=== PATIENT | female | born 1940 | race Caucasian/White ===

== ENCOUNTER 2016-09-18 08:30 | Inpatient (IN) | payer MEDICARE ==
[2016-09-18 08:30] LABS: Glucose,Whole Blood 80 mg/dL (75-99)
[~2016-09-18 08:30] MED LIST: CLINDAMYCIN 600 MG in SODIUM CHLORIDE 0.9% IRRIGATIO 250 ML IRRIGATION ONE; CLINDAMYCIN 900 MG in DEXTROSE 5% IN WATER 50 ML IVPB ONE; SODIUM CHLORIDE 0.9% 500 ML IV ONE
[2016-09-18 08:45] VITALS: BMI 29.0
[2016-09-18] MEDS ORDERED: IODIXANOL 320 MG/ML 100 ML IV ONE (09:08)
[2016-09-18] MEDS: MIDAZOLAM 2 MG/2 ML VIAL IVP ONE ×3 (09:29→09:45)
[2016-09-18] MEDS: fentaNYL (PF) 50 MCG/ML 2 ML AMP IV ONE ×3 (09:42→09:55)
[2016-09-18] MEDS ORDERED: LIDOCAINE 1% INJ 10MG/ML (20 ML MDV) SQ ONE ×3 (09:43→10:25)
--- NOTE | 2016-09-18 10:57 | P.PCN ---
Date of Procedure: 09/18/16 Preoperative Diagnosis: Symptoms of syncope and high degree AV block Postoperative Diagnosis: The same Procedure(s) Performed: Axillary venography, dual chamber permanent pacemaker implantation Description of Procedure: HISTORY: This is a 76-year-old female who was admitted to [facility] and was noted to have recurrent episodes of syncope and high degree AV block with pauses up to 6 seconds. Patient has underlying left bundle. Patient was recommended to have permanent pacemaker by Dr. Cui. Patient is transferred to this institution for pacemaker insertion. Her baseline creatinine is 1.37, potassium today. 5.6. Repeat test are pending . CONSENT:I have discussed the risks, benefits and alternative therapies for the above-mentioned procedure and for both sedation/analgesia as well as necessary blood product administration, if indicated, as they pertain to this patient. The patient has indicated understanding and acceptance of the risks and procedures discussed. PROCEDURE: Patient was brought to the lab in a fasting state. Patient was prepped and draped in the usual fashion. Patient was given IV sedation with fentanyl and Versed. The skin below the left clavicle was infiltrated with lidocaine. An incision was made parallel to deltopectoral groove was deepened until the pectoral fascia was exposed. A pocket was created by blunt dissection and cautery. Axillary venography was performed to delineate the course of the axillary vein. 2 sticks were performed into extrathoracic portion of the axillary vein and 2 sheaths were advanced over the guidewires and left in subclavian vein. LEADS: ATRIAL: This is manufactured by [employer]. Model number is [id number]. Serial number is [id number]. VENTRICULAR: This is manufactured by [employer]. Model number is [id number] and the serial number is [id number] THE DEVICE: His is manufactured by [employer]. Model number is [id number]. Serial number is [id number]. The device and the leads are MRI capable. The ventricular lead is maneuvered l with help of a straight and curved stylets into the left ventricle apical region. Satisfactory position was obtained and threshold measurements were made. The atrial lead was then maneuvered into the right atrial appendage. And thresholds were obtained. THRESHOLDS: ATRIUM: The minimal threshold is 0.7 V at the also width of 0.5 ms. The impedance is 6 and 60 ohms. The P-wave is 3.9 mV VENTRICLE : The minimal patient threshold was 0.6 V at pulse width of 0.5 ms. The impedance is 1209. And the R waves are 18 mV. The leads and pulse generator remained in the pocket after it was washed with antibiotics. Pocket was closed in the usual fashion. The fascia was closed with 2-0 Prolene ,the subcutaneous tissue was closed with 3-0 Prolene and the skin was closed with 4-0 Prolene. PROGRAMMING: MODE: DDD RATE: 60-120 OUTPUT: Atrium 3.5 at 0.5 ms ventricle : 3.5 at 0.5 ms FINAL IMPRESSION: #1. Axillary venography #2. Successful dual-chamber pacemaker insertion COMPLICATIONS: None PLAN: Patient will be monitored on the telemetry unit. Prophylactic antibiotics and be continued. Chest x-ray in the morning. Further recommendations depend upon clinical course
[2016-09-18 11:36] LABS: Glucose,Whole Blood 75 mg/dL (75-99)
[2016-09-18] MEDS ORDERED: DICLOFENAC SODIUM GEL 100 GM TUBE TOPICAL PRN (12:42)
[2016-09-18] MEDS ORDERED: IBUPROFEN 400 MG TAB PO SCH (12:42)
[2016-09-18] MEDS ORDERED: [UNRECOGNIZED DRUG - OTHER] NASAL PRN (12:42)
[2016-09-18] MEDS ORDERED: ALBUTEROL NEBULIZED 2.5 MG/3 ML INHALATION PRN (12:42)
[2016-09-18] MEDS: ACETAMINOPHEN TAB 325 MG TAB PO PRN ×3 (12:44→22:38)
[2016-09-18] MEDS: SODIUM CHLORIDE 0.9% 1,000 ML IV SCH (14:39)
[2016-09-18 16:27] LABS: Glucose,Whole Blood 82 mg/dL (75-99)
--- NOTE | 2016-09-18 16:49 | P.HPIM ---
History of Present Illness H&P Date: 09/18/16 Chief Complaint: Syncope, pneumonia Patient is a 76-year-old female, patient of Dr. Mortensen in the outpatient setting, with a medical history significant for GERD, bronchitis, asthma, diabetes mellitus type 2, osteoporosis, hypertension, hypothyroidism, lupus, arthritis, chronic back pain with history of spinal fractures, and large hiatal hernia. Patient presenting to [facility] this morning as a transfer from [facility] with evidence of complete AV block , symptomatic. Patient was originally admitted to [facility] 2 days ago with progressive dyspnea and fatigue having failed outpatient treatment with Zithromax for pneumonia. During patient's hospital stay, she had 2 episodes of syncope with documented 6 second pauses with total AV block on telemetry. This morning, patient was taken to the cardiac catheterization lab where she underwent insertion of dual-chamber permanent pacemaker. Patient tolerated procedure well. Upon examination, patient is lying in bed with family at bedside. Patient reports feeling fatigued. Patient complains of back pain. Patient reports numbness to her bilateral ring and little fingers, which has been ongoing for a while. Patient reports chronic swelling to her bilateral feet but states they' re a lot better than what they normally are. Denies chills, fevers, nausea, vomiting, increased shortness of breath, chest pain, palpitations, abdominal pain, or leg pain. Patient is urinating without difficulty. Denies dysuria, hematuria, or urgency. Patient reports good appetite. Patient remains afebrile. Hemodynamically stable. Past Medical History Past Medical History: Hypertension, Thyroid Disorder Additional Past Medical History / Comment(s): lupus History of Any Multi-Drug Resistant Organisms: None Reported Past Surgical History: Appendectomy, Cholecystectomy Additional Past Surgical History / Comment(s): nasal surgery Past Anesthesia/Blood Transfusion Reactions: No Reported Reaction Past Psychological History: No Psychological Hx Reported Smoking Status: Former smoker Past Alcohol Use History: None Reported Past Drug Use History: None Reported Medications and Allergies Home Medications Medication Instructions Recorded Confirmed Type Albuterol Nebulized [Ventolin 2.5 mg INHALATION RT-Q6H PRN 01/15/16 09/18/16 History Nebulized] Hydroxychloroquine Sulfate 400 mg PO BID 01/15/16 09/18/16 History [Plaquenil] Levothyroxine Sodium [Synthroid] 125 mcg PO DAILY 01/15/16 09/18/16 History Losartan [Cozaar] 100 mg PO DAILY 01/15/16 09/18/16 History Omeprazole [PriLOSEC] 40 mg PO QAM 01/15/16 09/18/16 History amLODIPine [Norvasc] 10 mg PO DAILY 01/15/16 09/18/16 History predniSONE 5 mg PO BID 01/15/16 09/18/16 History Calcium Carbonate [Calcium] 1,200 mg PO DAILY 01/16/16 09/18/16 History Cholecalciferol [Vitamin D3] 1,000 unit PO DAILY 01/16/16 09/18/16 History Cyanocobalamin (Vitamin B-12) 2,000 mcg PO DAILY 01/16/16 09/18/16 History [Vitamin B-12] Montelukast [Singulair] 10 mg PO HS 01/16/16 09/18/16 History Vitafusion 1 caplet PO DAILY 01/16/16 09/18/16 History Azelastine HCl [Astepro] 2 spray EA NOSTRIL BID 09/18/16 09/18/16 History Furosemide [Furosemide] 20 mg PO BID 09/18/16 09/18/16 History Lidocaine [Lidocaine] 2 patch TOPICAL DAILY 09/18/16 09/18/16 History Allergies Allergy/AdvReac Type Severity Reaction Status Date / Time aspirin Allergy Unknown Verified 09/18/16 13:46 codeine Allergy Rash/Hives Verified 09/18/16 13:46 indomethacin [From Indocin] Allergy Unknown Verified 09/18/16 13:46 levofloxacin [From Levaquin] Allergy Unknown Verified 09/18/16 13:46 methylprednisolone Allergy Unknown Verified 09/18/16 13:46 [From Medrol] Penicillins Allergy Unknown Verified 09/18/16 13:46 Sulfa (Sulfonamide Allergy Rash/Hives Verified 01/17/16 09:50 Antibiotics) meloxicam [From Mobic] AdvReac stomache Verified 01/17/16 09:50 pain NSAIDS (Non-Steroidal AdvReac Abdominal Verified 09/18/16 13:46 Anti-Inflamma Pain oxaprozin [From Daypro] AdvReac Abdominal Verified 09/18/16 13:46 Pain prochlorperazine AdvReac Nausea & Verified 01/17/16 09:50 [From Compazine] Vomiting prochlorperazine edisylate AdvReac Nausea & Verified 01/17/16 09:50 [From Compazine] Vomiting and headache prochlorperazine maleate AdvReac Nausea & Verified 09/18/16 13:46 [From Compazine] Vomiting salsalate [From Disalcid] AdvReac Abdominal Verified 01/17/16 09:50 Pain vortioxetine hydrobromide AdvReac Abdominal Verified 01/17/16 09:50 [From Trintellix] Pain Physical Exam Vitals: Vital Signs Temp Pulse Pulse Resp BP Pulse Ox 09/18/16 14:32 82 96/58 93 L 09/18/16 13:32 87 16 97/55 95 09/18/16 12:32 94 16 103/53 95 09/18/16 12:02 89 16 93/66 96 09/18/16 11:32 98.1 F 98 16 111/65 95 09/18/16 11:17 87 16 108/62 95 09/18/16 11:06 93 16 111/63 95 09/18/16 08:31 98.5 F 86 16 125/67 94 L 09/18/16 07:51 98.5 F 86 16 125/67 16 L Intake and Output 09/18/16 09/18/16 09/18/16 06:59 14:59 22:59 Intake Total 346 Balance 346 Intake: IV 256 Sodium Chloride 0.9% 1, 0 000 ml @ 20 mls/hr IV . Q24H [facility] Rx#:[id number] Oral 90 Other: Voiding Method Indwelling Catheter Weight 67.3 kg Patient Weight 09/19/16 06:59 Weight 67.3 kg GENERAL: Pt awake and alert, well-appearing, well-nourished, and in no acute distress. HEAD: Atraumatic, normocephalic. EYES: Pupils equal, round, and reactive to light, extraocular movements intact, sclera anicteric, conjunctiva are normal. ENT: Oropharynx clear without exudates. Moist mucous membranes. Tongue smooth, pink, no lesions, protrudes in midline. NECK:Normal range of motion, supple without lymphadenopathy or JVD. LUNGS: Breath sounds diminished to auscultation bilaterally. No wheezes, rales , or rhonchi. HEART: Heart S1, S2, no S3 or S4. Regular rate and rhythm. Systolic murmur. ABDOMEN: Soft, nontender, nondistended, normoactive bowel sounds. No guarding, no rebound. No masses or organomegaly appreciated. EXTREMITIES: Palpable peripheral pulses. 1+ edema to bilateral lower extremities. No calf tenderness. Left upper extremity in sling. NEUROLOGICAL: Pt oriented x 3. No focal deficits noted. Strength and sensation grossly intact. PSYCH: Normal mood, normal affect. SKIN: Warm, dry. No rashes or lesions. Dressing to incision to left chest dry and intact. Thrombosis Risk Factor Assmnt - DVT/VTE Prophylaxis DVT/VTE Prophylaxis: Pharmacologic Prophylaxis ordered - Choose All That Apply Any of the Below Risk Factors Present?: No Other Risk Factors: Yes Each Risk Factor Represents 3 Points: Age 75 years or older Thrombosis Risk Factor Assessment Total Risk Factor Score: 3 Thrombosis Risk Factor Assessment Level: Moderate Risk Assessment and Plan Plan: Impression and plan: 1. Syncope suspect secondary to complete AV block status post permanent dual- chamber pacemaker insertion. Cardiology has seen and evaluated patient, recommendations reviewed. 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 Pacemaker to be interrogated in a.m. 2. History of pneumonia, failed outpatient treatment. Continue nebulized updraft treatments. Reconsult pulmonary service, conditions pending. 3. Hypertension. Continue hydrochlorothiazide. 4. Chronic renal failure, stage III. 5. GERD. Continue Protonix. 6. History of bronchitis. 7. Asthma. Continue Singulair. 8. Osteoporosis. Maintain fall precautions. Continue calcium and vitamin D. 9. Hypothyroidism. Continue Synthroid. 10. Lupus. Continue prednisone. Continue Plaquenil. 11. Chronic back pain with history of spinal fractures. Continue Tylenol for pain. Consult PT/OT to help with discharge planning. 12. Peripheral neuropathy. 13. Large hiatal hernia. 14. Diabetes mellitus type 2, controlled. Last hemoglobin A1c 6.6. Accu- Cheks before meals at bedtime with Humalog sliding scale. Consistent carbohydrate diet. Continue to monitor patient. Continue current medications. Continue to follow with pulmonary and cardiology. Continue GI and DVT prophylaxis. Repeat CBC and BMP in a.m. Repeat chest x-ray in a.m. The above impression and plan have been discussed and directed by Dr. Mortensen. Zack ARMAS acting as scribe for Dr. Mortensen.
[2016-09-18] MEDS: CLINDAMYCIN 900 MG in DEXTROSE 5% IN WATER 50 ML IVPB SCH ×4 (17:30→20:44)
[2016-09-18] MEDS: INSULIN LISPRO (humaLOG) 300 UNIT/3 ML VIAL SQ SCH ×2 (17:30→22:34)
[2016-09-18] MEDS ORDERED: predniSONE 5 MG TAB PO SCH (17:30)
[2016-09-18] MEDS: BUDESONIDE 0.5 MG/2 ML NEBU INHALATION SCH (18:05)
[2016-09-18] MEDS: HYDROXYCHLOROQUINE SULFATE 200 MG TAB PO SCH (20:44)
[2016-09-18] MEDS: MONTELUKAST 10 MG TAB PO SCH (20:44)
[2016-09-18] MEDS: predniSONE 5 MG TAB PO SCH (20:44)
[2016-09-18] MEDS: AZITHROMYCIN 500 MG in SODIUM CHLORIDE 0.9% 250 ML IVPB SCH (20:44)
[2016-09-18] MEDS ORDERED: OFLOXACIN 0.3% OPHTH DROPS 5 ML BOTTLE BOTH EARS SCH (21:00)
[2016-09-18 22:03] LABS: Glucose,Whole Blood 108 mg/dL (75-99)
[2016-09-18] MEDS: ALPRAZolam 0.25 MG TAB PO PRN (22:37)
[2016-09-19] MEDS: CLINDAMYCIN 900 MG in DEXTROSE 5% IN WATER 50 ML IVPB SCH ×4 (03:56→09:17)
[2016-09-19 06:15] LABS: Basophils % (A) 0 %; CH 32.3; CHCM 33.1; Eosinophils # (A) 0.1 k/uL (0-0.7); Eosinophils % (A) 1 %; HCT 32.6 % (34.0-46.0); HDW 2.59; HGB 10.7 gm/dL (11.4-16.0); Luc # (Auto) 0.13; Luc % (Auto) 1; Lymphocytes # (A) 0.9 k/uL (1.0-4.8); Lymphocytes % (A) 8 %; MCH 32.3 pg (25.0-35.0); MCHC 32.8 g/dL (31.0-37.0); MCV 98.4 fL (80.0-100.0); Mean Platelet Volume 6.6; Monocytes # (A) 0.6 k/uL (0-1.0); Monocytes % (A) 6 %; Neutrophils % (A) 84 %; RBC 3.31 m/uL (3.80-5.40); RDW 13.1 % (11.5-15.5); WBC 10.7 k/uL (3.8-10.6); WBC (Perox) 10.88
[2016-09-19] MEDS: INSULIN LISPRO (humaLOG) 300 UNIT/3 ML VIAL SQ SCH ×4 (06:32→21:04)
[2016-09-19] MEDS: LEVOTHYROXINE 125 MCG TAB PO SCH (06:32)
[2016-09-19] MEDS: PANTOPRAZOLE 40 MG TABLET PO SCH (06:32)
[2016-09-19 06:35] LABS: Glucose,Whole Blood 83 mg/dL (75-99)
[2016-09-19] MEDS: ACETAMINOPHEN TAB 325 MG TAB PO PRN ×3 (06:35→20:57)
[2016-09-19 06:37] LABS: Calcium 8.9 mg/dL (8.4-10.2); Magnesium 1.8 mg/dL (1.6-2.3); Phosphorous 4.1 mg/dL (2.5-4.5); Potassium 4.9 mmol/L (3.5-5.1); Total Bilirubin 0.6 mg/dL (0.2-1.3); Total Protein 4.9 g/dL (6.3-8.2)
--- NOTE | 2016-09-19 07:23 | XR ---
EXAMINATION TYPE: XR chest 2V DATE OF EXAM: 09/19/2016 7:15 AM COMPARISON: CT chest April 04, 2016. HISTORY: Pacemaker insertion. TECHNIQUE: Frontal and lateral views of the chest are obtained. FINDINGS: There is no focal air space opacity or pneumothorax seen. Tiny bilateral pleural effusion s with blunting of bilateral posterior and lateral costophrenic angles. The cardiac silhouette size r emains enlarged. There is new dual lead pacemaker with leads in right atrium and right ventricle. T he osseous structures are demineralized. There is exaggerated thoracic kyphosis with compression type fractures redemonstrated near the thoracolumbar junction. Prominent bridging osteophytes are redemon strated. IMPRESSION: New dual lead pacemaker with leads in right atrium and right ventricle. No evidence of c omplication related to pacemaker placement. Cardiomegaly with new small bilateral pleural effusions n oted.
[2016-09-19] MEDS: BUDESONIDE 0.5 MG/2 ML NEBU INHALATION SCH ×2 (08:56→20:27)
[2016-09-19] MEDS: SODIUM CHLORIDE 0.9% 1,000 ML IV SCH (09:14)
[2016-09-19] MEDS: HYDROCHLOROTHIAZIDE 25 MG TAB PO SCH (09:16)
[2016-09-19] MEDS: HYDROXYCHLOROQUINE SULFATE 200 MG TAB PO SCH ×2 (09:16→20:56)
[2016-09-19] MEDS: AZITHROMYCIN 500 MG in SODIUM CHLORIDE 0.9% 250 ML IVPB SCH (09:16)
[2016-09-19] MEDS: predniSONE 5 MG TAB PO SCH ×2 (09:17→20:57)
[2016-09-19] MEDS: ALBUTEROL NEBULIZED 2.5 MG/3 ML INHALATION SCH ×4 (10:43→20:27)
--- NOTE | 2016-09-19 11:35 | PN ---
DATE OF SERVICE: 09/18/2016 This note was actually for seeing her on the 27th report [id number] last p.m. same p.m. ( ) post placement the patient is being seen post placement of a pacemaker. She is doing well. No cough. No shortness of breath at this time. It is to be noted that a CT scan of the lung was completed just before she was transferred here for the pacemaker. It did show bilateral atelectasis with some streaking which might be a resemblance of still some mild underlying pneumonia. At this time her chest is essentially clear to auscultation. HEART: Sinus rhythm. No murmur. ABDOMEN: Soft, nontender, with no organomegaly. Capture is right around 70 beats per minute. Negative extremities. Her vital signs at this point tonight 109/68 blood pressure, heart rate is somewhere between 70 and 90, temperature is 97.2 and respiratory rate is 16 with a 95 O2 sat. ASSESSMENT: 1. Syncope, post complete heart block with pauses up to 6 seconds. 2. Resolving pneumonia. 3. History of chronic obstructive pulmonary disease. 4. Systemic lupus erythematosus. 5. Osteoporosis. 6. Gastroesophageal reflux disease on Protonix. 7. Hypertension, which has been stable. 8. Chronic back pain with a history of some compression fractures. 9. Large hiatal hernia. 10. Type 2 diabetes, which has been well controlled. Hemoglobin A1c of 6.2. PLAN: I added erythromycin to her, we will get a chest x-ray in the morning. Comfort care today, which includes continue with same medications. If patient continues to do well, she can be discharged in the morning after evaluation of the chest x-ray.
[2016-09-19 11:49] LABS: Hemoglobin A1C 6.3 % (4.2-6.1)
[2016-09-19 12:11] LABS: Glucose,Whole Blood 66 mg/dL (75-99)
[2016-09-19 12:40] LABS: Glucose,Whole Blood 97 mg/dL (75-99)
--- NOTE | 2016-09-19 13:58 | P.PN ---
Subjective Principal diagnosis: Syncope, pneumonia Patient is a 76-year-old female, patient of Dr. Mortensen in the outpatient setting, with a medical history significant for GERD, bronchitis, asthma, diabetes mellitus type 2, osteoporosis, hypertension, hypothyroidism, lupus, arthritis, chronic back pain with history of spinal fractures, and large hiatal hernia. Patient presenting to [facility] this morning as a transfer from [facility] with evidence of complete AV block , symptomatic. Patient was originally admitted to [facility] 2 days ago with progressive dyspnea and fatigue having failed outpatient treatment with Zithromax for pneumonia. Computed tomography scan of the lungs completed at [facility] with evidence of bilateral atelectasis with some streaking suggesting assemblance of some mild underlying pneumonia. During patient's hospital stay, she had 2 episodes of syncope with documented 6 second pauses with total AV block on telemetry. Patient was transferred to [facility] cardiac catheterization lab where she underwent insertion of dual-chamber permanent pacemaker. Patient tolerated procedure well. Chest x-ray post procedure with no evidence of complication related to pacemaker placement. Upon exam, patient is feeling better. Patient reports improvement in back pain but still reports generalized weakness. Denies chills, fevers, nausea, vomiting , palpitations, chest pain, or abdominal pain. Patient is urinating without difficulty. Patient is tolerating a diet. Patient has been evaluated by physical therapy who is currently recommending subacute rehab for patient upon discharge. Pulmonary service consult in place for persistent pneumonia, recommendations pending. Patient continues on Zithromax. No evidence of fevers. Oxygen saturation 94% on room air. Objective - Vital Signs Vital signs: Vital Signs Temp 97.0 F L 09/19/16 08:00 Pulse 92 09/19/16 11:42 Resp 17 09/19/16 04:00 BP 97/55 09/19/16 08:00 Pulse Ox 94 L 09/19/16 08:00 Intake & Output 09/18/16 09/19/16 09/19/16 18:59 06:59 18:59 Intake Total 346 670 280 Output Total 550 500 Balance -204 670 -220 Weight 67.3 kg 67.1 kg Intake: IV 256 320 Sodium Chloride 0.9% 1, 0 320 000 ml @ 20 mls/hr IV . Q24H [facility] Rx#:[id number] Intake, IV Titration 350 Amount Azithromycin 500 mg In 250 Sodium Chloride 0.9% 250 ml @ 125 mls/hr IVPB DAILY [facility] Rx#:[id number] Clindamycin 900 mg In 100 Dextrose 5% in Water 50 ml @ 100 mls/hr IVPB Q6H [facility] Rx#:[id number] Oral 90 280 Output: Urine 550 500 Other: Voiding Method Indwelling Catheter Indwelling Catheter Indwelling Catheter # Bowel Movements 0 - Exam GENERAL: Pt awake and alert, well-appearing, well-nourished, and in no acute distress. HEAD: Atraumatic, normocephalic. EYES: Pupils equal, round, and reactive to light, extraocular movements intact, sclera anicteric, conjunctiva are normal. ENT: Oropharynx clear without exudates. Moist mucous membranes. Tongue smooth, pink, no lesions, protrudes in midline. NECK:Normal range of motion, supple without lymphadenopathy or JVD. LUNGS: Breath sounds diminished to auscultation bilaterally. No wheezes, rales , or rhonchi. HEART: Heart S1, S2, no S3 or S4. Regular rate and rhythm. Systolic murmur. ABDOMEN: Soft, nontender, nondistended, normoactive bowel sounds. No guarding, no rebound. No masses or organomegaly appreciated. EXTREMITIES: Palpable peripheral pulses. 1+ edema to bilateral lower extremities. No calf tenderness. Left upper extremity in sling. NEUROLOGICAL: Pt oriented x 3. No focal deficits noted. Strength and sensation grossly intact. PSYCH: Normal mood, normal affect. SKIN: Warm, dry. No rashes or lesions. Dressing to incision to left chest dry and intact. - Labs CBC & Chem 7: 09/19/16 05:43 09/19/16 05:43 Labs: Abnormal Lab Results - Last 24 Hours (Table) 09/18/16 09/19/16 09/19/16 Range/Units 21:35 05:43 05:43 WBC 10.7 H (3.8-10.6) k/uL RBC 3.31 L (3.80-5.40) m/uL Hgb 10.7 L (11.4-16.0) gm/dL Hct 32.6 L (34.0-46.0) % Neutrophils # 9.0 H (1.3-7.7) k/uL Lymphocytes # 0.9 L (1.0-4.8) k/uL Sodium 136 L (137-145) mmol/L Chloride 108 H (98-107) mmol/L BUN 39 H (7-17) mg/dL Creatinine 1.30 H (0.52-1.04) mg/dL POC Glucose (mg/dL) 108 H (75-99) mg/dL Hemoglobin A1c (4.2-6.1) % ALT 62 H (9-52) U/L Total Protein 4.9 L (6.3-8.2) g/dL Albumin 2.7 L (3.5-5.0) g/dL 09/19/16 09/19/16 Range/Units 05:43 12:05 WBC (3.8-10.6) k/uL RBC (3.80-5.40) m/uL Hgb (11.4-16.0) gm/dL Hct (34.0-46.0) % Neutrophils # (1.3-7.7) k/uL Lymphocytes # (1.0-4.8) k/uL Sodium (137-145) mmol/L Chloride (98-107) mmol/L BUN (7-17) mg/dL Creatinine (0.52-1.04) mg/dL POC Glucose (mg/dL) 66 L (75-99) mg/dL Hemoglobin A1c 6.3 H (4.2-6.1) % ALT (9-52) U/L Total Protein (6.3-8.2) g/dL Albumin (3.5-5.0) g/dL Assessment and Plan Plan: Impression and plan: 1. Syncope secondary to complete AV block status post permanent dual-chamber pacemaker insertion. Cardiology has seen and evaluated patient, recommendations reviewed. 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 2. Resolving pneumonia, failed outpatient treatment. Continue nebulized updraft treatments. Pulmonary consult in place, recommendations pending. 3. Hypertension. Continue hydrochlorothiazide. 4. Chronic renal failure, stage III. 5. GERD. Continue Protonix. 6. History of bronchitis. 7. Asthma. Continue Singulair. 8. Osteoporosis. Maintain fall precautions. Continue calcium and vitamin D. 9. Hypothyroidism. Continue Synthroid. 10. Lupus. Continue prednisone. Continue Plaquenil. 11. Chronic back pain with history of spinal fractures. Continue Tylenol for pain. Consult PT/OT to help with discharge planning. At this time they're recommending subacute rehab. 12. Peripheral neuropathy. 13. Large hiatal hernia. 14. Diabetes mellitus type 2, controlled. Hemoglobin A1c 6.. Accu-Cheks before meals at bedtime with Humalog sliding scale. Consistent carbohydrate diet. Continue to monitor patient. Continue current medications. Continue to follow with pulmonary and cardiology. Continue GI and DVT prophylaxis. Repeat CBC and BMP in a.m. The above impression and plan have been discussed and directed by Dr. Mortensen. Zack ARMAS acting as scribe for Dr. Mortensen.
--- NOTE | 2016-09-19 14:56 | P.PN ---
Subjective Principal diagnosis: S/P post pacemaker implantation This is a 76-year-old female who was admitted to [facility] and was noted to have recurrent episodes of syncope and high degree AV block with pauses up to 6 seconds. Patient has underlying left bundle. Patient was recommended to have permanent pacemaker by Dr. Cui.'s was performed yesterday by Dr. Bowden. The device was interrogated this morning and is functioning appropriately. Chest x-ray was reviewed does not reveal any evidence of a pneumothorax. Pressure 98/60 with a heart rate in the 90s. Objective - Vital Signs Vital signs: Vital Signs Temp 97.0 F L 09/19/16 08:00 Pulse 92 09/19/16 11:42 Resp 17 09/19/16 04:00 BP 97/55 09/19/16 08:00 Pulse Ox 94 L 09/19/16 08:00 Intake & Output 09/18/16 09/19/16 09/19/16 18:59 06:59 18:59 Intake Total 346 670 280 Output Total 550 500 Balance -204 670 -220 Weight 67.3 kg 67.1 kg Intake: IV 256 320 Sodium Chloride 0.9% 1, 0 320 000 ml @ 20 mls/hr IV . Q24H [facility] Rx#:[id number] Intake, IV Titration 350 Amount Azithromycin 500 mg In 250 Sodium Chloride 0.9% 250 ml @ 125 mls/hr IVPB DAILY [facility] Rx#:[id number] Clindamycin 900 mg In 100 Dextrose 5% in Water 50 ml @ 100 mls/hr IVPB Q6H [facility] Rx#:[id number] Oral 90 280 Output: Urine 550 500 Other: Voiding Method Indwelling Catheter Indwelling Catheter Indwelling Catheter # Bowel Movements 0 - Exam PHYSICAL EXAMINATION: HEENT: Head is atraumatic, normocephalic. Pupils equal, round. Neck is supple. There is no elevated jugular venous pressure. HEART EXAMINATION: [Heart S1, S2 systolic murmur heard CHEST EXAMINATION: Lungs are clear to auscultation and precussion. No chest wall tenderness is noted on palpation or with deep breathing. Pacemaker implantation clean and dry. ABDOMEN: Soft, nontender. Bowel sounds are heard. No organomegaly noted. EXTREMITIES: 2+ peripheral pulses with evidence of peripheral edema and no calf tenderness noted. NEUROLOGIC patient is awake, alert and oriented -3. . - Labs CBC & Chem 7: 09/19/16 05:43 09/19/16 05:43 Labs: Abnormal Lab Results - Last 24 Hours (Table) 09/18/16 09/19/16 09/19/16 Range/Units 21:35 05:43 05:43 WBC 10.7 H (3.8-10.6) k/uL RBC 3.31 L (3.80-5.40) m/uL Hgb 10.7 L (11.4-16.0) gm/dL Hct 32.6 L (34.0-46.0) % Neutrophils # 9.0 H (1.3-7.7) k/uL Lymphocytes # 0.9 L (1.0-4.8) k/uL Sodium 136 L (137-145) mmol/L Chloride 108 H (98-107) mmol/L BUN 39 H (7-17) mg/dL Creatinine 1.30 H (0.52-1.04) mg/dL POC Glucose (mg/dL) 108 H (75-99) mg/dL Hemoglobin A1c (4.2-6.1) % ALT 62 H (9-52) U/L Total Protein 4.9 L (6.3-8.2) g/dL Albumin 2.7 L (3.5-5.0) g/dL 09/19/16 09/19/16 Range/Units 05:43 12:05 WBC (3.8-10.6) k/uL RBC (3.80-5.40) m/uL Hgb (11.4-16.0) gm/dL Hct (34.0-46.0) % Neutrophils # (1.3-7.7) k/uL Lymphocytes # (1.0-4.8) k/uL Sodium (137-145) mmol/L Chloride (98-107) mmol/L BUN (7-17) mg/dL Creatinine (0.52-1.04) mg/dL POC Glucose (mg/dL) 66 L (75-99) mg/dL Hemoglobin A1c 6.3 H (4.2-6.1) % ALT (9-52) U/L Total Protein (6.3-8.2) g/dL Albumin (3.5-5.0) g/dL Assessment and Plan (1) Syncope Status: Acute (2) S/P cardiac pacemaker procedure Status: Acute (3) HTN (hypertension) Status: Acute (4) GERD (gastroesophageal reflux disease) Status: Acute (5) Asthma Status: Acute Plan: From cardiology's perspective, patient may be able to be discharged once cleared by the primary. We'll make her a follow-up appointment in the office in one week post discharge. She will continue on antibiotics for 3 days. DNP note has been reviewed, I agree with a documented findings and plan of care. Patient was seen and examined.
--- NOTE | 2016-09-19 16:23 | P.CNPUL ---
History of Present Illness Consult date: 09/19/16 Reason for consult: asthma Chief complaint: Syncope with complete heart block History of present illness: This is a 76-year-old female who presented to [facility] for pacemaker placement. The patient was initially seen at [facility] and had a syncopal episode. She was found to have complete heart block and was transferred to [facility] for pacemaker placement. The patient has been on azithromycin for several weeks. She denies any shortness of breath or cough. She denies fevers and chills. She states she just "doesn't feel well." The patient does have a history of asthma. The computed tomography scan of the chest that was done at [facility] is reviewed. There is no evidence of pneumonia. There is cardiomegaly, mild central vascular congestion, large hiatal hernia with linear atelectasis. There is no evidence of infiltrate or consolidation consistent with pneumonia. The patient also had a chest x-ray this morning which is reviewed. It shows very small bilateral pleural effusions, cardiomegaly, new pacemaker. Review of Systems All systems: negative Past Medical History Past Medical History: Hypertension, Thyroid Disorder Additional Past Medical History / Comment(s): lupus History of Any Multi-Drug Resistant Organisms: None Reported Past Surgical History: Appendectomy, Cholecystectomy Additional Past Surgical History / Comment(s): nasal surgery Past Anesthesia/Blood Transfusion Reactions: No Reported Reaction Past Psychological History: No Psychological Hx Reported Smoking Status: Former smoker Past Alcohol Use History: None Reported Past Drug Use History: None Reported Medications and Allergies Home Medications Medication Instructions Recorded Confirmed Type Albuterol Nebulized [Ventolin 2.5 mg INHALATION RT-Q6H PRN 01/15/16 09/18/16 History Nebulized] Hydroxychloroquine Sulfate 400 mg PO BID 01/15/16 09/18/16 History [Plaquenil] Levothyroxine Sodium [Synthroid] 125 mcg PO DAILY 01/15/16 09/18/16 History Losartan [Cozaar] 100 mg PO DAILY 01/15/16 09/18/16 History Omeprazole [PriLOSEC] 40 mg PO QAM 01/15/16 09/18/16 History amLODIPine [Norvasc] 10 mg PO DAILY 01/15/16 09/18/16 History predniSONE 5 mg PO BID 01/15/16 09/18/16 History Calcium Carbonate [Calcium] 1,200 mg PO DAILY 01/16/16 09/18/16 History Cholecalciferol [Vitamin D3] 1,000 unit PO DAILY 01/16/16 09/18/16 History Cyanocobalamin (Vitamin B-12) 2,000 mcg PO DAILY 01/16/16 09/18/16 History [Vitamin B-12] Montelukast [Singulair] 10 mg PO HS 01/16/16 09/18/16 History Vitafusion 1 caplet PO DAILY 01/16/16 09/18/16 History Azelastine HCl [Astepro] 2 spray EA NOSTRIL BID 09/18/16 09/18/16 History Furosemide [Furosemide] 20 mg PO BID 09/18/16 09/18/16 History Lidocaine [Lidocaine] 2 patch TOPICAL DAILY 09/18/16 09/18/16 History Allergies Allergy/AdvReac Type Severity Reaction Status Date / Time aspirin Allergy Unknown Verified 09/18/16 13:46 codeine Allergy Rash/Hives Verified 09/18/16 13:46 indomethacin [From Indocin] Allergy Unknown Verified 09/18/16 13:46 levofloxacin [From Levaquin] Allergy Unknown Verified 09/18/16 13:46 methylprednisolone Allergy Unknown Verified 09/18/16 13:46 [From Medrol] Penicillins Allergy Unknown Verified 09/18/16 13:46 Sulfa (Sulfonamide Allergy Rash/Hives Verified 01/17/16 09:50 Antibiotics) meloxicam [From Mobic] AdvReac stomache Verified 01/17/16 09:50 pain NSAIDS (Non-Steroidal AdvReac Abdominal Verified 09/18/16 13:46 Anti-Inflamma Pain oxaprozin [From Daypro] AdvReac Abdominal Verified 09/18/16 13:46 Pain prochlorperazine AdvReac Nausea & Verified 01/17/16 09:50 [From Compazine] Vomiting prochlorperazine edisylate AdvReac Nausea & Verified 01/17/16 09:50 [From Compazine] Vomiting and headache prochlorperazine maleate AdvReac Nausea & Verified 09/18/16 13:46 [From Compazine] Vomiting salsalate [From Disalcid] AdvReac Abdominal Verified 01/17/16 09:50 Pain vortioxetine hydrobromide AdvReac Abdominal Verified 01/17/16 09:50 [From Trintellix] Pain Physical Exam Osteopathic Statement: *. No significant issues noted on an osteopathic structural exam other than those noted in the History and Physical/Consult. Vitals: Vital Signs Temp Pulse Pulse Resp BP Pulse Ox 09/19/16 12:00 95 89/57 96 09/19/16 11:42 92 09/19/16 11:23 98 09/19/16 08:00 97.0 F L 93 97/55 94 L 09/19/16 04:00 97.1 F L 89 17 114/71 96 09/19/16 00:00 97.2 F L 96 17 109/68 95 09/18/16 20:00 97.6 F 94 17 100/55 93 L 09/18/16 18:17 88 09/18/16 18:05 90 Intake and Output 09/19/16 09/19/16 09/19/16 06:59 14:59 22:59 Intake Total 210 280 Output Total 500 Balance 210 -220 Intake: IV 160 Sodium Chloride 0.9% 1, 160 000 ml @ 20 mls/hr IV . Q24H RENAN Rx#:[id number] Intake, IV Titration 50 Amount Clindamycin 900 mg In 50 Dextrose 5% in Water 50 ml @ 100 mls/hr IVPB Q6H RENAN Rx#:[id number] Oral 280 Output: Urine 500 Other: Voiding Method Indwelling Catheter Indwelling Catheter Weight 67.1 kg Gen.: Patient is alert and oriented 3, no acute distress Cardiovascular: Regular rate and rhythm, S1/S2 Lungs: Clear to auscultation bilaterally no wheezes rales or rhonchi Abdomen: Soft nontender nondistended positive bowel sounds Extremities: Trace edema Results - Laboratory Findings CBC and BMP: 09/19/16 05:43 09/19/16 05:43 Abnormal lab findings: Abnormal Labs 09/18/16 09/19/16 09/19/16 21:35 05:43 05:43 WBC 10.7 H RBC 3.31 L Hgb 10.7 L Hct 32.6 L Neutrophils # 9.0 H Lymphocytes # 0.9 L Sodium 136 L Chloride 108 H BUN 39 H Creatinine 1.30 H POC Glucose (mg/dL) 108 H Hemoglobin A1c ALT 62 H Total Protein 4.9 L Albumin 2.7 L 09/19/16 09/19/16 05:43 12:05 WBC RBC Hgb Hct Neutrophils # Lymphocytes # Sodium Chloride BUN Creatinine POC Glucose (mg/dL) 66 L Hemoglobin A1c 6.3 H ALT Total Protein Albumin - Diagnostic Findings Chest x-ray: report reviewed, image reviewed Assessment and Plan Plan: Asthma, unknown type, not acutely exacerbated No pneumonia seen on computed tomography scan from [facility] or on most recent chest x-ray Mild cardiomegaly and central pulmonary vascular congestion Small bilateral pleural effusions Complete heart block, status post pacemaker Small hiatal hernia Atelectasis Recent tracheobronchitis Diabetes mellitus type 2 History of lupus Chronic immunosuppression Chronic back pain Renal insufficiency Mild anemia O2 to maintain saturation greater than or equal to 88% Bronchodilators Pulmicort No need for antibiotics from pulmonary standpoint as there is no evidence of pneumonia, would consider discontinuing Azithromycin given patient's known underlying cardiac arrythmia. Will leave to the discretion of the primary team. GI and DVT prophylaxis Incentive spirometry and pulmonary hygiene Would consider diuresis to treat effusions and vascular congestion on CXR Pleural effusions are too small for thoracentesis Continue home medications Physical therapy, encourage ambulation Thank you for this consultation we'll continue to follow along
[2016-09-19 16:59] LABS: Glucose,Whole Blood 139 mg/dL (75-99)
[2016-09-19] MEDS: CALCIUM CARBONATE 500 MG CHEWABLE PO SCH (17:11)
[2016-09-19] MEDS: CHOLECALCIFEROL 1,000 UNIT TAB PO SCH (17:12)
[2016-09-19] MEDS: CYANOCOBALAMIN 500 MCG TAB PO SCH (17:12)
[2016-09-19] MEDS: MONTELUKAST 10 MG TAB PO SCH (20:57)
[2016-09-19 21:09] LABS: Glucose,Whole Blood 141 mg/dL (75-99)
[2016-09-19] MEDS: ALPRAZolam 0.25 MG TAB PO PRN (23:06)
[2016-09-20] MEDS: ACETAMINOPHEN TAB 325 MG TAB PO PRN ×3 (04:51→17:50)
[2016-09-20 06:13] LABS: Glucose,Whole Blood 89 mg/dL (75-99)
[2016-09-20] MEDS: LEVOTHYROXINE 125 MCG TAB PO SCH (06:53)
[2016-09-20] MEDS: PANTOPRAZOLE 40 MG TABLET PO SCH (06:53)
[2016-09-20] MEDS: INSULIN LISPRO (humaLOG) 300 UNIT/3 ML VIAL SQ SCH ×4 (06:53→20:05)
[2016-09-20 07:01] LABS: Basophils % (A) 0 %; CH 32.3; CHCM 33.8; Eosinophils # (A) 0.1 k/uL (0-0.7); Eosinophils % (A) 1 %; HCT 30.7 % (34.0-46.0); HDW 2.59; HGB 10.2 gm/dL (11.4-16.0); Luc # (Auto) 0.13; Luc % (Auto) 1; Lymphocytes # (A) 0.9 k/uL (1.0-4.8); Lymphocytes % (A) 10 %; MCH 31.9 pg (25.0-35.0); MCHC 33.2 g/dL (31.0-37.0); MCV 96.1 fL (80.0-100.0); Mean Platelet Volume 6.4; Monocytes # (A) 0.4 k/uL (0-1.0); Monocytes % (A) 4 %; Neutrophils # (A) 7.9 k/uL (1.3-7.7); Neutrophils % (A) 84 %; RBC 3.19 m/uL (3.80-5.40); RDW 13.3 % (11.5-15.5); WBC 9.4 k/uL (3.8-10.6); WBC (Perox) 9.72
[2016-09-20 07:12] LABS: Calcium 8.7 mg/dL (8.4-10.2); Potassium 4.5 mmol/L (3.5-5.1)
[2016-09-20] MEDS: ALBUTEROL NEBULIZED 2.5 MG/3 ML INHALATION SCH ×4 (08:31→20:51)
[2016-09-20] MEDS: BUDESONIDE 0.5 MG/2 ML NEBU INHALATION SCH ×2 (08:32→20:50)
[2016-09-20] MEDS ORDERED: ONDANSETRON 4 MG/2 ML VIAL IVP PRN (09:16)
[2016-09-20] MEDS: AZITHROMYCIN 500 MG TAB PO SCH (09:24)
[2016-09-20] MEDS: HYDROXYCHLOROQUINE SULFATE 200 MG TAB PO SCH ×2 (09:24→20:01)
[2016-09-20] MEDS: predniSONE 5 MG TAB PO SCH ×2 (09:25→20:02)
--- NOTE | 2016-09-20 09:43 | PN ---
A 76-year-old white female who was transferred from [facility] with complete heart block and presented with pneumonia. At this period of time she continues to be somewhat minimally short of breath, still coughing, but minimal amount of phlegm. CAT scan did show bilateral atelectasis with some streaking and she went through 3 weeks or 4 weeks of underlying pneumonia. She has had a pacemaker and she is doing quite well. REVIEW OF SYSTEMS: CARDIOPULMONARY: No chest pain. No shortness of breath. No orthopnea. She is coughing with minimal amount of production of phlegm. GI: No hematemesis, melena, hematochezia. : Negative. FAMILY HISTORY: Son with carcinoma of the esophagus. She has a long-standing history herself of systemic lupus erythematosus, again, recurrent pneumonia with immune deficiencies. She also has a lupus long-standing, hypertension, which has been long-standing, euthyroid, gastroesophageal reflux and recently a complete heart block with pacemaker. VITAL SIGNS: Blood pressure is 106/60, heart rate is in the 80s, respiratory rate is 17, temperature 97.1. ENT is within normal limits. Neck is supple with midline trachea. CHEST: Essentially clear to auscultation. HEART: Sinus rhythm. ABDOMEN: Soft, nontender, with no organomegaly. Lower extremities with minimal amount of swelling. Still has some pain in the back, but it is well controlled with her present medications of Tylenol. Her medications including updrafts 4 times a day, Xanax 0.25 q.8 hours p.r.n., Zithromax 500 daily, Pulmicort updrafts b.i.d., vitamin D, vitamin B12, hydrochlorothiazide 25 mg a day, Plaquenil 400 b.i.d., insulin to scale, Levothroid 0.125 daily, Singulair 10 mg a day, Protonix 40 mg a.c. meals, prednisone 5 b.i.d. New labs showed a hemoglobin of 10.2. Her creatinine is 1.2 with 36 BUN and she has a 10 chloride. ASSESSMENT: 1. Complete heart block with pacemaker placement. 2. Systemic lupus erythematosus. 3. History of euthyroid. 4. Long-standing asthma. 5. Atelectasis of the lower lung on CAT scan. 6. Euthyroid. Levothroid 0.125 daily, Singulair 10, Protonix 40, Pulmicort 0.5 daily. PLAN: At this point, we will continue the antibiotics. She is going to be here over the weekend. I will discontinue Zithromax tomorrow, if the patient's coughing nonproductive phlegm. One of the problems is that this has been going persistently for 3 or 4 weeks and the left lower lung infiltrate has been seen, which was never seen previous to that time with an x-ray that was taken after a pneumonia she had in May and June. Post pneumonia that had completely resolved. The concern over the atelectasis is the source of infection. We are using the updrafts trying to prevent the atelectasis from being a source of infection for her still has to be completely addressed. Please refer to my orders. Awaiting for ECF placement for physical therapy.
[2016-09-20] MEDS ORDERED: BISACODYL 5 MG TABLET.DR PO PRN (10:24)
[2016-09-20] MEDS: SODIUM CHLORIDE 0.9% 1,000 ML IV SCH (10:27)
[2016-09-20] MEDS: HYDROCHLOROTHIAZIDE 25 MG TAB PO SCH ×2 (10:32→10:33)
--- NOTE | 2016-09-20 11:00 | P.PN ---
Subjective Principal diagnosis: S/P post pacemaker implantation This is a 76-year-old female who was admitted to [facility] and was noted to have recurrent episodes of syncope and high degree AV block with pauses up to 6 seconds. Patient has underlying left bundle. Patient was recommended to have permanent pacemaker by Dr. Cui.'s was performed by Dr. Bowden. The device was interrogated and is functioning appropriately. Blood pressure this morning 118/60 with a heart rate in the 90s. Overall patient is doing well, from cardiology's standpoint she is cleared for discharge. We will make her a follow-up appointment to see Dr. Santoyo in the office post discharge. She will also have an appointment at the device clinic at that time. Objective - Vital Signs Vital signs: Vital Signs Temp 96.9 F L 09/20/16 09:26 Pulse 95 09/20/16 09:26 Resp 16 09/20/16 09:26 BP 117/57 09/20/16 09:26 Pulse Ox 98 09/20/16 09:26 Intake & Output 09/19/16 09/20/16 09/20/16 18:59 06:59 18:59 Intake Total 398 640 Output Total 500 450 Balance -102 190 Weight 69.8 kg Intake: IV 160 Sodium Chloride 0.9% 1, 160 000 ml @ 20 mls/hr IV . Q24H RENAN Rx#:[id number] Oral 398 480 Output: Urine 500 450 Other: Voiding Method Indwelling Catheter Bedside Commode Toilet # Voids 2 1 # Bowel Movements 1 - Exam PHYSICAL EXAMINATION: HEENT: Head is atraumatic, normocephalic. Pupils equal, round. Neck is supple. There is no elevated jugular venous pressure. HEART EXAMINATION: [Heart S1, S2 systolic murmur heard CHEST EXAMINATION: Lungs are clear to auscultation and precussion. No chest wall tenderness is noted on palpation or with deep breathing. Pacemaker implantation clean and dry. ABDOMEN: Soft, nontender. Bowel sounds are heard. No organomegaly noted. EXTREMITIES: 2+ peripheral pulses with evidence of peripheral edema and no calf tenderness noted. NEUROLOGIC patient is awake, alert and oriented -3. . - Labs CBC & Chem 7: 09/20/16 06:41 09/20/16 06:41 Labs: Abnormal Lab Results - Last 24 Hours (Table) 09/19/16 09/19/16 09/19/16 Range/Units 05:43 12:05 16:52 RBC (3.80-5.40) m/uL Hgb (11.4-16.0) gm/dL Hct (34.0-46.0) % Neutrophils # (1.3-7.7) k/uL Lymphocytes # (1.0-4.8) k/uL Chloride (98-107) mmol/L BUN (7-17) mg/dL Creatinine (0.52-1.04) mg/dL POC Glucose (mg/dL) 66 L 139 H (75-99) mg/dL Hemoglobin A1c 6.3 H (4.2-6.1) % 09/19/16 09/20/16 09/20/16 Range/Units 20:49 06:41 06:41 RBC 3.19 L (3.80-5.40) m/uL Hgb 10.2 L (11.4-16.0) gm/dL Hct 30.7 L (34.0-46.0) % Neutrophils # 7.9 H (1.3-7.7) k/uL Lymphocytes # 0.9 L (1.0-4.8) k/uL Chloride 110 H (98-107) mmol/L BUN 36 H (7-17) mg/dL Creatinine 1.21 H (0.52-1.04) mg/dL POC Glucose (mg/dL) 141 H (75-99) mg/dL Hemoglobin A1c (4.2-6.1) % Assessment and Plan (1) Syncope Status: Acute (2) S/P cardiac pacemaker procedure Status: Acute (3) HTN (hypertension) Status: Acute (4) GERD (gastroesophageal reflux disease) Status: Acute (5) Asthma Status: Acute Plan: From cardiology's perspective, patient may be able to be discharged once cleared by the primary. We'll make her a follow-up appointment in the office in one week post discharge. She will continue on antibiotics for 3 days. DNP note has been reviewed, I agree with a documented findings and plan of care. Patient was seen and examined.
[2016-09-20 11:18] LABS: Glucose,Whole Blood 93 mg/dL (75-99)
[2016-09-20] MEDS: CYANOCOBALAMIN 500 MCG TAB PO SCH (11:30)
[2016-09-20] MEDS: CALCIUM CARBONATE 500 MG CHEWABLE PO SCH (11:30)
[2016-09-20] MEDS: CHOLECALCIFEROL 1,000 UNIT TAB PO SCH (11:30)
[2016-09-20 16:22] LABS: Glucose,Whole Blood 110 mg/dL (75-99)
[2016-09-20] MEDS: DOCUSATE 100 MG CAP PO SCH (16:43)
[2016-09-20 20:02] LABS: Glucose,Whole Blood 140 mg/dL (75-99)
[2016-09-20] MEDS: MONTELUKAST 10 MG TAB PO SCH (20:02)
[2016-09-21] MEDS: ACETAMINOPHEN TAB 325 MG TAB PO PRN ×5 (00:14→23:55)
[2016-09-21] MEDS: LEVOTHYROXINE 125 MCG TAB PO SCH (06:08)
[2016-09-21 06:58] LABS: Glucose,Whole Blood 69 mg/dL (75-99)
[2016-09-21 07:12] LABS: Glucose,Whole Blood 88 mg/dL (75-99)
[2016-09-21] MEDS: BUDESONIDE 0.5 MG/2 ML NEBU INHALATION SCH ×2 (07:20→19:10)
[2016-09-21] MEDS: ALBUTEROL NEBULIZED 2.5 MG/3 ML INHALATION SCH ×4 (07:20→19:10)
[2016-09-21] MEDS: DOCUSATE 100 MG CAP PO SCH (07:51)
[2016-09-21] MEDS: AZITHROMYCIN 500 MG TAB PO SCH (07:51)
[2016-09-21] MEDS: HYDROXYCHLOROQUINE SULFATE 200 MG TAB PO SCH ×2 (07:51→20:37)
[2016-09-21] MEDS: HYDROCHLOROTHIAZIDE 25 MG TAB PO SCH (07:51)
[2016-09-21] MEDS: PANTOPRAZOLE 40 MG TABLET PO SCH (07:51)
[2016-09-21] MEDS: INSULIN LISPRO (humaLOG) 300 UNIT/3 ML VIAL SQ SCH ×4 (07:52→20:43)
[2016-09-21] MEDS: predniSONE 5 MG TAB PO SCH ×2 (07:52→17:42)
--- NOTE | 2016-09-21 10:50 | PN ---
76-year-old white female transferred from [facility], complete heart block and presented with pneumonia. At that period of time she continued to be somewhat short of breath, still coughing with minimal amount of phlegm. At that time she was brought to [facility]. Pacemaker was placed. Good capture occurred right away and the patient felt very well. At this point: REVIEW OF SYSTEMS: CARDIOPULMONARY: No shortness of breath or chest pain, no orthopnea paroxysmal dyspnea. GI: No hematemesis, no hematochezia. : Negative. NEUROMUSCULAR: She is just weak in her legs and she has very, very weak gait, very difficult to even ambulate up to the bathroom. Skin/INTEGUMENTARY: Was negative. FAMILY HISTORY: Son had carcinoma of the esophagus, and insulin-dependent diabetes mellitus. She has had a long-standing history of systemic lupus erythematosus and she has been steroid dependent, currently pneumonia immune deficiency, hypertension, euthyroid. Gastroesophageal reflux and a recent complete heart block with pacemaker. Again she was admitted to the hospital with pneumonia. Vital signs at this time show blood pressure 118/69, her heart rates in the 60s, respiratory rate is 80 and temperature is 97.8. EYES: Pupils are equal, round, react to light and accommodation. ENT: Showed tympanic membranes and pharynx to be negative. Neck is supple with midline trachea. CHEST: Essentially clear to auscultation. HEART: Sinus rhythm with no murmur. ABDOMEN: Soft, nontender, with no organomegaly. LOWER EXTREMITIES: Still weak but she is able to ambulate for a short distance and her back pain has decreased considerably. ASSESSMENT: 1. Acute pneumonia. 2. Complete heart block, will follow with a pacemaker. 3. Long-standing systemic erythematosus lupus systemic lupus erythematosus. 4. Long-standing asthma. 5. Euthyroid. 6. Atelectasis of the lower right and left lung on CAT scan. 7. Euthyroid. PLAN: At this time, we will continue the erythromycin for 2 more days as felt necessary and also following recommendations, status post pacemaker. We will continue with the Pulmicort updrafts twice a day. She can take TUMS p.r.n. She is on vitamin D 1000 units daily. Cyanocobalamin 2000 daily. Colace 100 daily. Hydrochlorothiazide 25 daily. Plaquenil 400 b.i.d. insulin to scale. Euthyroid 0.125 daily. Singulair 10 daily. Zofran p.r.n. nausea, Protonix 40 mg daily, prednisone 5 b.i.d. She is stable with discharged to [facility] in the morning. Prognosis is good.
[2016-09-21] MEDS: CYANOCOBALAMIN 500 MCG TAB PO SCH (11:24)
[2016-09-21] MEDS: CALCIUM CARBONATE 500 MG CHEWABLE PO SCH (11:24)
[2016-09-21] MEDS: CHOLECALCIFEROL 1,000 UNIT TAB PO SCH (11:24)
[2016-09-21 12:14] LABS: Glucose,Whole Blood 95 mg/dL (75-99)
[2016-09-21 16:55] LABS: Glucose,Whole Blood 104 mg/dL (75-99)
[2016-09-21] MEDS ORDERED: predniSONE 5 MG TAB PO SCH (18:00)
[2016-09-21] MEDS: MONTELUKAST 10 MG TAB PO SCH (20:37)
[2016-09-21 20:41] LABS: Glucose,Whole Blood 158 mg/dL (75-99)
[2016-09-21] MEDS: ALPRAZolam 0.25 MG TAB PO PRN (23:56)
[2016-09-22] MEDS: LEVOTHYROXINE 125 MCG TAB PO SCH (05:46)
[2016-09-22] MEDS: BUDESONIDE 0.5 MG/2 ML NEBU INHALATION SCH ×2 (07:58→21:55)
[2016-09-22] MEDS: ALBUTEROL NEBULIZED 2.5 MG/3 ML INHALATION SCH ×4 (07:59→21:55)
[2016-09-22] MEDS: INSULIN LISPRO (humaLOG) 300 UNIT/3 ML VIAL SQ SCH ×4 (08:12→22:56)
[2016-09-22] MEDS: ACETAMINOPHEN TAB 325 MG TAB PO PRN ×3 (08:12→22:55)
[2016-09-22 08:13] LABS: Glucose,Whole Blood 94 mg/dL (75-99)
[2016-09-22] MEDS: HYDROXYCHLOROQUINE SULFATE 200 MG TAB PO SCH ×2 (08:13→22:54)
[2016-09-22] MEDS: AZITHROMYCIN 500 MG TAB PO SCH (08:13)
[2016-09-22] MEDS: predniSONE 5 MG TAB PO SCH ×2 (08:13→17:43)
[2016-09-22] MEDS: DOCUSATE 100 MG CAP PO SCH (08:13)
[2016-09-22] MEDS: PANTOPRAZOLE 40 MG TABLET PO SCH (08:13)
--- NOTE | 2016-09-22 09:31 | P.DS ---
Providers Date of admission: 09/18/16 08:39 Expected date of discharge: 09/22/16 Attending physician: Lorenzo Mortensen Consults: 09/18/16 10:49 Consult Physician Urgent Consulting Provider: [facility] Consult Reason/Comments: syncope Do you want consulting provider notified?: Already Contacted 09/18/16 16:44 Consult Physician Urgent Consulting Provider: Nilam Santamaria Consult Reason/Comments: pneumonia Do you want consulting provider notified?: Yes Primary care physician: Lorenzo Mortensen [place] Hospital Course: Patient is a 76-year-old female, patient of Dr. Mortensen in the outpatient setting, with a medical history significant for GERD, bronchitis, asthma, diabetes mellitus type 2, osteoporosis, hypertension, hypothyroidism, lupus, arthritis, chronic back pain with history of spinal fractures, and large hiatal hernia. Patient presenting to [facility] as a transfer from [facility] with evidence of complete AV block, symptomatic. Patient was originally admitted to [facility] 2 days prior with progressive dyspnea and fatigue having failed outpatient treatment with Zithromax for pneumonia. During patient's hospital stay, she had 2 episodes of syncope with documented 6 second pauses with total AV block on telemetry. Patient underwent pacemaker placement with good capture and patient felt better. Patient improved during her hospital stay and was felt stable for transfer to subacute rehab at [facility]. Patient will follow-up Dr. Mortensen, and cardiology in the outpatient setting. Discharge diagnoses: 1. Syncope secondary to complete AV block status post permanent dual-chamber pacemaker insertion. 2. Resolving pneumonia, failed outpatient treatment, suspect gram-negative. 3. Hypertension. 4. Chronic renal failure, stage III. 5. GERD. 6. History of bronchitis. 7. Asthma, mild. 8. Osteoporosis. 9. Euthyroid. 10. Long-standing systemic lupus erythematosus. 11. Chronic back pain with history of spinal fractures. 12. Peripheral neuropathy. 13. Large hiatal hernia. 14. Diabetes mellitus type 2, controlled. 15. Atelectasis of the lower right and left lung on computed tomography scan. The above impression and plan have been discussed and directed by Dr. Mortensen. Zack ARMAS acting as scribe for Dr. Mortensen. Pertinent Studies: Chest x-ray Procedures: Insertion of dual-chamber permanent pacemaker Patient Condition at Discharge: Good Plan - Discharge Summary New Discharge Prescriptions: ALPRAZolam [Xanax] 0.25 mg PO Q8HR PRN #21 tab PRN Reason: Anxiety Discharge Medication List Albuterol Nebulized [Ventolin Nebulized] 2.5 mg INHALATION RT-Q6H PRN 01/15/16 [ History] Hydroxychloroquine Sulfate [Plaquenil] 400 mg PO BID 01/15/16 [History] Levothyroxine Sodium [Synthroid] 125 mcg PO DAILY 01/15/16 [History] Omeprazole [PriLOSEC] 40 mg PO QAM 01/15/16 [History] predniSONE 5 mg PO BID 01/15/16 [History] Calcium Carbonate [Calcium] 1,200 mg PO DAILY 01/16/16 [History] Cholecalciferol [Vitamin D3] 1,000 unit PO DAILY 01/16/16 [History] Cyanocobalamin (Vitamin B-12) [Vitamin B-12] 2,000 mcg PO DAILY 01/16/16 [ History] Montelukast [Singulair] 10 mg PO HS 01/16/16 [History] Vitafusion 1 caplet PO DAILY 01/16/16 [History] ALPRAZolam [Xanax] 0.25 mg PO Q8HR PRN #21 tab 09/22/16 [Rx] Acetaminophen Tab [Tylenol] 650 mg PO Q6HR PRN #0 tab 09/22/16 [Rx] Bisacodyl [Dulcolax] 10 mg PO DAILY PRN #0 tablet. 09/22/16 [Rx] Budesonide [Pulmicort] 0.5 mg INHALATION RT-BID nebu 09/22/16 [Rx] Docusate [Colace] 100 mg PO DAILY cap 09/22/16 [Rx] Hydrochlorothiazide [Hydrodiuril] 25 mg PO DAILY tab 09/22/16 [Rx] INSULIN LISPRO (humaLOG) [humaLOG (formulary)] 0 unit SQ ACHS vial 09/22/16 [Rx ] Follow up Appointment(s)/Referral(s): Marquise Odom MD [STAFF PHYSICIAN] - 3 Weeks [facility] [place], [NON-STAFF] - Jayce Bowden MD [STAFF PHYSICIAN] - 1 Week [facility], [NON-STAFF] - Discharge Disposition: TRANSFER TO SNF/ECF
[2016-09-22 11:43] LABS: Glucose,Whole Blood 76 mg/dL (75-99)
[2016-09-22] MEDS: CHOLECALCIFEROL 1,000 UNIT TAB PO SCH (12:12)
[2016-09-22] MEDS: CYANOCOBALAMIN 500 MCG TAB PO SCH (12:12)
[2016-09-22] MEDS: CALCIUM CARBONATE 500 MG CHEWABLE PO SCH (12:12)
[2016-09-22] MEDS: HYDROCHLOROTHIAZIDE 25 MG TAB PO SCH (16:16)
[2016-09-22 16:31] LABS: Glucose,Whole Blood 114 mg/dL (75-99)
[2016-09-22 22:54] VITALS: RESP 16
[2016-09-22] MEDS: MONTELUKAST 10 MG TAB PO SCH (22:54)
[2016-09-22 22:55] LABS: Glucose,Whole Blood 117 mg/dL (75-99)
[2016-09-22] MEDS: ALPRAZolam 0.25 MG TAB PO PRN (23:51)
[2016-09-23] MEDS: LEVOTHYROXINE 125 MCG TAB PO SCH (05:40)
[2016-09-23 06:58] LABS: Glucose,Whole Blood 75 mg/dL (75-99)
[2016-09-23 07:18] VITALS: BP 133/76; TEMP 98.9
[2016-09-23] MEDS: ALBUTEROL NEBULIZED 2.5 MG/3 ML INHALATION SCH (08:36)
[2016-09-23] MEDS: BUDESONIDE 0.5 MG/2 ML NEBU INHALATION SCH (08:36)
[2016-09-23 08:39] VITALS: PULSE 80
[2016-09-23] MEDS: INSULIN LISPRO (humaLOG) 300 UNIT/3 ML VIAL SQ SCH (09:11)
[2016-09-23] MEDS: HYDROCHLOROTHIAZIDE 25 MG TAB PO SCH (10:33)
[2016-09-23] MEDS: PANTOPRAZOLE 40 MG TABLET PO SCH (10:33)
[2016-09-23] MEDS: AZITHROMYCIN 500 MG TAB PO SCH (10:33)
[2016-09-23] MEDS: DOCUSATE 100 MG CAP PO SCH (10:34)
[2016-09-23] MEDS: HYDROXYCHLOROQUINE SULFATE 200 MG TAB PO SCH (10:34)
[2016-09-23] MEDS: predniSONE 5 MG TAB PO SCH (10:34)
[2016-09-23] MEDS: ACETAMINOPHEN TAB 325 MG TAB PO PRN (10:52)
== END 2016-09-23 11:22 | DRG 242 ==
LOC: 6SEL 08:39 → 3SUR 09-20 10:46
PROVIDERS: ADMIT Family Medicine; ATTEND Family Medicine
PROC: 02H63JZ Insertion of Pacemaker Lead into Right Atrium, Percutaneous Approach (ICD-10-PCS; 2016-09-18)
PROC: 02HK3JZ Insertion of Pacemaker Lead into Right Ventricle, Percutaneous Approach (ICD-10-PCS; 2016-09-18)
PROC: 0JH606Z Insertion of Pacemaker, Dual Chamber into Chest Subcutaneous Tissue and Fascia, Open Approach (ICD-10-PCS; principal; 2016-09-18 08:30)
DX: I44.2 Atrioventricular block, complete (principal); J15.6 Pneumonia due to other Gram-negative bacteria; E11.22 Type 2 diabetes mellitus with diabetic chronic kidney disease; E11.42 Type 2 diabetes mellitus with diabetic polyneuropathy; M32.9 Systemic lupus erythematosus, unspecified; J44.0 Chronic obstructive pulmonary disease with (acute) lower respiratory infection; N18.3 Chronic kidney disease, stage 3 (moderate); J98.11 Atelectasis; J45.909 Unspecified asthma, uncomplicated; K21.9 Gastro-esophageal reflux disease without esophagitis; E03.9 Hypothyroidism, unspecified; M81.0 Age-related osteoporosis without current pathological fracture; I10 Essential (primary) hypertension; G89.29 Other chronic pain; M19.91 Primary osteoarthritis, unspecified site; K44.9 Diaphragmatic hernia without obstruction or gangrene; Z87.81 Personal history of (healed) traumatic fracture; Z87.891 Personal history of nicotine dependence; Z90.49 Acquired absence of other specified parts of digestive tract; Z88.5 Allergy status to narcotic agent; Z88.0 Allergy status to penicillin; Z88.2 Allergy status to sulfonamides; Z88.8 Allergy status to other drugs, medicaments and biological substances; Z79.52 Long term (current) use of systemic steroids; Z87.01 Personal history of pneumonia (recurrent); Z82.49 Family history of ischemic heart disease and other diseases of the circulatory system; Z79.899 Other long term (current) drug therapy
CPT/HCPCS: 33208; 71020; 80048; 80053; 83036; 83735; 84100; 85025; 94640

== ENCOUNTER 2016-10-10 23:14 | Inpatient (IN) | payer MEDICARE ==
[2016-10-10 23:52] LABS: Glucose,Whole Blood 118 mg/dL (75-99)
--- NOTE | 2016-10-10 23:52 | ED ---
Arrhythmia/Palpitations HPI - General Chief Complaint: Arrhythmia/Palpitations Stated Complaint: Syncope Time Seen by Provider: 10/10/16 23:32 Source: patient Mode of arrival: ambulatory - History of Present Illness Initial Comments: This patient is a 76-year-old woman who presents to be evaluated for "racing heart." She states that the symptoms came on tonight, while she was at rest. She feels some discomfort on the left side of her chest as well. The symptoms led her to phone the visiting nurse and she was advised to be seen in the emergency department. MD Complaint: "heart racing" -: hour(s) Context: occurred during rest Arrhythmia History: pacemaker - Related Data Home Medications Medication Instructions Recorded Confirmed Albuterol Nebulized [Ventolin 2.5 mg INHALATION RT-Q6H PRN 01/15/16 10/11/16 Nebulized] Hydroxychloroquine Sulfate 400 mg PO BID 01/15/16 10/11/16 [Plaquenil] Levothyroxine Sodium [Synthroid] 125 mcg PO DAILY 01/15/16 10/11/16 Omeprazole [PriLOSEC] 40 mg PO QAM 01/15/16 10/11/16 predniSONE 5 mg PO DAILY 01/15/16 10/11/16 Calcium Carbonate [Calcium] 1,200 mg PO DAILY 01/16/16 10/11/16 Cholecalciferol [Vitamin D3] 1,000 unit PO DAILY 01/16/16 10/11/16 Cyanocobalamin (Vitamin B-12) 2,000 mcg PO DAILY 01/16/16 10/11/16 [Vitamin B-12] Montelukast [Singulair] 10 mg PO HS 01/16/16 10/11/16 Vitafusion 1 caplet PO DAILY 01/16/16 09/18/16 Lidocaine 5% Patch [Lidoderm] 1 patch TOPICAL DAILY 10/11/16 10/11/16 Multivitamin [Men's Multi-Vitamin] 1 each PO 10/11/16 Previous Rx's Medication Instructions Recorded ALPRAZolam [Xanax] 0.25 mg PO Q8HR PRN #21 tab 09/22/16 Acetaminophen Tab [Tylenol] 650 mg PO Q6HR PRN #0 tab 09/22/16 Bisacodyl [Dulcolax] 10 mg PO DAILY PRN #0 tablet. 09/22/16 Budesonide [Pulmicort] 0.5 mg INHALATION RT-BID nebu 09/22/16 Docusate [Colace] 100 mg PO DAILY cap 09/22/16 Hydrochlorothiazide [Hydrodiuril] 25 mg PO DAILY tab 09/22/16 INSULIN LISPRO (humaLOG) [humaLOG 0 unit SQ ACHS vial 09/22/16 (formulary)] Allergies Allergy/AdvReac Type Severity Reaction Status Date / Time aspirin Allergy Unknown Verified 10/11/16 00:03 codeine Allergy Rash/Hives Verified 10/11/16 00:03 indomethacin [From Indocin] Allergy Unknown Verified 10/11/16 00:03 levofloxacin [From Levaquin] Allergy Unknown Verified 10/11/16 00:03 methylprednisolone Allergy Unknown Verified 10/11/16 00:03 [From Medrol] Penicillins Allergy Unknown Verified 10/11/16 00:03 Sulfa (Sulfonamide Allergy Rash/Hives Verified 10/11/16 00:03 Antibiotics) meloxicam [From Mobic] AdvReac stomache Verified 10/11/16 00:03 pain NSAIDS (Non-Steroidal AdvReac Abdominal Verified 10/11/16 00:03 Anti-Inflamma Pain oxaprozin [From Daypro] AdvReac Abdominal Verified 10/11/16 00:03 Pain prochlorperazine AdvReac Nausea & Verified 10/11/16 00:03 [From Compazine] Vomiting prochlorperazine edisylate AdvReac Nausea & Verified 10/11/16 00:03 [From Compazine] Vomiting and headache prochlorperazine maleate AdvReac Nausea & Verified 10/11/16 00:03 [From Compazine] Vomiting salsalate [From Disalcid] AdvReac Abdominal Verified 10/11/16 00:03 Pain vortioxetine hydrobromide AdvReac Abdominal Verified 10/11/16 00:03 [From Trintellix] Pain Review of Systems ROS Statement: Those systems with pertinent positive or pertinent negative responses have been documented in the HPI. ROS Other: All systems not noted in ROS Statement are negative. Constitutional: Reports: weakness. Denies: fever, chills Respiratory: Reports: dyspnea. Denies: cough, wheezes, hemoptysis Cardiovascular: Reports: chest pain, palpitations, orthopnea. Denies: edema, syncope Gastrointestinal: Denies: abdominal pain, nausea, vomiting Genitourinary: Denies: dysuria, hematuria Musculoskeletal: Denies: back pain Skin: Denies: rash Neurological: Denies: headache, weakness, numbness Past Medical History Past Medical History: Hypertension, Thyroid Disorder Additional Past Medical History / Comment(s): lupus History of Any Multi-Drug Resistant Organisms: None Reported Past Surgical History: Appendectomy, Cholecystectomy, Pacemaker Additional Past Surgical History / Comment(s): nasal surgery, cataract surgery Past Anesthesia/Blood Transfusion Reactions: No Reported Reaction Past Psychological History: No Psychological Hx Reported Smoking Status: Former smoker Past Alcohol Use History: None Reported Past Drug Use History: None Reported General Exam General appearance: alert, in no apparent distress Head exam: Present: atraumatic, normocephalic Eye exam: Present: normal appearance. Absent: scleral icterus, conjunctival injection ENT exam: Present: normal oropharynx Respiratory exam: Present: rales (Bases). Absent: respiratory distress, wheezes , rhonchi, stridor Cardiovascular Exam: Present: normal rhythm, tachycardia (Rate is approximately 104 bpm), normal heart sounds. Absent: systolic murmur, diastolic murmur, rubs , gallop GI/Abdominal exam: Present: soft. Absent: distended, tenderness, guarding, rebound, mass Extremities exam: Present: normal inspection, normal capillary refill. Absent: pedal edema, calf tenderness Back exam: Present: normal inspection. Absent: CVA tenderness (R), CVA tenderness (L) Neurological exam: Present: alert Skin exam: Present: warm, dry, intact, normal color. Absent: rash, cyanosis, diaphoretic, erythema, petechiae, pallor, mottled Course Vital Signs 10/10/16 10/11/16 10/11/16 23:16 00:43 01:35 Temperature 99.2 F 97.9 F Pulse Rate 115 H 101 H 104 H Respiratory 18 20 18 Rate Blood Pressure 148/83 147/84 157/89 O2 Sat by Pulse 99 99 Oximetry 10/11/16 02:12 Temperature 98.7 F Pulse Rate 112 H Respiratory 18 Rate Blood Pressure 170/87 O2 Sat by Pulse 98 Oximetry EKG Findings - EKG Results: EKG: interpreted by ERMD, sinus rhythm, normal axis, no acute changes - Blocks, [place], Hypertrophy, ST Abn: AV and intraventricular conduction: left bundle branch block (fixed/intermittent , complete/incomplete) Repolarization changes or abnormalities: nonspecific abnormality, ST segment, and/or T wave Medical Decision Making - Lab Data Result diagrams: 10/10/16 22:31 10/10/16 22:31 Lab Results 10/10/16 10/10/16 10/10/16 Range/Units 22:31 22:31 22:31 WBC 9.9 (3.8-10.6) k/uL RBC 3.37 L (3.80-5.40) m/uL Hgb 11.2 L (11.4-16.0) gm/dL Hct 32.3 L (34.0-46.0) % MCV 95.8 (80.0-100.0) fL MCH 33.2 (25.0-35.0) pg MCHC 34.7 (31.0-37.0) g/dL RDW 14.3 (11.5-15.5) % Plt Count 305 (150-450) k/uL Neutrophils % 83 % Lymphocytes % 8 % Monocytes % 7 % Eosinophils % 0 % Basophils % 0 % Neutrophils # 8.2 H (1.3-7.7) k/uL Lymphocytes # 0.8 L (1.0-4.8) k/uL Monocytes # 0.7 (0-1.0) k/uL Eosinophils # 0.0 (0-0.7) k/uL Basophils # 0.0 (0-0.2) k/uL PT (9.0-12.0) sec INR (<1.1) APTT (22.0-30.0) sec D-Dimer (<0.60) mg/L FEU Sodium 137 (137-145) mmol/L Potassium 4.9 (3.5-5.1) mmol/L Chloride 104 (98-107) mmol/L Carbon Dioxide 25 (22-30) mmol/L Anion Gap 8 mmol/L BUN 33 H (7-17) mg/dL Creatinine 1.20 H (0.52-1.04) mg/dL Est GFR (MDRD) Af Amer 53 (>60 ml/min/1.73 sqM) Est GFR (MDRD) Non-Af 44 (>60 ml/min/1.73 sqM) Glucose 117 H (74-99) mg/dL POC Glucose (mg/dL) (75-99) mg/dL POC Glu Beam Doffer ID Calcium 9.4 (8.4-10.2) mg/dL Magnesium 1.9 (1.6-2.3) mg/dL Total Bilirubin 0.6 (0.2-1.3) mg/dL AST 43 H (14-36) U/L ALT 55 H (9-52) U/L Alkaline Phosphatase 90 (38-126) U/L Total Creatine Kinase 176 H (30-135) U/L CK-MB (CK-2) 3.8 H* (0.0-2.4) ng/mL CK-MB (CK-2) Rel Index 2.2 Troponin I 0.066 H* (0.000-0.034) ng/mL Total Protein 6.1 L (6.3-8.2) g/dL Albumin 3.8 (3.5-5.0) g/dL TSH 0.969 (0.465-4.680) mIU/L Urine Color Urine Appearance (Clear) Urine pH (5.0-8.0) Ur Specific [place] (1.001-1.035) Urine Protein (Negative) Urine Glucose (UA) (Negative) Urine Ketones (Negative) Urine Blood (Negative) Urine Nitrite (Negative) Urine Bilirubin (Negative) Urine Urobilinogen (<2.0) mg/dL Ur Leukocyte Esterase (Negative) 10/10/16 10/10/16 10/10/16 Range/Units 22:31 22:31 23:40 WBC (3.8-10.6) k/uL RBC (3.80-5.40) m/uL Hgb (11.4-16.0) gm/dL Hct (34.0-46.0) % MCV (80.0-100.0) fL MCH (25.0-35.0) pg MCHC (31.0-37.0) g/dL RDW (11.5-15.5) % Plt Count (150-450) k/uL Neutrophils % % Lymphocytes % % Monocytes % % Eosinophils % % Basophils % % Neutrophils # (1.3-7.7) k/uL Lymphocytes # (1.0-4.8) k/uL Monocytes # (0-1.0) k/uL Eosinophils # (0-0.7) k/uL Basophils # (0-0.2) k/uL PT 10.0 (9.0-12.0) sec INR 1.0 (<1.1) APTT 19.9 L (22.0-30.0) sec D-Dimer 1.59 H (<0.60) mg/L FEU Sodium (137-145) mmol/L Potassium (3.5-5.1) mmol/L Chloride (98-107) mmol/L Carbon Dioxide (22-30) mmol/L Anion Gap mmol/L BUN (7-17) mg/dL Creatinine (0.52-1.04) mg/dL Est GFR (MDRD) Af Amer (>60 ml/min/1.73 sqM) Est GFR (MDRD) Non-Af (>60 ml/min/1.73 sqM) Glucose (74-99) mg/dL POC Glucose (mg/dL) 118 H (75-99) mg/dL POC Glu Beam Doffer ID Brittany Fabian Calcium (8.4-10.2) mg/dL Magnesium (1.6-2.3) mg/dL Total Bilirubin (0.2-1.3) mg/dL AST (14-36) U/L ALT (9-52) U/L Alkaline Phosphatase (38-126) U/L Total Creatine Kinase (30-135) U/L CK-MB (CK-2) (0.0-2.4) ng/mL CK-MB (CK-2) Rel Index Troponin I (0.000-0.034) ng/mL Total Protein (6.3-8.2) g/dL Albumin (3.5-5.0) g/dL TSH (0.465-4.680) mIU/L Urine Color Light Yellow Urine Appearance Clear (Clear) Urine pH 7.0 (5.0-8.0) Ur Specific [place] 1.007 (1.001-1.035) Urine Protein Negative (Negative) Urine Glucose (UA) Negative (Negative) Urine Ketones Negative (Negative) Urine Blood Negative (Negative) Urine Nitrite Negative (Negative) Urine Bilirubin Negative (Negative) Urine Urobilinogen <2.0 (<2.0) mg/dL Ur Leukocyte Esterase Negative (Negative) Disposition Clinical Impression: HTN (hypertension), CHF exacerbation, Elevated d-dimer Disposition: ADMITTED IP TO THIS HOSP Condition: Fair
[2016-10-11 00:23] LABS: Basophils % (A) 0 %; CH 33.1; CHCM 34.8; Eosinophils % (A) 0 %; HCT 32.3 % (34.0-46.0); HGB 11.2 gm/dL (11.4-16.0); Luc # (Auto) 0.16; Luc % (Auto) 2; Lymphocytes # (A) 0.8 k/uL (1.0-4.8); Lymphocytes % (A) 8 %; MCH 33.2 pg (25.0-35.0); MCHC 34.7 g/dL (31.0-37.0); MCV 95.8 fL (80.0-100.0); Mean Platelet Volume 6.4; Monocytes # (A) 0.7 k/uL (0-1.0); Monocytes % (A) 7 %; Neutrophils # (A) 8.2 k/uL (1.3-7.7); Neutrophils % (A) 83 %; RBC 3.37 m/uL (3.80-5.40); RDW 14.3 % (11.5-15.5); WBC 9.9 k/uL (3.8-10.6); WBC (Perox) 9.64
[2016-10-11 00:24] LABS: Appearance,Urine Clear (Clear); Bilirubin,Urine Negative (Negative); Glucose,Urine (UA) Negative (Negative); Ketones,Urine Negative (Negative); Leukocyte Esterase,Urine Negative (Negative); Nitrite,Urine Negative (Negative); Protein,Urine Negative (Negative); Specific Gravity,Urine 1.007 (1.001-1.035); UA Billing (MACRO vs. MICRO) CHEM; Urobilinogen,Urine <2.0 mg/dL (<2.0)
[2016-10-11 00:50] LABS: Partial Thromboplastin Time 19.9 sec (22.0-30.0)
--- NOTE | 2016-10-11 00:50 | XR ---
EXAM: XR Chest, 2 Views CLINICAL HISTORY: Reason: dysrhythmia TECHNIQUE: Frontal and lateral views of the chest. COMPARISON: 09/19/16 FINDINGS: Lungs: Pulmonary vascular markings remain prominent suggesting the presence of mild pulmonary vascular congestion. No superimposed infiltrate. Pleural space: No definite pleural effusion. No pneumothorax. Heart: Stable enlargement of the cardiopericardial silhouette Mediastinum: Stable including aortic ectasia Bones/joints: Bones stable including mild dextroscoliosis, osteopenia, multilevel spondylosis and severe lower thoracic or upper lumbar compression deformity. Tubes, lines and devices: 2-lead left-sided pacemaker is unchanged. IMPRESSION: Mild pulmonary vascular congestion.
[2016-10-11 00:52] LABS: Calcium 9.4 mg/dL (8.4-10.2); Magnesium 1.9 mg/dL (1.6-2.3); Potassium 4.9 mmol/L (3.5-5.1); Total Bilirubin 0.6 mg/dL (0.2-1.3); Total Protein 6.1 g/dL (6.3-8.2)
[2016-10-11 01:08] LABS: Creatine Kinase MB 3.8 ng/mL (0.0-2.4); Troponin I 0.066 ng/mL (0.000-0.034)
[2016-10-11] MEDS ORDERED: ALPRAZolam 0.5 MG TAB PO STA (01:33)
[2016-10-11] MEDS ORDERED: ENOXAPARIN 80 MG/0.8 ML SYRINGE SQ STA (01:37)
[2016-10-11] MEDS ORDERED: FUROSEMIDE 10 MG/ML 4 ML VIAL IV STA (01:42)
[2016-10-11] MEDS ORDERED: BISACODYL 5 MG TABLET.DR PO PRN (01:43)
[2016-10-11] MEDS ORDERED: ONDANSETRON 4 MG/2 ML VIAL IVP PRN (02:30)
[2016-10-11] MEDS: INSULIN LISPRO (humaLOG) 300 UNIT/3 ML VIAL SQ SCH ×4 (06:49→21:13)
[2016-10-11] MEDS: LEVOTHYROXINE 125 MCG TAB PO SCH (06:50)
[2016-10-11] MEDS: PANTOPRAZOLE 40 MG TABLET PO SCH (06:50)
[2016-10-11 06:55] LABS: Glucose,Whole Blood 72 mg/dL (75-99)
[2016-10-11] MEDS: CALCIUM CARBONATE 500 MG CHEWABLE PO SCH (08:36)
[2016-10-11] MEDS: FUROSEMIDE 10 MG/ML 4 ML VIAL IV SCH ×2 (08:37→21:12)
[2016-10-11] MEDS: CHOLECALCIFEROL 1,000 UNIT TAB PO SCH (08:37)
[2016-10-11] MEDS: LIDOCAINE 5% PATCH TOPICAL SCH (08:37)
[2016-10-11] MEDS ORDERED: NITROGLYCERIN OINT 1 INCH/GM PACKET TOPICAL SCH (09:00)
[2016-10-11] MEDS ORDERED: HYDROXYCHLOROQUINE SULFATE 200 MG TAB PO SCH ×3 (09:00→12:00)
[2016-10-11] MEDS ORDERED: predniSONE 5 MG TAB PO SCH (09:00)
[2016-10-11] MEDS: BUDESONIDE 0.5 MG/2 ML NEBU INHALATION SCH ×2 (09:22→20:34)
[2016-10-11] MEDS ORDERED: predniSONE 5 MG TAB PO ONE (09:30)
[2016-10-11] MEDS ORDERED: RX INFO: IV CONTRAST WAS GIVEN 1 EACH MISC MISCELLANE PRN (09:38)
[2016-10-11 10:14] LABS: Hemoglobin A1C 5.8 % (4.2-6.1)
--- NOTE | 2016-10-11 10:44 | CT ---
EXAMINATION TYPE: CT angio chest DATE OF EXAM: 10/11/2016 10:24 AM COMPARISON: 04/04/2016 HISTORY: 76-year-old female SOB, pain, post pacemaker TECHNIQUE: Contiguous axial scanning of the chest performed with IV Contrast, patient injected with 8 0 mL of Visipaque 320. Coronal/sagittal MIP reconstructions performed. CT DLP: 413.4 mGycm Automated exposure control for dose reduction was used. FINDINGS: Left anterior chest wall pacemaker generator with right atrial and right ventricular leads. The heart is mildly enlarged with small posterior pericardial effusion measuring 6 mm thick. Coronary vessel calcifications are present in remarkable for coronary artery disease. Aorta is normal caliber with conventional arch vessel branching anatomy. Borderline to mildly enlarged caliber to the main right and left pulmonary arteries at 2.5 and 2.7 cm , respectively, suggesting underlying pulmonary arterial hypertension. Respiratory motion at the basilar lower lobes limiting assessment of the segmental and subsegmental b ranches here. No evidence for pulmonary embolism elsewhere within the lungs. No thoracic lymphadenopathy. Evaluation of the lungs show some strandy atelectasis at the left base and inferior lingula. Minimal emphysematous change, for example, left upper lobe inferiorly. No consolidation or pleural effusion. Large hiatal hernia. Visualized upper abdomen shows no gross abnormality otherwise. Bones: Bridging anterior endplate spondylosis throughout the thoracic spine suggestive of DISH. Degen erative joint space narrowing at the right hip. Old healed right-sided rib fracture deformity. Chroni c L2 vertebral compression collapse. A mildly offset sternomanubrial fracture shows some mild periost eal callus but incomplete healing, sagittal image 77 and axial image 53. This is new from 04/04/2016. Severe asymmetric degenerative change at the left sternoclavicular joint. IMPRESSION: 1. PULMONARY ARTERIAL HYPERTENSION. THERE IS RESPIRATORY MOTION LIMITING ASSESSMENT FOR SEGMENTAL AND SUBSEGMENTAL PULMONARY EMBOLI IN THE BASILAR LOWER LOBES. NO EVIDENCE FOR PULMONARY EMBOLISM ELSEWHE RE IN THE LUNGS. 2. STRANDY ATELECTASIS AT THE LEFT BASE. NO ACUTE PULMONARY PROCESS. 3. SUBACUTE, MILDLY DEPRESSED STERNAL MANUBRIAL FRACTURE. THIS IS NEW FROM 04/04/2016. CLINICAL CORRE LATION IS RECOMMENDED. 4. LARGE HIATAL HERNIA.
--- NOTE | 2016-10-11 11:24 | HP ---
DATE OF ADMISSION: CHIEF COMPLAINT: Palpitation. HISTORY OF PRESENT ILLNESS: This 76-year-old female, who was discharged from the longterm on Thursday, went home for 2 days. On Thursday she had palpitation. Patient said that the symptoms were very concerning and presented to Emergency. Patient said that she had some chest discomfort. Denied shortness breath. Not sure if she was having any dizziness or lightheadedness. She felt that the symptoms were significant enough to cause her to come to the emergency department. In the ER patient's blood work indicated normal findings. Her EKG monitoring was within acceptable range. Cardiology consult was obtained and the patient was placed on selective care for further evaluation. REVIEW OF SYSTEMS: All 14 systems were reviewed and were negative except as above. HOME MEDICATIONS: 1. Albuterol inhaler. 2. Hydroxychloroquine twice daily. 3. Levothyroxine daily. 4. Omeprazole daily. 5. Prednisone daily. 6. Calcium daily. 7. B12 daily. 8. Singulair daily. 9. Vitafusion daily. 10. Lidocaine 5% patch daily. 11. Multivitamin daily. 12. Xanax as needed. 13. Bowel regimen. ALLERGIES: 1. ASPIRIN. 2. CODEINE. 3. INDOMETHACIN. 4. LEVAQUIN. 5. METHYLPREDNISOLONE. 6. PENICILLIN. 7. SULFA. 8. MELOXICAM. 9. NSAIDS. 10. OXAPROZIN. 11. COMPAZINE. 12. SALICYLATES. 13. TRINTELLIX. PAST MEDICAL HISTORY: 1. Hypertension. 2. Hypothyroidism. 3. Lupus. 4. GERD. 5. Recent bradycardia, status post pacemaker placement. 6. Asthma. 7. Anxiety. PAST SURGICAL HISTORY: 1. Appendectomy. 2. Cholecystectomy. 3. Recent pacemaker placement. 4. Nasal surgery. 5. Cataract surgery. SOCIAL HISTORY: Patient is a former smoker. No alcohol or drug abuse. Used to live independently. FAMILY HISTORY: Reviewed and negative. PHYSICAL EXAMINATION: VITAL SIGNS ON ARRIVAL IN EMERGENCY: Temperature 97.9, heart rate 101, respiratory rate 20, blood pressure 147/84 and saturation 99% on room air. GENERAL: Appears her stated age, in no acute distress. HEENT: Atraumatic, normocephalic. PERRLA. NECK: Supple. No masses. No thyromegaly. LUNGS: Clear to auscultation bilaterally. HEART: Normal S1, S2. ABDOMEN: Soft. No tenderness. Positive bowel sounds in all 4 quadrants. LOWER EXTREMITIES: No edema. PSYCH: Alert and oriented x3. Relaxed mood and affect. Normal remote and recent memory. IMAGING AND LABS: Chem-7 showed slight elevation in creatinine at 1.2; normal otherwise. CBC showed hemoglobin at 11.2; normal otherwise. Liver function tests within normal limits. PT, PTT, INR within normal limits. UA was negative. Troponin was 0.066. Repeated one this morning showed 0.109. Chest x-ray showed mild congestion. CT scan of the chest showed negative for PE and large hiatal hernia. ASSESSMENT AND PLAN: 1. Elevated troponin with heart palpitation. Etiology could be related to ischemia. I discussed the case with Dr. Araiza, who would like to monitor the patient over the next 24 hours, repeat 2-D echo and perform a stress test on Thursday for further evaluation. We would like her to continue cardioprotective medication and follow up with cardiology recommendations. 2. Status post pacemaker placement for symptomatic bradycardia. Will interrogate the pacemaker and follow up with Cardiology, as mentioned above. 3. Mild congestion on chest x-ray. Will consider diuretics per cardiology recommendation. 4. Anemia, chronic and stable. Will continue monitoring. 5. Lupus. Will continue with the prednisone, hydroxychloroquine and pain management. 6. Slight elevation of her enzymes; could be related to medication. Will continue monitoring. 7. Hypertension, under fair control. 8. Debility. Will have PT, OT evaluate the patient prior to discharge.
[2016-10-11 11:51] LABS: Glucose,Whole Blood 141 mg/dL (75-99)
[2016-10-11] MEDS: ATORVASTATIN 20 MG TAB PO SCH (13:08)
--- NOTE | 2016-10-11 13:28 | CONS ---
DATE OF CONSULTATION: Ms. Stover is a 76-year-old female, a patient of Dr. Bowden/Dr. Amilcar Odom and Dr. Bui. She came in complaining of palpitations. She also had some vague discomfort in the chest, but she denied any shortness of breath. Her cardiac enzymes are borderline. Her D-dimer is also elevated. I spoke to Dr. Murray, who will be proceeding with a CT of the chest with contrast to rule out pulmonary embolism. REVIEW OF SYSTEMS: No fever, chills, rigors. No cough or expectoration. No nausea, vomiting or diarrhea. No hematuria or dysuria. No strokes or seizures. No skin lesions or musculoskeletal complaints. Home medications are reviewed and are documented in the chart, including albuterol, hydroxychloroquine, levothyroxine, omeprazole, prednisone, calcium, B12, Xanax. ALLERGIES: There is a long list of allergies, but she is INTOLERANT OF ATENOLOL and DOES NOT WANT ANY BETA BLOCKERS. Past history includes a history of hypertension. At that time she was treated with amlodipine and losartan. I am not sure why she was so intolerant of atenolol. She also has hypothyroidism, lupus, GERD, recent syncope and bradycardia, status post permanent pacemaker implantation. History of asthma. PAST SURGICAL HISTORY: 1. Appendectomy. 2. Cholecystectomy. 3. Recent pacemaker implantation. 4. Cataract surgery. SOCIAL HISTORY: Former smoker. No alcohol use. On examination, her blood pressure is 126/61, 127/64, 170/87 and 153/90 mmHg. Pulse rate is 100 to 110 beats per minute. Afebrile. Respirations are normal IMPRESSION AND PLAN: 1. Patient was admitted with palpitations. Her [employer] pacemaker will be interrogated. We will see what kind of rhythm she has. Currently she has no arrhythmias. 2. Two-D echo and Doppler study. 3. Status post pacemaker implantation for symptomatic bradycardia. 4. Consider oral diuretics. CT scan was limited because of motion artifact, but there are no obvious pulmonary emboli. 5. Her troponins were 0.066 and 0.1. I will watch her trend and make appropriate recommendations. In the interim, continue IV Lasix, and statins should be considered as well as baby aspirin.
[2016-10-11] MEDS: predniSONE 5 MG TAB PO SCH (15:11)
[2016-10-11] MEDS: HYDROXYCHLOROQUINE SULFATE 200 MG TAB PO SCH (15:11)
[2016-10-11] MEDS: ASPIRIN 81 MG CHEW PO SCH ×2 (15:11→17:46)
[2016-10-11 16:35] LABS: Glucose,Whole Blood 120 mg/dL (75-99)
--- NOTE | 2016-10-11 18:31 | ECHOF ---
Referral Reason:sob abnormal cardiac enzymes, abnormal d-dimer MEASUREMENTS -------- HEIGHT: 132.1 cm WEIGHT: 67.6 kg BP: 153/90 RVIDd: 3.2 cm (< 3.3) IVSd: 1.2 cm (0.6 - 1.1) LVIDd: 4.1 cm (3.9 - 5.3) LVPWd: 1.3 cm (0.6 - 1.1) IVSs: 1.3 cm LVIDs: 2.2 cm LVPWs: 1.8 cm Ao Diam: 3.0 cm (2.0 - 3.7) AV Cusp: 1.1 cm (1.5 - 2.6) LA Diam: 3.5 cm (2.7 - 3.8) MV EXCURSION: 13.883 mm (> 18.000) MV EF SLOPE: 75 mm/s (70 - 150) MV E Ollie: 0.64 m/s MV DecT: 143 ms MV A Ollie: 0.87 m/s MV E/A Ratio: 0.73 AV maxP.57 mmHg AV meanP.13 mmHg AR PHT: 794 ms RAP: 5.00 mmHg RVSP: 29.01 mmHg FINDINGS -------- Pacemaker This was a technically difficult study with suboptimal views. There is mild concentric left ventricular hypertrophy. Overall left ventricular systolic function is mildly impaired with, an EF between 45 - 50 %. The right ventricle is normal in size and function. The left atrium is normal in size. The right atrium is normal in size. 1.5mg of Definity was utilized for enhancement of images Aortic valve is trileaflet and is moderately thickened. There is mild aortic regurgitation. There is mild aortic stenosis present. Peak/mean gradient across the Aortic Valve is 18.57mmHg / 11.13mmHg. The mitral valve leaflets are mildly thickened. Mild mitral annular calcification present. Mild mitral regurgitation is present. Mild tricuspid regurgitation present. The right ventricular systolic pressure, as measured by Doppler, is 29.01mmHg. Pulmonic valve appears structurally normal. The aortic root, ascending aorta and aortic arch are normal. There is a trivial pericardial effusion present. CONCLUSIONS -------- 1. Pacemaker 2. There is mild aortic regurgitation. 3. There is mild aortic stenosis present. 4. Peak/mean gradient across the Aortic Valve is 18.57mmHg / 11.13mmHg. 5. The mitral valve leaflets are mildly thickened. 6. Mild mitral annular calcification present. 7. Mild mitral regurgitation is present. 8. Mild tricuspid regurgitation present. 9. The right ventricular systolic pressure, as measured by Doppler, is 29.01mmHg. 10. Pulmonic valve appears structurally normal. 11. The aortic root, ascending aorta and aortic arch are normal. 12. This was a technically difficult study with suboptimal views. 13. There is a trivial pericardial effusion present. 14. There is mild concentric left ventricular hypertrophy. 15. Overall left ventricular systolic function is mildly impaired with, an EF between 45 - 50 %. 16. The right ventricle is normal in size and function. 17. The left atrium is normal in size. 18. The right atrium is normal in size. 19. 1.5mg of Definity was utilized for enhancement of images 20. Aortic valve is trileaflet and is moderately thickened. PATIENT SAFETY TECH: Amparo Torres RDCS
[2016-10-11] MEDS: MONTELUKAST 10 MG TAB PO SCH (20:19)
[2016-10-11] MEDS: ACETAMINOPHEN TAB 325 MG TAB PO PRN (20:20)
[2016-10-11 20:54] LABS: Glucose,Whole Blood 168 mg/dL (75-99)
[2016-10-11] MEDS: ALPRAZolam 0.25 MG TAB PO PRN (22:57)
[2016-10-12 05:45] LABS: Glucose,Whole Blood 88 mg/dL (75-99)
[2016-10-12] MEDS: INSULIN LISPRO (humaLOG) 300 UNIT/3 ML VIAL SQ SCH ×4 (06:04→21:26)
[2016-10-12] MEDS: FUROSEMIDE 10 MG/ML 4 ML VIAL IV SCH ×2 (06:10→18:08)
[2016-10-12] MEDS: PANTOPRAZOLE 40 MG TABLET PO SCH (06:10)
[2016-10-12] MEDS: LEVOTHYROXINE 125 MCG TAB PO SCH (06:10)
[2016-10-12] MEDS: ACETAMINOPHEN TAB 325 MG TAB PO PRN ×2 (06:15→17:59)
[2016-10-12] MEDS: CALCIUM CARBONATE 500 MG CHEWABLE PO SCH (09:11)
[2016-10-12] MEDS: predniSONE 10 MG TAB PO SCH (09:11)
[2016-10-12] MEDS: ASPIRIN 81 MG CHEW PO SCH (09:11)
[2016-10-12] MEDS: ATORVASTATIN 20 MG TAB PO SCH (09:12)
[2016-10-12] MEDS: CHOLECALCIFEROL 1,000 UNIT TAB PO SCH (09:12)
[2016-10-12] MEDS: LIDOCAINE 5% PATCH TOPICAL SCH (09:13)
[2016-10-12] MEDS: HYDROXYCHLOROQUINE SULFATE 200 MG TAB PO SCH ×2 (09:13→16:00)
--- NOTE | 2016-10-12 10:49 | PN ---
INTERVAL HISTORY: Patient continued to be hemodynamically stable. No major events reported by nursing staff. Patient feels much better after giving the Lasix yesterday and thinks that she lost at least 5 pounds since yesterday. The patient sitting up in chair. Denying chest pain, shortness breath, nausea, vomiting, abdominal pain, dizziness, lightheadedness, or blurry vision. PHYSICAL EXAMINATION: VITAL SIGNS: Reviewed and stable. LUNGS: Clear to auscultation bilaterally. HEART: Normal S1, S2. ABDOMEN: Soft, no tenderness, positive bowel sounds in all 4 quadrants. EXTREMITIES: Lower extremity no pitting edema. PSYCH: Alert and oriented x3, relaxed mood and affect. NEURO: No focal deficit. IMAGING AND LABS: Glucose fluctuating between 88 and 141. Her second troponin came up to 0.093 from 0.066. ASSESSMENT AND PLAN: 1. Palpitation with recent history of pacemaker placement. Patient is still awaiting on pacemaker interrogation, which will happen today. I discussed the case with Dr. Araiza who is agreeable to keep patient on telemonitor and consider a stress testing in the morning given the elevation in the troponin. 2. Slight elevation in troponin management as above. 3. Congestive heart failure with fluid overload status. Patient responded well to Lasix. Will continue monitoring and consider discharging patient on as needed Lasix and I explained to the patient that she needs to weigh herself 2 times a week and consider Lasix if she gains more than 2 pounds and start taking Lasix and see her caul fat puller as soon as she experiences worsening in her swelling in lower extremities or shortness of breath. 4. Lupus. Patient will be maintained on prednisone and hydroxychloroquine. Patient is tolerating well. 5. Hypertension, under fair control. 6. Debility. Will consider discharging patient per PT recommendation.
[2016-10-12] MEDS: BUDESONIDE 0.5 MG/2 ML NEBU INHALATION SCH ×2 (11:25→20:10)
[2016-10-12 11:52] LABS: Glucose,Whole Blood 88 mg/dL (75-99)
[2016-10-12] MEDS: predniSONE 5 MG TAB PO SCH (16:01)
[2016-10-12 16:57] LABS: Glucose,Whole Blood 111 mg/dL (75-99)
[2016-10-12] MEDS: MONTELUKAST 10 MG TAB PO SCH (20:04)
[2016-10-12 21:27] LABS: Glucose,Whole Blood 148 mg/dL (75-99)
[2016-10-12] MEDS: ALPRAZolam 0.25 MG TAB PO PRN (23:22)
[2016-10-13] MEDS: LEVOTHYROXINE 125 MCG TAB PO SCH (06:44)
[2016-10-13] MEDS: PANTOPRAZOLE 40 MG TABLET PO SCH (06:44)
[2016-10-13] MEDS: FUROSEMIDE 10 MG/ML 4 ML VIAL IV SCH (06:44)
[2016-10-13] MEDS: INSULIN LISPRO (humaLOG) 300 UNIT/3 ML VIAL SQ SCH ×4 (07:05→21:25)
[2016-10-13 07:07] LABS: Glucose,Whole Blood 78 mg/dL (75-99)
[2016-10-13 07:37] LABS: Calcium 8.6 mg/dL (8.4-10.2); Potassium 3.8 mmol/L (3.5-5.1)
[2016-10-13] MEDS: BUDESONIDE 0.5 MG/2 ML NEBU INHALATION SCH ×2 (08:49→19:54)
[2016-10-13] MEDS: ACETAMINOPHEN TAB 325 MG TAB PO PRN ×3 (09:39→23:44)
[2016-10-13] MEDS: HYDROXYCHLOROQUINE SULFATE 200 MG TAB PO SCH ×2 (09:40→16:59)
[2016-10-13] MEDS: ATORVASTATIN 20 MG TAB PO SCH ×2 (09:40→14:17)
[2016-10-13] MEDS: CALCIUM CARBONATE 500 MG CHEWABLE PO SCH (09:40)
[2016-10-13] MEDS: CHOLECALCIFEROL 1,000 UNIT TAB PO SCH (09:40)
[2016-10-13] MEDS: ASPIRIN 81 MG CHEW PO SCH (09:40)
[2016-10-13] MEDS: predniSONE 10 MG TAB PO SCH (09:41)
[2016-10-13 12:07] LABS: Glucose,Whole Blood 109 mg/dL (75-99)
--- NOTE | 2016-10-13 13:14 | CDI ---
In responding to this query, please exercise your independent professional judgment. The [facility] Coding Staff and Clinical Documentation Specialists appreciate your assistance in clarifying documentation, maintaining compliance with coding guidelines, accurately documenting patients condition and capturing severity of illness. The fact that a question is asked does not imply that any particular answer is desired or expected. Communication forms are a method of clarifying documentation and are not made part of the Legal Health Record. Thank you in advance for your clarification. Last Revision, July 2016 Josesito Solis [address] [place] [address] Documentation Clarification Form Date: 10/13/2016 1:02:00 PM From: Irma Trent CCS, CCDS Admit Date: 10/11/2016 1:38:00 AM Patient Name: Julianna Stover Visit Number: [id number] Discharge Date: Dr. Rey Murray: CHF is documented in the 10/12 attending progress notes as congestive heart failure with fluid overload status. Patient responded to Lasix. Consider discharging on Lasix. (CHF is not documented by the chief vendor quality.) History/Risk Factors: Recent pacemaker implantation for symptomatic bradycardia. Clinical Indicators: 76 yo female, presented with palpitations at rest. VS: P 115 - 101 - 104 - 112 Echocardiogram Results: EF 45-50%, left ventricular systolic function mildly impaired, mild concentric left ventricular hypertrophy, mild aortic stenosis & regurgitation. Mild mitral/tricuspid regurgitation. Chest X Ray: Mild pulmonary vascular congestion. CT Chest: Pulmonary arterial hypertension, atelectasis left base. Treatment: Heart Failure protocol, Cardiology consult. IV Lasix, Albuterol neb INH, IV Zofran, Insulin sc, Aspirin. In your professional opinion, can you please clarify the acuity and type of CHF if known? Systolic Heart Failure: Acute Chronic Acute on Chronic Diastolic Heart Failure: Acute Chronic Acute on Chronic Systolic & Diastolic Heart Failure: Acute Chronic Acute on Chronic Unable to determine Other, please specify Please document in your progress notes and discharge summary in order to capture severity of illness and risk of mortality. Include clinical findings that support your diagnosis. FYI: Press F11 to launch patient chart. Place X here if this finding has no clinical significance, is not applicable or if you are not able to provide any additional documentation. MTDD
[2016-10-13] MEDS: LIDOCAINE 5% PATCH TOPICAL SCH (14:17)
[2016-10-13] MEDS ORDERED: BISACODYL 10 MG SUPP RECTAL STA (15:03)
--- NOTE | 2016-10-13 15:15 | P.PN ---
Subjective Principal diagnosis: Congestive heart failure This is a 76-year-old female who follows with Dr. Santoyo in the office she presented to the hospital with symptoms of palpitations. She also states that she's been putting on a fluid in her extremities and abdomen. Denies having any chest discomfort. Her troponins were borderline. AST and ALT mildly elevated suggestive of congestion. Device was interrogated, did not reveal any tachyarrhythmias. Patient was diuresed on IV Lasix, she was also noted to have an abnormal d-dimer and CTA of the chest is performed which revealed respiratory motion limiting assessment for segmental and subsegmental pulmonary embolism in the lower lobes. No evidence for PE anywhere else in the lungs. Creat today 1.5, potassium 3.8. Patient's main complaint today is that of being constipated. Discontinue the IV Lasix today. Check lytes BUN and creatinine in the morning. Objective - Vital Signs Vital signs: Vital Signs Temp 97.4 F L 10/13/16 09:25 Pulse 88 10/13/16 13:20 Resp 16 10/13/16 13:20 BP 125/76 10/13/16 13:20 Pulse Ox 99 10/13/16 13:20 Intake & Output 10/12/16 10/13/16 10/13/16 18:59 06:59 18:59 Intake Total 1320 10 500 Output Total 400 400 Balance 920 -390 500 Weight 67.9 kg Intake: IV 10 0.9 10 Oral 1320 500 Output: Urine 400 400 Other: # Voids 2 0 3 # Bowel Movements 0 - Exam PHYSICAL EXAMINATION: HEENT: Head is atraumatic, normocephalic. Pupils equal, round. Neck is supple. There is no elevated jugular venous pressure. HEART EXAMINATION: S1 and S2 systolic murmur is heard. CHEST EXAMINATION: Lungs are clear to auscultation and precussion. No chest wall tenderness is noted on palpation or with deep breathing. ABDOMEN: Soft, nontender. Bowel sounds are heard. No organomegaly noted. EXTREMITIES: 2+ peripheral pulses with no evidence of peripheral edema and no calf tenderness noted. NEUROLOGIC patient is awake, alert and oriented -3. . - Labs CBC & Chem 7: 10/10/16 22:31 10/13/16 05:48 Labs: Abnormal Lab Results - Last 24 Hours (Table) 0510/12/16 10/13/16 Range/Units 16:56 21:06 05:48 Sodium 136 L (137-145) mmol/L BUN 40 H (7-17) mg/dL Creatinine 1.59 H (0.52-1.04) mg/dL Glucose 68 L (74-99) mg/dL POC Glucose (mg/dL) 111 H 148 H (75-99) mg/dL 10/13/16 Range/Units 12:00 Sodium (137-145) mmol/L BUN (7-17) mg/dL Creatinine (0.52-1.04) mg/dL Glucose (74-99) mg/dL POC Glucose (mg/dL) 109 H (75-99) mg/dL Assessment and Plan (1) Palpitation Status: Acute (2) Elevated troponin Status: Acute (3) Diastolic CHF, acute on chronic Status: Acute (4) CHF exacerbation Status: Acute (5) HTN (hypertension) Status: Acute (6) GERD (gastroesophageal reflux disease) Status: Acute Plan: Because of the abnormal troponins, patient will be scheduled to undergo stress test tomorrow. Further recommendations will be based on those findings and patient's clinical course. DNP note has been reviewed, I agree with a documented findings and plan of care. Patient was seen and examined.
--- NOTE | 2016-10-13 15:51 | P.PN ---
Subjective Patient is a 76-year-old female, patient of Dr. Mortensen in the outpatient setting, with medical history significant for hypertension, hypothyroidism, lupus, GERD, recent bradycardia status post pacemaker placement , asthma, and anxiety. Patient presented to the hospital with complaints of palpitations and increased fluid to her extremities and abdomen. Patient was admitted to the selective care unit consult to cardiology. Patient's pacemaker has been interrogated with no evidence of tachyarrhythmias. Patient was started on IV Lasix. Patient did have a CTA of the chest for an abnormal d- dimer with no evidence of a pulmonary embolism, segmental and subsegmental pulmonary embolism and lower lobes unable to assess secondary to respiratory motion. Upon examination, patient is complaining of feeling constipated. Denies chills, fevers, nausea, vomiting, shortness of breath, chest pain, or abdominal pain. Creatinine increased to 1.59 from 1.2 since yesterday. Lasix has been discontinued. Patient is currently scheduled for a nuclear medicine stress Lexiscan test tomorrow. Objective - Vital Signs Vital signs: Vital Signs Temp 97.4 F L 10/13/16 09:25 Pulse 88 10/13/16 13:20 Resp 16 10/13/16 13:20 BP 125/76 10/13/16 13:20 Pulse Ox 99 10/13/16 13:20 Intake & Output 10/12/16 10/13/16 10/13/16 18:59 06:59 18:59 Intake Total 1320 10 500 Output Total 400 400 Balance 920 -390 500 Weight 67.9 kg Intake: IV 10 0.9 10 Oral 1320 500 Output: Urine 400 400 Other: # Voids 2 0 3 # Bowel Movements 0 - Exam GENERAL: Pt awake and alert, well-appearing, well-nourished, and in no acute distress. HEAD: Atraumatic, normocephalic. EYES: Pupils equal, round, sclera anicteric, conjunctiva are normal. ENT: Moist mucous membranes. NECK:Supple without lymphadenopathy or JVD. LUNGS: Breath sounds diminished to auscultation bilaterally. No wheezes, rales , or rhonchi. HEART: Heart S1, S2, no S3 or S4. Regular rate and rhythm. Systolic murmur. ABDOMEN: Soft, nontender, nondistended, normoactive bowel sounds. No guarding, no rebound. No masses or organomegaly appreciated. EXTREMITIES: Palpable peripheral pulses. No edema or calf tenderness. NEUROLOGICAL: Pt oriented x 3. No focal deficits noted. Strength and sensation grossly intact. PSYCH: Normal mood, normal affect. SKIN: Warm, dry. No rashes or lesions. - Labs CBC & Chem 7: 10/10/16 22:31 10/13/16 05:48 Labs: Abnormal Lab Results - Last 24 Hours (Table) 10/12/16 10/12/16 10/13/16 Range/Units 16:56 21:06 05:48 Sodium 136 L (137-145) mmol/L BUN 40 H (7-17) mg/dL Creatinine 1.59 H (0.52-1.04) mg/dL Glucose 68 L (74-99) mg/dL POC Glucose (mg/dL) 111 H 148 H (75-99) mg/dL 10/13/16 Range/Units 12:00 Sodium (137-145) mmol/L BUN (7-17) mg/dL Creatinine (0.52-1.04) mg/dL Glucose (74-99) mg/dL POC Glucose (mg/dL) 109 H (75-99) mg/dL Assessment and Plan Plan: Impression and plan: 1. Palpitations, present on admission. Pacemaker interrogated without evidence of tachyarrhythmias. 2. Elevated troponins, present on admission. Patient will undergo Lexiscan stress test tomorrow per cardiology recommendations. 3. Acute on chronic diastolic congestive heart failure, improved. 4. Acute renal failure, suspect secondary to diuretics. Lasix currently discontinued. 3. History of hypertension. 4. Chronic renal failure, stage III. 5. GERD. Continue Protonix. 6. History of bronchitis. 7. Asthma, mild. Continue Singulair. 8. Osteoporosis. Maintain fall precautions. Continue vitamin D. 9. Hypothyroidism. Continue Synthroid. 10. Lupus. Continue prednisone. Continue Plaquenil. 11. Chronic back pain with history of spinal fractures. Continue Tylenol for pain. 12. Peripheral neuropathy. 13. Large hiatal hernia. 14. Diabetes mellitus type 2, controlled. Accu-Cheks before meals at bedtime with Humalog sliding scale. Consistent carbohydrate diet. 14. Constipation. Continue Colace and Dulcolax. Continue to monitor patient. Continue current medications. Continue to follow with cardiology. Continue GI and DVT prophylaxis. Repeat CBC and BMP in a.m. The above impression and plan have been discussed and directed by Dr. Mortensen. Zack ARMAS acting as scribe for Dr. Mortensen.
[2016-10-13] MEDS ORDERED: FUROSEMIDE 20 MG TAB PO SCH (16:00)
[2016-10-13 16:34] LABS: Glucose,Whole Blood 140 mg/dL (75-99)
[2016-10-13] MEDS: DOCUSATE 100 MG CAP PO SCH (16:58)
[2016-10-13] MEDS: predniSONE 5 MG TAB PO SCH (16:59)
[2016-10-13] MEDS: ALBUTEROL NEBULIZED 2.5 MG/3 ML INHALATION PRN (19:54)
[2016-10-13] MEDS: MONTELUKAST 10 MG TAB PO SCH (20:26)
[2016-10-13 20:59] LABS: Glucose,Whole Blood 151 mg/dL (75-99)
[2016-10-13] MEDS: ALPRAZolam 0.25 MG TAB PO PRN (23:44)
[2016-10-14 06:05] LABS: Glucose,Whole Blood 77 mg/dL (75-99)
[2016-10-14] MEDS: INSULIN LISPRO (humaLOG) 300 UNIT/3 ML VIAL SQ SCH ×4 (06:28→23:05)
[2016-10-14] MEDS: LEVOTHYROXINE 125 MCG TAB PO SCH (06:28)
[2016-10-14] MEDS: PANTOPRAZOLE 40 MG TABLET PO SCH (06:28)
[2016-10-14] MEDS: BUDESONIDE 0.5 MG/2 ML NEBU INHALATION SCH ×2 (08:27→19:28)
[2016-10-14] MEDS: ALPRAZolam 0.25 MG TAB PO PRN ×2 (08:47→22:30)
[2016-10-14] MEDS ORDERED: AMINOPHYLLINE 500 MG/20 ML VIAL IV PRN (09:00)
[2016-10-14] MEDS ORDERED: REGADENOSON 0.4 MG/5 ML SYRINGE IV ONE (09:00)
[2016-10-14 09:22] LABS: Basophils % (A) 1 %; CH 32.6; CHCM 33.9; Eosinophils % (A) 1 %; HCT 33.1 % (34.0-46.0); HDW 2.87; Luc # (Auto) 0.26; Luc % (Auto) 4; Lymphocytes # (A) 2.3 k/uL (1.0-4.8); Lymphocytes % (A) 32 %; MCH 32.3 pg (25.0-35.0); MCHC 33.3 g/dL (31.0-37.0); MCV 96.9 fL (80.0-100.0); Mean Platelet Volume 6.4; Monocytes # (A) 0.5 k/uL (0-1.0); Monocytes % (A) 7 %; Neutrophils % (A) 56 %; RBC 3.41 m/uL (3.80-5.40); RDW 14.4 % (11.5-15.5); WBC 7.1 k/uL (3.8-10.6); WBC (Perox) 7.56
[2016-10-14 09:43] LABS: Potassium 4.2 mmol/L (3.5-5.1)
[2016-10-14 11:30] LABS: Glucose,Whole Blood 93 mg/dL (75-99)
[2016-10-14] MEDS: ATORVASTATIN 20 MG TAB PO SCH ×2 (12:07→12:11)
[2016-10-14] MEDS: ASPIRIN 81 MG CHEW PO SCH (12:07)
[2016-10-14] MEDS: CALCIUM CARBONATE 500 MG CHEWABLE PO SCH (12:07)
[2016-10-14] MEDS: ACETAMINOPHEN TAB 325 MG TAB PO PRN ×2 (12:07→18:34)
[2016-10-14] MEDS: CHOLECALCIFEROL 1,000 UNIT TAB PO SCH (12:08)
[2016-10-14] MEDS: DOCUSATE 100 MG CAP PO SCH (12:08)
[2016-10-14] MEDS: LIDOCAINE 5% PATCH TOPICAL SCH (12:08)
[2016-10-14] MEDS: HYDROXYCHLOROQUINE SULFATE 200 MG TAB PO SCH ×2 (12:08→17:18)
[2016-10-14] MEDS: predniSONE 10 MG TAB PO SCH (12:08)
[2016-10-14] MEDS ORDERED: LEVOTHYROXINE 125 MCG TAB PO STA (12:12)
--- NOTE | 2016-10-14 12:21 | EST ---
DATE OF SERVICE: 10/14/2016 AGE: 76Y SEX: F HT: 4'11" WT: 149 lbs. Protocol Lio: Other: Lexiscan Cardiolite Stage: Dur. of Exercise: *Heart Rate Blood Pressure *Rest: 76 Rest: 137/68 * *Max. Achieved: 95 Maximum BP: 142/75 85% PMHR: 122 100% PMHR: 144 *METS: INDICATIONS: Abnormal troponins. MEDICATIONS: The patient was given Lexiscan injection over a period of 15 seconds. Peak heart rate of 95 was achieved. Maximum blood pressure of 142/75 mmHg was noted. Resting EKG shows normal sinus rhythm with normal IA interval and QRS duration and normal ST-T waves. No ST segment depression suggestive of ischemia is noted. The results of the nuclear study will follow.
--- NOTE | 2016-10-14 12:22 | NM ---
EXAMINATION TYPE: NM stress lexiscan cardiolite DATE OF EXAM: 10/14/2016 11:27 AM COMPARISON: NONE HISTORY: Abnormal troponin, laboratory test TECHNIQUE: After the intravenous administration of 10.41 mCi Tc 99m Sestamibi - Cardiolite resting S PECT images acquired 45 minutes post injection. The patient received 0.4mg Lexiscan, 26.7 mCi Tc 99m Sestamibi - Stress images obtained [address] injection FINDINGS: Review of stress and rest SPECT images demonstrates decreased radiopharmaceutical uptake along the in ferolateral left ventricle towards the apex. Decreased radiopharmaceutical uptake is present in the i nferolateral left ventricle greater on stress images than on rest images than are noted and short axi s and horizontal long axis, not apparent on vertical long axis. Gated analysis shows normal wall mot ion with an estimated left ventricular ejection fraction of 52 %. IMPRESSION: Findings could be technical. Findings suggest pharmacologically induced left ventricular myocardial ischemia
[2016-10-14] MEDS ORDERED: NITROGLYCERIN SL TABS 0.4 MG TAB SUBLINGUAL PRN (14:50)
[2016-10-14] MEDS ORDERED: SODIUM CHLORIDE 0.9% 1,000 ML in EMPTY BAG 1 BAG IV ONE (14:50)
[2016-10-14] MEDS ORDERED: ASPIRIN 325 MG TAB PO STA (14:50)
[2016-10-14] MEDS ORDERED: ALPRAZolam 0.5 MG TAB PO PRN (14:50)
[2016-10-14] MEDS ORDERED: ATORVASTATIN 80 MG TAB PO STA (14:54)
--- NOTE | 2016-10-14 15:18 | P.PN ---
Subjective Principal diagnosis: Congestive heart failure This is a 76-year-old female who follows with Dr. Santoyo in the office she presented to the hospital with symptoms of palpitations. She also states that she's been putting on a fluid in her extremities and abdomen. Denies having any chest discomfort. Her troponins were borderline. AST and ALT mildly elevated suggestive of congestion. Device was interrogated, did not reveal any tachyarrhythmias. Patient was diuresed on IV Lasix, she was also noted to have an abnormal d-dimer and CTA of the chest is performed which revealed respiratory motion limiting assessment for segmental and subsegmental pulmonary embolism in the lower lobes. No evidence for PE anywhere else in the lungs. Because of the abnormal troponins patient was advised to undergo a stress test which was performed today. Findings suggested pharmacologically induced left ventricular myocardial ischemia. For this reason patient was advised to undergo cardiac catheterization tomorrow. The risks and the benefits were explained to the patient in detail. Creatinine today 1.5. Objective - Vital Signs Vital signs: Vital Signs Temp 96.5 F L 10/14/16 07:45 Pulse 84 10/14/16 12:00 Resp 12 10/14/16 12:00 BP 105/70 10/14/16 12:00 Pulse Ox 98 10/14/16 12:00 Intake & Output 10/13/16 10/14/16 10/14/16 18:59 06:59 18:59 Intake Total 500 10 680 Balance 500 10 680 Weight 67.5 kg Intake: IV 10 0.9 10 Oral 500 680 Other: Voiding Method Toilet Toilet # Voids 3 2 3 - Exam PHYSICAL EXAMINATION: HEENT: Head is atraumatic, normocephalic. Pupils equal, round. Neck is supple. There is no elevated jugular venous pressure. HEART EXAMINATION: S1 and S2 systolic murmur is heard. CHEST EXAMINATION: Lungs are clear to auscultation and precussion. No chest wall tenderness is noted on palpation or with deep breathing. ABDOMEN: Soft, nontender. Bowel sounds are heard. No organomegaly noted. EXTREMITIES: 2+ peripheral pulses with no evidence of peripheral edema and no calf tenderness noted. NEUROLOGIC patient is awake, alert and oriented -3. . - Labs CBC & Chem 7: 10/14/16 08:31 10/14/16 08:31 Labs: Abnormal Lab Results - Last 24 Hours (Table) 10/13/16 10/13/16 10/14/16 Range/Units 16:32 20:56 08:31 RBC 3.41 L (3.80-5.40) m/uL Hgb 11.0 L (11.4-16.0) gm/dL Hct 33.1 L (34.0-46.0) % Sodium (137-145) mmol/L Chloride (98-107) mmol/L BUN (7-17) mg/dL Creatinine (0.52-1.04) mg/dL POC Glucose (mg/dL) 140 H 151 H (75-99) mg/dL 10/14/16 Range/Units 08:31 RBC (3.80-5.40) m/uL Hgb (11.4-16.0) gm/dL Hct (34.0-46.0) % Sodium 136 L (137-145) mmol/L Chloride 97 L (98-107) mmol/L BUN 37 H (7-17) mg/dL Creatinine 1.59 H (0.52-1.04) mg/dL POC Glucose (mg/dL) (75-99) mg/dL Assessment and Plan (1) Palpitation Status: Acute (2) Elevated troponin Status: Acute (3) Diastolic CHF, acute on chronic Status: Acute (4) CHF exacerbation Status: Acute (5) HTN (hypertension) Status: Acute (6) GERD (gastroesophageal reflux disease) Status: Acute Plan: C scan stress test positive for reversible ischemia. Patient has been advised to undergo cardiac catheterization tomorrow. The risks and the benefits were explained to the patient in detail and she is willing to proceed. Creatinine today is 1.5, we will administer IV fluids at 75 mL per hour. DNP note has been reviewed, I agree with a documented findings and plan of care. Patient was seen and examined.
--- NOTE | 2016-10-14 16:16 | P.PN ---
Subjective Patient is a 76-year-old female, patient of Dr. Mortensen in the outpatient setting, with medical history significant for hypertension, hypothyroidism, lupus, GERD, recent bradycardia status post pacemaker placement , asthma, and anxiety. Patient presented to the hospital with complaints of palpitations and increased fluid to her extremities and abdomen. Patient was found to have elevated troponins at 0.066 and 0.093. Patient was admitted to the selective care unit with consult to cardiology. Patient's pacemaker has been interrogated with no evidence of tachyarrhythmias. Patient was started on IV Lasix. Patient did have a CTA of the chest for an abnormal d-dimer with no evidence of a pulmonary embolism, segmental and subsegmental pulmonary embolism and lower lobes unable to assess secondary to respiratory motion. On 10/14/2016 , patient underwent Cardiolite stress test for with evidence of induced left ventricular myocardial ischemia. Patient is currently scheduled for a cardiac stress test tomorrow. Upon examination, patient has no specific complaints. Denies chills, fevers, nausea, vomiting, shortness of breath, chest pain, or abdominal pain. Patient had a bowel movement. Creatinine unchanged at 1.59. Objective - Vital Signs Vital signs: Vital Signs Temp 96.5 F L 10/14/16 07:45 Pulse 84 10/14/16 12:00 Resp 12 10/14/16 12:00 BP 105/70 10/14/16 12:00 Pulse Ox 98 10/14/16 12:00 Intake & Output 10/13/16 10/14/16 10/14/16 18:59 06:59 18:59 Intake Total 500 10 680 Balance 500 10 680 Weight 67.5 kg Intake: IV 10 0.9 10 Oral 500 680 Other: Voiding Method Toilet Toilet # Voids 3 2 1 - Exam GENERAL: Pt awake and alert, well-appearing, well-nourished, and in no acute distress. HEAD: Atraumatic, normocephalic. EYES: Pupils equal, round, sclera anicteric, conjunctiva are normal. ENT: Moist mucous membranes. NECK:Supple without lymphadenopathy or JVD. LUNGS: Breath sounds diminished to auscultation bilaterally. No wheezes, rales , or rhonchi. HEART: Heart S1, S2, no S3 or S4. Regular rate and rhythm. Systolic murmur. ABDOMEN: Soft, nontender, nondistended, normoactive bowel sounds. No guarding, no rebound. No masses or organomegaly appreciated. EXTREMITIES: Palpable peripheral pulses. No edema or calf tenderness. NEUROLOGICAL: Pt oriented x 3. No focal deficits noted. Strength and sensation grossly intact. PSYCH: Normal mood, normal affect. SKIN: Warm, dry. No rashes or lesions. - Labs CBC & Chem 7: 10/14/16 08:31 10/14/16 08:31 Labs: Abnormal Lab Results - Last 24 Hours (Table) 10/13/16 10/13/16 10/14/16 Range/Units 16:32 20:56 08:31 RBC 3.41 L (3.80-5.40) m/uL Hgb 11.0 L (11.4-16.0) gm/dL Hct 33.1 L (34.0-46.0) % Sodium (137-145) mmol/L Chloride (98-107) mmol/L BUN (7-17) mg/dL Creatinine (0.52-1.04) mg/dL POC Glucose (mg/dL) 140 H 151 H (75-99) mg/dL 10/14/16 Range/Units 08:31 RBC (3.80-5.40) m/uL Hgb (11.4-16.0) gm/dL Hct (34.0-46.0) % Sodium 136 L (137-145) mmol/L Chloride 97 L (98-107) mmol/L BUN 37 H (7-17) mg/dL Creatinine 1.59 H (0.52-1.04) mg/dL POC Glucose (mg/dL) (75-99) mg/dL Assessment and Plan Plan: Impression and plan: 1. Palpitations, present on admission. Pacemaker interrogated without evidence of tachyarrhythmias. 2. Elevated troponins, present on admission. Patient is status post Lexiscan stress test with evidence of pharmacologically induced left ventricular myocardial ischemia. Patient is currently scheduled for a cardiac cath tomorrow. 3. Acute on chronic diastolic congestive heart failure, improved. 4. Acute renal failure, suspect secondary to diuretics. Lasix currently discontinued. 3. History of hypertension. 4. Chronic renal failure, stage III. 5. GERD. Continue Protonix. 6. History of bronchitis. 7. Asthma, mild. Continue Singulair. 8. Osteoporosis. Maintain fall precautions. Continue vitamin D. 9. Hypothyroidism. Continue Synthroid. 10. Lupus. Continue prednisone. Continue Plaquenil. 11. Chronic back pain with history of spinal fractures. Continue Tylenol for pain. 12. Peripheral neuropathy. 13. Large hiatal hernia. 14. Diabetes mellitus type 2, controlled. Accu-Cheks before meals at bedtime with Humalog sliding scale. Consistent carbohydrate diet. 14. Constipation, resolved. Continue to monitor patient. Continue current medications. Continue to follow with cardiology. Continue GI and DVT prophylaxis. Repeat CBC and BMP in a.m. The above impression and plan have been discussed and directed by Dr. Mortensen. Zack ARAMS acting as scribe for Dr. Mortensen.
[2016-10-14 16:29] LABS: Glucose,Whole Blood 186 mg/dL (75-99)
[2016-10-14] MEDS: predniSONE 5 MG TAB PO SCH (17:19)
[2016-10-14] MEDS: MONTELUKAST 10 MG TAB PO SCH (20:28)
[2016-10-14 21:02] LABS: Glucose,Whole Blood 129 mg/dL (75-99)
[2016-10-14] MEDS: SODIUM CHLORIDE 0.9% 1,000 ML IV SCH (23:04)
[2016-10-15 05:48] LABS: Glucose,Whole Blood 74 mg/dL (75-99)
[2016-10-15] MEDS: SODIUM CHLORIDE 0.9% 1,000 ML IV SCH ×2 (06:29→12:30)
[2016-10-15] MEDS: INSULIN LISPRO (humaLOG) 300 UNIT/3 ML VIAL SQ SCH ×4 (06:29→21:26)
[2016-10-15] MEDS: ASPIRIN 81 MG CHEW PO SCH (06:30)
[2016-10-15] MEDS: LEVOTHYROXINE 125 MCG TAB PO SCH (06:30)
[2016-10-15] MEDS: ATORVASTATIN 20 MG TAB PO SCH (06:30)
[2016-10-15] MEDS: predniSONE 10 MG TAB PO SCH (06:31)
[2016-10-15] MEDS: HYDROXYCHLOROQUINE SULFATE 200 MG TAB PO SCH ×2 (06:34→16:38)
[2016-10-15] MEDS: ALBUTEROL NEBULIZED 2.5 MG/3 ML INHALATION PRN (08:26)
[2016-10-15] MEDS: BUDESONIDE 0.5 MG/2 ML NEBU INHALATION SCH ×2 (08:26→19:58)
[2016-10-15 10:10] LABS: Calcium 9.1 mg/dL (8.4-10.2); Potassium 3.6 mmol/L (3.5-5.1)
[2016-10-15 11:30] LABS: Glucose,Whole Blood 103 mg/dL (75-99)
[2016-10-15] MEDS ORDERED: MIDAZOLAM 2 MG/2 ML VIAL ONE (12:21)
[2016-10-15] MEDS ORDERED: fentaNYL (PF) 50 MCG/ML 2 ML AMP ONE (12:21)
[2016-10-15] MEDS ORDERED: fentaNYL (PF) 50 MCG/ML 2 ML AMP IV ONE (12:27)
[2016-10-15] MEDS ORDERED: MIDAZOLAM 2 MG/2 ML VIAL IV ONE (12:29)
[2016-10-15] MEDS ORDERED: LIDOCAINE 2% INJ 20 MG/ML SQ ONE (12:29)
--- NOTE | 2016-10-15 12:40 | P.PN ---
Subjective Patient is a 76-year-old female, patient of Dr. Mortensen in the outpatient setting, with medical history significant for hypertension, hypothyroidism, lupus, GERD, recent bradycardia status post pacemaker placement , asthma, and anxiety. Patient presented to the hospital with complaints of palpitations and increased fluid to her extremities and abdomen. Patient was found to have elevated troponins at 0.066 and 0.093. Patient was admitted to the selective care unit with consult to cardiology. Patient's pacemaker has been interrogated with no evidence of tachyarrhythmias. Patient was started on IV Lasix. Patient did have a CTA of the chest for an abnormal d-dimer with no evidence of a pulmonary embolism, segmental and subsegmental pulmonary embolism and lower lobes unable to assess secondary to respiratory motion. On 10/14/2016 , patient underwent Cardiolite stress test for with evidence of induced left ventricular myocardial ischemia. Patient is currently scheduled for a cardiac stress test today. Upon examination, patient has no specific complaints. Denies chills, fevers, nausea, vomiting, shortness of breath, heart palpitations , chest pain, or abdominal pain. Creatinine decreased to 1.42. Objective - Vital Signs Vital signs: Vital Signs Temp 98.2 F 10/15/16 04:00 Pulse 90 10/15/16 08:41 Resp 16 10/15/16 08:00 BP 132/95 10/15/16 08:00 Pulse Ox 100 10/15/16 08:00 Intake & Output 10/14/16 10/15/16 10/15/16 18:59 06:59 18:59 Intake Total 920 675 Balance 920 675 Weight 67.5 kg Intake: IV 675 Sodium Chloride 0.9% 1, 675 000 ml @ 75 mls/hr IV . [id number] [facility] Rx#:[id number] Oral 920 Other: Voiding Method Toilet Toilet Toilet # Voids 1 1 - Exam GENERAL: Pt awake and alert, well-appearing, well-nourished, and in no acute distress. HEAD: Atraumatic, normocephalic. EYES: Pupils equal, round, sclera anicteric, conjunctiva are normal. ENT: Moist mucous membranes. NECK:Supple without lymphadenopathy or JVD. LUNGS: Breath sounds diminished to auscultation bilaterally. No wheezes, rales , or rhonchi. HEART: Heart S1, S2, no S3 or S4. Regular rate and rhythm. Systolic murmur. ABDOMEN: Soft, nontender, nondistended, normoactive bowel sounds. No guarding, no rebound. No masses or organomegaly appreciated. EXTREMITIES: Palpable peripheral pulses. No edema or calf tenderness. NEUROLOGICAL: Pt oriented x 3. No focal deficits noted. Strength and sensation grossly intact. PSYCH: Normal mood, normal affect. SKIN: Warm, dry. Scaly erythematous rash noted to lateral aspect of right foot. - Labs CBC & Chem 7: 10/14/16 08:31 10/15/16 09:04 Labs: Abnormal Lab Results - Last 24 Hours (Table) 10/14/16 10/14/16 10/15/16 Range/Units 16:26 21:01 05:47 BUN (7-17) mg/dL Creatinine (0.52-1.04) mg/dL POC Glucose (mg/dL) 186 H 129 H 74 L (75-99) mg/dL 10/15/16 10/15/16 Range/Units 09:04 11:25 BUN 34 H (7-17) mg/dL Creatinine 1.42 H (0.52-1.04) mg/dL POC Glucose (mg/dL) 103 H (75-99) mg/dL Assessment and Plan Plan: Impression and plan: 1. Palpitations, present on admission. Pacemaker interrogated without evidence of tachyarrhythmias. 2. Elevated troponins, present on admission. Patient is status post Lexiscan stress test with evidence of pharmacologically induced left ventricular myocardial ischemia. Patient is currently scheduled for a cardiac cath today. 3. Acute on chronic diastolic congestive heart failure, improved. 4. Acute renal failure, suspect secondary to diuretics. Lasix currently discontinued. 3. History of hypertension. 4. Chronic renal failure, stage III. 5. GERD. Continue Protonix. 6. History of bronchitis. 7. Asthma, mild. Continue Singulair. 8. Osteoporosis. Maintain fall precautions. Continue vitamin D. 9. Hypothyroidism. Continue Synthroid. 10. Lupus. Continue prednisone. Continue Plaquenil. 11. Chronic back pain with history of spinal fractures. Continue Tylenol for pain. 12. Peripheral neuropathy. 13. Large hiatal hernia. 14. Diabetes mellitus type 2, controlled. Accu-Cheks before meals at bedtime with Humalog sliding scale. Consistent carbohydrate diet. 15. History of constipation. 16. Scaly rash noted to right foot suspect fungal. Continue to monitor patient. Continue current medications. Will add Lamisil 2 rash for suspected fungal infection. Continue to follow with cardiology. Continue GI and DVT prophylaxis. Repeat CBC and BMP in a.m. The above impression and plan have been discussed and directed by Dr. Mortensen. Zack ARMAS acting as scribe for Dr. Mortensen.
[2016-10-15] MEDS ORDERED: NITROGLYCERIN SL TABS 0.4 MG TAB SUBLINGUAL ONE ×2 (12:44→12:45)
[2016-10-15] MEDS ORDERED: IODIXANOL 320 MG/ML 100 ML INTRAARTER ONE (12:47)
[2016-10-15] MEDS ORDERED: RX INFO: IV CONTRAST WAS GIVEN 1 EACH MISC MISCELLANE PRN (12:53)
--- NOTE | 2016-10-15 13:05 | CC ---
DATE OF SERVICE: Mrs. Stover is a 76-year-old female who was admitted with symptoms of chest pain. Patient had a mildly abnormal troponin level. She underwent a stress test. Stress test shows evidence of anterior wall ischemia. In view of that, the patient was recommended to have a cardiac catheterization for definitive diagnosis. PROCEDURE: Right groin was prepped and draped in the usual manner and the skin was infiltrated with 2% Xylocaine. The right femoral artery was entered using Seldinger technique. A #6 Urdu sheath was placed in. Selective coronary angiography was then performed in multiple projections and left ventricular pressures were obtained. Patient tolerated the procedure well. HEMODYNAMICS: Left ventricular end-diastolic pressure is 12 to 16 mmHg prior to angiography. No gradient was noted across the aortic valve. SELECTIVE CORONARY ANGIOGRAPHY: Right coronary artery is a good caliber blood vessel and gives rise to the posterior descending artery and PLV branch. Right coronary artery and its branches are normal. LAD is a good caliber blood vessel and gives rise to good-sized diagonal branch. LAD and its branches are normal. There is a mild irregularity noted in the plaque noted in the proximal LAD. Circumflex coronary artery gives rise to good-sized obtuse marginal branch and there is some mild diffuse disease noted. FINAL IMPRESSION: This study reveals mild disease in the LAD and circumflex. There is no hemodynamically significant stenosis. Left ventricular end-diastolic pressure is 12 to 16 mmHg. RECOMMENDATIONS: Continue medical treatment.
[2016-10-15] MEDS: DOCUSATE 100 MG CAP PO SCH (14:03)
[2016-10-15] MEDS: PANTOPRAZOLE 40 MG TABLET PO SCH (14:03)
[2016-10-15] MEDS: CALCIUM CARBONATE 500 MG CHEWABLE PO SCH (14:03)
[2016-10-15] MEDS: CHOLECALCIFEROL 1,000 UNIT TAB PO SCH (14:03)
[2016-10-15] MEDS: TERBINAFINE 1% CREAM 15 GM TUBE TOPICAL SCH ×2 (14:04→21:32)
[2016-10-15] MEDS: LIDOCAINE 5% PATCH TOPICAL SCH (14:24)
[2016-10-15 16:35] LABS: Glucose,Whole Blood 170 mg/dL (75-99)
[2016-10-15] MEDS: predniSONE 5 MG TAB PO SCH (16:38)
[2016-10-15 16:48] VITALS: RESP 16
[2016-10-15 20:26] LABS: Glucose,Whole Blood 186 mg/dL (75-99)
[2016-10-15] MEDS: MONTELUKAST 10 MG TAB PO SCH (21:25)
[2016-10-15] MEDS: ALPRAZolam 0.25 MG TAB PO PRN (22:09)
[2016-10-16] MEDS: ACETAMINOPHEN TAB 325 MG TAB PO PRN ×2 (04:24→12:23)
[2016-10-16 05:23] VITALS: TEMP 97.5
[2016-10-16] MEDS: SODIUM CHLORIDE 0.9% 1,000 ML IV SCH ×2 (05:46→09:03)
[2016-10-16 05:56] LABS: Glucose,Whole Blood 71 mg/dL (75-99)
[2016-10-16 06:13] LABS: Basophils % (A) 0 %; CH 32.3; CHCM 32.8; Eosinophils % (A) 0 %; HCT 29.6 % (34.0-46.0); HDW 2.83; HGB 9.9 gm/dL (11.4-16.0); Luc # (Auto) 0.18; Luc % (Auto) 3; Lymphocytes # (A) 1.5 k/uL (1.0-4.8); Lymphocytes % (A) 21 %; MCHC 33.3 g/dL (31.0-37.0); Macrocytosis Slight; Mean Platelet Volume 6.7; Monocytes # (A) 0.6 k/uL (0-1.0); Monocytes % (A) 8 %; Neutrophils # (A) 4.9 k/uL (1.3-7.7); Neutrophils % (A) 68 %; RBC 2.99 m/uL (3.80-5.40); RDW 14.4 % (11.5-15.5); WBC 7.2 k/uL (3.8-10.6)
[2016-10-16 06:21] LABS: Calcium 8.5 mg/dL (8.4-10.2); Potassium 4.4 mmol/L (3.5-5.1)
[2016-10-16] MEDS: INSULIN LISPRO (humaLOG) 300 UNIT/3 ML VIAL SQ SCH ×2 (06:34→12:16)
[2016-10-16] MEDS: PANTOPRAZOLE 40 MG TABLET PO SCH (06:35)
[2016-10-16] MEDS: LEVOTHYROXINE 125 MCG TAB PO SCH (06:35)
[2016-10-16] MEDS: BUDESONIDE 0.5 MG/2 ML NEBU INHALATION SCH (08:32)
[2016-10-16] MEDS: ATORVASTATIN 20 MG TAB PO SCH (09:16)
[2016-10-16] MEDS: DOCUSATE 100 MG CAP PO SCH (09:16)
[2016-10-16] MEDS: ASPIRIN 81 MG CHEW PO SCH (09:16)
[2016-10-16] MEDS: predniSONE 10 MG TAB PO SCH (09:16)
[2016-10-16] MEDS: LIDOCAINE 5% PATCH TOPICAL SCH ×2 (09:17→09:19)
[2016-10-16] MEDS: CHOLECALCIFEROL 1,000 UNIT TAB PO SCH (09:17)
[2016-10-16] MEDS: TERBINAFINE 1% CREAM 15 GM TUBE TOPICAL SCH (09:17)
[2016-10-16] MEDS: CALCIUM CARBONATE 500 MG CHEWABLE PO SCH (09:17)
[2016-10-16] MEDS: HYDROXYCHLOROQUINE SULFATE 200 MG TAB PO SCH (09:17)
[2016-10-16 10:27] VITALS: BMI 30.3
[2016-10-16] MEDS ORDERED: FUROSEMIDE 20 MG TAB PO PRN (11:54)
--- NOTE | 2016-10-16 12:02 | P.PN ---
Subjective Principal diagnosis: Congestive heart failure This is a 76-year-old female who follows with Dr. Santoyo in the office she presented to the hospital with symptoms of palpitations. She also states that she's been putting on a fluid in her extremities and abdomen. Denies having any chest discomfort. Her troponins were borderline. AST and ALT mildly elevated suggestive of congestion. Device was interrogated, did not reveal any tachyarrhythmias. Patient was diuresed on IV Lasix, she was also noted to have an abnormal d-dimer and CTA of the chest is performed which revealed respiratory motion limiting assessment for segmental and subsegmental pulmonary embolism in the lower lobes. No evidence for PE anywhere else in the lungs. Because of the abnormal troponins patient was advised to undergo a stress test which was performed and findings suggested pharmacologically induced left ventricular myocardial ischemia. For this reason patient was advised to undergo cardiac catheterization was performed yesterday. Cardiac cath revealed mild disease in the LAD and circumflex with no hemodynamically significant stenosis. Patient was seen and examined this morning, denied any chest pain or difficulty in breathing. Quite eager to be discharged home today. Patient is refusing to take Lipitor he states that she will discuss this further with Dr. Santoyo in the office on discharge. We will discontinue her height her hydrodiuril and start the patient on Lasix 20 mg when necessary daily for leg swelling. Objective - Vital Signs Vital signs: Vital Signs Temp 97.5 F L 10/16/16 04:00 Pulse 88 10/16/16 08:41 Resp 16 10/16/16 04:00 BP 124/59 10/16/16 04:00 Pulse Ox 99 10/16/16 08:33 Intake & Output 10/15/16 10/16/16 10/16/16 18:59 06:59 18:59 Intake Total 1395 675 337 Output Total 200 250 Balance 1195 675 87 Weight 68.1 kg 68.1 kg Intake: IV 550 675 0.9@75mls/hr 675 Sodium Chloride 0.9% 1, 450 000 ml @ 150 mls/hr IV . Q6H40M [facility] Rx#:[id number] Oral 845 337 Output: Urine 200 250 Other: Voiding Method Toilet Toilet # Voids 1 1 - Exam PHYSICAL EXAMINATION: HEENT: Head is atraumatic, normocephalic. Pupils equal, round. Neck is supple. There is no elevated jugular venous pressure. HEART EXAMINATION: S1 and S2 systolic murmur is heard. CHEST EXAMINATION: Lungs are clear to auscultation and precussion. No chest wall tenderness is noted on palpation or with deep breathing. ABDOMEN: Soft, nontender. Bowel sounds are heard. No organomegaly noted. EXTREMITIES: 2+ peripheral pulses with no evidence of peripheral edema and no calf tenderness noted. NEUROLOGIC patient is awake, alert and oriented -3. . - Labs CBC & Chem 7: 10/16/16 05:47 10/16/16 05:47 Labs: Abnormal Lab Results - Last 24 Hours (Table) 10/15/16 10/15/16 10/16/16 Range/Units 16:32 20:25 05:47 RBC 2.99 L (3.80-5.40) m/uL Hgb 9.9 L (11.4-16.0) gm/dL Hct 29.6 L (34.0-46.0) % Chloride (98-107) mmol/L BUN (7-17) mg/dL Creatinine (0.52-1.04) mg/dL Glucose (74-99) mg/dL POC Glucose (mg/dL) 170 H 186 H (75-99) mg/dL 10/16/16 10/16/16 Range/Units 05:47 05:55 RBC (3.80-5.40) m/uL Hgb (11.4-16.0) gm/dL Hct (34.0-46.0) % Chloride 111 H (98-107) mmol/L BUN 25 H (7-17) mg/dL Creatinine 1.20 H (0.52-1.04) mg/dL Glucose 62 L (74-99) mg/dL POC Glucose (mg/dL) 71 L (75-99) mg/dL Assessment and Plan (1) Palpitation Status: Acute (2) Elevated troponin Status: Acute (3) Diastolic CHF, acute on chronic Status: Acute (4) CHF exacerbation Status: Acute (5) HTN (hypertension) Status: Acute (6) GERD (gastroesophageal reflux disease) Status: Acute (7) S/P cardiac catheterization Status: Acute Plan: Cardiology's perspective, patient may be able to be discharged home today. We' ll make her a follow-up appointment to see Dr. Santoyo in the office post discharge. We will discontinue the Lipitor as patient is refusing to take it, she states that she will discuss this further with Dr. Santoyo in the office. We will also discontinue the Hydrodiuril and put the patient on a when necessary dose of Lasix as needed for leg swelling. DNP note has been reviewed, I agree with a documented findings and plan of care. Patient was seen and examined.
[2016-10-16 12:05] LABS: Glucose,Whole Blood 86 mg/dL (75-99)
[2016-10-16 12:16] VITALS: BP 133/63; PULSE 74
--- NOTE | 2016-10-16 15:13 | P.DS ---
Providers Date of admission: 10/11/16 01:38 Expected date of discharge: 10/16/16 Attending physician: Lorenzo Mortensen Consults: 10/11/16 02:30 Consult Physician Routine Consulting Provider: Ford Pickett Consult Reason/Comments: CHF exacerbation Do you want consulting provider notified?: Yes Primary care physician: Lorenzo Mortensen Hospital Course: Patient is a 76-year-old female, patient of Dr. Mortensen in the outpatient setting, with medical history significant for hypertension, hypothyroidism, lupus, GERD, recent bradycardia status post pacemaker placement , asthma, and anxiety. Patient presented to the hospital with complaints of palpitations and increased fluid to her extremities and abdomen. Patient was found to have elevated troponins at 0.066 and 0.093. Patient was admitted to the selective care unit with consult to cardiology. Patient's pacemaker has been interrogated with no evidence of tachyarrhythmias. Patient was started on IV Lasix. Patient did have a CTA of the chest for an abnormal d-dimer with no evidence of a pulmonary embolism, segmental and subsegmental pulmonary embolism and lower lobes unable to assess secondary to respiratory motion. On 10/14/2016 , patient underwent Cardiolite stress test with evidence of induced left ventricular myocardial ischemia. Patient underwent a cardiac stress test on which revealed mild disease in the LAD and circumflex with no hemodynamically significant stenosis. Patient was recommended to continue medical treatment by cardiology service. Patient did refuse just take Lipitor prior to discharge and apparently will discuss this further with Dr. Aguila Odom in the office after discharge. Patient's HydroDIURIL was discontinued and patient was started on Lasix 20 mg as necessary for leg swelling. Patient was felt stable for discharge to home with home care and follow-up with cardiology and Dr. Mortensen in the outpatient setting. Discharge diagnoses: 1. Palpitations, present on admission. Pacemaker interrogated without evidence of tachyarrhythmias. 2. Elevated troponins, present on admission. Lexiscan stress test with evidence of pharmacologically induced left ventricular myocardial ischemia. Cardiac catheterization with no evidence of significant stenosis. 3. Acute on chronic diastolic congestive heart failure, improved. 4. Acute renal failure, suspect secondary to diuretics, improved. 3. History of hypertension. 4. Chronic renal failure, stage III. 5. GERD. 6. History of bronchitis. 7. Asthma, mild. 8. Osteoporosis. 9. Hypothyroidism. 10. Lupus. 11. Chronic back pain with history of spinal fractures. 12. Peripheral neuropathy. 13. Large hiatal hernia. 14. Diabetes mellitus type 2, controlled. 15. History of constipation. 16. Scaly rash noted to right foot suspect fungal. The above impression and plan have been discussed and directed by Dr. Mortensen. Zack ARMAS acting as scribe for Dr. Mortensen. Pertinent Studies: Chest x-ray; EKG; echocardiogram with Doppler; chest CTA; stress test; Lexiscan stress test Procedures: Cardiac catheterization Patient Condition at Discharge: Good Plan - Discharge Summary New Discharge Prescriptions: Aspirin 81 mg PO DAILY #30 Budesonide [Pulmicort] 0.5 mg INHALATION RT-BID #60 nebu Furosemide [Lasix] 20 mg PO DAILY PRN #30 tab PRN Reason: Edema Terbinafine 1% Cream [LamISIL] 1 applic TOPICAL BID #1 tube Discharge Medication List Albuterol Nebulized [Ventolin Nebulized] 2.5 mg INHALATION RT-Q6H PRN 01/15/16 [ History] Hydroxychloroquine Sulfate [Plaquenil] 200 mg PO BID 01/15/16 [History] Levothyroxine Sodium [Synthroid] 125 mcg PO DAILY 01/15/16 [History] Omeprazole [PriLOSEC] 40 mg PO QAM 01/15/16 [History] predniSONE 10 mg PO QAM 01/15/16 [History] Calcium Carbonate [Calcium] 1,200 mg PO DAILY 01/16/16 [History] Cholecalciferol [Vitamin D3] 1,000 unit PO DAILY 01/16/16 [History] Cyanocobalamin (Vitamin B-12) [Vitamin B-12] 2,000 mcg PO DAILY 01/16/16 [ History] Montelukast [Singulair] 10 mg PO HS 01/16/16 [History] Vitafusion 1 caplet PO DAILY 01/16/16 [History] ALPRAZolam [Xanax] 0.25 mg PO Q8HR PRN #21 tab 09/22/16 [Rx] Acetaminophen Tab [Tylenol] 650 mg PO Q6HR PRN #0 tab 09/22/16 [Rx] Bisacodyl [Dulcolax] 10 mg PO DAILY PRN #0 tablet.dr 09/22/16 [Rx] Docusate [Colace] 100 mg PO DAILY cap 09/22/16 [Rx] INSULIN LISPRO (humaLOG) [humaLOG (formulary)] 0 unit SQ ACHS vial 09/22/16 [Rx ] Lidocaine 5% Patch [Lidoderm 5% Patch] 1 patch TOPICAL DAILY 10/11/16 [History] Multivitamin [Men's Multi-Vitamin] 1 tab PO DAILY 10/11/16 [History] predniSONE 5 mg PO PC-SUPPER 10/11/16 [History] Aspirin 81 mg PO DAILY #30 10/16/16 [Rx] Budesonide [Pulmicort] 0.5 mg INHALATION RT-BID #60 nebu 10/16/16 [Rx] Furosemide [Lasix] 20 mg PO DAILY PRN #30 tab 10/16/16 [Rx] Terbinafine 1% Cream [LamISIL] 1 applic TOPICAL BID #1 tube 10/16/16 [Rx] Follow up Appointment(s)/Referral(s): Marquise Odom MD [STAFF PHYSICIAN] - 10/24/16 9:30 am Lorenzo Mortensen MD [Primary Care Provider] - 10/21/16 2:00 pm Patient Instructions/Handouts: *Surgery [facility] - After Heart Catheterization - [employer] Instructions, Heart Failure (DC) Activity/Diet/Wound Care/Special Instructions: [facility] home care: #[phone] Discharge Disposition: HOME WITH HOME HEALTH SERVICES
== END 2016-10-16 15:07 | disposition home health service (06) | DRG 286 ==
LOC: EC 23:14 → 6SEL 10-11 01:38
PROVIDERS: ADMIT Family Medicine; ATTEND Family Medicine
PROC: 4B02XSZ Measurement of Cardiac Pacemaker, External Approach (ICD-10-PCS; 2016-10-12)
PROC: B211YZZ Fluoroscopy of Multiple Coronary Arteries using Other Contrast (ICD-10-PCS; 2016-10-15)
PROC: 4A023N7 Measurement of Cardiac Sampling and Pressure, Left Heart, Percutaneous Approach (ICD-10-PCS; principal; 2016-10-15 11:30)
DX: I13.0 Hypertensive heart and chronic kidney disease with heart failure and stage 1 through stage 4 chronic kidney disease, or unspecified chronic kidney disease (principal); I50.33 Acute on chronic diastolic (congestive) heart failure; N17.9 Acute kidney failure, unspecified; E11.22 Type 2 diabetes mellitus with diabetic chronic kidney disease; E11.42 Type 2 diabetes mellitus with diabetic polyneuropathy; N18.3 Chronic kidney disease, stage 3 (moderate); D64.9 Anemia, unspecified; B35.3 Tinea pedis; E03.9 Hypothyroidism, unspecified; F41.9 Anxiety disorder, unspecified; I25.10 Atherosclerotic heart disease of native coronary artery without angina pectoris; J45.909 Unspecified asthma, uncomplicated; K21.9 Gastro-esophageal reflux disease without esophagitis; M81.0 Age-related osteoporosis without current pathological fracture; M54.9 Dorsalgia, unspecified; G89.29 Other chronic pain; K44.9 Diaphragmatic hernia without obstruction or gangrene; K59.00 Constipation, unspecified; Z95.0 Presence of cardiac pacemaker; Z90.49 Acquired absence of other specified parts of digestive tract; Z98.49 Cataract extraction status, unspecified eye; Z87.891 Personal history of nicotine dependence; Z79.4 Long term (current) use of insulin; Z79.52 Long term (current) use of systemic steroids; Z79.899 Other long term (current) drug therapy
CPT/HCPCS: 36415; 71020; 71275; 78452; 80048; 80053; 81003; 82550; 82553; 83036; 83735; 84443; 84484; 85025; 85379; 85610; 85730; 93005; 93017; 93306; 93458; 94640; 94760

== ENCOUNTER 2016-11-27 16:23 | Inpatient (IN) | payer MEDICARE ==
[2016-11-27] MEDS ORDERED: IOHEXOL 350 MG/ML 25 ML BOTTLE (ORAL USE) PO PRN (16:48)
[2016-11-27] MEDS ORDERED: ONDANSETRON 4 MG/2 ML VIAL IVP STA (16:48)
[2016-11-27] MEDS ORDERED: SODIUM CHLORIDE 0.9% 500 ML IV ONE (16:48)
--- NOTE | 2016-11-27 16:55 | ED ---
General Adult HPI - General Chief complaint: Recheck/Abnormal Lab/Rx Stated complaint: Clinical labs Source: patient, EMS Mode of arrival: EMS - History of Present Illness Initial comments: Patient is a 76-year-old female who presents for evaluation for left lower quadrant abdominal pain, constipation 10 days, pain and burning with urination with decreased urination. Past medical history as below. Patient comes from her nursing facility after she had basic blood work performed. She had leukocytosis at 18.8, acute kidney injury above her baseline with BUN 54 and a creatinine of 3.43. She is not passing gas anymore. She is having urinary symptoms. She states that she feels warm. No fevers. She states that she has a very dry mouth. She is nauseous. Dry heaves. No actual emesis though. The pain is described as a pressure. She states that she feels bloated. Nothing makes the pain better or worse. She denies URI symptoms, shortness of breath, cough, chest pain. - Related Data Home Medications Medication Instructions Recorded Confirmed Hydroxychloroquine Sulfate 200 mg PO DAILY 01/15/16 11/27/16 [Plaquenil] Omeprazole [PriLOSEC] 40 mg PO DAILY 01/15/16 11/27/16 predniSONE 10 mg PO QAM 01/15/16 11/27/16 Calcium Carbonate [Calcium] 1,200 mg PO DAILY 01/16/16 11/27/16 Cholecalciferol [Vitamin D3] 1,000 unit PO DAILY 01/16/16 11/27/16 Montelukast [Singulair] 10 mg PO DAILY 01/16/16 11/27/16 Lidocaine 5% Patch [Lidoderm 5% 1 patch TOPICAL DAILY 10/11/16 11/27/16 Patch] predniSONE 5 mg PO PC-SUPPER 10/11/16 11/27/16 Cyanocobalamin (Vitamin B-12) 5,000 mcg PO DAILY 11/27/16 11/27/16 [Vitamin B12] Furosemide [Lasix] 20 mg PO TUTHSA PRN 11/27/16 11/27/16 Ibuprofen [Motrin] 600 mg PO Q8HR PRN 11/27/16 11/27/16 Lactulose 20 gm PO Q8H PRN 11/27/16 11/27/16 Levothyroxine Sodium [Synthroid] 112 mcg PO DAILY 11/27/16 11/27/16 Miconazole Nitrate [Miconazole 1 applic TOPICAL BID 11/27/16 11/27/16 Nitrate 2%] Morphine Sulfate Ir 7.5mg 1 tab PO Q6H PRN 11/27/16 11/27/16 Naloxegol Oxalate [Movantik] 25 mg PO DAILY 11/27/16 11/27/16 Ondansetron HCl [Zofran] 4 mg PO DAILY PRN 11/27/16 11/27/16 Previous Rx's Medication Instructions Recorded Bisacodyl [Dulcolax] 10 mg PO DAILY PRN #0 tablet. 09/22/16 Docusate [Colace] 100 mg PO DAILY cap 09/22/16 Allergies Allergy/AdvReac Type Severity Reaction Status Date / Time codeine Allergy Rash/Hives Verified 11/27/16 17:40 indomethacin [From Indocin] Allergy Unknown Verified 11/27/16 17:40 levofloxacin [From Levaquin] Allergy Unknown Verified 11/27/16 17:40 methylprednisolone Allergy Unknown Verified 11/27/16 17:40 [From Medrol] Penicillins Allergy Unknown Verified 11/27/16 17:40 Sulfa (Sulfonamide Allergy Rash/Hives Verified 11/27/16 17:40 Antibiotics) meloxicam [From Mobic] AdvReac stomache Verified 11/27/16 17:40 pain NSAIDS (Non-Steroidal AdvReac Abdominal Verified 11/27/16 17:40 Anti-Inflamma Pain oxaprozin [From Daypro] AdvReac Abdominal Verified 11/27/16 17:40 Pain prochlorperazine AdvReac Nausea & Verified 11/27/16 17:40 [From Compazine] Vomiting prochlorperazine edisylate AdvReac Nausea & Verified 11/27/16 17:40 [From Compazine] Vomiting and headache prochlorperazine maleate AdvReac Nausea & Verified 11/27/16 17:40 [From Compazine] Vomiting salsalate [From Disalcid] AdvReac Abdominal Verified 11/27/16 17:40 Pain vortioxetine hydrobromide AdvReac Abdominal Verified 11/27/16 17:40 [From Trintellix] Pain Review of Systems ROS Statement: Those systems with pertinent positive or pertinent negative responses have been documented in the HPI. ROS Other: All systems not noted in ROS Statement are negative. Past Medical History Past Medical History: Hypertension, Thyroid Disorder Additional Past Medical History / Comment(s): lupus History of Any Multi-Drug Resistant Organisms: None Reported Past Surgical History: Appendectomy, Cholecystectomy, Pacemaker Additional Past Surgical History / Comment(s): nasal surgery, cataract surgery Past Anesthesia/Blood Transfusion Reactions: No Reported Reaction Type of Cardiac Device: Permanent Pacemaker Device Placement Date:: 09/15/2016 Past Psychological History: No Psychological Hx Reported Smoking Status: Former smoker Past Alcohol Use History: None Reported Past Drug Use History: None Reported - Past Family History Son(s) Family Medical History: Cancer Additional Family Medical History / Comment(s): esophageal ca, at 25 y/o. General Exam General appearance: alert, in no apparent distress Head exam: Present: atraumatic, normocephalic, normal inspection Eye exam: Present: normal appearance, PERRL, EOMI. Absent: scleral icterus, conjunctival injection, periorbital swelling ENT exam: Present: normal exam, mucous membranes dry Neck exam: Present: normal inspection. Absent: tenderness, meningismus, lymphadenopathy Respiratory exam: Present: normal lung sounds bilaterally. Absent: respiratory distress, wheezes, rales, rhonchi, stridor Cardiovascular Exam: Present: regular rate, normal rhythm, normal heart sounds, systolic murmur, other (Soft 2/6 systolic murmur. Normal S1 and S2. Regular rhythm. Distal pulses intact. Cap refill less than 3 seconds.). Absent: diastolic murmur, rubs, gallop, clicks GI/Abdominal exam: Present: soft, distended, tenderness, guarding, hypoactive bowel sounds, other (Hypoactive bowel sounds with questionable high-pitched bowel sounds in the left upper quadrant. Distended abdomen. Tender in the left lower quadrant and around the area umbilical area. No peritoneal signs per se. Soft. Negative McBurney sign. Negative Jim sign.). Absent: rebound, rigid Extremities exam: Present: normal inspection, full ROM, normal capillary refill. Absent: tenderness, pedal edema, joint swelling, calf tenderness Back exam: Present: normal inspection Neurological exam: Present: alert, oriented X3, CN II-XII intact Psychiatric exam: Present: normal affect, normal mood Skin exam: Present: warm, dry, intact, normal color. Absent: rash Course Vital Signs 11/27/16 11/27/16 11/27/16 16:25 18:37 21:07 Temperature 98.6 F 97.7 F Pulse Rate 94 86 86 Respiratory 18 18 18 Rate Blood Pressure 113/66 128/64 121/62 O2 Sat by Pulse 94 L 95 95 Oximetry Medical Decision Making - Medical Decision Making 1645: Patient is a 76 year old female with cardiac and kidney history coming in with constipation 10 days with urinary symptoms. She is nauseous. Pain with palpation of the left lower quadrant and periumbilical area. Noted to have leukocytosis and acute kidney injury on arrival. We'll repeat laboratory studies. Lactic acid and troponin. She technically has 2 out of 4 surge criteria currently. Because of which, we'll order blood and urine cultures. Urinalysis. CT abdomen and pelvis with by mouth contrast. Small 500 mL bolus. Zofran. 174: Reviewed EKG. Normal sinus rhythm. Left bundle branch block. Rate of 88. MA 176. QRS 162. QTc 517. Similar to appearance to EKG on 10/11/2016. No active chest pain. No sgarbossa criteria. Hold any further QTc prolonging agents. 1800: Reviewed laboratory studies. Leukocytosis at 22,000. Acute kidney injury. Hyponatremia. Elevated troponin at 0.070. No active chest pain. UA negative. Suspect intra-abdominal source for possible infection. ASA ordered. Will order vancomycin, flagyl, and cefepime for broad abx coverage. Awaiting CT. 1999: Reevaluated the patient. Her pain and nausea and vomiting or well- controlled at this time. She cannot tolerate drinking the second PO contrast. Okay for CT from my perspective. Updated the family at bedside. 2044: Reviewed CT imaging. Constipation. No real signs of obstruction. New compression fracture of L5. Worsening compression fracture of T12. Apparently this is known to the patient and family. I believe there are some areas of possible bowel wall thickening. We'll continue IV antibiotics. Pain is well- controlled at this time. Remain nothing by mouth. IV fluids. Page 2 admitting physician. I spoke with Dr. Power stated that it goes to a different physician. -Spoke with admitting physician. Agrees with admission. Continue IV antibiotics. Requesting consult to infectious disease (Jhony) and surgery ( [place]). No further orders. - Lab Data Result diagrams: 11/27/16 16:30 11/27/16 16:30 Lab Results 11/27/16 11/27/16 11/27/16 Range/Units 16:30 16:30 16:30 WBC 22.4 H (3.8-10.6) k/uL RBC 4.17 (3.80-5.40) m/uL Hgb 13.2 (11.4-16.0) gm/dL Hct 38.4 (34.0-46.0) % MCV 92.2 (80.0-100.0) fL MCH 31.6 (25.0-35.0) pg MCHC 34.3 (31.0-37.0) g/dL RDW 13.0 (11.5-15.5) % Plt Count 388 (150-450) k/uL Neutrophils % 93 % Lymphocytes % 3 % Monocytes % 3 % Eosinophils % 0 % Basophils % 0 % Neutrophils # 20.8 H (1.3-7.7) k/uL Lymphocytes # 0.6 L (1.0-4.8) k/uL Monocytes # 0.7 (0-1.0) k/uL Eosinophils # 0.1 (0-0.7) k/uL Basophils # 0.1 (0-0.2) k/uL Sodium 129 L (137-145) mmol/L Potassium 4.6 (3.5-5.1) mmol/L Chloride 91 L (98-107) mmol/L Carbon Dioxide 24 (22-30) mmol/L Anion Gap 14 mmol/L BUN 56 H (7-17) mg/dL Creatinine 3.40 H (0.52-1.04) mg/dL Est GFR (MDRD) Af Amer 16 (>60 ml/min/1.73 sqM) Est GFR (MDRD) Non-Af 13 (>60 ml/min/1.73 sqM) Glucose 138 H (74-99) mg/dL Plasma Lactic Acid Abdi (0.7-2.0) mmol/L Calcium 9.6 (8.4-10.2) mg/dL Total Bilirubin 0.8 (0.2-1.3) mg/dL AST 35 (14-36) U/L ALT 39 (9-52) U/L Alkaline Phosphatase 125 (38-126) U/L Troponin I 0.070 H* (0.000-0.034) ng/mL Total Protein 6.5 (6.3-8.2) g/dL Albumin 3.8 (3.5-5.0) g/dL Urine Color Urine Appearance (Clear) Urine pH (5.0-8.0) Ur Specific [place] (1.001-1.035) Urine Protein (Negative) Urine Glucose (UA) (Negative) Urine Ketones (Negative) Urine Blood (Negative) Urine Nitrite (Negative) Urine Bilirubin (Negative) Urine Urobilinogen (<2.0) mg/dL Ur Leukocyte Esterase (Negative) Urine WBC (0-5) /hpf Ur Squamous Epith Cells (0-4) /hpf Urine Bacteria (None) /hpf 11/27/16 11/27/16 Range/Units 16:59 17:30 WBC (3.8-10.6) k/uL RBC (3.80-5.40) m/uL Hgb (11.4-16.0) gm/dL Hct (34.0-46.0) % MCV (80.0-100.0) fL MCH (25.0-35.0) pg MCHC (31.0-37.0) g/dL RDW (11.5-15.5) % Plt Count (150-450) k/uL Neutrophils % % Lymphocytes % % Monocytes % % Eosinophils % % Basophils % % Neutrophils # (1.3-7.7) k/uL Lymphocytes # (1.0-4.8) k/uL Monocytes # (0-1.0) k/uL Eosinophils # (0-0.7) k/uL Basophils # (0-0.2) k/uL Sodium (137-145) mmol/L Potassium (3.5-5.1) mmol/L Chloride (98-107) mmol/L Carbon Dioxide (22-30) mmol/L Anion Gap mmol/L BUN (7-17) mg/dL Creatinine (0.52-1.04) mg/dL Est GFR (MDRD) Af Amer (>60 ml/min/1.73 sqM) Est GFR (MDRD) Non-Af (>60 ml/min/1.73 sqM) Glucose (74-99) mg/dL Plasma Lactic Acid Abdi 1.3 (0.7-2.0) mmol/L Calcium (8.4-10.2) mg/dL Total Bilirubin (0.2-1.3) mg/dL AST (14-36) U/L ALT (9-52) U/L Alkaline Phosphatase (38-126) U/L Troponin I (0.000-0.034) ng/mL Total Protein (6.3-8.2) g/dL Albumin (3.5-5.0) g/dL Urine Color Yellow Urine Appearance Clear (Clear) Urine pH 5.5 (5.0-8.0) Ur Specific [place] 1.009 (1.001-1.035) Urine Protein 1+ H (Negative) Urine Glucose (UA) Negative (Negative) Urine Ketones Negative (Negative) Urine Blood Negative (Negative) Urine Nitrite Negative (Negative) Urine Bilirubin Negative (Negative) Urine Urobilinogen <2.0 (<2.0) mg/dL Ur Leukocyte Esterase Negative (Negative) Urine WBC 1 (0-5) /hpf Ur Squamous Epith Cells <1 (0-4) /hpf Urine Bacteria Rare H (None) /hpf Disposition Clinical Impression: Abdominal pain, Sepsis, Hyponatremia, LUI (acute kidney injury), Constipation, Vertebral compression fracture Disposition: ADMITTED IP TO THIS [facility] Condition: Undetermined Decision to Admit Reason: Admit from EC
[2016-11-27 17:03] LABS: Basophils # (A) 0.1 k/uL (0-0.2); Basophils % (A) 0 %; CH 32.2; CHCM 35.1; Eosinophils # (A) 0.1 k/uL (0-0.7); Eosinophils % (A) 0 %; HCT 38.4 % (34.0-46.0); HGB 13.2 gm/dL (11.4-16.0); Luc # (Auto) 0.12; Luc % (Auto) 1; Lymphocytes # (A) 0.6 k/uL (1.0-4.8); Lymphocytes % (A) 3 %; MCH 31.6 pg (25.0-35.0); MCHC 34.3 g/dL (31.0-37.0); MCV 92.2 fL (80.0-100.0); Mean Platelet Volume 6.8; Monocytes # (A) 0.7 k/uL (0-1.0); Monocytes % (A) 3 %; Neutrophils # (A) 20.8 k/uL (1.3-7.7); Neutrophils % (A) 93 %; RBC 4.17 m/uL (3.80-5.40); WBC 22.4 k/uL (3.8-10.6); WBC (Perox) 21.53
[2016-11-27 17:14] LABS: Calcium 9.6 mg/dL (8.4-10.2); Potassium 4.6 mmol/L (3.5-5.1); Total Bilirubin 0.8 mg/dL (0.2-1.3); Total Protein 6.5 g/dL (6.3-8.2)
[2016-11-27 17:49] LABS: Appearance,Urine Clear (Clear); Bacteria,Urine Rare /hpf; Bilirubin,Urine Negative (Negative); Glucose,Urine (UA) Negative (Negative); Ketones,Urine Negative (Negative); Leukocyte Esterase,Urine Negative (Negative); Nitrite,Urine Negative (Negative); PH, Urine 5.5 (5.0-8.0); Particle Count 3021; Protein,Urine 1+ (Negative); Specific Gravity,Urine 1.009 (1.001-1.035); Squamous Epithelial Cell,Urine <1 /hpf (0-4); UA Billing (MACRO vs. MICRO) MICRO; Urobilinogen,Urine <2.0 mg/dL (<2.0); WBC,Urine 1 /hpf (0-5)
[2016-11-27] MEDS ORDERED: ASPIRIN 81 MG CHEW PO STA (17:52)
[2016-11-27] MEDS ORDERED: metroNIDAZOLE-NS PMX 500 MG in SALINE 1 100ML.BAG IVPB STA (18:18)
--- NOTE | 2016-11-27 20:35 | CT ---
EXAMINATION TYPE: CT abdomen pelvis wo con DATE OF EXAM: 11/27/2016 COMPARISON: 10/04/2014 HISTORY: ABDOMINAL PAIN. CT DLP: 798.6 mGycm Automated exposure control for dose reduction was used. TECHNIQUE: Helical acquisition of images was performed from the lung bases through the pelvis. FINDINGS: There is patchy atelectasis at the lung bases. Heart is enlarged. There is a large hiatal hernia. Kathleen er shows no focal defect. There are clips from cholecystectomy. Spleen and pancreas appear normal. Bi le ducts are not dilated. There is no adrenal mass. Kidneys show no hydronephrosis. Ureters are not dilated. There is no retrop eritoneal adenopathy. There is retained fecal material in the colon. Bladder distends smoothly. There is no evidence of a pelvic mass. There is no ascites. There is osteopenia with compression deformity of L5 L-1 T12 vertebra. There are some colonic diverticula. There is no evidence of diverticulitis. IMPRESSION: CONSTIPATION. LUMBAR COMPRESSION FRACTURES. THERE IS NEW MILD FRACTURE OF L5. THERE IS PROGRESSION OF T12 FRACTURE COMPARED TO OLD EXAM. THERE IS SPINAL STENOSIS AT L4-5. NO SIGN OF ACUTE ABDOMEN AND PE LVIS. LARGE HIATAL HERNIA. THERE IS NEW PATCHY ATELECTASIS AT THE LUNG BASES COMPARED TO OLD EXAM.
[2016-11-27] MEDS ORDERED: NALOXONE 0.4 MG/ML 1 ML VIAL IV PRN (21:04)
[2016-11-27] MEDS: CEFEPIME 2 GM in SODIUM CHLORIDE 0.9% 50 ML IVPB SCH (23:19)
[2016-11-28] MEDS ORDERED: ONDANSETRON 4 MG TAB PO PRN (01:19)
[2016-11-28] MEDS ORDERED: LACTULOSE 20 GM/30 ML CUP PO PRN (01:19)
[2016-11-28] MEDS ORDERED: BISACODYL 5 MG TABLET.DR PO PRN (01:19)
[2016-11-28] MEDS ORDERED: SODIUM CHLORIDE 0.9% 1,000 ML IV SCH (01:30)
[2016-11-28] MEDS: MORPHINE SULFATE IR 15 MG TABLET PO PRN ×4 (03:03→20:30)
[2016-11-28] MEDS: metroNIDAZOLE-NS PMX 500 MG in SALINE 1 100ML.BAG IVPB SCH ×2 (08:54→18:23)
[2016-11-28] MEDS: CALCIUM CARBONATE 500 MG CHEWABLE PO SCH (08:55)
[2016-11-28] MEDS: HYDROXYCHLOROQUINE SULFATE 200 MG TAB PO SCH (08:55)
[2016-11-28] MEDS: LEVOTHYROXINE 112 MCG TAB PO SCH (08:55)
[2016-11-28] MEDS: CHOLECALCIFEROL 1,000 UNIT TAB PO SCH (08:55)
[2016-11-28] MEDS: predniSONE 5 MG TAB PO SCH ×2 (08:56→18:26)
[2016-11-28] MEDS: CYANOCOBALAMIN 500 MCG TAB PO SCH (08:57)
[2016-11-28] MEDS: LIDOCAINE 5% PATCH TOPICAL SCH (08:58)
[2016-11-28] MEDS: PANTOPRAZOLE 40 MG TABLET PO SCH (08:59)
[2016-11-28] MEDS: MONTELUKAST 10 MG TAB PO SCH (08:59)
[2016-11-28] MEDS ORDERED: DOCUSATE 100 MG CAP PO SCH (09:00)
[2016-11-28] MEDS: MICONAZOLE NITRATE 2% CREAM 14 GM TUBE TOPICAL SCH (09:19)
[2016-11-28] MEDS: CEFEPIME 2 GM in SODIUM CHLORIDE 0.9% 50 ML IVPB SCH (09:34)
[2016-11-28 12:12] LABS: Basophils # (A) 0.1 k/uL (0-0.2); Basophils % (A) 0 %; CH 31.3; CHCM 33.6; Eosinophils # (A) 0.4 k/uL (0-0.7); Eosinophils % (A) 2 %; HCT 34.5 % (34.0-46.0); HDW 2.94; Luc # (Auto) 0.22; Luc % (Auto) 1; Lymphocytes # (A) 1.3 k/uL (1.0-4.8); Lymphocytes % (A) 7 %; MCH 32.5 pg (25.0-35.0); MCHC 34.8 g/dL (31.0-37.0); MCV 93.4 fL (80.0-100.0); Mean Platelet Volume 7.7; Monocytes # (A) 0.7 k/uL (0-1.0); Monocytes % (A) 4 %; Neutrophils # (A) 16.5 k/uL (1.3-7.7); Neutrophils % (A) 86 %; RBC 3.69 m/uL (3.80-5.40); WBC 19.2 k/uL (3.8-10.6); WBC (Perox) 19.64
[2016-11-28 12:18] LABS: Glucose,Whole Blood 82 mg/dL (75-99)
[2016-11-28 12:19] LABS: Calcium 8.8 mg/dL (8.4-10.2); Magnesium 3.3 mg/dL (1.6-2.3); Phosphorous 5.1 mg/dL (2.5-4.5); Total Bilirubin 0.8 mg/dL (0.2-1.3); Total Protein 5.5 g/dL (6.3-8.2)
[2016-11-28 13:06] LABS: Appearance,Urine Cloudy (Clear); Bilirubin,Urine Negative (Negative); Glucose,Urine (UA) Negative (Negative); Ketones,Urine Trace (Negative); Leukocyte Esterase,Urine Moderate (Negative); Mucus,Urine Rare /hpf; Nitrite,Urine Negative (Negative); PH, Urine 5.5 (5.0-8.0); Particle Count 2821; Protein,Urine 1+ (Negative); RBC,Urine 2 /hpf (0-5); Specific Gravity,Urine 1.013 (1.001-1.035); Squamous Epithelial Cell,Urine 1 /hpf (0-4); UA Billing (MACRO vs. MICRO) MICRO; Urobilinogen,Urine <2.0 mg/dL (<2.0); WBC,Urine 22 /hpf (0-5)
--- NOTE | 2016-11-28 14:04 | P.CNOR ---
History of Present Illness - [facility] Consult date: 11/28/16 Requesting physician: Aster Hunt Consult reason: fracture (T12 and L5), back pain History of present illness: Patient is a very pleasant 76-year-old female who is seen and examined at bedside after we were consulted for further evaluation treatment of multiple compression fracture deformities. States she was previoisly seen by her primary care provider Dr. Anup Power and was diagnosed with an acute compression fracture. She was fitted with a Spinomed TLSO brace. She was at [facility] and was discharged to [facility] for rehabilitation. She states she was supposed to follow up with us in outpatient setting but that appointment had not been set. She states they're waiting till after her discharge from rehabilitation. While at rehab she's had significant increased abdominal pain and constipation. She has not had a bowel movement in approximately 2 weeks. Her abdomen has significant pain and is distended. She is currently waiting for further evaluation by Dr. Marina. She states she continues to have significant back pain around the thoracolumbar junction. She denies any recent falls, accidents, or injuries. Upon presentation to [facility], a CT of the abdomen and pelvis was taken and showed evidence of worsening T12 compression fracture deformity, acute L5 compression fracture deformity, and constipation. She denies any lower extremity radiculopathy or weakness bilaterally. She is able to independently move the bilateral lower extremities throughout range of motion without significant difficulty. At the bedside today she is unwilling to move or be turned to her side for examination of her spine. She does not allow me to palpate her abdomen as well. She states her pain is better controlled while lying flat and still in bed. Her back pain is exacerbated with any movements of the spine. She is seen and examined with her family present. She is also waiting for further evaluation by Dr. Booker as he was consulted for further evaluation of sepsis as well as Dr. Simons for acute kidney injury. She is also being treated for sore at the coccyx as well. Past Medical History Past Medical History: Hypertension, Thyroid Disorder Additional Past Medical History / Comment(s): lupus History of Any Multi-Drug Resistant Organisms: None Reported Past Surgical History: Appendectomy, Cholecystectomy, Pacemaker Additional Past Surgical History / Comment(s): nasal surgery, cataract surgery Past Anesthesia/Blood Transfusion Reactions: No Reported Reaction Type of Cardiac Device: Permanent Pacemaker Device Placement Date:: 09/15/2016 Past Psychological History: No Psychological Hx Reported Smoking Status: Former smoker Past Alcohol Use History: None Reported Past Drug Use History: None Reported - Past Family History Son(s) Family Medical History: Cancer Additional Family Medical History / Comment(s): esophageal ca, at 25 y/o. Medications and Allergies Home Medications Medication Instructions Recorded Confirmed Type Hydroxychloroquine Sulfate 200 mg PO DAILY 01/15/16 11/27/16 History [Plaquenil] Omeprazole [PriLOSEC] 40 mg PO DAILY 01/15/16 11/27/16 History predniSONE 10 mg PO QAM 01/15/16 11/27/16 History Calcium Carbonate [Calcium] 1,200 mg PO DAILY 01/16/16 11/27/16 History Cholecalciferol [Vitamin D3] 1,000 unit PO DAILY 01/16/16 11/27/16 History Montelukast [Singulair] 10 mg PO DAILY 01/16/16 11/27/16 History Lidocaine 5% Patch [Lidoderm 5% 1 patch TOPICAL DAILY 10/11/16 11/27/16 History Patch] predniSONE 5 mg PO PC-SUPPER 10/11/16 11/27/16 History Cyanocobalamin (Vitamin B-12) 5,000 mcg PO DAILY 11/27/16 11/27/16 History [Vitamin B12] Furosemide [Lasix] 20 mg PO TUTHSA PRN 11/27/16 11/27/16 History Ibuprofen [Motrin] 600 mg PO Q8HR PRN 11/27/16 11/27/16 History Lactulose 20 gm PO Q8H PRN 11/27/16 11/27/16 History Levothyroxine Sodium [Synthroid] 112 mcg PO DAILY 11/27/16 11/27/16 History Miconazole Nitrate [Miconazole 1 applic TOPICAL BID 11/27/16 11/27/16 History Nitrate 2%] Morphine Sulfate Ir 7.5mg 1 tab PO Q6H PRN 11/27/16 11/27/16 History Naloxegol Oxalate [Movantik] 25 mg PO DAILY 11/27/16 11/27/16 History Ondansetron HCl [Zofran] 4 mg PO DAILY PRN 11/27/16 11/27/16 History Allergies Allergy/AdvReac Type Severity Reaction Status Date / Time codeine Allergy Rash/Hives Verified 11/27/16 17:40 indomethacin [From Indocin] Allergy Unknown Verified 11/27/16 17:40 levofloxacin [From Levaquin] Allergy Unknown Verified 11/27/16 17:40 methylprednisolone Allergy Unknown Verified 11/27/16 17:40 [From Medrol] Penicillins Allergy Unknown Verified 11/27/16 17:40 Sulfa (Sulfonamide Allergy Rash/Hives Verified 11/27/16 17:40 Antibiotics) meloxicam [From Mobic] AdvReac stomache Verified 11/27/16 17:40 pain NSAIDS (Non-Steroidal AdvReac Abdominal Verified 11/27/16 17:40 Anti-Inflamma Pain oxaprozin [From Daypro] AdvReac Abdominal Verified 11/27/16 17:40 Pain prochlorperazine AdvReac Nausea & Verified 11/27/16 17:40 [From Compazine] Vomiting prochlorperazine edisylate AdvReac Nausea & Verified 11/27/16 17:40 [From Compazine] Vomiting and headache prochlorperazine maleate AdvReac Nausea & Verified 11/27/16 17:40 [From Compazine] Vomiting salsalate [From Disalcid] AdvReac Abdominal Verified 11/27/16 17:40 Pain vortioxetine hydrobromide AdvReac Abdominal Verified 11/27/16 17:40 [From Trintellix] Pain Physical Examination Physical exam: Patient is awake, alert, and oriented 3 Vital signs stable Good chest excursion with deep inspiration and expiration Abdomen significantly distended; Patient unwilling to allow me to palpate the abdomen Examination of thoracolumbar spine is not performed because the patient was not willing to move or be moved into appropriate position for physical examination Dorsiflexion, plantarflexion, and extensor hallucis longus positive sustained bilaterally Lower extremity strength 5/5 bilaterally Patellar reflex 2+ bilaterally No lower extremity hyperreflexia bilaterally Straight leg test negative bilateral lower extremities Negative Lasegue's test bilaterally No signs or symptoms of DVT; no calf pain No pain with internal and external rotation of the hips bilaterally Neurovascularly intact Results Pertienent studies: CT abdomen and pelvis: Constipation; degenerative scoliosis; T12 compression fracture deformity with some progression as compared to previous studies; T5 acute superior endplate compression fracture deformity with some central depression; L1 chronic wedging compression fracture deformity with approximately 70% height loss; L3-4 severe degenerative disc disease asymmetric to the right; L2 and L4 chronic compression fracture deformities with approximately 10% height loss - Labs Labs: Abnormal Lab Results - Last 24 Hours (Table) 11/27/16 11/27/16 11/27/16 Range/Units 16:30 16:30 16:30 WBC 22.4 H (3.8-10.6) k/uL RBC (3.80-5.40) m/uL Neutrophils # 20.8 H (1.3-7.7) k/uL Lymphocytes # 0.6 L (1.0-4.8) k/uL Sodium 129 L (137-145) mmol/L Chloride 91 L (98-107) mmol/L BUN 56 H (7-17) mg/dL Creatinine 3.40 H (0.52-1.04) mg/dL Glucose 138 H (74-99) mg/dL Phosphorus (2.5-4.5) mg/dL Magnesium (1.6-2.3) mg/dL Troponin I 0.070 H* (0.000-0.034) ng/mL Total Protein (6.3-8.2) g/dL Albumin (3.5-5.0) g/dL Urine Appearance (Clear) Urine Protein (Negative) Urine Ketones (Negative) Ur Leukocyte Esterase (Negative) Urine WBC (0-5) /hpf Urine Bacteria (None) /hpf Hyaline Casts (0-2) /lpf Urine Mucus (None) /hpf 11/27/16 11/28/16 11/28/16 Range/Units 17:30 12:01 12:01 WBC 19.2 H (3.8-10.6) k/uL RBC 3.69 L (3.80-5.40) m/uL Neutrophils # 16.5 H (1.3-7.7) k/uL Lymphocytes # (1.0-4.8) k/uL Sodium 133 L (137-145) mmol/L Chloride 96 L (98-107) mmol/L BUN 53 H (7-17) mg/dL Creatinine 3.17 H (0.52-1.04) mg/dL Glucose (74-99) mg/dL Phosphorus 5.1 H (2.5-4.5) mg/dL Magnesium 3.3 H (1.6-2.3) mg/dL Troponin I (0.000-0.034) ng/mL Total Protein 5.5 L (6.3-8.2) g/dL Albumin 3.1 L (3.5-5.0) g/dL Urine Appearance (Clear) Urine Protein 1+ H (Negative) Urine Ketones (Negative) Ur Leukocyte Esterase (Negative) Urine WBC (0-5) /hpf Urine Bacteria Rare H (None) /hpf Hyaline Casts (0-2) /lpf Urine Mucus (None) /hpf 11/28/16 Range/Units 12:13 WBC (3.8-10.6) k/uL RBC (3.80-5.40) m/uL Neutrophils # (1.3-7.7) k/uL Lymphocytes # (1.0-4.8) k/uL Sodium (137-145) mmol/L Chloride (98-107) mmol/L BUN (7-17) mg/dL Creatinine (0.52-1.04) mg/dL Glucose (74-99) mg/dL Phosphorus (2.5-4.5) mg/dL Magnesium (1.6-2.3) mg/dL Troponin I (0.000-0.034) ng/mL Total Protein (6.3-8.2) g/dL Albumin (3.5-5.0) g/dL Urine Appearance Cloudy H (Clear) Urine Protein 1+ H (Negative) Urine Ketones Trace H (Negative) Ur Leukocyte Esterase Moderate H (Negative) Urine WBC 22 H (0-5) /hpf Urine Bacteria (None) /hpf Hyaline Casts 14 H (0-2) /lpf Urine Mucus Rare H (None) /hpf Microbiology - Last 24 Hours (Table) 11/27/16 17:30 Urine Culture - Preliminary Urine,Catheterized H & H 11/27/16 11/28/16 Range/Units 16:30 12:01 Hgb 13.2 12.0 (11.4-16.0) gm/dL Hct 38.4 34.5 (34.0-46.0) % Result Diagrams: 11/28/16 12:01 11/28/16 12:01 Assessment and Plan (1) Non-traumatic compression fracture of T12 thoracic vertebra Status: Acute (2) Closed L5 vertebral fracture Status: Acute (3) Thoracolumbar back pain Status: Acute (4) Lumbar degenerative disc disease Status: Acute (5) Degenerative scoliosis Status: Acute (6) Constipation Status: Acute (7) LUI (acute kidney injury) Status: Acute (8) Abdominal pain Status: Acute (9) Sepsis Status: Acute Plan: Assessment: Multiple non-traumatic compression fracture deformities most likely osteoporotic in nature Thoracolumbar pain Worsening T12 compression fracture deformity Acute L5 superior endplate compression fracture deformity History of chronic compression fracture deformities at L1, L2, L4 L3-4 severe degenerative disc disease Constipation Sepsis of unknown etiology Acute kidney injury Coccyx wound Plan: 1. After further examination of the patient, discussion with the patient, and reviewing of imaging, we'll currently plan to continue with conservative treatment in regards to the patient's worsening T12 compression fracture deformity and acute L5 superior endplate compression fracture deformity. Previously she was fitted with a Spinomed TLSO brace which is appropriate. We discussed she should continue to wear this brace while sitting upright at greater than 45, while ambulating, doing activities, and while working with physical therapy. She does not wear this brace while lying in bed or bathing. Given her significant abdominal distention and pain, she will not currently be able to tolerate wearing the brace. We discussed she could refrain from wearing this brace until she has relief of her constipation, abdominal pain, and distention. We're not currently planning for acute surgical intervention in regards to her thoracolumbar spine. She is currently being seen and examined for other multiple comorbidities. At this time, she'll be cleared for discharge from an orthopedic spine standpoint once cleared by all other medical providers. Following discharge, patient may follow-up with Arben Gomez PA-C or Dr. Attila Herrera at [facility] in approximately 2-3 weeks for further evaluation. She should avoid excessive bending, twisting, lifting; no lifting greater than 10 pounds. 2. She will continue to be followed by Dr. Anup Power in medicine 3. Patient currently waiting for further evaluation by Dr. Booker, Dr. Marina, and Dr. Simons 4. Patient has been discussed with Dr. Attila Herrera and he agrees with this plan Time with Patient: Greater than 30
[2016-11-28] MEDS: ONDANSETRON 4 MG TAB PO PRN ×2 (15:12→20:14)
--- NOTE | 2016-11-28 16:08 | P.GSCN ---
History of Present Illness Consult date: 11/28/16 Reason for Consult: Abdominal pain/constipation History of present illness: We were asked to see this patient in consultation for abdominal pain, bloating, and constipation. The patient has a diagnosis of about 2-3 weeks ago of a back fracture. He has been receiving heavy narcotic use and has been relatively inactive since that time. The patient has had poor bowel movements over the last 2 weeks. She has not passed flatus she believes in 3-4 days. She is having some nausea and dry heaves. Her abdominal pain has been increasing although stable since yesterday. She came to the hospital from the retirement with those complaints. She was found have an elevated white blood cell count of 22. Today is down to 19. She is afebrile without tachycardia. CAT scan showed impressive constipation. It is not dictated as such but there are inflammatory changes seen in addition to diverticulosis in the proximal sigmoid colon. Beyond that there is a somewhat gentle narrowing and this may represent a source of obstruction. No enemas have been utilized thus far. The patient is unable to localize where in the abdomen the pain is most severe. Review of Systems The patient denies any acute changes in vision or hearing, no dysphagia or odynophagia, no chest pain or shortness of breath, no dysuria or hematuria, no headache, no runny nose, no rectal bleeding or melena, no unexplained weight loss Past Medical History Past Medical History: Hypertension, Thyroid Disorder Additional Past Medical History / Comment(s): lupus History of Any Multi-Drug Resistant Organisms: None Reported Past Surgical History: Appendectomy, Cholecystectomy, Pacemaker Additional Past Surgical History / Comment(s): nasal surgery, cataract surgery Past Anesthesia/Blood Transfusion Reactions: No Reported Reaction Type of Cardiac Device: Permanent Pacemaker Device Placement Date:: 09/15/2016 Past Psychological History: No Psychological Hx Reported Smoking Status: Former smoker Past Alcohol Use History: None Reported Past Drug Use History: None Reported - Past Family History Son(s) Family Medical History: Cancer Additional Family Medical History / Comment(s): esophageal ca, at 25 y/o. Medications and Allergies Home Medications Medication Instructions Recorded Confirmed Type Hydroxychloroquine Sulfate 200 mg PO DAILY 01/15/16 11/27/16 History [Plaquenil] Omeprazole [PriLOSEC] 40 mg PO DAILY 01/15/16 11/27/16 History predniSONE 10 mg PO QAM 01/15/16 11/27/16 History Calcium Carbonate [Calcium] 1,200 mg PO DAILY 01/16/16 11/27/16 History Cholecalciferol [Vitamin D3] 1,000 unit PO DAILY 01/16/16 11/27/16 History Montelukast [Singulair] 10 mg PO DAILY 01/16/16 11/27/16 History Lidocaine 5% Patch [Lidoderm 5% 1 patch TOPICAL DAILY 10/11/16 11/27/16 History Patch] predniSONE 5 mg PO PC-SUPPER 10/11/16 11/27/16 History Cyanocobalamin (Vitamin B-12) 5,000 mcg PO DAILY 11/27/16 11/27/16 History [Vitamin B12] Furosemide [Lasix] 20 mg PO TUTHSA PRN 11/27/16 11/27/16 History Ibuprofen [Motrin] 600 mg PO Q8HR PRN 11/27/16 11/27/16 History Lactulose 20 gm PO Q8H PRN 11/27/16 11/27/16 History Levothyroxine Sodium [Synthroid] 112 mcg PO DAILY 11/27/16 11/27/16 History Miconazole Nitrate [Miconazole 1 applic TOPICAL BID 11/27/16 11/27/16 History Nitrate 2%] Morphine Sulfate Ir 7.5mg 1 tab PO Q6H PRN 11/27/16 11/27/16 History Naloxegol Oxalate [Movantik] 25 mg PO DAILY 11/27/16 11/27/16 History Ondansetron HCl [Zofran] 4 mg PO DAILY PRN 11/27/16 11/27/16 History Allergies Allergy/AdvReac Type Severity Reaction Status Date / Time codeine Allergy Rash/Hives Verified 11/27/16 17:40 indomethacin [From Indocin] Allergy Unknown Verified 11/27/16 17:40 levofloxacin [From Levaquin] Allergy Unknown Verified 11/27/16 17:40 methylprednisolone Allergy Unknown Verified 11/27/16 17:40 [From Medrol] Penicillins Allergy Unknown Verified 11/27/16 17:40 Sulfa (Sulfonamide Allergy Rash/Hives Verified 11/27/16 17:40 Antibiotics) meloxicam [From Mobic] AdvReac stomache Verified 11/27/16 17:40 pain NSAIDS (Non-Steroidal AdvReac Abdominal Verified 11/27/16 17:40 Anti-Inflamma Pain oxaprozin [From Daypro] AdvReac Abdominal Verified 11/27/16 17:40 Pain prochlorperazine AdvReac Nausea & Verified 11/27/16 17:40 [From Compazine] Vomiting prochlorperazine edisylate AdvReac Nausea & Verified 11/27/16 17:40 [From Compazine] Vomiting and headache prochlorperazine maleate AdvReac Nausea & Verified 11/27/16 17:40 [From Compazine] Vomiting salsalate [From Disalcid] AdvReac Abdominal Verified 11/27/16 17:40 Pain vortioxetine hydrobromide AdvReac Abdominal Verified 11/27/16 17:40 [From Trintellix] Pain Surgical - Exam Vital Signs Temp Pulse Resp BP Pulse Ox 98.6 F 94 18 113/66 94 L 11/27/16 16:25 11/27/16 16:25 11/27/16 16:25 11/27/16 16:25 11/27/16 16:25 Physical exam: General: Well-developed, well-nourished HEENT: Normocephalic, sclerae nonicteric Abdomen: Distended, mild diffuse tenderness, no rebound or guarding Extremities: No edema Neuro: Alert and oriented Results - Labs 11/28/16 12:01 11/28/16 12:01 Abnormal Lab Results - Last 24 Hours (Table) 11/27/16 11/27/16 11/27/16 Range/Units 16:30 16:30 16:30 WBC 22.4 H (3.8-10.6) k/uL RBC (3.80-5.40) m/uL Neutrophils # 20.8 H (1.3-7.7) k/uL Lymphocytes # 0.6 L (1.0-4.8) k/uL Sodium 129 L (137-145) mmol/L Chloride 91 L (98-107) mmol/L BUN 56 H (7-17) mg/dL Creatinine 3.40 H (0.52-1.04) mg/dL Glucose 138 H (74-99) mg/dL Phosphorus (2.5-4.5) mg/dL Magnesium (1.6-2.3) mg/dL Troponin I 0.070 H* (0.000-0.034) ng/mL Total Protein (6.3-8.2) g/dL Albumin (3.5-5.0) g/dL Urine Appearance (Clear) Urine Protein (Negative) Urine Ketones (Negative) Ur Leukocyte Esterase (Negative) Urine WBC (0-5) /hpf Urine Bacteria (None) /hpf Hyaline Casts (0-2) /lpf Urine Mucus (None) /hpf 11/27/16 11/28/16 11/28/16 Range/Units 17:30 12:01 12:01 WBC 19.2 H (3.8-10.6) k/uL RBC 3.69 L (3.80-5.40) m/uL Neutrophils # 16.5 H (1.3-7.7) k/uL Lymphocytes # (1.0-4.8) k/uL Sodium 133 L (137-145) mmol/L Chloride 96 L (98-107) mmol/L BUN 53 H (7-17) mg/dL Creatinine 3.17 H (0.52-1.04) mg/dL Glucose (74-99) mg/dL Phosphorus 5.1 H (2.5-4.5) mg/dL Magnesium 3.3 H (1.6-2.3) mg/dL Troponin I (0.000-0.034) ng/mL Total Protein 5.5 L (6.3-8.2) g/dL Albumin 3.1 L (3.5-5.0) g/dL Urine Appearance (Clear) Urine Protein 1+ H (Negative) Urine Ketones (Negative) Ur Leukocyte Esterase (Negative) Urine WBC (0-5) /hpf Urine Bacteria Rare H (None) /hpf Hyaline Casts (0-2) /lpf Urine Mucus (None) /hpf 11/28/16 Range/Units 12:13 WBC (3.8-10.6) k/uL RBC (3.80-5.40) m/uL Neutrophils # (1.3-7.7) k/uL Lymphocytes # (1.0-4.8) k/uL Sodium (137-145) mmol/L Chloride (98-107) mmol/L BUN (7-17) mg/dL Creatinine (0.52-1.04) mg/dL Glucose (74-99) mg/dL Phosphorus (2.5-4.5) mg/dL Magnesium (1.6-2.3) mg/dL Troponin I (0.000-0.034) ng/mL Total Protein (6.3-8.2) g/dL Albumin (3.5-5.0) g/dL Urine Appearance Cloudy H (Clear) Urine Protein 1+ H (Negative) Urine Ketones Trace H (Negative) Ur Leukocyte Esterase Moderate H (Negative) Urine WBC 22 H (0-5) /hpf Urine Bacteria (None) /hpf Hyaline Casts 14 H (0-2) /lpf Urine Mucus Rare H (None) /hpf Microbiology - Last 24 Hours (Table) 11/27/16 17:30 Urine Culture - Preliminary Urine,Catheterized Diabetes panel 11/27/16 11/28/16 Range/Units 16:30 12:01 Sodium 129 L 133 L (137-145) mmol/L Potassium 4.6 4.0 (3.5-5.1) mmol/L Chloride 91 L 96 L (98-107) mmol/L Carbon Dioxide 24 27 (22-30) mmol/L BUN 56 H 53 H (7-17) mg/dL Creatinine 3.40 H 3.17 H (0.52-1.04) mg/dL Glucose 138 H 78 (74-99) mg/dL Calcium 9.6 8.8 (8.4-10.2) mg/dL AST 35 28 (14-36) U/L ALT 39 33 (9-52) U/L Alkaline Phosphatase 125 107 (38-126) U/L Total Protein 6.5 5.5 L (6.3-8.2) g/dL Albumin 3.8 3.1 L (3.5-5.0) g/dL Calcium panel 11/27/16 11/28/16 Range/Units 16:30 12:01 Calcium 9.6 8.8 (8.4-10.2) mg/dL Phosphorus 5.1 H (2.5-4.5) mg/dL Albumin 3.8 3.1 L (3.5-5.0) g/dL Pituitary panel 11/27/16 11/28/16 Range/Units 16:30 12:01 Sodium 129 L 133 L (137-145) mmol/L Potassium 4.6 4.0 (3.5-5.1) mmol/L Chloride 91 L 96 L (98-107) mmol/L Carbon Dioxide 24 27 (22-30) mmol/L BUN 56 H 53 H (7-17) mg/dL Creatinine 3.40 H 3.17 H (0.52-1.04) mg/dL Glucose 138 H 78 (74-99) mg/dL Calcium 9.6 8.8 (8.4-10.2) mg/dL Adrenal panel 11/27/16 11/28/16 Range/Units 16:30 12:01 Sodium 129 L 133 L (137-145) mmol/L Potassium 4.6 4.0 (3.5-5.1) mmol/L Chloride 91 L 96 L (98-107) mmol/L Carbon Dioxide 24 27 (22-30) mmol/L BUN 56 H 53 H (7-17) mg/dL Creatinine 3.40 H 3.17 H (0.52-1.04) mg/dL Glucose 138 H 78 (74-99) mg/dL Calcium 9.6 8.8 (8.4-10.2) mg/dL Total Bilirubin 0.8 0.8 (0.2-1.3) mg/dL AST 35 28 (14-36) U/L ALT 39 33 (9-52) U/L Alkaline Phosphatase 125 107 (38-126) U/L Total Protein 6.5 5.5 L (6.3-8.2) g/dL Albumin 3.8 3.1 L (3.5-5.0) g/dL Assessment and Plan (1) Abdominal pain Narrative/Plan: The CAT scan findings and the clinical scenario were discussed in detail with the patient her son and her daughter and her [id number]. The patient's primary issue at this point is whether or not there is a component of obstruction present. Despite the CAT scan report there are inflammatory changes and I agree with the use of IV antibiotics for possible diverticulitis. The inflammatory changes may be on the basis of the constipation itself however. The options of Gastrografin enema, soapsuds enema, or surgical exploration were discussed in detail. The advantages and disadvantages of all 3 options were reviewed. The patient and her family are not interested in surgical intervention at this time. The use of enema does carry with it increased risk of possible perforation if in particular diverticulitis is contributing to her problem. At this point we decided to give a trial of soapsuds enema this evening. We'll keep essentially nothing by mouth at this point. We'll continue IV antibiotic therapy. If no improvement by tomorrow we will reassess but will likely encourage the option of surgical exploration with planned colonic resection and ostomy at that point. All questions were answered. Status: Acute
--- NOTE | 2016-11-28 16:22 | US ---
EXAMINATION TYPE: US kidneys/renal and bladder DATE OF EXAM: 11/28/2016 COMPARISON: CT 11/27/2016 CLINICAL HISTORY: 76-year-old female LUI. Technique: Multiple sonographic images of the kidneys and bladder were obtained. FINDINGS: SPECIAL INVESTIGATOR NOTES: Exam limited due to patient unable to turn or hold breath. Right Kidney: 8.3 x 3.7 x 3.6 cm Left Kidney: 9.0 x 4.3 x 3.3 cm No hydronephrosis on either side. Bladder not evaluated as it is decompressed by Gallardo catheter. IMPRESSION: No hydronephrosis.
[2016-11-28] MEDS: DEXTROSE 5%-0.9% NACL 1,000 ML IV SCH ×2 (18:26→18:28)
[2016-11-28] MEDS: HEPARIN SODIUM,PORCINE 5,000 UNIT/ML 1 ML VIAL SQ SCH (18:27)
[2016-11-29] MEDS: MICONAZOLE NITRATE 2% CREAM 14 GM TUBE TOPICAL SCH ×3 (01:19→20:57)
[2016-11-29] MEDS: metroNIDAZOLE-NS PMX 500 MG in SALINE 1 100ML.BAG IVPB SCH ×4 (01:23→20:55)
[2016-11-29] MEDS: HEPARIN SODIUM,PORCINE 5,000 UNIT/ML 1 ML VIAL SQ SCH ×3 (01:24→16:01)
[2016-11-29] MEDS: DEXTROSE 5%-0.9% NACL 1,000 ML IV SCH ×3 (01:25→16:06)
[2016-11-29] MEDS: MORPHINE SULFATE IR 15 MG TABLET PO PRN ×4 (03:22→22:32)
[2016-11-29] MEDS ORDERED: BISACODYL 10 MG SUPP RECTAL STA ×2 (07:26→18:57)
[2016-11-29] MEDS: ONDANSETRON 4 MG TAB PO PRN ×3 (08:10→17:38)
[2016-11-29] MEDS: LIDOCAINE 5% PATCH TOPICAL SCH (08:11)
[2016-11-29] MEDS: CEFEPIME 1 GM in SODIUM CHLORIDE 0.9% 50 ML IVPB SCH (08:30)
[2016-11-29] MEDS: PANTOPRAZOLE 40 MG TABLET PO SCH (09:12)
[2016-11-29] MEDS: CYANOCOBALAMIN 500 MCG TAB PO SCH (09:12)
[2016-11-29] MEDS: HYDROXYCHLOROQUINE SULFATE 200 MG TAB PO SCH (09:12)
[2016-11-29] MEDS: CHOLECALCIFEROL 1,000 UNIT TAB PO SCH (09:12)
[2016-11-29] MEDS: LEVOTHYROXINE 112 MCG TAB PO SCH (09:13)
[2016-11-29] MEDS: MONTELUKAST 10 MG TAB PO SCH (09:13)
[2016-11-29] MEDS: predniSONE 5 MG TAB PO SCH ×2 (09:13→16:01)
[2016-11-29] MEDS: CALCIUM CARBONATE 500 MG CHEWABLE PO SCH (09:18)
--- NOTE | 2016-11-29 09:25 | P.NPCON ---
History of Present Illness - Reason for Consult acute renal failure - Chief Complaint Acute kidney injury and chronic kidney disease - History of Present Illness This is a 76-year-old female seen in consultation because of acute kidney injury and chronic kidney disease. She was recently hospitalized at [facility] with back pain supposedly and was discharged to [facility] for rehab. She has been constipated for the last about 13 days. She has nausea vomiting and decreased intake. Also some frequency of urination. She was admitted for further workup off the abdominal discomfort and constipation. Workup has shown diverticulitis based on a computed tomography scan, additionally worsening of fracture of her vertebrae. She has L5 and T12 compression fracture. An ultrasound shows 8.3 and 9 cm right and left kidney. Patient has history of lupus for several years and has been steroids and chloroquine for the same. No past knowledge of any kidney disease. No kidney biopsy. Not seen any skin lap bonder. She follows up with her primary physician. No history of hematuria kidney stones. No history of rash. No chest pain cough shortness of breath and sweating dizziness. Patient is awake and alert. But profoundly weak. She continues to have abdominal discomfort and back pain. Past history significant for hypertension lupus pacemaker appendectomy cholecystectomy. Past Medical History Past Medical History: Hypertension, Thyroid Disorder Additional Past Medical History / Comment(s): lupus History of Any Multi-Drug Resistant Organisms: None Reported Past Surgical History: Appendectomy, Cholecystectomy, Pacemaker Additional Past Surgical History / Comment(s): nasal surgery, cataract surgery Past Anesthesia/Blood Transfusion Reactions: No Reported Reaction Type of Cardiac Device: Permanent Pacemaker Device Placement Date:: 09/15/2016 Past Psychological History: No Psychological Hx Reported Smoking Status: Former smoker Past Alcohol Use History: None Reported Past Drug Use History: None Reported - Past Family History Son(s) Family Medical History: Cancer Additional Family Medical History / Comment(s): esophageal ca, at 25 y/o. Medications and Allergies Home Medications Medication Instructions Recorded Confirmed Type Hydroxychloroquine Sulfate 200 mg PO DAILY 01/15/16 11/27/16 History [Plaquenil] Omeprazole [PriLOSEC] 40 mg PO DAILY 01/15/16 11/27/16 History predniSONE 10 mg PO QAM 01/15/16 11/27/16 History Calcium Carbonate [Calcium] 1,200 mg PO DAILY 01/16/16 11/27/16 History Cholecalciferol [Vitamin D3] 1,000 unit PO DAILY 01/16/16 11/27/16 History Montelukast [Singulair] 10 mg PO DAILY 01/16/16 11/27/16 History Lidocaine 5% Patch [Lidoderm 5% 1 patch TOPICAL DAILY 10/11/16 11/27/16 History Patch] predniSONE 5 mg PO PC-SUPPER 10/11/16 11/27/16 History Cyanocobalamin (Vitamin B-12) 5,000 mcg PO DAILY 11/27/16 11/27/16 History [Vitamin B12] Furosemide [Lasix] 20 mg PO TUTHSA PRN 11/27/16 11/27/16 History Ibuprofen [Motrin] 600 mg PO Q8HR PRN 11/27/16 11/27/16 History Lactulose 20 gm PO Q8H PRN 11/27/16 11/27/16 History Levothyroxine Sodium [Synthroid] 112 mcg PO DAILY 11/27/16 11/27/16 History Miconazole Nitrate [Miconazole 1 applic TOPICAL BID 11/27/16 11/27/16 History Nitrate 2%] Morphine Sulfate Ir 7.5mg 1 tab PO Q6H PRN 11/27/16 11/27/16 History Naloxegol Oxalate [Movantik] 25 mg PO DAILY 11/27/16 11/27/16 History Ondansetron HCl [Zofran] 4 mg PO DAILY PRN 11/27/16 11/27/16 History Allergies Allergy/AdvReac Type Severity Reaction Status Date / Time codeine Allergy Rash/Hives Verified 11/27/16 17:40 indomethacin [From Indocin] Allergy Unknown Verified 11/27/16 17:40 levofloxacin [From Levaquin] Allergy Unknown Verified 11/27/16 17:40 methylprednisolone Allergy Unknown Verified 11/27/16 17:40 [From Medrol] Penicillins Allergy Unknown Verified 11/27/16 17:40 Sulfa (Sulfonamide Allergy Rash/Hives Verified 11/27/16 17:40 Antibiotics) meloxicam [From Mobic] AdvReac stomache Verified 11/27/16 17:40 pain NSAIDS (Non-Steroidal AdvReac Abdominal Verified 11/27/16 17:40 Anti-Inflamma Pain oxaprozin [From Daypro] AdvReac Abdominal Verified 11/27/16 17:40 Pain prochlorperazine AdvReac Nausea & Verified 11/27/16 17:40 [From Compazine] Vomiting prochlorperazine edisylate AdvReac Nausea & Verified 11/27/16 17:40 [From Compazine] Vomiting and headache prochlorperazine maleate AdvReac Nausea & Verified 11/27/16 17:40 [From Compazine] Vomiting salsalate [From Disalcid] AdvReac Abdominal Verified 11/27/16 17:40 Pain vortioxetine hydrobromide AdvReac Abdominal Verified 11/27/16 17:40 [From Trintellix] Pain Physical Exam Vitals: Vital Signs Temp Pulse Resp BP Pulse Ox 11/29/16 04:00 98.3 F 86 16 123/69 95 11/29/16 00:00 98.1 F 84 17 100/62 94 L 11/28/16 20:00 98.8 F 89 18 111/60 93 L 11/28/16 16:00 98 F 82 16 130/71 95 11/28/16 12:00 97.3 F L 84 16 118/57 94 L Intake and Output 11/28/16 11/29/16 11/29/16 22:59 06:59 14:59 Output Total 875 Balance -875 Output: Urine 875 Other: Voiding Method Indwelling Catheter Indwelling Catheter # Voids 1 # Bowel Movements 1 Weight 71 kg On examination she is awake alert oriented. Seems to be comfortable. HEENT exam no JVP neck is supple no facial asymmetry no lymphadenopathy in the neck or axilla No carotid bruit. Oral cavity dry mucosa. Lungs are clear to auscultation and percussion with poor air entry and poor inspiratory effort. No dullness percussion. A chest x-ray was not available. Heart sounds are unremarkable for any murmur rub gallop Abdomen is distended protuberant and mildly tender or all quadrants. Bowel sounds are diminished. No masses are felt. Extremity exam was no edema Neurologically awake alert oriented 3 no asterixis. No focal motor deficit but generalized weakness Results Impression. 1. Acute kidney injury secondary to volume depletion, prerenal from diverticulitis. Creatinine peaked at 3.4 and is down to 3.17 with hydration. 2. Chronic kidney disease, stage III, GFR or is 44 mL per minute, etiology is nephrosclerosis Baseline creatinine 1.2 at its best on 10/16/2016. No significant proteinuria therefore unlikely to be lupus there is some pyuria though and cultures are negative. We will watch for acute interstitial nephritis. Ultrasound shows 8.3 and 9 January kidneys 3. Mild degree of hyponatremia from acute kidney injury sodium improved from 129-133. 4. Hyperphosphatemia from acute kidney injury. 5. Pyuria. 6. History of systemic lupus on prednisone and hydroxychloroquine. No clear- cut evidence of lupus nephritis at this time. 7. Diverticulitis. 8. Severe constipation for 13 days. 9. 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 Other causes needs to be considered. 10. Large hiatal hernia Recommendation. 1. Maintain IV fluids, normal saline at 75 mL an hour. Change it to plain normal saline. 2. Monitor renal function electrolytes calcium phosphorus 3. Strict intake and output. 4. Will redo urinalysis in a deer to and reassess the pyuria. 5. Expect the sodium to improve with IV fluids - Lab Results Most recent lab results Calcium 8.8 mg/dL (8.4-10.2) 11/28/16 12:01 Phosphorus 5.1 mg/dL (2.5-4.5) H 11/28/16 12:01 Magnesium 3.3 mg/dL (1.6-2.3) H 11/28/16 12:01 11/28/16 12:01 11/28/16 12:01
[2016-11-29 10:19] LABS: Basophils # (A) 0.1 k/uL (0-0.2); Basophils % (A) 0 %; CH 31.5; CHCM 33.4; Eosinophils # (A) 0.2 k/uL (0-0.7); Eosinophils % (A) 2 %; HCT 30.9 % (34.0-46.0); HDW 2.99; HGB 10.2 gm/dL (11.4-16.0); Luc # (Auto) 0.15; Luc % (Auto) 1; Lymphocytes # (A) 0.8 k/uL (1.0-4.8); Lymphocytes % (A) 6 %; MCH 31.3 pg (25.0-35.0); MCHC 33.1 g/dL (31.0-37.0); MCV 94.6 fL (80.0-100.0); Mean Platelet Volume 7.6; Monocytes # (A) 0.5 k/uL (0-1.0); Monocytes % (A) 4 %; Neutrophils # (A) 12.5 k/uL (1.3-7.7); Neutrophils % (A) 88 %; RBC 3.27 m/uL (3.80-5.40); WBC 14.2 k/uL (3.8-10.6); WBC (Perox) 14.21
[2016-11-29 10:37] LABS: Calcium 8.1 mg/dL (8.4-10.2); Potassium 3.6 mmol/L (3.5-5.1); Total Bilirubin 0.5 mg/dL (0.2-1.3); Total Protein 4.7 g/dL (6.3-8.2)
--- NOTE | 2016-11-29 11:15 | P.PN ---
Subjective Principal diagnosis: Abdominal pain/constipation Patient evaluated this morning with her family present at the bedside. She says her pain is improved. She only had a small amount of liquid stool last night but did pass some flatus as well. Her white blood cell count today is improved at 14. Hemodynamically remains stable without tachycardia or fevers. The CAT scan findings were shown to the patient's son on the monitor. Objective - Vital Signs Vital signs: Vital Signs Temp 98.1 F 11/29/16 09:21 Pulse 89 11/29/16 09:21 Resp 16 11/29/16 09:21 BP 164/71 11/29/16 09:21 Pulse Ox 94 L 11/29/16 09:21 Intake & Output 11/28/16 11/29/16 11/29/16 18:59 06:59 18:59 Output Total 1500 875 Balance -1500 -875 Weight 67.5 kg 71 kg Output: Urine 1500 875 Straight 700 Other: Voiding Method Indwelling Catheter Indwelling Catheter # Voids 1 # Bowel Movements 0 1 - Exam Abdomen: Soft, distended, mild diffuse tenderness much improved from yesterday evening's examination - Labs CBC & Chem 7: 11/29/16 10:06 11/29/16 10:06 Labs: Abnormal Lab Results - Last 24 Hours (Table) 11/28/16 11/28/16 11/28/16 Range/Units 12:01 12:01 12:13 WBC 19.2 H (3.8-10.6) k/uL RBC 3.69 L (3.80-5.40) m/uL Hgb (11.4-16.0) gm/dL Hct (34.0-46.0) % Neutrophils # 16.5 H (1.3-7.7) k/uL Lymphocytes # (1.0-4.8) k/uL Sodium 133 L (137-145) mmol/L Chloride 96 L (98-107) mmol/L BUN 53 H (7-17) mg/dL Creatinine 3.17 H (0.52-1.04) mg/dL Glucose (74-99) mg/dL Calcium (8.4-10.2) mg/dL Phosphorus 5.1 H (2.5-4.5) mg/dL Magnesium 3.3 H (1.6-2.3) mg/dL Total Protein 5.5 L (6.3-8.2) g/dL Albumin 3.1 L (3.5-5.0) g/dL Urine Appearance Cloudy H (Clear) Urine Protein 1+ H (Negative) Urine Ketones Trace H (Negative) Ur Leukocyte Esterase Moderate H (Negative) Urine WBC 22 H (0-5) /hpf Hyaline Casts 14 H (0-2) /lpf Urine Mucus Rare H (None) /hpf 11/29/16 11/29/16 Range/Units 10:06 10:06 WBC 14.2 H (3.8-10.6) k/uL RBC 3.27 L (3.80-5.40) m/uL Hgb 10.2 L (11.4-16.0) gm/dL Hct 30.9 L (34.0-46.0) % Neutrophils # 12.5 H (1.3-7.7) k/uL Lymphocytes # 0.8 L (1.0-4.8) k/uL Sodium 136 L (137-145) mmol/L Chloride (98-107) mmol/L BUN 41 H (7-17) mg/dL Creatinine 1.80 H (0.52-1.04) mg/dL Glucose 112 H (74-99) mg/dL Calcium 8.1 L (8.4-10.2) mg/dL Phosphorus (2.5-4.5) mg/dL Magnesium (1.6-2.3) mg/dL Total Protein 4.7 L (6.3-8.2) g/dL Albumin 2.4 L (3.5-5.0) g/dL Urine Appearance (Clear) Urine Protein (Negative) Urine Ketones (Negative) Ur Leukocyte Esterase (Negative) Urine WBC (0-5) /hpf Hyaline Casts (0-2) /lpf Urine Mucus (None) /hpf Microbiology - Last 24 Hours (Table) 11/27/16 17:30 Urine Culture - Final Urine,Catheterized 11/27/16 19:05 Blood Culture - Preliminary Blood No Growth after 24 hours Assessment and Plan (1) Abdominal pain Narrative/Plan: Clinical scenario once again discussed in detail. Options of operative versus nonoperative management reviewed. Given the improvement in the patient's exam and symptoms we will continue with gentle enema administration and continued antibiotics. We'll reevaluate once again tomorrow. Status: Acute
--- NOTE | 2016-11-29 16:02 | HP ---
Dr. Jeffry Odom covering for Dr. Lorenzo Mortensen DATE OF SERVICE: 11/28/2016 HISTORY OF PRESENT ILLNESS: The patient is a 76-year-old female who was undergoing rehab at [facility]. The patient states to me that for the last 2 days she was not able to urinate. She has been anorexic for approximately 2 weeks and appears that is around the time that she went to rehab. Patient has been experiencing nausea and vomiting for the last 2 days as well. Yesterday, labs were drawn at the [facility], which did show that patient had an elevated white blood cell count . The patient has been constipated. Believes the last time that she actually had a decent bowel movement was 10 days ago. The patient has been experiencing some chills. The [id number] tells me that the patient has lost approximately 10 pounds over this periods of time that she has been in rehab. Subsequently, the patient was brought to the emergency room for further and was admitted. PAST MEDICAL HISTORY: Positive for hypertension, thyroid disorder, lupus, prediabetes, arthritis, asthma, and compression fractures in her back. Also, according to a CAT scan in September, patient has pulmonary hypertension. PAST SURGICAL HISTORY: Positive for appendectomy, cholecystectomy, pacemaker placement, cataract surgery and nasal surgery, angioplasty and a tonsillectomy. Allergies are numerous, although the daughter did tell me that several of the medications just caused severe effects, not necessarily allergic reactions and they include CODEINE, INDOCIN, LEVAQUIN, MEDROL, PENICILLINS, SULFA, MOBIC, NSAIDS, DAYPRO, COMPAZINE, DISALCID and TRINTELLIX. Medications patient was on at the rehab center include: 1. Dulcolax. 2. Miconazole nitrate 2% one application topically b.i.d. 3. Morphine sulfate 7.5 mg 1 tablet p.o. q.6 hours p.r.n. 4. Lactulose 20 grams p.o. q.8 hours p.r.n. 5. Motrin 600 mg p.o. q.8 hours p.r.n. 6. Zofran 4 mg p.o. daily p.r.n. 7. Calcium 1200 mg p.o. daily . 8 .Dulcolax 10 mg p.o. daily p.r.n. 9. Prilosec 40 mg p.o. daily. 10. Synthroid 112 mcg p.o. daily. 11. Prednisone 5 mg p.o. daily except before supper and 10 mg p.o. daily in the morning before breakfast. 12. Plaquenil 200 mg p.o. daily. 13. Movantik 25 mg p.o. daily. 14. Singulair 10 mg p.o. daily. 15. Lidoderm patch 5% topically to her back daily. 16. Lasix 20 mg p.o. Thursday, and Thursday p.r.n. 17. Colace 100 mg p.o. daily . 18. Vitamin B12, 5000 mcg daily. 19. Vitamin D3, 1000 units daily. SOCIAL HISTORY: The patient quit smoking over 40 years ago. Denies alcohol. Denies any illicit drug use. FAMILY HISTORY: Noncontributory. REVIEW OF SYSTEMS: GENERAL: Positive for intermittent chills and a 10-pound weight loss. HEENT: Positive for dizziness and light-headedness. Patient denies a headache. Patient does admit to acute visual changes. Denies difficulty hearing, does have hearing aids. Denies any nose bleeds. Denies sore throat. Does complain of a dry mouth. Denies any difficulty swallowing. Respiratory is negative for shortness of breath or cough. CARDIOVASCULAR: Negative for any chest pain or palpitation. GI: Positive for abdominal pain, nausea, vomiting, constipation. No diarrhea. : Negative for any dysuria or hematuria, however, the patient is oliguric. Has not urinated for 2 days . ENDOCRINE: Positive for prediabetes and hypothyroid disease. MUSCULOSKELETAL: Positive for stress fractures to patient's back with a new one noted on the current CT and spinal stenosis. NEUROLOGIC: Negative for any seizures. PSYCHIATRIC: Negative for anxiety or depression. ON PHYSICAL EXAM: General is a 76-year-old female who is seen lying in bed, appears stated age, is agitated due to not knowing what is going on at this point. [id number] is at the bedside. PATIENT'S VITAL SIGNS: Temp is 97.3, heart rate is 84, respiratory rate is 16 , blood pressure is 118/57, O2 sats 94% on room air. HEENT: Head is normocephalic, atraumatic. Pupils equal, round, react to light. Ears and nose, no discharges noted. Mouth, very dry mucous membranes. Unable to visualize back of patient's throat. Neck is supple. Trachea is midline.No lymphadenopathy. HEART: S1 and S2 are heard, not tachycardia. LUNGS: Decreased at the bases. No clear rales or wheezes. Abdomen is very tender, distended, more so on the right than the left. Bowel sounds are positive. Patient complains of pain with very minimal palpations. Extremities with no edema. NEUROLOGIC: Patient is awake, alert. LABS: White count is 19.2, hemoglobin is 12.0, hematocrit is 34.5 with 288, 000 platelets. Sodium is 133, potassium is 4.0, chloride is 96, CO2 is 27. Anion gap is 10. BUN is 53. Creatinine is 3.17. Glucose is 82. Calcium is 8.8. Phosphorus 5.1. Magnesium is 3.3. Total bilirubin 0.8. AST is 28, ALT is 33, alk phos is 107. Total protein is 5.5. Albumin is 3.1. Urinalysis with trace ketones, moderate leukocyte esterase, 22 white blood cells. IMAGING: CT of the abdomen and pelvis shows constipation, lumbar compression fractures. There is new mild fracture of L5. There is progression of T12 fracture compared to old exam. There is spinal stenosis at L4-5. No sign of acute abdomen and pelvis, large hiatal hernia. There is new patchy atelectasis at the lung bases compared to old exam. EKG shows normal sinus rhythm with left bundle branch block . IMPRESSION: 1. Abdominal pain. 2. Acute kidney injury. 3. Anorexia. 4. Dehydration. 5. Constipation. 6. Leukocytosis. 7. Urinary tract infection. 8. Nausea and vomiting. 9. Compression fractures. 10. Spinal stenosis. 11. Pulmonary hypertension. 12. Hyponatremia. PLAN: The patient will be given IV fluids, D5 0.9 at 200 mL an hour. Will be maintained n.p.o. except ice chips until seen by Surgery. Will continue current IV antibiotics and consult has been place for Infectious Disease. Will consult Orthopedics for patient's compression fractures. Stat labs were drawn this a.m. and have been reviewed. Will also order an ultrasound of the kidneys, bladder and ureter. Do a culture and sensitivity on the urinalysis. Gallardo catheter has been placed. Patient will be on Protonix for GI prophylaxis and we will add heparin for DVT prophylaxis. Consult has been placed for Nephrology. Will repeat labs in the a.m. Will follow patient closely making further changes as needed. MTDD
[2016-11-29] MEDS: SODIUM CHLORIDE 0.9% 1,000 ML IV SCH ×2 (16:10→22:39)
[2016-11-30] MEDS: HEPARIN SODIUM,PORCINE 5,000 UNIT/ML 1 ML VIAL SQ SCH ×4 (02:07→22:58)
[2016-11-30] MEDS: ONDANSETRON 4 MG TAB PO PRN ×4 (03:26→18:44)
[2016-11-30] MEDS: CEFEPIME 1 GM in SODIUM CHLORIDE 0.9% 50 ML IVPB SCH (08:10)
--- NOTE | 2016-11-30 09:00 | P.PN ---
Subjective This is a 76-year-old female seen in consultation because of acute kidney injury and chronic kidney disease. She has been diagnosed with lupus in the past but unaware of any kidney disease. She came in because of abdominal pain and severe constipation. Workup has shown diverticulitis as well as a L5 and T12 compression fracture. Ultrasound showed 8.3 and 9 cm right and left kidney. Her creatinine has improved with hydration. Morning she feels like eating she had a bowel movement after 13 days. Abdominal distention has improved but not back to normal. She has a Gallardo catheter. Urine output has been 23 75 mL Objective - Vital Signs Vital signs: Vital Signs Temp 98.1 F 11/30/16 04:00 Pulse 86 11/30/16 04:00 Resp 17 11/30/16 04:00 BP 141/88 11/30/16 04:00 Pulse Ox 94 L 11/30/16 04:00 Intake & Output 11/29/16 11/30/16 11/30/16 18:59 06:59 18:59 Intake Total 150 500 Output Total 1300 800 Balance -1150 -300 Weight 70.4 kg Intake: Intake, IV Titration 150 400 Amount Cefepime 2 gm In Sodium 50 Chloride 0.9% 50 ml @ 100 mls/hr IVPB BID RENAN Rx#: [id number] Sodium Chloride 0.9% 1, 300 000 ml @ 75 mls/hr IV . [id number] RENAN Rx#:[id number] metroNIDAZOLE-NS PMX 500 100 100 mg In Saline 1 100ml.bag @ 100 mls/hr IVPB TID RENAN Rx#:[id number] Oral 100 Output: Urine 1300 800 Other: Voiding Method Indwelling Catheter Indwelling Catheter On examination she is awake alert oriented. HEENT exam no JVP neck is supple no facial asymmetry Lungs are significant for bilateral fine crackles good air entry no dullness to percussion. Heart sounds are unremarkable for any murmur rub gallop Abdomen soft nontender slightly protuberant and distended Extremity exam showed minimal to trace edema Neurologically awake alert oriented no asterixis and no focal motor deficit - Labs CBC & Chem 7: 11/29/16 10:06 11/29/16 10:06 Labs: Abnormal Lab Results - Last 24 Hours (Table) 11/29/16 11/29/16 Range/Units 10:06 10:06 WBC 14.2 H (3.8-10.6) k/uL RBC 3.27 L (3.80-5.40) m/uL Hgb 10.2 L (11.4-16.0) gm/dL Hct 30.9 L (34.0-46.0) % Neutrophils # 12.5 H (1.3-7.7) k/uL Lymphocytes # 0.8 L (1.0-4.8) k/uL Sodium 136 L (137-145) mmol/L BUN 41 H (7-17) mg/dL Creatinine 1.80 H (0.52-1.04) mg/dL Glucose 112 H (74-99) mg/dL Calcium 8.1 L (8.4-10.2) mg/dL Total Protein 4.7 L (6.3-8.2) g/dL Albumin 2.4 L (3.5-5.0) g/dL Microbiology - Last 24 Hours (Table) 11/27/16 19:05 Blood Culture - Preliminary Blood No Growth after 48 hours Assessment and Plan Plan: Impression. 1. Acute kidney injury secondary to volume depletion, prerenal from diverticulitis. Creatinine peaked at 3.4 and is down to 3.17 with hydration yesterday and further down to 1.8 this morning. 2. Chronic kidney disease, stage III, GFR or is 44 mL per minute, etiology is nephrosclerosis Baseline creatinine 1.2 at its best on 10/16/2016. No significant proteinuria therefore unlikely to be lupus there is some pyuria though and cultures are negative. We will watch for acute interstitial nephritis. Ultrasound shows 8. and 31 January kidneys 3. Mild degree of hyponatremia from acute kidney injury sodium improved from 129-133. And further improved to 136 this morning 4. Hyperphosphatemia from acute kidney injury. 5. Pyuria. Urine cultures negative 6. History of systemic lupus on prednisone and hydroxychloroquine. No clear- cut evidence of lupus nephritis at this time. 7. Diverticulitis. On IV antibiotics 8. Severe constipation for 13 days. Improved his bowel movement 9. 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 Other causes needs to be considered. 10. Large hiatal hernia Recommendation. 1. Obtain chest x-ray because of bilateral Crepitations. 2. For now Maintain IV fluids, normal saline at 75 mL an hour. 2. Monitor renal function electrolytes calcium phosphorus 3. Strict intake and output. 4. DC Gallardo catheter but maintain strict I's and O's
[2016-11-30] MEDS: metroNIDAZOLE-NS PMX 500 MG in SALINE 1 100ML.BAG IVPB SCH ×3 (09:31→22:58)
[2016-11-30] MEDS: LIDOCAINE 5% PATCH TOPICAL SCH (09:33)
[2016-11-30] MEDS: LEVOTHYROXINE 112 MCG TAB PO SCH (09:44)
[2016-11-30] MEDS: predniSONE 5 MG TAB PO SCH ×2 (09:44→18:44)
[2016-11-30] MEDS: MONTELUKAST 10 MG TAB PO SCH (09:44)
[2016-11-30] MEDS: PANTOPRAZOLE 40 MG TABLET PO SCH (09:44)
[2016-11-30] MEDS: HYDROXYCHLOROQUINE SULFATE 200 MG TAB PO SCH (09:44)
[2016-11-30] MEDS: CALCIUM CARBONATE 500 MG CHEWABLE PO SCH (09:45)
[2016-11-30] MEDS: CYANOCOBALAMIN 500 MCG TAB PO SCH (09:45)
[2016-11-30] MEDS: MICONAZOLE NITRATE 2% CREAM 14 GM TUBE TOPICAL SCH (09:45)
[2016-11-30] MEDS: CHOLECALCIFEROL 1,000 UNIT TAB PO SCH (09:45)
--- NOTE | 2016-11-30 10:52 | P.PN ---
Subjective Principal diagnosis: Abdominal pain/constipation Patient doing much better today. She finally had a large bowel movement last night. She states that the first part of that bowel movement was quite hard and somewhat uncomfortable the past and apparently required some assistance from the nursing staff. Following that the patient had improvement in her bloating. She feels like she is having an appetite now. No nausea. Pain is much improved. She is afebrile. Objective - Vital Signs Vital signs: Vital Signs Temp 99 F 11/30/16 08:00 Pulse 84 11/30/16 08:00 Resp 18 11/30/16 08:00 BP 129/81 11/30/16 08:00 Pulse Ox 95 11/30/16 08:00 Intake & Output 11/29/16 11/30/16 11/30/16 18:59 06:59 18:59 Intake Total 150 500 Output Total 1300 800 Balance -1150 -300 Weight 70.4 kg Intake: Intake, IV Titration 150 400 Amount Cefepime 2 gm In Sodium 50 Chloride 0.9% 50 ml @ 100 mls/hr IVPB BID RENAN Rx#: [id number] Sodium Chloride 0.9% 1, 300 000 ml @ 75 mls/hr IV . [id number] RENAN Rx#:[id number] metroNIDAZOLE-NS PMX 500 100 100 mg In Saline 1 100ml.bag @ 100 mls/hr IVPB TID RENAN Rx#:[id number] Oral 100 Output: Urine 1300 800 Other: Voiding Method Indwelling Catheter Indwelling Catheter Indwelling Catheter - Exam Abdomen: Soft, minimal distention, mild diffuse tenderness - Labs CBC & Chem 7: 11/29/16 10:06 11/29/16 10:06 Labs: Microbiology - Last 24 Hours (Table) 11/27/16 19:05 Blood Culture - Preliminary Blood No Growth after 48 hours Assessment and Plan (1) Abdominal pain Narrative/Plan: Resume cathartics in the form of milk of magnesia twice daily. Begin a clear liquid diet. Continue to encourage increased activity levels. Status: Acute
[2016-11-30] MEDS: MAGNESIUM HYDROXIDE 2,400 MG/10 ML CUP PO SCH ×2 (11:59→23:09)
[2016-11-30] MEDS: MORPHINE SULFATE IR 15 MG TABLET PO PRN (13:17)
--- NOTE | 2016-11-30 15:24 | XR ---
EXAMINATION TYPE: XR chest 2V DATE OF EXAM: 11/30/2016 COMPARISON: 10/11/2016 HISTORY: CHF TECHNIQUE: Frontal and lateral views of the chest are obtained. FINDINGS: Heart is enlarged. There is pulmonary edema. There are chest leads. There is left axillary pacemaker with the lead tips in the right ventricle. IMPRESSION: Congestive heart failure with pulmonary edema that is worse than last exam. Bilateral pl eural effusions.
[2016-11-30] MEDS: SODIUM CHLORIDE 0.9% 1,000 ML IV SCH (16:46)
[2016-11-30] MEDS: cefTRIAXone 2,000 MG in SODIUM CHLORIDE 0.9% 100 ML IVPB SCH (17:44)
[2016-12-01] MEDS ORDERED: MORPHINE SULFATE IR 15 MG TABLET ONE (00:10)
[2016-12-01 07:02] LABS: Basophils % (A) 0 %; CH 31.4; CHCM 33.1; Eosinophils # (A) 0.1 k/uL (0-0.7); Eosinophils % (A) 1 %; HCT 31.6 % (34.0-46.0); HDW 3.06; HGB 10.5 gm/dL (11.4-16.0); Luc % (Auto) 2; Lymphocytes # (A) 1.4 k/uL (1.0-4.8); Lymphocytes % (A) 16 %; MCH 31.6 pg (25.0-35.0); MCHC 33.1 g/dL (31.0-37.0); MCV 95.4 fL (80.0-100.0); Mean Platelet Volume 7.1; Monocytes # (A) 0.5 k/uL (0-1.0); Monocytes % (A) 6 %; Neutrophils # (A) 6.8 k/uL (1.3-7.7); Neutrophils % (A) 75 %; RBC 3.31 m/uL (3.80-5.40); RDW 12.9 % (11.5-15.5); WBC (Perox) 9.62
[2016-12-01] MEDS: MICONAZOLE NITRATE 2% CREAM 14 GM TUBE TOPICAL SCH ×3 (07:04→22:19)
[2016-12-01] MEDS: SODIUM CHLORIDE 0.9% 1,000 ML IV SCH ×2 (07:05→12:55)
[2016-12-01 07:25] LABS: Calcium 8.7 mg/dL (8.4-10.2); Potassium 3.5 mmol/L (3.5-5.1)
--- NOTE | 2016-12-01 08:00 | PN ---
DATE OF SERVICE: 11/29/2016 She is sleepy, but easily arousable. She has less pain in her abdomen. She has been having some gas as well. On physical examination, her blood pressure is 164/71, respiratory rate 16, pulse rate 89, temperature 98.1, O2 sat on room air is 94% HEENT reveals pupils are equal. Chest is clear. Cardiovascular system reveals an S1, S2, no S3, no S4. No murmurs. Abdomen is soft. There is no tenderness. Bowel sounds are heard. There is trace pedal edema. Labs reveal a white count of 14.2, hemoglobin of 10.2. BUN of 41, creatinine of 1.8. Albumin of 2.4. IMPRESSION AT THIS TIME: 1. Acute abdominal pain, possibly secondary to an acute abdomen secondary to diverticulitis versus early perforation. 2. Acute renal failure in part due to acute tubular necrosis. 3. Protein calorie malnutrition with an albumin of 2.4 and decreased oral intake for the last 1 to 2 weeks. At this point of time, we appreciate surgical input. If the patient had not improved, she would have needed an exploratory laparotomy. Right now she seems like she is holding her own. Would continue antibiotics on her in the form of cefepime and Flagyl. Continue to have Surgery follow this patient closely with us. Appreciate nephrology input. Continue to aggressively hydrate her in the hope of avoiding permanent kidney damage. Depending on how she does, we shall make further changes to her care. DEBBIE
[2016-12-01] MEDS ORDERED: HYDROmorphone 2 MG/ML 1 ML SYRINGE IVP PRN (08:43)
[2016-12-01] MEDS: CYANOCOBALAMIN 500 MCG TAB PO SCH (09:12)
[2016-12-01] MEDS: LEVOTHYROXINE 112 MCG TAB PO SCH (09:13)
[2016-12-01] MEDS: predniSONE 5 MG TAB PO SCH ×2 (09:13→17:43)
[2016-12-01] MEDS: HYDROXYCHLOROQUINE SULFATE 200 MG TAB PO SCH (09:13)
[2016-12-01] MEDS: CHOLECALCIFEROL 1,000 UNIT TAB PO SCH (09:13)
[2016-12-01] MEDS: PANTOPRAZOLE 40 MG TABLET PO SCH (09:13)
[2016-12-01] MEDS: ACETAMINOPHEN TAB 500 MG TAB PO PRN ×3 (09:14→18:35)
[2016-12-01] MEDS: FUROSEMIDE 20 MG TAB PO SCH (09:14)
[2016-12-01] MEDS: POTASSIUM CHLORIDE ER 20 MEQ TAB.ER PO SCH (09:14)
[2016-12-01] MEDS: CALCIUM CARBONATE 500 MG CHEWABLE PO SCH (09:14)
[2016-12-01] MEDS: cefTRIAXone 2,000 MG in SODIUM CHLORIDE 0.9% 100 ML IVPB SCH (09:25)
[2016-12-01] MEDS: HEPARIN SODIUM,PORCINE 5,000 UNIT/ML 1 ML VIAL SQ SCH ×2 (09:25→15:26)
[2016-12-01] MEDS: MAGNESIUM HYDROXIDE 2,400 MG/10 ML CUP PO SCH ×2 (09:30→22:19)
[2016-12-01] MEDS: LIDOCAINE 5% PATCH TOPICAL SCH (09:59)
[2016-12-01] MEDS: metroNIDAZOLE-NS PMX 500 MG in SALINE 1 100ML.BAG IVPB SCH ×2 (12:41→22:21)
[2016-12-01] MEDS: LACTULOSE 20 GM/30 ML CUP PO SCH ×2 (12:42→22:19)
[2016-12-01] MEDS: NON-FORMULARY DRUG (Naloxegol Oxalate [Movantik] 25 MG) PO SCH ×2 (14:15→14:16)
[2016-12-01] MEDS: MONTELUKAST 10 MG TAB PO SCH ×2 (14:15→17:42)
[2016-12-01] MEDS ORDERED: BISACODYL 10 MG SUPP RECTAL PRN (15:54)
--- NOTE | 2016-12-01 17:52 | P.PN ---
Subjective Principal diagnosis: Abdominal pain/constipation Patient has had flatus since yesterday but no additional bowel movement. She is tolerating her clear liquids in small volumes. Abdominal pain still much improved from what it was 2-3 days ago. Abdominal bloating she states is still improved as well. Activity level has not increased much. Objective - Vital Signs Vital signs: Vital Signs Temp 98.5 F 12/01/16 15:00 Pulse 85 12/01/16 15:00 Resp 18 12/01/16 15:00 BP 169/81 12/01/16 15:00 Pulse Ox 96 12/01/16 15:00 Intake & Output 11/30/16 12/01/16 12/01/16 18:59 06:59 18:59 Intake Total 240 165 Output Total 1200 600 Balance -960 -600 165 Weight 69.5 kg Intake: Oral 240 165 Output: Urine 1200 600 Other: Voiding Method Indwelling Catheter Bedside Commode Bedside Commode # Voids 1 - Exam Abdomen: Soft, mild distention, positive tympany, minimal lower abdominal tenderness - Labs CBC & Chem 7: 12/01/16 06:22 12/01/16 06:19 Labs: Abnormal Lab Results - Last 24 Hours (Table) 12/01/16 12/01/16 Range/Units 06:19 06:22 RBC 3.31 L (3.80-5.40) m/uL Hgb 10.5 L (11.4-16.0) gm/dL Hct 31.6 L (34.0-46.0) % Chloride 108 H (98-107) mmol/L Carbon Dioxide 21 L (22-30) mmol/L BUN 23 H (7-17) mg/dL Creatinine 1.19 H (0.52-1.04) mg/dL Glucose 67 L (74-99) mg/dL Microbiology - Last 24 Hours (Table) 11/27/16 19:05 Blood Culture - Preliminary Blood No Growth after 72 hours Assessment and Plan (1) Abdominal pain Narrative/Plan: Continue stool softeners/cathartics, and Dulcolax suppositories. Reevaluate for possible additional enemas tomorrow. Status: Acute
--- NOTE | 2016-12-01 18:37 | PN ---
DATE OF SERVICE: 11/30/2016 This patient has remained hemodynamically stable. She is more awake, alert. She has almost no abdominal pain. Her blood pressure is 129/81, respiratory rate of 18, pulse rate of 84, temperature 99 degrees Fahrenheit. Oxygen saturation on room air is 95%. HEENT is unremarkable. Chest reveals decreased breath sounds in the bases. Cardiovascular system reveals S1, S2. Abdomen is soft. Bowel sounds are heard. She did have a large bowel movement yesterday. There is trace edema. IMPRESSION AT THIS TIME: 1. Diverticulitis. 2. Abdominal pain with possible bowel obstruction. 3. Acute renal failure, in part due to prerenal azotemia. 4. Protein-calorie malnutrition. Continue to hydrate her. Recheck labs tomorrow. Increase her activity level. Appreciate surgery and nephrology input and intervention. DEBBIE
--- NOTE | 2016-12-01 18:50 | PN ---
This is a 76 year old white female that was admitted to the hospital on 11/27/16 with a history of severe obstipation, and constipation with no bowel movements in over a week. On evaluation during that period of time, it was established that the patient had some nausea and some vomiting for a couple of days, some severe mid back pain, which she has been experiencing with her previous compression fracture. She has also been on Morphine 3 times a day. She was put on Movantik 25 mg without any success. At that period of time, a CAT scan was done and provided which showed mostly constipation, but some suspicion of some bowel narrowing, proximal sigmoid-distal descending colon. Evaluation by Dr. Marina . At that period of time due to her elevated white count, she was put on also antibiotics and prune juice along with Milk of Magnesia b.i.d. and she has responded quite nicely to the constipation. She still has some nonspecific back pain. She will not wear her back brace for her fracture because she says it causes more pain. The patient also came in with acute tubular necrosis, felt to be probably secondary to dehydration re-evaluation by nephrology at that time and now she has a creatinine that was 3.17, now to 1.19 and continuing to improve. Chest x-ray was completed unfortunately and showed evidence of some pulmonary edema and also some mild CHF at which time on this day the patient was started on some Lasix along with some K Dur for potassium that was down to 3.5. Today, the patient is very confused, on answering questions she said that has been a problem since being on the Morphine, but the Morphine is the only thing that has helped her with her pain. Her blood pressure today is 134/72, heart rate is in the 80s, respiratory rate is 18. EYES: Pupils are equal, round, reactive to light and accommodation. ENT: Showed tympanic membranes and pharynx to be negative. Neck: Supple with a midline trachea. Chest: Is actually clear to auscultation. Heart: Sinus rhythm The patient does have a previous pacemaker for a bradycardia. Abdomen: Soft, nontender, with no organomegaly. No swelling in her legs. On microbiology, her urine cultures came back negative and blood cultures to date are negative. Medications will be continued with some Movantik 25 mg a day, they do not have it here in the hospital so it has not been used. She is on Subtriaxone 2 grams q 24 hours. Seh is on Calcium Carbonate. She is on ( ) 500, Lasix 20 daily, Heparin subcutaneous, Plaquenil 200 daily, Levothroid 0.125, Lidocaine patches, Milk of Magnesia b.i.d., Flagyl 500. Miconazole cream. Monistat. Morphine has been discontinued and she has been put on Dilaudid. Protonix 40 and potassium 20. Prednisone 5, ( ) PM, ASSESSMENT: 1. Acute constipation with questionable diverticulitis. 2. Compression fracture T12, old with an L5 compression fracture deformity. 3. History of systemic lupus erythematous. 4. Acute tubular necrosis, resolving. 5. History of sick sinus syndrome with pacemaker placement. 6. Previous angioplasty. 7. Long standing hypertension. 8 Euthyroid. 9. 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 10. Acute CHF, questionable from volume overload from resolving dehydration, acute tubular necrosis. PLAN: Start on Lasix 20 daily, K Dur 3.5, potassium daily 20. Will await orthopedic recommendation. Will follow Dr. Marina's lead on constipation. Changed over to Dilaudid from Morphine, please refer to my orders. PROGNOSIS: Guarded. MTDD
[2016-12-01] MEDS: ONDANSETRON 4 MG TAB PO PRN (19:25)
[2016-12-02] MEDS: ACETAMINOPHEN TAB 500 MG TAB PO PRN ×5 (00:06→21:25)
[2016-12-02] MEDS: HEPARIN SODIUM,PORCINE 5,000 UNIT/ML 1 ML VIAL SQ SCH ×4 (00:08→23:52)
[2016-12-02] MEDS: SODIUM CHLORIDE 0.9% 1,000 ML IV SCH ×2 (05:15→17:26)
[2016-12-02] MEDS: metroNIDAZOLE-NS PMX 500 MG in SALINE 1 100ML.BAG IVPB SCH ×3 (06:09→21:26)
[2016-12-02 08:19] LABS: Basophils % (A) 0 %; CH 30.9; CHCM 33.5; Eosinophils # (A) 0.2 k/uL (0-0.7); Eosinophils % (A) 2 %; HCT 29.1 % (34.0-46.0); HDW 3.16; HGB 9.8 gm/dL (11.4-16.0); Luc # (Auto) 0.23; Luc % (Auto) 3; Lymphocytes # (A) 1.7 k/uL (1.0-4.8); Lymphocytes % (A) 23 %; MCH 31.3 pg (25.0-35.0); MCHC 33.7 g/dL (31.0-37.0); MCV 92.8 fL (80.0-100.0); Monocytes # (A) 0.6 k/uL (0-1.0); Monocytes % (A) 8 %; Neutrophils # (A) 4.6 k/uL (1.3-7.7); Neutrophils % (A) 63 %; RBC 3.14 m/uL (3.80-5.40); RDW 12.9 % (11.5-15.5); WBC 7.3 k/uL (3.8-10.6); WBC (Perox) 7.64
[2016-12-02] MEDS: LIDOCAINE 5% PATCH TOPICAL SCH (08:21)
[2016-12-02] MEDS: LACTULOSE 20 GM/30 ML CUP PO SCH ×3 (08:28→20:14)
[2016-12-02] MEDS: MAGNESIUM HYDROXIDE 2,400 MG/10 ML CUP PO SCH ×2 (08:28→20:18)
[2016-12-02] MEDS: CALCIUM CARBONATE 500 MG CHEWABLE PO SCH (08:28)
[2016-12-02] MEDS: POTASSIUM CHLORIDE ER 20 MEQ TAB.ER PO SCH ×2 (08:29→09:03)
[2016-12-02] MEDS: predniSONE 5 MG TAB PO SCH ×2 (08:29→17:19)
[2016-12-02] MEDS: CHOLECALCIFEROL 1,000 UNIT TAB PO SCH (08:29)
[2016-12-02] MEDS: FUROSEMIDE 20 MG TAB PO SCH (08:29)
[2016-12-02] MEDS: HYDROXYCHLOROQUINE SULFATE 200 MG TAB PO SCH (08:29)
[2016-12-02] MEDS: PANTOPRAZOLE 40 MG TABLET PO SCH (08:29)
[2016-12-02] MEDS: LEVOTHYROXINE 112 MCG TAB PO SCH (08:29)
[2016-12-02] MEDS: CYANOCOBALAMIN 500 MCG TAB PO SCH (08:38)
[2016-12-02] MEDS: cefTRIAXone 2,000 MG in SODIUM CHLORIDE 0.9% 100 ML IVPB SCH (08:46)
[2016-12-02 08:49] LABS: Calcium 8.3 mg/dL (8.4-10.2); Potassium 3.2 mmol/L (3.5-5.1); Total Bilirubin 0.5 mg/dL (0.2-1.3); Total Protein 4.8 g/dL (6.3-8.2)
[2016-12-02] MEDS: MICONAZOLE NITRATE 2% CREAM 14 GM TUBE TOPICAL SCH ×2 (09:46→20:19)
[2016-12-02] MEDS: ONDANSETRON 4 MG TAB PO PRN ×2 (09:50→20:06)
[2016-12-02] MEDS: POTASSIUM CHLORIDE ORAL LIQUID 40 MEQ/30 ML CUP PO SCH (12:44)
--- NOTE | 2016-12-02 15:14 | PN ---
The patient is doing better today under better pain control. I reviewed chest x- ray. It showed some mild pulmonary edema previously. We started her on Lasix yesterday. At this time her vital signs are stable. Blood pressure of 143/79, heart rate is 75, temperature is 97.6, O2 is 96 on room air. EYES: Pupils are equal, round and reactive to light and accommodation. ENT: Showed tympanic membranes and pharynx to be negative. NECK: Supple, midline trachea. CHEST: Clear to auscultation. HEART: Sinus rhythm. No murmur. ABDOMEN: Soft, nontender with no organomegaly. Awaiting new labs. ASSESSMENT: 1. Acute constipation with questionable diverticulitis. 2. Compression fracture old at T12. 3. L5 compression fracture deformity, might be new. 4. Systemic lupus erythematosus. 5. Acute tubular necrosis, resolved. 6. Mild hypokalemia. 7. Sick sinus syndrome with pacemaker placement. 8. Previous angioplasty. 9. Longstanding hypertension. 10. Euthyroid. 11. Generalized osteoarthritis. 12. Questionable early congestive heart failure. PLAN: Keep her on Lasix, keep her on K-Dur today. Await recommendations. She seems to be doing well on Dilaudid. We will attempt the use of Duragesic patch and see how she can respond and control pain. Will get her up with some ambulation. Please refer to my orders. MTDD
--- NOTE | 2016-12-02 15:56 | CDI ---
In responding to this query, please exercise your independent professional judgment. The [facility] Coding Staff and Clinical Documentation Specialists appreciate your assistance in clarifying documentation, maintaining compliance with coding guidelines, accurately documenting patients condition and capturing severity of illness. The fact that a question is asked does not imply that any particular answer is desired or expected. Communication forms are a method of clarifying documentation and are not made part of the Legal Health Record. Thank you in advance for your clarification. Last Revision, July 2016 Josesito Solis [address] [facility] [place] [address] Documentation Clarification Form Date: 12/02/2016 3:42:00 PM From: Jose Miguel Morales, RN, BSN, CDI, CCDS Admit Date: 11/27/2016 9:04:00 PM Patient Name: Julianna Stover Visit Number: [id number] Dr. Lorenzo Mortensen: "Acute CHF, questioning volume overload from resolving dehydration" is documented in the progress note dated 12/01. History/Risk Factors: 76 yo female with a history of HTN, CKD III and PPM presents with c/o abdominal pain, nausea, vomiting, decreased appetite, weight loss of 10 lbs and constipation for 10+ days. She is being treated for constipation, ATN secondary to volume depletion. She is s/p 1U fluid bolus, IVF running at 50-75cc/hr. Clinical Indicators: VS/Pulse OX: 128/70, 84-92, 17-19, 98.3-99.0, 92-94% on RA Echocardiogram Results: not done Chest X Ray (from 11/30): CHF w/pulmonary edema that is worse than last exam, b/ l pleural effusions Treatment: Lasix 20mg mg PO QD, Consults: nephrology In your professional opinion, can you please clarify the acuity and type of CHF if known? Systolic Heart Failure: Acute Chronic Acute on Chronic Diastolic Heart Failure: Acute Chronic Acute on Chronic Systolic & Diastolic Heart Failure: Acute Chronic Acute on Chronic Unable to determine Other, please specify Please document in your progress notes and discharge summary in order to capture severity of illness and risk of mortality. Include clinical findings that support your diagnosis. FYI: Press F11 to launch patient chart. Place X here if this finding has no clinical significance, is not applicable or if you are not able to provide any additional documentation. MTDD
--- NOTE | 2016-12-02 16:12 | CDI ---
In responding to this query, please exercise your independent professional judgment. The [facility] Coding Staff and Clinical Documentation Specialists appreciate your assistance in clarifying documentation, maintaining compliance with coding guidelines, accurately documenting patients condition and capturing severity of illness. The fact that a question is asked does not imply that any particular answer is desired or expected. Communication forms are a method of clarifying documentation and are not made part of the Legal Health Record. Thank you in advance for your clarification. Last Revision, March 2015 Josesito Solis [address] [facility] [place] [address] Documentation Clarification Form Date: 12/02/2016 3:59:00 PM From: Jose Miguel Morales, RN, BSN, CDS, CCDI Admit Date: 11/27/2016 9:04:00 PM Patient Name: Julianna Stover Visit Number: [id number] Dr. Lorenzo Mortensen: The following has been documented in the nursing progress notes on 11/28/16: "stage II pressure injury to coccyx". History/Risk Factors: 76 yo female with a history systemic lupus on Prednisone/ Hydroxhloroquine with L5 and T12 compression fractions. Presents on Morphine. Clinical Indicators: Per initial ortho consult, "the pt is unwilling to move or be turned to her side for exam of her spine, she states her pain is better controlled while lying flat and still in bed, she is also being treated for sore at the coccyx as well. Treatment: Hydrocolloid Exuderm Dressing, PT/OT Definition of Present on Admission (POA): A diagnosis present at the time the order for admission to inpatient status was written. For each diagnosis, documentation must be clear to determine if the condition was present at the time of the patients inpatient admission or developed during the hospital stay. Please clarify in progress notes and discharge summary as to whether the stage II pressure ulcer to the coccyx was: -POA -NOT POA -Clinically Unable to determine if the condition was present at the time of the order for inpatient admission Please continue to document in your progress notes and discharge summary in order to capture severity of illness and risk of mortality. Include clinical findings that support your diagnosis. FYI: Press F11 to launch patient chart. DEBBIE
[2016-12-02] MEDS: MONTELUKAST 10 MG TAB PO SCH (17:19)
--- NOTE | 2016-12-02 19:08 | P.PN ---
Subjective Principal diagnosis: Abdominal pain/constipation Patient doing much better at this time. She is having some loose stools. She believes although is unsure if she had any solid stools with the diarrhea today. She did refuse some of her cathartics because of that. She is requesting more to eat. Denies any significant abdominal pain. Objective - Vital Signs Vital signs: Vital Signs Temp 98.4 F 12/02/16 15:00 Pulse 78 12/02/16 15:00 Resp 16 12/02/16 15:00 BP 159/74 12/02/16 15:00 Pulse Ox 93 L 12/02/16 15:00 Intake & Output 12/02/16 12/02/16 12/03/16 06:59 18:59 06:59 Intake Total 460 1280 Output Total 200 Balance 460 1080 Intake: Intake, IV Titration 800 Amount Sodium Chloride 0.9% 1, 600 000 ml @ 75 mls/hr IV . [id number] RENAN Rx#:[id number] cefTRIAXone 2,000 mg In 100 Sodium Chloride 0.9% 100 ml @ 100 mls/hr IVPB Q24HR RENAN Rx#:[id number]-NS PMX 500 100 mg In Saline 1 100ml.bag @ 100 mls/hr IVPB Q8H RENAN Rx#:[id number] Oral 460 480 Output: Urine 200 Other: Voiding Method Bedside Commode Bedside Commode # Voids 3 3 # Bowel Movements 3 3 - Exam Abdomen: Soft, minimal distention, nontender - Labs CBC & Chem 7: 12/02/16 07:27 12/02/16 07:27 Labs: Abnormal Lab Results - Last 24 Hours (Table) 12/02/16 12/02/16 Range/Units 07:27 07:27 RBC 3.14 L (3.80-5.40) m/uL Hgb 9.8 L (11.4-16.0) gm/dL Hct 29.1 L (34.0-46.0) % Potassium 3.2 L (3.5-5.1) mmol/L Creatinine 1.11 H (0.52-1.04) mg/dL Glucose 65 L (74-99) mg/dL Calcium 8.3 L (8.4-10.2) mg/dL Total Protein 4.8 L (6.3-8.2) g/dL Albumin 2.5 L (3.5-5.0) g/dL Microbiology - Last 24 Hours (Table) 11/27/16 19:05 Blood Culture - Preliminary Blood No Growth after 96 hours Assessment and Plan (1) Abdominal pain Narrative/Plan: Still concerned about the possibility of some retained fecal material. We will check abdominal x-ray tomorrow to evaluate for whether or not the diarrhea is simply traveling around the solid stools. Continue cathartics for now. Advance diet. Status: Acute
[2016-12-03] MEDS: ACETAMINOPHEN TAB 500 MG TAB PO PRN ×4 (04:08→18:12)
[2016-12-03] MEDS: ONDANSETRON 4 MG TAB PO PRN (06:00)
[2016-12-03] MEDS: metroNIDAZOLE-NS PMX 500 MG in SALINE 1 100ML.BAG IVPB SCH ×3 (06:00→21:57)
--- NOTE | 2016-12-03 07:58 | XR ---
EXAMINATION TYPE: XR abdomen 2V DATE OF EXAM: 12/03/2016 CLINICAL DATA: 76 year-old female follow-up colonic obstruction, [facility] COMPARISON: CT 11/27/2016 FINDINGS: Left-sided pacemaker generator with right atrial and right ventricular leads. There is a moderate to large size hiatal hernia. Possible small left pleural effusion and patchy righ t basilar opacity. No evidence for free intraperitoneal air. Cholecystectomy clips are present. Couple prominent colonic loops seen within the mid and right abdomen measuring up to 8 cm. The previo usly seen large stool burden has cleared. No dilated small bowel loops. Diffuse osteopenia and degenerative changes in the lumbar spine. IMPRESSION: 1. The previous large stool burden has cleared. The proximal to mid colon is dilated measuring up to 8 cm. The distal colon contains air but is more normal caliber to collapsed. Continued follow-up re commended. No free air. 2. Possible trace left effusion. Bibasilar atelectasis versus infiltrates. 3. Moderate to large hiatal hernia.
[2016-12-03] MEDS: SODIUM CHLORIDE 0.9% 1,000 ML IV SCH ×2 (08:11→21:56)
[2016-12-03] MEDS: cefTRIAXone 2,000 MG in SODIUM CHLORIDE 0.9% 100 ML IVPB SCH (08:18)
[2016-12-03] MEDS: HYDROmorphone 1 MG/ML 1 ML SYRINGE IVP PRN ×3 (09:50→21:59)
[2016-12-03] MEDS ORDERED: Potassium Replacement Protocol 1 EACH MISC MISCELLANE PRN (09:53)
[2016-12-03] MEDS: ONDANSETRON 4 MG/2 ML VIAL IVP PRN ×2 (10:17→21:59)
[2016-12-03] MEDS: POTASSIUM CHLORIDE 10 MEQ, LIDOCAINE 2% INJ 10 MG in SODIUM CHLORIDE 0.9% 100 ML IV SCH ×2 (10:19→11:25)
--- NOTE | 2016-12-03 10:57 | P.CONS ---
History of Present Illness - Reason for Consult Consult date: 12/01/16 Leukocytosis and diverticulitis Requesting physician: Jeffry Odom - Chief Complaint Abdominal pain - History of Present Illness Patient is 76 yr old female presenting to the ER at [facility] November 28, 2016 she complains of lower abdominal pain and constipation for almost 10 days patient was noticed to be white count to be elevated. Creatinine also elevated white count of 19,000 patient subsequently did have a CT of abdominal pelvis with oral contrast showed evidence of constipation and a component of sigmoid diverticulitis because of her antibiotic allergy she was started on cefepime and Flagyl ID was consulted for further recommendation regarding antibiotic therapy. The patient with lower abdominal pain which is described as dull aching pain with an intensity of 7-8 out of 10 on presentation and no radiation some associated nausea but no vomiting and associated constipation as mentioned above patient denies high-grade fever rigors and chills but denies y chest pain or shortness of breath or cough, I was unable to adjust antibiotic to Rocephin 2 g daily yesterday and her white count has normalized as of this morning patient constipation is also resolved as the patient did have a bowel movement with no blood or mucus in it Review of Systems Review of system Constitutional: The patient denies any fever or rigors or chills, the patient does complain of weakness. Eyes: No complaint ENT: No complaint Respiratory: No complaint Cardiovascular: No complaint Gastrointestinal: As per history of present illness Genitourinary: No complaint Musculoskeletal: No complaint Integumentary: No complaint Endocrine : No complaint Psycologial : No complaint Neurological: No complaint. Past Medical History Past Medical History: Hypertension, Thyroid Disorder Additional Past Medical History / Comment(s): lupus History of Any Multi-Drug Resistant Organisms: None Reported Past Surgical History: Appendectomy, Cholecystectomy, Pacemaker Additional Past Surgical History / Comment(s): nasal surgery, cataract surgery Past Anesthesia/Blood Transfusion Reactions: No Reported Reaction Type of Cardiac Device: Permanent Pacemaker Device Placement Date:: 09/15/2016 Past Psychological History: No Psychological Hx Reported Smoking Status: Former smoker Past Alcohol Use History: None Reported Past Drug Use History: None Reported - Past Family History Son(s) Family Medical History: Cancer Additional Family Medical History / Comment(s): esophageal ca, at 25 y/o. Medications and Allergies Home Medications Medication Instructions Recorded Confirmed Type Hydroxychloroquine Sulfate 200 mg PO DAILY 01/15/16 11/27/16 History [Plaquenil] Omeprazole [PriLOSEC] 40 mg PO DAILY 01/15/16 11/27/16 History predniSONE 10 mg PO QAM 01/15/16 11/27/16 History Calcium Carbonate [Calcium] 1,200 mg PO DAILY 01/16/16 11/27/16 History Cholecalciferol [Vitamin D3] 1,000 unit PO DAILY 01/16/16 11/27/16 History Montelukast [Singulair] 10 mg PO DAILY 01/16/16 11/27/16 History Lidocaine 5% Patch [Lidoderm 5% 1 patch TOPICAL DAILY 10/11/16 11/27/16 History Patch] predniSONE 5 mg PO PC-SUPPER 10/11/16 11/27/16 History Cyanocobalamin (Vitamin B-12) 5,000 mcg PO DAILY 11/27/16 11/27/16 History [Vitamin B12] Furosemide [Lasix] 20 mg PO TUTHSA PRN 11/27/16 11/27/16 History Ibuprofen [Motrin] 600 mg PO Q8HR PRN 11/27/16 11/27/16 History Lactulose 20 gm PO Q8H PRN 11/27/16 11/27/16 History Levothyroxine Sodium [Synthroid] 112 mcg PO DAILY 11/27/16 11/27/16 History Miconazole Nitrate [Miconazole 1 applic TOPICAL BID 11/27/16 11/27/16 History Nitrate 2%] Morphine Sulfate Ir 7.5mg 1 tab PO Q6H PRN 11/27/16 11/27/16 History Naloxegol Oxalate [Movantik] 25 mg PO DAILY 11/27/16 11/27/16 History Ondansetron HCl [Zofran] 4 mg PO DAILY PRN 11/27/16 11/27/16 History Allergies Allergy/AdvReac Type Severity Reaction Status Date / Time codeine Allergy Rash/Hives Verified 11/27/16 17:40 indomethacin [From Indocin] Allergy Unknown Verified 11/27/16 17:40 levofloxacin [From Levaquin] Allergy Unknown Verified 11/27/16 17:40 methylprednisolone Allergy Unknown Verified 11/27/16 17:40 [From Medrol] Penicillins Allergy Unknown Verified 11/27/16 17:40 Sulfa (Sulfonamide Allergy Rash/Hives Verified 11/27/16 17:40 Antibiotics) meloxicam [From Mobic] AdvReac stomache Verified 11/27/16 17:40 pain NSAIDS (Non-Steroidal AdvReac Abdominal Verified 11/27/16 17:40 Anti-Inflamma Pain oxaprozin [From Daypro] AdvReac Abdominal Verified 11/27/16 17:40 Pain prochlorperazine AdvReac Nausea & Verified 11/27/16 17:40 [From Compazine] Vomiting prochlorperazine edisylate AdvReac Nausea & Verified 11/27/16 17:40 [From Compazine] Vomiting and headache prochlorperazine maleate AdvReac Nausea & Verified 11/27/16 17:40 [From Compazine] Vomiting salsalate [From Disalcid] AdvReac Abdominal Verified 11/27/16 17:40 Pain vortioxetine hydrobromide AdvReac Abdominal Verified 11/27/16 17:40 [From Trintellix] Pain Physical Exam Vitals: Vital Signs Temp Pulse Resp BP Pulse Ox 12/01/16 04:00 97.9 F 84 18 134/72 94 L 12/01/16 00:00 97.8 F 82 17 134/76 94 L 11/30/16 20:00 97.9 F 86 18 142/87 93 L 11/30/16 16:00 74 18 133/71 96 11/30/16 12:00 98.1 F 86 18 128/85 94 L Intake and Output 11/30/16 12/01/16 12/01/16 22:59 06:59 14:59 Intake Total 120 165 Output Total 600 Balance -480 165 Intake: Oral 120 165 Output: Urine 600 Other: Voiding Method Bedside Commode Bedside Commode # Voids 1 Weight 69.5 kg General: The patient is awake and alert, in no distress. Skin: no rashes or lesions are noted no masses palpable. Eye: Pupils are equal, round and reactive to light, there is normal conjunctiva bilaterally. Ears, nose, mouth and throat: There are moist mucous membranes and no oral lesions. Neck: The neck is supple, there is no thyromegaly. Cardiovascular: S1-S2 regular rate and rhythm. No murmur. Respiratory: Unlabored breathing clear to auscultation bilaterally Gastrointestinal: Soft, non-distended, non-tender abdomen without masses or organomegaly noted. Neurological: There are no obvious motor or sensory deficits. Coordination appears grossly intact. Speech is normal. Psychiatric: Patient is awake and alert and oriented 3, appropriate mood & affect, normal judgment. Results CBC & Chem 7: 12/02/16 07:27 12/02/16 07:27 Labs: Abnormal Lab Results - Last 24 Hours (Table) 12/01/16 12/01/16 Range/Units 06:19 06:22 RBC 3.31 L (3.80-5.40) m/uL Hgb 10.5 L (11.4-16.0) gm/dL Hct 31.6 L (34.0-46.0) % Chloride 108 H (98-107) mmol/L Carbon Dioxide 21 L (22-30) mmol/L BUN 23 H (7-17) mg/dL Creatinine 1.19 H (0.52-1.04) mg/dL Glucose 67 L (74-99) mg/dL Microbiology - Last 24 Hours (Table) 11/27/16 19:05 Blood Culture - Preliminary Blood No Growth after 72 hours Assessment and Plan (1) Sigmoid diverticulitis Status: Acute (2) Leukocytosis Status: Acute Plan: 1-patient admitted hospital with lower abdominal pain and constipation with elevated white count of 19,000 likely secondary to acute sigmoid diverticulitis with likely organism to cover will be the enteric gram-negative both aerobes and anaerobes 2-patient with multiple antibiotic allergies that does limit the number of antibiotics that could be safely used 3-patient will continue on Rocephin 2 g daily along with the Flagyl 4-if the patient continued to improve hopefully finish therapy with oral antibiotic therapy 5-thank you for this consultation we'll follow this patient along with you Time with Patient: Greater than 30
--- NOTE | 2016-12-03 10:58 | P.PN ---
Subjective Principal diagnosis: Sigmoid diverticulitis The patient is afebrile she is breathing comfortably her abdominal pain has improved the patient denies having nausea or any vomiting no diarrhea Objective - Vital Signs Vital signs: Vital Signs Temp 97.9 F 12/02/16 07:00 Pulse 75 12/02/16 07:00 Resp 16 12/02/16 07:00 BP 143/79 12/02/16 07:00 Pulse Ox 96 12/02/16 07:00 Intake & Output 12/01/16 12/02/16 12/02/16 18:59 06:59 18:59 Intake Total 165 460 Balance 165 460 Intake: Oral 165 460 Other: Voiding Method Bedside Commode Bedside Commode # Voids 3 # Bowel Movements 3 - Exam GENERAL DESCRIPTION:[ Patient is awake and alert in no distress] HEENT: [Oral mucosa is dry and no pharyngeal erythema] EYES : [No pallor or scleral icterus] RESPIRATORY SYSTEM: [Unlabored breathing clear to auscultation] CARDIA VASCULAR SYSTEM: [S1-S2 regular rate and rhythm no murmur] GI: [Abdominal soft there's no tenderness no organomegaly] EXTREMITIES: [No edema feet] - Labs CBC & Chem 7: 12/02/16 07:27 12/02/16 07:27 Labs: Abnormal Lab Results - Last 24 Hours (Table) 12/02/16 12/02/16 Range/Units 07:27 07:27 RBC 3.14 L (3.80-5.40) m/uL Hgb 9.8 L (11.4-16.0) gm/dL Hct 29.1 L (34.0-46.0) % Potassium 3.2 L (3.5-5.1) mmol/L Creatinine 1.11 H (0.52-1.04) mg/dL Glucose 65 L (74-99) mg/dL Calcium 8.3 L (8.4-10.2) mg/dL Total Protein 4.8 L (6.3-8.2) g/dL Albumin 2.5 L (3.5-5.0) g/dL Microbiology - Last 24 Hours (Table) 11/27/16 19:05 Blood Culture - Preliminary Blood No Growth after 96 hours Assessment and Plan (1) Sigmoid diverticulitis Status: Acute (2) Leukocytosis Status: Acute Plan: 1-patient admitted hospital with lower abdominal pain and constipation with elevated white count of 19,000 likely secondary to acute sigmoid diverticulitis , the patient has shown overall improvement with the current antibiotic therapy in the form of Rocephin and Flagyl that will be continued her white count has normalized once stable for discharge from other consultants and primary team the discharge antibiotic will be combination of Ceftin and Flagyl for another 10 days Time with Patient: Less than 30
[2016-12-03] MEDS: LACTULOSE 20 GM/30 ML CUP PO SCH ×2 (11:00→21:49)
[2016-12-03] MEDS: MAGNESIUM HYDROXIDE 2,400 MG/10 ML CUP PO SCH (11:02)
[2016-12-03] MEDS: POTASSIUM CHLORIDE ORAL LIQUID 40 MEQ/30 ML CUP PO SCH (11:03)
--- NOTE | 2016-12-03 11:22 | P.PN ---
Subjective Principal diagnosis: Abdominal pain/constipation Patient having some nausea and dry heaves today. She is having loose stools. Today's abdominal x-ray shows some gaseous distention of the colon but the stool burden is resolved. Denies pain. Objective - Vital Signs Vital signs: Vital Signs Temp 97.6 F 12/03/16 07:00 Pulse 90 12/03/16 08:00 Resp 16 12/03/16 08:00 BP 159/84 12/03/16 07:00 Pulse Ox 93 L 12/03/16 07:00 Intake & Output 12/02/16 12/03/16 12/03/16 18:59 06:59 18:59 Intake Total 1280 1180 Output Total 200 Balance 1080 1180 Weight 69.5 kg Intake: Intake, IV Titration 800 Amount Sodium Chloride 0.9% 1, 600 000 ml @ 75 mls/hr IV . [id number] RENAN Rx#:[id number] cefTRIAXone 2,000 mg In 100 Sodium Chloride 0.9% 100 ml @ 100 mls/hr IVPB Q24HR RENAN Rx#:[id number] metroNIDAZOLE-NS PMX 500 100 mg In Saline 1 100ml.bag @ 100 mls/hr IVPB Q8H RENNA Rx#:[id number] Oral 480 1180 Output: Urine 200 Other: Voiding Method Bedside Commode Bedside Commode Bedside Commode # Voids 3 1 1 # Bowel Movements 3 1 3 - Exam Abdomen: Soft, mild distention, nontender - Labs CBC & Chem 7: 12/02/16 07:27 12/02/16 07:27 Labs: Microbiology - Last 24 Hours (Table) 11/27/16 19:05 Blood Culture - Preliminary Blood No Growth after 120 hours Assessment and Plan (1) Abdominal pain Narrative/Plan: Patient having some challenges with the solid diet. She is requesting less solid foods. We'll switch to a soft diet. Status: Acute
[2016-12-03] MEDS: HEPARIN SODIUM,PORCINE 5,000 UNIT/ML 1 ML VIAL SQ SCH ×2 (11:48→16:44)
[2016-12-03] MEDS: CALCIUM CARBONATE 500 MG CHEWABLE PO SCH (11:48)
[2016-12-03] MEDS: HYDROXYCHLOROQUINE SULFATE 200 MG TAB PO SCH (11:49)
[2016-12-03] MEDS: LEVOTHYROXINE 112 MCG TAB PO SCH (11:49)
[2016-12-03] MEDS: CHOLECALCIFEROL 1,000 UNIT TAB PO SCH (11:49)
[2016-12-03] MEDS: CYANOCOBALAMIN 500 MCG TAB PO SCH (11:49)
[2016-12-03] MEDS: FUROSEMIDE 20 MG TAB PO SCH (11:49)
[2016-12-03] MEDS: PANTOPRAZOLE 40 MG TABLET PO SCH (11:50)
[2016-12-03] MEDS: MICONAZOLE NITRATE 2% CREAM 14 GM TUBE TOPICAL SCH ×2 (11:50→21:56)
[2016-12-03] MEDS: predniSONE 5 MG TAB PO SCH ×2 (11:50→18:36)
[2016-12-03] MEDS: LIDOCAINE 5% PATCH TOPICAL SCH (11:51)
[2016-12-03] MEDS ORDERED: methylPREDNISolone SOD SUCCI 125 MG/2 ML VIAL IV STA (12:50)
--- NOTE | 2016-12-03 15:48 | P.PN ---
Subjective Principal diagnosis: Sigmoid diverticulitis The patient is afebrile she is breathing comfortably her abdominal pain has improved the patient denies having nausea or any vomiting did have some loose stools but no blood or mucus in it and the patient has received laxatives Objective - Vital Signs Vital signs: Vital Signs Temp 97.6 F 12/03/16 07:00 Pulse 90 12/03/16 08:00 Resp 16 12/03/16 08:00 BP 159/84 12/03/16 07:00 Pulse Ox 93 L 12/03/16 07:00 Intake & Output 12/02/16 12/03/16 12/03/16 18:59 06:59 18:59 Intake Total 1280 1180 Output Total 200 Balance 1080 1180 Weight 69.5 kg Intake: Intake, IV Titration 800 Amount Sodium Chloride 0.9% 1, 600 000 ml @ 75 mls/hr IV . [id number] RENAN Rx#:[id number] cefTRIAXone 2,000 mg In 100 Sodium Chloride 0.9% 100 ml @ 100 mls/hr IVPB Q24HR RENAN Rx#:[id number] metroNIDAZOLE-NS PMX 500 100 mg In Saline 1 100ml.bag @ 100 mls/hr IVPB Q8H RENAN Rx#:[id number] Oral 480 1180 Output: Urine 200 Other: Voiding Method Bedside Commode Bedside Commode Bedside Commode # Voids 3 1 1 # Bowel Movements 3 1 3 - Exam GENERAL DESCRIPTION:[ Patient is awake and alert in no distress] HEENT: [Oral mucosa is dry and no pharyngeal erythema] EYES : [No pallor or scleral icterus] RESPIRATORY SYSTEM: [Unlabored breathing clear to auscultation] CARDIA VASCULAR SYSTEM: [S1-S2 regular rate and rhythm no murmur] GI: [Abdominal soft there's no tenderness no organomegaly] EXTREMITIES: [No edema feet] - Labs CBC & Chem 7: 12/02/16 07:27 12/03/16 14:11 Labs: Microbiology - Last 24 Hours (Table) 11/27/16 19:05 Blood Culture - Preliminary Blood No Growth after 120 hours Assessment and Plan (1) Sigmoid diverticulitis Status: Acute (2) Leukocytosis Status: Acute Plan: 1-patient admitted hospital with lower abdominal pain and constipation with elevated white count of 19,000 likely secondary to acute sigmoid diverticulitis , the patient has shown overall improvement with the current antibiotic therapy in the form of Rocephin and Flagyl that will be continued her white count has normalized once her oral intakes improves the discharge antibiotic will be combination of Ceftin and Flagyl for another 10 days
[2016-12-03] MEDS: POTASSIUM CHLORIDE 20 MEQ, LIDOCAINE 2% INJ 20 MG in SODIUM CHLORIDE 0.9% 100 ML IVPB SCH ×2 (15:55→17:27)
[2016-12-03] MEDS: MONTELUKAST 10 MG TAB PO SCH (18:08)
--- NOTE | 2016-12-03 22:27 | PN ---
This patient is a 76-year-old white female who came in with severe obstipation/ constipation with abdominal pain with some progression of fluid retention. She has been taken care of by Surgery/Dr. Marina and appears to have severe constipation. Her complaint today is that she has had a tremendous number of bowel movements over and over again, having much pain since coming back from her abdominal x-ray and that she is having more bowel movement since then. She has not taken anything for pain since I took her off the morphine except for Tylenol. At this time I encouraged her to use Dilaudid for her back pain with remembering that she does have a lower vertebral compression fracture. She has also complained about nausea not handled by the Zofran, but she did eat some supper last p.m. REVIEW OF SYSTEMS AT THIS TIME: CARDIOPULMONARY: No shortness of breath. No chest pain or orthopnea. No paroxysmal nocturnal dyspnea. GI: She has had nausea but no vomiting. Non-specific abdominal pain. Lower back pain, especially since coming back from her abdominal x-ray. : Urination without any problems. NEUROMUSCULAR: She has weakness in the legs, basically related to inactivity. INTEGUMENTARY: There have been no changes. PSYCHIATRIC: She still seems under the weather, though she does not report depression or anxiety. VITALS SIGNS AT THIS PERIOD OF TIME: Blood pressure 159/85, heart rates in the 90s, respiratory rate 16, temperature 97.6. EYES: Pupils are equal, round and reactive to light and accommodation. ENT: Tympanic membranes and pharynx negative. NECK: Supple with a midline trachea. CHEST: Essentially clear to auscultation. HEART: Sinus rhythm. ABDOMEN: Soft, non-tender with no organomegaly. No palpable masses. LOWER EXTREMITIES: Range of motion in knees and hips appears to be within normal limits. She has pain on kyphotic flexion of the mid back. Range of motion of cervical spine is within normal limits, also. Good hand strength. Good great toe strength. SKIN: No changes. She does have an early grade 1 to 2 skin breakdown on her buttocks, which is being cared for. It has been very difficult to define whether it was there before admission, being that she came from a long term. I do not have that information. Our nurse will try to figure that out for me. Good palpable lower extremity pulses. Good hand strength. LABORATORY: Her potassium is 3.2. Sodium is 140. Creatinine 1.1, BUN 16. Hemoglobin is 9.8 with white count 7.3. PSYCHIATRIC EVALUATION AT THIS TIME: She is well-orientated to person, place and thing. She is not confused, but she does complain about some pain. She has made a statement that she wants to go back to [facility] but prefers to have a different physician. ASSESSMENT: 1. Obstipation/constipation, questionably secondary from diverticulitis versus chronic pain medication with perhaps some nerve enervation loss secondary to her T12-L1 compression fracture. 2. History of hypertension. 3. Some mild fluid overload causing pulmonary edema/mild congestive heart failure. 4. History of cardiac catheterization with moderate obstruction indicative of coronary artery disease. 5. Systemic lupus erythematosus. 6. Resolving acute tubular necrosis with normal creatinine. 7. Long-standing hypertension. 8. Hypokalemia, being treated today with IV potassium. 9. Sick sinus with pacemaker. 10. History of grade 1 to 2 decubitus ulcers, questionable location of occurrence. At this time I will continue with the Dilaudid. Potassium is done with the IV. She is still on her Lasix. I will continue with increasing her activity. Chest x -ray to be set up along with lab work for the morning. DEBBIE
[2016-12-03] MEDS ORDERED: POTASSIUM CHLORIDE ER 20 MEQ TAB.ER PO STA (23:18)
[2016-12-04] MEDS ORDERED: NITROGLYCERIN SL TABS 0.4 MG TAB SUBLINGUAL ONE (00:44)
[2016-12-04] MEDS ORDERED: NITROGLYCERIN SL TABS 0.4 MG TAB SUBLINGUAL PRN (00:45)
[2016-12-04] MEDS ORDERED: NITROGLYCERIN SL TABS 0.4 MG TAB SUBLINGUAL STA (00:47)
[2016-12-04] MEDS ORDERED: NITROGLYCERIN OINT 1 INCH/GM PACKET TOPICAL STA (01:23)
[2016-12-04] MEDS: HEPARIN SODIUM,PORCINE 5,000 UNIT/ML 1 ML VIAL SQ SCH ×4 (01:59→23:12)
[2016-12-04] MEDS: metroNIDAZOLE-NS PMX 500 MG in SALINE 1 100ML.BAG IVPB SCH (06:01)
[2016-12-04] MEDS: HYDROmorphone 1 MG/ML 1 ML SYRINGE IVP PRN ×2 (06:07→23:12)
[2016-12-04] MEDS: ONDANSETRON 4 MG/2 ML VIAL IVP PRN (06:08)
[2016-12-04 07:13] LABS: ALT 38 U/L (9-52); AST 38 U/L (14-36); Alkaline Phosphatase 115 U/L (38-126); Anion Gap 12 mmol/L; Blood Urea Nitrogen 13 mg/dL (7-17); Calcium 8.3 mg/dL (8.4-10.2); Carbon Dioxide 22 mmol/L (22-30); Chloride 103 mmol/L (98-107); Glucose 88 mg/dL (74-99); Non-African American GFR(MDRD) 52 (>60 ml/min/1.73 sqM); Potassium 3.8 mmol/L (3.5-5.1); Sodium 137 mmol/L (137-145); Total Bilirubin 0.5 mg/dL (0.2-1.3); Total Protein 5.3 g/dL (6.3-8.2)
--- NOTE | 2016-12-04 08:08 | XR ---
EXAMINATION TYPE: XR chest 1V portable DATE OF EXAM: 12/04/2016 CLINICAL HISTORY: Difficulty breathing in pleural effusions progress study. TECHNIQUE: Single AP portable upright view of the chest is obtained. COMPARISON: Chest x-ray from 4 days earlier FINDINGS: There is persistent cardiomegaly with dual lead pacemaker. There is persistent central vas cular congestion and bibasilar opacity felt to reflect small bilateral pleural effusions and associat ed bibasilar atelectasis and/or infiltrate. Upper lungs remain clear without pneumothorax. Osseous st ructures are demineralized. IMPRESSION: Overall stable findings, suspect CHF exacerbation as there is cardiomegaly with mild to moderate central vascular congestion and small bilateral pleural effusions all redemonstrated, assoc iated bibasilar atelectasis and/or infiltrate is also again seen.
--- NOTE | 2016-12-04 08:59 | P.CRDCN ---
History of Present Illness Consult date: 12/04/16 Requesting physician: Jeffry Odom Reason for Consult (text): Palpitations Chief complaint: Palpitations History of present illness: This is a 76-year-old female who had followed regularly with Dr. Santoyo in the office. 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 She also had an echocardiogram with Doppler study performed in September which revealed an ejection fraction of 45-50%. Patient was admitted to the hospital on this occasion because of inability to urinate, and symptoms of constipation. She also had been having fever and chills at home. She has been in the hospital since November 27. Patient has been seen in consultation by general surgery, she's currently receiving antibiotics for possible diverticulitis. Patient and her family are not interested in any surgical intervention at this time, if no improvement in her abdominal symptoms surgery will reassess and plan on possible colon resection if needed. Patient was on the fifth floor, started to complain of palpitations around 9:30 last evening, felt like her heart was racing fast and she became extremely anxious. For this reason she was transferred to the telemetry unit. Her EKG showed a sinus tachycardia with a left bundle-branch block pattern and nonspecific ST-T wave changes. Potassium yesterday 3.1, 3.8 this morning. BUN 13, creatinine 1.03. Troponin0.11, 0.147. Patient's troponins were also noted to be in this range in September, at the time of her heart catheterization. Blood pressure 140/70 with a heart rate in the high 90s to low 100s. Patient continues to run low-grade temperatures. At the time of my examination this morning, patient's main complaint is post nasal drainage and mild abdominal discomfort. She also complains of some mild back pain. Denies any chest pain, no difficulty in breathing, no palpitations this morning. Past Medical History Past Medical History: Hypertension, Thyroid Disorder Additional Past Medical History / Comment(s): lupus History of Any Multi-Drug Resistant Organisms: None Reported Past Surgical History: Appendectomy, Cholecystectomy, Pacemaker Additional Past Surgical History / Comment(s): nasal surgery, cataract surgery Past Anesthesia/Blood Transfusion Reactions: No Reported Reaction Type of Cardiac Device: Permanent Pacemaker Device Placement Date:: 09/15/2016 Past Psychological History: No Psychological Hx Reported Smoking Status: Former smoker Past Alcohol Use History: None Reported Past Drug Use History: None Reported - Past Family History Son(s) Family Medical History: Cancer Additional Family Medical History / Comment(s): esophageal ca, at 25 y/o. Medications and Allergies Home Medications Medication Instructions Recorded Confirmed Type Hydroxychloroquine Sulfate 200 mg PO DAILY 01/15/16 11/27/16 History [Plaquenil] Omeprazole [PriLOSEC] 40 mg PO DAILY 01/15/16 11/27/16 History predniSONE 10 mg PO QAM 01/15/16 11/27/16 History Calcium Carbonate [Calcium] 1,200 mg PO DAILY 01/16/16 11/27/16 History Cholecalciferol [Vitamin D3] 1,000 unit PO DAILY 01/16/16 11/27/16 History Montelukast [Singulair] 10 mg PO DAILY 01/16/16 11/27/16 History Lidocaine 5% Patch [Lidoderm 5% 1 patch TOPICAL DAILY 10/11/16 11/27/16 History Patch] predniSONE 5 mg PO PC-SUPPER 10/11/16 11/27/16 History Cyanocobalamin (Vitamin B-12) 5,000 mcg PO DAILY 11/27/16 11/27/16 History [Vitamin B12] Furosemide [Lasix] 20 mg PO TUTHSA PRN 11/27/16 11/27/16 History Ibuprofen [Motrin] 600 mg PO Q8HR PRN 11/27/16 11/27/16 History Lactulose 20 gm PO Q8H PRN 11/27/16 11/27/16 History Levothyroxine Sodium [Synthroid] 112 mcg PO DAILY 11/27/16 11/27/16 History Miconazole Nitrate [Miconazole 1 applic TOPICAL BID 11/27/16 11/27/16 History Nitrate 2%] Morphine Sulfate Ir 7.5mg 1 tab PO Q6H PRN 11/27/16 11/27/16 History Naloxegol Oxalate [Movantik] 25 mg PO DAILY 11/27/16 11/27/16 History Ondansetron HCl [Zofran] 4 mg PO DAILY PRN 11/27/16 11/27/16 History Allergies Allergy/AdvReac Type Severity Reaction Status Date / Time codeine Allergy Rash/Hives Verified 11/27/16 17:40 indomethacin [From Indocin] Allergy Unknown Verified 11/27/16 17:40 levofloxacin [From Levaquin] Allergy Unknown Verified 11/27/16 17:40 methylprednisolone Allergy Unknown Verified 11/27/16 17:40 [From Medrol] Penicillins Allergy Unknown Verified 11/27/16 17:40 Sulfa (Sulfonamide Allergy Rash/Hives Verified 11/27/16 17:40 Antibiotics) meloxicam [From Mobic] AdvReac stomache Verified 11/27/16 17:40 pain NSAIDS (Non-Steroidal AdvReac Abdominal Verified 11/27/16 17:40 Anti-Inflamma Pain oxaprozin [From Daypro] AdvReac Abdominal Verified 11/27/16 17:40 Pain prochlorperazine AdvReac Nausea & Verified 11/27/16 17:40 [From Compazine] Vomiting prochlorperazine edisylate AdvReac Nausea & Verified 11/27/16 17:40 [From Compazine] Vomiting and headache prochlorperazine maleate AdvReac Nausea & Verified 11/27/16 17:40 [From Compazine] Vomiting salsalate [From Disalcid] AdvReac Abdominal Verified 11/27/16 17:40 Pain vortioxetine hydrobromide AdvReac Abdominal Verified 11/27/16 17:40 [From Trintellix] Pain Physical Exam Vitals: Vital Signs Temp Pulse Resp BP BP Pulse Ox 12/04/16 08:00 98.8 F 96 18 141/76 93 L 12/04/16 03:18 99.7 F H 110 H 18 155/88 96 12/04/16 01:05 117 H 139/81 91 L 12/04/16 00:52 118 H 143/90 93 L 12/04/16 00:00 117 H 12/03/16 22:42 98.4 F 90 18 156/78 93 L 12/03/16 16:00 92 16 12/03/16 15:00 97.6 F 92 16 144/88 93 L 12/03/16 12:33 98.2 F 86 16 131/95 95 Intake and Output 12/03/16 12/04/16 12/04/16 22:59 06:59 14:59 Output Total 300 Balance -300 Output: Urine 300 Other: Voiding Method Bedside Commode Bedside Commode # Voids 1 # Bowel Movements 1 Weight 69 kg PHYSICAL EXAMINATION: HEENT: Head is atraumatic, normocephalic. Pupils equal, round. Neck is supple. There is no elevated jugular venous pressure. HEART EXAMINATION: Heart S1, S2 normal. No murmur or gallop heard. CHEST EXAMINATION: Lungs are clear to auscultation and precussion. No chest wall tenderness is noted on palpation or with deep breathing. ABDOMEN: Soft, mild generalized tenderness . Bowel sounds are heard. No organomegaly noted. EXTREMITIES: 2+ peripheral pulses with no evidence of peripheral edema and no calf tenderness noted. NEUROLOGIC patient is awake, alert and oriented -3. . Results 12/02/16 07:27 12/04/16 06:03 Cardiac Enzymes 12/03/16 12/04/16 12/04/16 Range/Units 23:37 06:03 06:03 AST 38 H (14-36) U/L Troponin I 0.113 H* 0.147 H* (0.000-0.034) ng/mL Comprehensive Metabolic Panel 12/03/16 12/03/16 12/04/16 Range/Units 14:11 21:08 06:03 Sodium 137 (137-145) mmol/L Potassium 3.1 L 3.8 3.8 (3.5-5.1) mmol/L Chloride 103 (98-107) mmol/L Carbon Dioxide 22 (22-30) mmol/L BUN 13 (7-17) mg/dL Creatinine 1.03 (0.52-1.04) mg/dL Glucose 88 (74-99) mg/dL Calcium 8.3 L (8.4-10.2) mg/dL AST 38 H (14-36) U/L ALT 38 (9-52) U/L Alkaline Phosphatase 115 (38-126) U/L Total Protein 5.3 L (6.3-8.2) g/dL Albumin 2.9 L (3.5-5.0) g/dL Current Medications Generic Name Dose Route Start Last Admin Trade Name Freq PRN Reason Stop Dose Admin Acetaminophen 500 mg 12/01/16 08:45 12/03/16 18:12 Tylenol Tab PO 500 mg Q4HR PRN Administration Fever and/ or Pain Alprazolam 0.25 mg 12/04/16 07:45 Xanax PO TID PRN Anxiety Bisacodyl 10 mg 12/01/16 15:54 12/01/16 17:43 Dulcolax RECTAL 10 mg DAILY PRN Administration constipation Calcium Carbonate/Glycine 1,000 mg 11/28/16 09:00 12/03/16 11:48 Tums PO Not Given DAILY [facility] Cefuroxime Axetil 250 mg 12/04/16 09:00 Ceftin PO BID [facility] Cholecalciferol 1,000 unit 11/28/16 09:00 12/03/16 11:49 Vitamin D3 PO Not Given DAILY [facility] Cyanocobalamin 5,000 mcg 11/28/16 09:00 12/03/16 11:49 Vitamin B-12 PO Not Given DAILY [facility] Furosemide 20 mg 12/01/16 09:00 12/03/16 11:49 Lasix PO 20 mg DAILY [facility] Administration Heparin Sodium (Porcine) 5,000 unit 11/28/16 16:00 12/04/16 01:59 Heparin SQ Not Given Q8HR [facility] Hydromorphone HCl 1 mg 12/01/16 08:43 12/04/16 06:07 Dilaudid IVP 0.5 mg Q4HR PRN Administration Pain Hydromorphone HCl 2 mg 12/01/16 08:43 Dilaudid IVP Q4HR PRN Pain Hydroxychloroquine Sulfate 200 mg 11/28/16 09:00 12/03/16 11:49 Plaquenil PO 200 mg DAILY [facility] Administration Sodium Chloride 1,000 mls @ 75 mls/hr 11/29/16 09:30 12/03/16 21:56 Saline 0.9% IV 75 mls/hr .[id number] [facility] Administration Lactulose 30 gm 12/01/16 09:00 12/03/16 21:49 Cephulac PO Not Given BID [facility] Levalbuterol HCl 1.25 mg 12/04/16 08:00 Xopenex Nebulized INHALATION RT-TID [facility] Levothyroxine Sodium 112 mcg 11/28/16 09:00 12/03/16 11:49 Synthroid PO 112 mcg DAILY [facility] Administration Lidocaine 1 patch 11/28/16 09:00 12/03/16 11:51 Lidoderm TOPICAL 1 patch DAILY [facility] Administration Metronidazole 250 mg 12/04/16 16:00 Flagyl PO Q8HR [facility] Miconazole Nitrate 1 applic 11/28/16 09:00 12/03/16 21:56 Monistat-Derm TOPICAL Not Given BID [facility] Miscellaneous Information 1 each 12/03/16 09:53 Potassium Per Protocol MISCELLANE DAILY PRN Per Protocol Protocol Montelukast Sodium 10 mg 12/01/16 18:00 12/03/16 18:08 Singulair PO 10 mg DAILY@1800 [facility] Administration Naloxone HCl 0.2 mg 11/27/16 21:04 Narcan IV Q2M PRN Opioid Reversal Nitroglycerin 0.4 mg 12/04/16 00:45 Nitrostat SUBLINGUAL Q5M PRN Chest Pain Ondansetron HCl 4 mg 12/03/16 09:54 12/04/16 06:08 Zofran IVP 4 mg Q6HR PRN Administration Nausea And Vomiting Pantoprazole Sodium 40 mg 11/28/16 09:00 12/03/16 11:50 Protonix PO 40 mg DAILY [facility] Administration Potassium Chloride 20 meq 12/02/16 09:15 12/03/16 11:03 Potassium Chloride Oral Liquid PO Not Given DAILY [facility] Prednisone 10 mg 11/28/16 09:00 12/03/16 11:50 PO 10 mg QAM [facility] Administration Prednisone 10 mg 12/04/16 18:30 PO PC-SUPPER [facility] Intake and Output 12/03/16 12/04/16 12/04/16 22:59 06:59 14:59 Output Total 300 Balance -300 Output: Urine 300 Other: Voiding Method Bedside Commode Bedside Commode # Voids 1 # Bowel Movements 1 Weight 69 kg 12/02/16 07:27 12/04/16 06:03 EKG Interpretations (text) EKG shows a sinus tachycardia with a left bundle-branch block pattern, nonspecific ST-T wave changes Assessment and Plan Plan: Assessment and plan #1 abdominal pain with associated constipation, combination of diverticulitis versus possible obstruction. Surgery is following. #2 symptoms of palpitations, EKG shows a sinus tachycardia with a left bundle- branch block pattern, nonspecific ST-T wave changes. Patient recently underwent a cardiac catheterization in September of this year which revealed mild nonobstructive coronary artery disease. Mild troponin abnormality, similar to prior in September #3 hypertension #4 diabetes #5 hyperlipidemia #6 prior pacemaker implantation #7 hypothyroidism Plan Patient just recently had an echo performed in September of this year which revealed an ejection fraction of 45%. We will not repeat an echo at this time. We will check free T4 and TSH level. Sinus tachycardia is likely secondary to underlying infection. Continue other current medications. DNP note has been reviewed, I agree with a documented findings and plan of care. Patient was seen and examined.
[2016-12-04] MEDS ORDERED: CEFUROXIME 250 MG TAB PO SCH (09:00)
[2016-12-04] MEDS: CALCIUM CARBONATE 500 MG CHEWABLE PO SCH (09:37)
[2016-12-04] MEDS: PANTOPRAZOLE 40 MG TABLET PO SCH (09:39)
[2016-12-04] MEDS: LEVOTHYROXINE 112 MCG TAB PO SCH (09:41)
[2016-12-04] MEDS: ALPRAZolam 0.25 MG TAB PO PRN ×2 (09:42→23:12)
[2016-12-04] MEDS: LACTULOSE 20 GM/30 ML CUP PO SCH ×2 (09:47→23:09)
[2016-12-04] MEDS: POTASSIUM CHLORIDE ORAL LIQUID 40 MEQ/30 ML CUP PO SCH (09:47)
[2016-12-04] MEDS: LIDOCAINE 5% PATCH TOPICAL SCH (09:47)
[2016-12-04] MEDS: METOPROLOL TARTRATE 25 MG TAB PO SCH ×3 (10:01→21:04)
[2016-12-04] MEDS: ACETAMINOPHEN TAB 500 MG TAB PO PRN ×3 (10:01→21:01)
[2016-12-04] MEDS: LEVALBUTEROL NEB 1.25 MG/3 ML AMP INHALATION SCH ×3 (10:15→20:26)
--- NOTE | 2016-12-04 10:28 | PN ---
A 76-year-old white female that is here in the hospital with diverticulitis and also fracture of the lumbar L1-T12 compression fracture with moderately severe pain. Had a fullness in her chest and with a rapid heartbeat up to 110, 120. At that period of time, a troponin was completed which was 0.113. There was no change in telemetry at that time. She was then transferred from the fifth surgical floor to the fourth or to the sixth floor and repeat troponin 6 hours later was elevated at 0.147. She was given aspirin and nitro patch and the fullness resolved quite quickly. When I returned from being off vacation, she had been on morphine for her severe pain. Portable chest x-ray that was completed shows some pulmonary fluid and pulmonary edema. She was initially started on Lasix and felt much better. She has also had a severe problem with post-nasal drip with allergies to the point that she is wretching, which has been controlled with Zofran and also drinking fluids. Her medication was then changed to Dilaudid which she has been able to tolerate quite well. Also, there is a clarification in that her small grade 1 to 2 decubitus on her buttocks which actually happened after leaving [facility] approximately 2 weeks ago, was treated at [facility] before she same, so that is not new and a patch has been used. At this time, she has no shortness of breath no chest pain , just the wretching from the postnasal drip. REVIEW OF SYSTEMS: CARDIOPULMONARY: No shortness of breath, no chest pain, no orthopnea, paroxysmal or nocturnal dyspnea. GI: She has got some nausea, but no hematemesis, no melanoma, no hematochezia. The belly pain that she had on admission has pretty much resolved. She did have several bowel movements again yesterday but she has had nothing today. : She has had good urination. NEUROMUSCULAR: Just a severe back pain with minimal amount of movement. VITAL SIGNS: Blood pressure is 150/80, pulse 110, 18 respiratory rate, temperature is 99. EYES: Pupils are equal, round and reactive to light accommodation. ENT shows tympanic membranes and pharynx appears to be negative. Neck is supple and the midline trachea. Chest at this time is essentially regular, rhythm with no murmur, lungs are clear to auscultation. Heart is sinus rhythm. Abdomen is soft, nontender with no organomegaly. She has no swelling in her legs. Integumentary is negative and vascular status in lower extremities are fine. New lab today shows her creatinine to be 1.03 with a BUN of 13, giving her a GFR greater than 60. Again, her repeat troponin was 0.147. Her initial at 2300 , last p.m., troponin was 0.113 and her albumin although is low, potassium is now up to 3.8. ASSESSMENT: 1. Acute onset of chest pain to rule out myocardial damage. She does have some ischemic heart disease. Previously she had some resolving pulmonary edema with mild congestive heart failure. 2. Diverticulitis which is improving considerably. 3. Resolving hypokalemia. 4. Resolving acute tubular necrosis. 5. Longstanding hypertension. 6. History of systemic lupus erythematosus. PLAN: At this time, will wait for the portable chest x-ray. If within normal limits, we will stop her Lasix. Cardiology consultation is available. She is heparinized at this period of time. Potassium replacement will be done with oral fluid because of her sensitivity to medications, she has been put on p.o. dose at a more tolerable dose which is Ceftin 250 mg b.i.d. and Flagyl 250 mg t.i.d. She has to force fluids. She is taking Claritin for her postnasal drip. Her prednisone is being increased to b.i.d. Her prognosis is guarded. MTDD
[2016-12-04] MEDS: CHOLECALCIFEROL 1,000 UNIT TAB PO SCH (11:34)
[2016-12-04] MEDS: CEFUROXIME 250 MG TAB PO SCH ×2 (11:34→21:04)
[2016-12-04] MEDS: HYDROXYCHLOROQUINE SULFATE 200 MG TAB PO SCH (11:35)
[2016-12-04] MEDS: predniSONE 5 MG TAB PO SCH (11:36)
[2016-12-04] MEDS: CYANOCOBALAMIN 500 MCG TAB PO SCH (11:40)
[2016-12-04] MEDS: FUROSEMIDE 20 MG TAB PO SCH (11:40)
[2016-12-04] MEDS: MICONAZOLE NITRATE 2% CREAM 14 GM TUBE TOPICAL SCH ×2 (11:41→23:12)
[2016-12-04] MEDS: SODIUM CHLORIDE 0.9% 1,000 ML IV SCH (11:42)
[2016-12-04] MEDS: metroNIDAZOLE 250 MG TABLET PO SCH ×2 (15:35→23:12)
[2016-12-04] MEDS: MONTELUKAST 10 MG TAB PO SCH (15:35)
[2016-12-04] MEDS: predniSONE 10 MG TAB PO SCH (15:35)
--- NOTE | 2016-12-04 16:59 | P.PN ---
Subjective Principal diagnosis: Abdominal pain/constipation Patient overall doing better. She said she was able to tolerate more of her diet today. Once again she did have dry heaves this morning but those of resolved. No significant volume of emesis. She did have a more semi-formed stool today and the diarrhea is improved. She is still passing flatus. She denies abdominal pain. Objective - Vital Signs Vital signs: Vital Signs Temp 97.8 F 12/04/16 15:32 Pulse 80 12/04/16 15:32 Resp 16 12/04/16 15:32 BP 140/77 12/04/16 15:32 Pulse Ox 93 L 12/04/16 15:32 Intake & Output 12/03/16 12/04/16 12/04/16 18:59 06:59 18:59 Intake Total 600 Output Total 300 Balance -300 600 Weight 69.5 kg 69 kg Intake: IV 600 Sodium Chloride 0.9% 1, 600 000 ml @ 75 mls/hr IV . [id number] [facility] Rx#:[id number] Output: Urine 300 Other: Voiding Method Bedside Commode Bedside Commode Bedside Commode # Voids 3 1 2 # Bowel Movements 4 1 - Exam Abdomen: Soft, minimal distention, nontender - Labs CBC & Chem 7: 12/02/16 07:27 12/04/16 06:03 Labs: Abnormal Lab Results - Last 24 Hours (Table) 12/03/16 12/04/16 12/04/16 Range/Units 23:37 06:03 06:03 Calcium 8.3 L (8.4-10.2) mg/dL AST 38 H (14-36) U/L Troponin I 0.113 H* 0.147 H* (0.000-0.034) ng/mL Total Protein 5.3 L (6.3-8.2) g/dL Albumin 2.9 L (3.5-5.0) g/dL Microbiology - Last 24 Hours (Table) 11/27/16 19:05 Blood Culture - Final Blood No Growth after 144 hours Assessment and Plan (1) Abdominal pain Narrative/Plan: Continue stool softeners. Continue soft diet. Physical therapy Status: Acute
--- NOTE | 2016-12-04 23:06 | P.PN ---
Subjective Principal diagnosis: Sigmoid diverticulitis The patient is afebrile she is breathing comfortably her abdominal pain has improved the patient did have some nausea but no vomiting , diarrhea has improved , no chest pain , shortness of breath or cough Objective - Vital Signs Vital signs: Vital Signs Temp 98.8 F 12/04/16 08:00 Pulse 92 12/04/16 11:35 Resp 16 12/04/16 11:35 BP 125/68 12/04/16 11:35 Pulse Ox 93 L 12/04/16 11:35 Intake & Output 12/03/16 12/04/16 12/04/16 18:59 06:59 18:59 Intake Total 600 Output Total 300 Balance -300 600 Weight 69.5 kg 69 kg Intake: IV 600 Sodium Chloride 0.9% 1, 600 000 ml @ 75 mls/hr IV . [id number] [facility] Rx#:[id number] Output: Urine 300 Other: Voiding Method Bedside Commode Bedside Commode Bedside Commode # Voids 3 1 2 # Bowel Movements 4 1 - Exam GENERAL DESCRIPTION:[ Patient is awake and alert in no distress] HEENT: [Oral mucosa is dry and no pharyngeal erythema] EYES : [No pallor or scleral icterus] RESPIRATORY SYSTEM: [Unlabored breathing clear to auscultation] CARDIA VASCULAR SYSTEM: [S1-S2 regular rate and rhythm no murmur] GI: [Abdominal soft there's no tenderness no organomegaly] EXTREMITIES: [No edema feet] - Labs CBC & Chem 7: 12/02/16 07:27 12/04/16 06:03 Labs: Abnormal Lab Results - Last 24 Hours (Table) 12/03/16 12/03/16 12/04/16 Range/Units 14:11 23:37 06:03 Potassium 3.1 L (3.5-5.1) mmol/L Calcium 8.3 L (8.4-10.2) mg/dL AST 38 H (14-36) U/L Troponin I 0.113 H* (0.000-0.034) ng/mL Total Protein 5.3 L (6.3-8.2) g/dL Albumin 2.9 L (3.5-5.0) g/dL 12/04/16 Range/Units 06:03 Potassium (3.5-5.1) mmol/L Calcium (8.4-10.2) mg/dL AST (14-36) U/L Troponin I 0.147 H* (0.000-0.034) ng/mL Total Protein (6.3-8.2) g/dL Albumin (3.5-5.0) g/dL Microbiology - Last 24 Hours (Table) 11/27/16 19:05 Blood Culture - Final Blood No Growth after 144 hours Assessment and Plan (1) Sigmoid diverticulitis Status: Acute (2) Leukocytosis Status: Acute Plan: 1-patient admitted hospital with lower abdominal pain and constipation with elevated white count of 19,000 likely secondary to acute sigmoid diverticulitis , the patient seems slowly clinically improving with Rocephin and Flagyl that will be continued her white count has normalized once her oral intakes improves the discharge antibiotic will be combination of Ceftin and Flagyl. Time with Patient: Less than 30
[2016-12-05] MEDS: SODIUM CHLORIDE 0.9% 1,000 ML IV SCH ×2 (02:05→16:12)
[2016-12-05] MEDS: HYDROmorphone 1 MG/ML 1 ML SYRINGE IVP PRN ×3 (06:10→21:13)
[2016-12-05 07:06] LABS: Calcium 8.1 mg/dL (8.4-10.2); Potassium 3.9 mmol/L (3.5-5.1); Total Bilirubin 0.2 mg/dL (0.2-1.3); Total Protein 4.8 g/dL (6.3-8.2)
[2016-12-05] MEDS: LACTULOSE 20 GM/30 ML CUP PO SCH ×2 (08:58→21:11)
[2016-12-05] MEDS: CYANOCOBALAMIN 500 MCG TAB PO SCH (08:58)
[2016-12-05] MEDS: POTASSIUM CHLORIDE ORAL LIQUID 40 MEQ/30 ML CUP PO SCH (08:59)
[2016-12-05] MEDS: MICONAZOLE NITRATE 2% CREAM 14 GM TUBE TOPICAL SCH ×2 (08:59→21:12)
[2016-12-05] MEDS: LIDOCAINE 5% PATCH TOPICAL SCH ×2 (08:59→17:42)
[2016-12-05] MEDS: metroNIDAZOLE 250 MG TABLET PO SCH ×3 (09:08→23:05)
[2016-12-05] MEDS: ACETAMINOPHEN TAB 500 MG TAB PO PRN ×3 (09:08→23:05)
[2016-12-05] MEDS: METOPROLOL TARTRATE 25 MG TAB PO SCH ×3 (09:08→21:12)
[2016-12-05] MEDS: HEPARIN SODIUM,PORCINE 5,000 UNIT/ML 1 ML VIAL SQ SCH ×3 (09:08→23:05)
[2016-12-05] MEDS: ALPRAZolam 0.25 MG TAB PO PRN (09:08)
[2016-12-05] MEDS: CALCIUM CARBONATE 500 MG CHEWABLE PO SCH ×2 (09:09→10:12)
[2016-12-05] MEDS: LEVOTHYROXINE 112 MCG TAB PO SCH (09:09)
[2016-12-05] MEDS: CEFUROXIME 250 MG TAB PO SCH ×2 (09:09→21:13)
[2016-12-05] MEDS: FUROSEMIDE 20 MG TAB PO SCH (09:09)
[2016-12-05] MEDS: CHOLECALCIFEROL 1,000 UNIT TAB PO SCH (09:09)
[2016-12-05] MEDS: PANTOPRAZOLE 40 MG TABLET PO SCH (09:09)
[2016-12-05] MEDS: predniSONE 5 MG TAB PO SCH (09:10)
[2016-12-05] MEDS: LEVALBUTEROL NEB 1.25 MG/3 ML AMP INHALATION SCH ×4 (09:45→15:24)
--- NOTE | 2016-12-05 13:06 | P.PN ---
Subjective Principal diagnosis: Abdominal pain/constipation Patient doing well today. She is passing flatus. Small bowel movement. Appetite is improved. No nausea or vomiting today. Objective - Vital Signs Vital signs: Vital Signs Temp 97.8 F 12/05/16 09:00 Pulse 80 12/05/16 13:04 Resp 16 12/05/16 09:00 BP 149/68 12/05/16 09:00 Pulse Ox 93 L 12/05/16 09:45 Intake & Output 12/04/16 12/05/16 12/05/16 18:59 06:59 18:59 Intake Total 800 900 180 Output Total 300 Balance 800 900 -120 Weight 69.9 kg Intake: IV 600 900 Sodium Chloride 0.9% 1, 600 900 000 ml @ 75 mls/hr IV . [id number] [facility] Rx#:[id number] Oral 200 180 Output: Urine 300 Other: Voiding Method Bedside Commode Bedside Commode Bedside Commode # Voids 2 1 1 - Exam abdomen: Soft, nondistended, nontender - Labs CBC & Chem 7: 12/02/16 07:27 12/05/16 06:28 Labs: Abnormal Lab Results - Last 24 Hours (Table) 12/05/16 Range/Units 06:28 Creatinine 1.12 H (0.52-1.04) mg/dL Calcium 8.1 L (8.4-10.2) mg/dL Total Protein 4.8 L (6.3-8.2) g/dL Albumin 2.6 L (3.5-5.0) g/dL Assessment and Plan (1) Abdominal pain Narrative/Plan: Continue diet as tolerated. Increase activity levels. Continue stool softeners. We'll sign off at this point. Please reconsult if necessary. Status: Acute
--- NOTE | 2016-12-05 13:20 | PN ---
A 76-year-old white female who came in with abdominal pain post lumbar L1-T12 compression fracture with obvious constipation. After evaluation it appears that because of elevated white count and her improvement, this was a probable diverticulitis. It took many days for her respond to the IV antibiotics. She is being followed by Dr. Booker of Infectious Disease, and Dr. Marina of Surgery. At this time she has had complete evacuation of her bowel movements, her abdominal pain has resolved and her energy level is back to normal. While here in the hospital she developed some pulmonary fluid and edema. She was given Lasix and she improved greatly. Her follow up chest x-ray showed much improvement. We have had a problem dealing with the pain, morphine made her hallucination, delirious with a fair amount of delirium and that was then changed to Dilaudid and Tylenol. She has mostly been on oral Tylenol for her back pain and has responded quite well. We have also been taking care of small decubitus on her buttocks and she actually she stated this occurred somewhere between the transfer of leaving [facility] and going to [facility] but that was before admission. At this point she has minimal shortness of breath and no chest pain. She is complaining about postnasal drip and she said she had a fair amount of wheezing. REVIEW OF SYSTEMS: CARDIOPULMONARY: No wheezing. No shortness of breath. No chest pain. No orthopnea or paroxysmal nocturnal dyspnea. No cough. ENT: Just some postnasal drip and very dry mouth. GI: She has no more nausea, she has had no vomiting. No hematemesis, melena or hematochezia. Belly pain is pretty much resolved. She does have some cramping as she has had some very small liquid to minimally formed stool over the last 24 hours. : She has had no problems with urination. NEUROMUSCULAR: Just severe back pain that she has att his time and she states the brace is too uncomfortable to wear so at this point she refuses to wear it. She said she has had some loss of strength in her legs, which has been progressive over the last several years. Lab work this morning shows chem-17 with sodium of 137, 3.9 potassium. Her creatinine is 1.12 and her BUN is 16. No new x-rays were completed. Her medications list is Tylenol 500 every 4 to 6 hours as needed, Xanax 0.25 three times a day. She takes Dulcolax suppository p.r.n. She is on TUMS 1000 mg daily. She is on 250 mg of Ceftin twice a day. She is on vitamin D 1000 units. She is on cyanocobalamin. She also takes Lasix 20 mg a day, subcutaneous heparin 5000 units, Dilaudid 1 mg IV push q.4h. Plaquenil 500 mg a day, Lactulose 30 mg b.i.d., Xopenex updrafts three times a day, Synthroid 1.12 mcg four times a day. Lidoderm patches to the area surrounding the fracture site. Lopressor 25 three times a day, Flagyl 250 three times a day. Monistat cream underneath the breast. Potassium per protocol. Now she is on liquid form. Singulair 10. Protonix 40 mg a day. Prednisone 10 mg daily. VITAL SIGNS: An alert white female. Temperature 97., heart rate is 70, respiratory rate 18, blood pressure 138/68, room air 92% O2 sat. PSYCHIATRIC: She is alert, well oriented to person, place and thing. No anxiety. No depression. Actually feels quite well except for the wheezing. EYES: Pupils are equal, round and reactive to light and accommodation. ENT: Shows dry mouth. NECK: Supple, midline trachea. Negative carotid bruits. CHEST: Has minimal wheezing. HEART: Sinus rhythm with no murmur. ABDOMEN: Soft, nontender with no organomegaly. LOWER EXTREMITIES: Good palpable lower pulses. No swelling in her legs. INTEGUMENTARY: Within normal limits except for the crusting on the scalp and that is dealing with previous actinic keratoses. ASSESSMENT: 1. Probable diverticulitis with severe constipation secondary from diverticulitis and also the use of morphine. 2. Longstanding history of systemic lupus erythematosus. 3. Biventricular heart failure that is stable. 4. Resolving hypokalemia. 5. Resolving acute tubular necrosis. 6. Longstanding hypertension. PLAN: At this time I am going to keep her on the same medications accordingly will continue the same antibiotics. We are going to start sitting her up in the chair today to see how she does. Will follow her up and see her again in the morning. DEBBIE
[2016-12-05] MEDS: predniSONE 10 MG TAB PO SCH (16:11)
[2016-12-05] MEDS: MONTELUKAST 10 MG TAB PO SCH (16:11)
[2016-12-05] MEDS: HYDROXYCHLOROQUINE SULFATE 200 MG TAB PO SCH (16:12)
[2016-12-05] MEDS: ONDANSETRON 4 MG/2 ML VIAL IVP PRN (17:28)
[2016-12-05] MEDS: ALBUTEROL NEBULIZED 2.5 MG/3 ML INHALATION SCH (19:58)
[2016-12-06] MEDS: ALPRAZolam 0.25 MG TAB PO PRN ×3 (02:46→21:32)
[2016-12-06] MEDS: SODIUM CHLORIDE 0.9% 1,000 ML IV SCH ×9 (02:46→18:24)
[2016-12-06] MEDS: HYDROmorphone 1 MG/ML 1 ML SYRINGE IVP PRN ×5 (04:22→20:30)
[2016-12-06] MEDS: ACETAMINOPHEN TAB 500 MG TAB PO PRN ×4 (05:51→22:13)
[2016-12-06] MEDS: NON-FORMULARY DRUG (Naloxegol Oxalate [Movantik] 25 MG) PO SCH ×2 (07:56→09:25)
[2016-12-06 08:05] LABS: Basophils % (A) 0 %; CH 30.6; CHCM 32.1; Eosinophils # (A) 0.1 k/uL (0-0.7); Eosinophils % (A) 1 %; HCT 31.4 % (34.0-46.0); HDW 3.07; HGB 10.1 gm/dL (11.4-16.0); Hypochromasia Slight; Luc # (Auto) 0.11; Luc % (Auto) 1; Lymphocytes # (A) 1.6 k/uL (1.0-4.8); Lymphocytes % (A) 20 %; MCH 30.9 pg (25.0-35.0); MCHC 32.2 g/dL (31.0-37.0); MCV 95.9 fL (80.0-100.0); Mean Platelet Volume 7.1; Monocytes # (A) 0.4 k/uL (0-1.0); Monocytes % (A) 5 %; Neutrophils # (A) 6.1 k/uL (1.3-7.7); Neutrophils % (A) 73 %; RBC 3.27 m/uL (3.80-5.40); RDW 13.4 % (11.5-15.5); WBC 8.3 k/uL (3.8-10.6); WBC (Perox) 8.61
[2016-12-06] MEDS: HYDROXYCHLOROQUINE SULFATE 200 MG TAB PO SCH (08:19)
[2016-12-06] MEDS: CYANOCOBALAMIN 500 MCG TAB PO SCH ×2 (08:19→08:29)
[2016-12-06] MEDS: METOPROLOL TARTRATE 25 MG TAB PO SCH ×3 (08:19→20:39)
[2016-12-06] MEDS: CHOLECALCIFEROL 1,000 UNIT TAB PO SCH (08:19)
[2016-12-06] MEDS: FUROSEMIDE 20 MG TAB PO SCH (08:20)
[2016-12-06] MEDS: PANTOPRAZOLE 40 MG TABLET PO SCH (08:20)
[2016-12-06] MEDS: HEPARIN SODIUM,PORCINE 5,000 UNIT/ML 1 ML VIAL SQ SCH ×2 (08:21→15:21)
[2016-12-06] MEDS: metroNIDAZOLE 250 MG TABLET PO SCH ×2 (08:21→15:21)
[2016-12-06] MEDS: LACTULOSE 20 GM/30 ML CUP PO SCH ×3 (08:21→20:37)
[2016-12-06] MEDS: CALCIUM CARBONATE 500 MG CHEWABLE PO SCH ×2 (08:21→08:29)
[2016-12-06] MEDS: CEFUROXIME 250 MG TAB PO SCH ×2 (08:21→20:37)
[2016-12-06] MEDS: predniSONE 5 MG TAB PO SCH (08:22)
[2016-12-06] MEDS: LEVOTHYROXINE 112 MCG TAB PO SCH (08:23)
[2016-12-06] MEDS: POTASSIUM CHLORIDE ORAL LIQUID 40 MEQ/30 ML CUP PO SCH (08:23)
[2016-12-06] MEDS: MICONAZOLE NITRATE 2% CREAM 14 GM TUBE TOPICAL SCH ×2 (08:23→21:33)
[2016-12-06] MEDS: ALBUTEROL NEBULIZED 2.5 MG/3 ML INHALATION SCH ×4 (08:50→21:02)
--- NOTE | 2016-12-06 11:23 | XR ---
EXAMINATION TYPE: XR chest 1V portable DATE OF EXAM: 12/06/2016 CLINICAL HISTORY: Difficulty breathing progress study. TECHNIQUE: Single AP portable upright view of the chest is obtained. COMPARISON: Chest x-ray from 2 days earlier FINDINGS: There is persisting cardiomegaly with dual lead pacemaker. There is worsening central vasc ular congestion and bibasilar opacity consistent with worsening small to moderate-sized bilateral ple ural effusions. Associated bibasilar atelectasis and/or infiltrate is seen. Osseous structures are de mineralized. Underlying scoliosis is noted. IMPRESSION: Findings consistent with worsening CHF exacerbation as there is cardiomegaly with now mod erate to severe central vascular congestion and small to moderate-sized bilateral pleural effusions i dentified with progression from most recent study noted.
--- NOTE | 2016-12-06 12:34 | PN ---
PRESENT ILLNESS: This is a 76-year-old white female that was in with what appeared to be a diverticulitis causing constipation. At this point that was stable and she had a very, very good day. Last night she had some acute shortness of breath of questionable etiology but she does have some history of asthma. Her Xopenex actually was increased q.6 hours the day before. She also had a moderate amount of severe pain and her shortness of breath seemed to respond more from the pain medication probably from the updraft by history here. She is also nauseated a little bit when she sits up. At this time, her allergies to medication are CODEINE, INDOMETHACIN, LEVOFLOXACIN, PENICILLIN, SULFA, MOBIC, also NONSTEROIDAL ANTI-INFLAMMATORIES INCLUDE DAYPRO, COMPAZINE and she became very delirious on MORPHINE. Her medications at this time include acetaminophen at 500 every 4 hours for pain , Xopenex q. every 6 hours, Xanax 0.25, TUMS 1000 daily, Ceftin 250 b.i.d., vitamin D one daily, cyanocobalamin has been DC'd, heparin 500 IV q.12 hours, hydrocodone 1 mg every 4 hours p.r.n. pain, Plaquenil 200 mg daily, lactulose 30 a.m. and 30 p.m., levothyroxine 0.112, lidocaine patch, metoprolol 25 mg b.i.d., Flagyl 250 q.8, Miconazole cream b.i.d., Singulair 10 mg daily, Zofran p.r.n. nausea, potassium mEq a day, prednisone 10 a.m. and p.m. REVIEW OF SYSTEMS: Acute shortness of breath of questionable etiology. No chest pain is seen to be after eating and also worse with back pain. No orthopnea, no paroxysmal internal dyspnea. GI: No hematemesis, no hematochezia, gets nauseated from [id number]. Stomach gets full with a minimal amount of food. : Urination has been fine. NEUROMUSCULAR: Just decrease in strength but that has been from not walking and moderately sever pain. Muscular pain in the lower back secondary from compression fractures. PSYCHIATRIC: The patient has anxiety and which is worse today. Yesterday, she had a wonderful day, today it is worse and has a tendency as says her family to blame everybody around her for her problems. PHYSICAL EXAMINATION: VITAL SIGNS: Blood pressure is 134/86, heart rate is 80, respiratory rate is 18 and temperature is 97.5. Her O2 sat is 94 and it says on 2 L oxygen but she has no oxygen at this time. EYES: Pupils are equal, round and reactive to accommodation. END: Shows tympanic membranes appear to be negative. NECK: Supple with midline trachea. Chest at his time is essentially clear to auscultation. Heart is sinus rhythm. Abdomen is soft, nontender with no organomegaly. Lower extremities have no swelling but have no lower extremity strength. There is no new rashes on the skin for integument. PSYCHIATRY: She seems to be down and out and upset and tired and said she had not sleep well. She said the room was very hot, she did not have a fan. NEW LAB TODAY ON 12/06: Just got a hemoglobin of 10.1 with an 8.3 hemoglobin. ASSESSMENT: 1. Diverticulitis with severe constipation, new onset of asthma with flare up of systemic lupus erythematosus. 2. Biventricular heart failure which is stable. 3. Resolving hypokalemia. 4. Resolving acute tubular necrosis. 5. Resolving hypertension. 6. Lumbar fracture T12-L1 with intractable pain. Continue with IV medication for pain. I told her at this time will stop the B12 vitamins. She is ( ) against them. I told her she has to take her potassium, either liquid form or crumble up the pill, but she has to take it. Dilaudid as needed for her pain and will get a consult with PulmonaryBarbara she has seen in the past that was completed. Prognosis is still guarded. MTDD
[2016-12-06] MEDS: ONDANSETRON 4 MG/2 ML VIAL IVP PRN ×2 (13:36→21:31)
[2016-12-06] MEDS: FUROSEMIDE 10 MG/ML 10 ML VIAL IV SCH ×2 (13:43→20:37)
--- NOTE | 2016-12-06 17:34 | CONS ---
Julianna Stover is a 76 year old female who initially presented to the hospital on 11/27/16. At that time, she had abdominal pain. She was thought to subsequently have diverticulitis with sepsis and possible septic shock. She developed acute renal insufficiency. She was aggressively hydrated with fluids and kept on antibiotics. She did not undergo any surgery and has been short of breath for the last day or two especially when she lays down flat. Past medical history is positive for hypertension, thyroid disorder, lupus, prediabetes, asthma, compression fractures in her back, appendectomy, cholecystectomy, pacemaker placement, cataract surgery, nasal surgery, angioplasty and tonsillectomy. She has had ADVERSE REACTIONS TO VARIOUS MEDICATIONS. Family history is noncontributory. Social history: The patient does not smoke at this time. Does not drink alcohol excessively. Medications were reviewed. On physical examination, blood pressure 129/79. Respiratory rate 18. Pulse rate 85. Temperature 98.1. O2 sat on 2 L nasal cannula is 94%. The patient is quite short of breath, laying down flat. HEENT: Reveals pupils are equal. Prominence of jugular veins. Chest is clear anteriorly. Posteriorly there is decreased breath sounds with crackles in the base. Cardiovascular reveals an S1, S2. Abdomen is soft. There is no pedal edema. White count is 8.3. Hemoglobin is 10.1. I's and O's in the last 24 hours has been possibly positive 1.5 L. On the twelfth, she was positive 2260 mL. Chest x-ray shows worsening congestive heart failure with cardiomegaly and bilateral pleural effusions. IMPRESSION: 1. Dyspnea that is worsening most likely secondary to congestive heart failure and fluid overload. 2. Recent diverticulitis with sepsis and septic shock. 3. Acute renal failure. At this point in time, would give her a single dose of Lasix 60 mg. Discontinue oral Lasix. Start her on 60 mg of Lasix IV push every 12 hours. Continue on current antibiotics. Breathing treatments and Plaquenil. Keep her pain under control. Her prognosis at this time is guarded. MTDD
[2016-12-06] MEDS: LIDOCAINE 5% PATCH TOPICAL SCH (18:20)
[2016-12-06] MEDS: MONTELUKAST 10 MG TAB PO SCH (18:21)
[2016-12-06] MEDS: POTASSIUM CHLORIDE ER 10 MEQ TAB.ER.PRT PO SCH (21:32)
[2016-12-07] MEDS: HEPARIN SODIUM,PORCINE 5,000 UNIT/ML 1 ML VIAL SQ SCH ×4 (00:26→23:08)
[2016-12-07] MEDS: metroNIDAZOLE 250 MG TABLET PO SCH ×4 (00:26→23:08)
[2016-12-07] MEDS: HYDROmorphone 1 MG/ML 1 ML SYRINGE IVP PRN ×6 (00:33→21:09)
[2016-12-07] MEDS: ACETAMINOPHEN TAB 500 MG TAB PO PRN ×2 (07:07→23:05)
[2016-12-07] MEDS: FUROSEMIDE 10 MG/ML 10 ML VIAL IV SCH ×2 (07:11→20:54)
[2016-12-07] MEDS: PANTOPRAZOLE 40 MG TABLET PO SCH (07:12)
[2016-12-07] MEDS: predniSONE 5 MG TAB PO SCH (07:12)
[2016-12-07] MEDS: LACTULOSE 20 GM/30 ML CUP PO SCH ×2 (07:12→21:07)
[2016-12-07] MEDS: CHOLECALCIFEROL 1,000 UNIT TAB PO SCH (07:12)
[2016-12-07] MEDS: HYDROXYCHLOROQUINE SULFATE 200 MG TAB PO SCH (07:12)
[2016-12-07] MEDS: CALCIUM CARBONATE 500 MG CHEWABLE PO SCH (07:12)
[2016-12-07] MEDS: METOPROLOL TARTRATE 25 MG TAB PO SCH ×3 (07:13→21:07)
[2016-12-07] MEDS: POTASSIUM CHLORIDE ER 10 MEQ TAB.ER.PRT PO SCH ×2 (07:13→20:53)
[2016-12-07] MEDS: LEVOTHYROXINE 112 MCG TAB PO SCH (07:13)
[2016-12-07] MEDS: CEFUROXIME 250 MG TAB PO SCH ×2 (07:13→20:54)
[2016-12-07] MEDS: MICONAZOLE NITRATE 2% CREAM 14 GM TUBE TOPICAL SCH ×2 (07:14→21:07)
[2016-12-07] MEDS: ALPRAZolam 0.25 MG TAB PO PRN ×2 (07:19→17:36)
[2016-12-07] MEDS: ALBUTEROL NEBULIZED 2.5 MG/3 ML INHALATION SCH ×4 (09:35→20:23)
[2016-12-07 09:56] LABS: Calcium 8.4 mg/dL (8.4-10.2); Potassium 3.6 mmol/L (3.5-5.1); Total Bilirubin 0.4 mg/dL (0.2-1.3); Total Protein 5.2 g/dL (6.3-8.2)
--- NOTE | 2016-12-07 11:22 | XR ---
EXAMINATION TYPE: XR chest 1V portable DATE OF EXAM: 12/07/2016 CLINICAL HISTORY: Difficulty breathing progress study. TECHNIQUE: Single AP portable upright view of the chest is obtained. COMPARISON: Chest x-ray from one day earlier FINDINGS: There is persisting cardiomegaly with dual lead pacemaker. There is persistent moderate ce ntral vascular congestion and bibasilar opacity consistent with small to moderate-sized bilateral ple ural effusions and associated bibasilar atelectasis and/or infiltrate redemonstrated. Osseous structu res are demineralized. Underlying scoliosis is noted. IMPRESSION: Overall stable findings, suspect CHF exacerbation as there is cardiomegaly with moderat e to severe central vascular congestion and small to moderate-sized bilateral pleural effusions all r edemonstrated. Associated bibasilar atelectasis and/or infiltrate is also again seen.
--- NOTE | 2016-12-07 14:26 | PN ---
The patient is feeling much better. Of interest, at the middle part of day, we got her chest x-ray which showed moderately severe pulmonary edema with cardiomegaly and central venous congestion and some moderate pleural effusion. She was treated aggressively. Dr. Andrez Odom was consulted, treated aggressively with IV Lasix and has responded very well with less shortness of breath, less apprehension. Her electrolytes and BUN and creatinine have returned to be normal at this period of time. Her review of systems: HEENT: She is much alert and no problems with her eyes, vision is fine. Mouth is dry. No neck pain. No ear pain. CARDIOPULMONARY: Decrease in shortness of breath. No wheezing. No paroxysmal nocturnal dyspnea. No orthopnea. Talking a lot, very happy today. GI: No hematemesis, melena, hematochezia. : Negative. INTEGUMENTARY: No rashes. No pruritus. ENDOCRINE: No new hair loss. There is weakness, tiredness, fatigue. PSYCHIATRY: She is a little upset with her family, especially her daughters especially the fact that they are talking to her about things and the son understands everything. PHYSICAL EXAMINATION: Today her vital signs: Blood pressure is 130/70. Heart rate in the 70s. Respiratory rate is 18. Temperature 98. EYES: Pupils are equal, round and reactive to light and accommodation. HEENT: Showed tympanic membranes and pharynx to be negative. Neck is supple with midline trachea. Chest has good breath sounds. Heart is sinus rhythm. Abdomen soft, nontender with no organomegaly. New lab today just basic chem profile is within normal limits. ASSESSMENT: 1. Resolving pulmonary edema. 2. Congestive heart failure. 3. Biventricular heart failure. 4. Ischemic cardiomyopathy. 5. Hypokalemia. 6. Acute tubular necrosis, resolving hypertension. 7. Lumbar fracture T12-L1. 8. Intractable pain. We will continue Lasix. We will do a chest x-ray for follow up. Lab work in the morning. The patient is stable. Discharge soon. [facility]PITALLatrice
--- NOTE | 2016-12-07 16:15 | PN ---
DATE OF SERVICE: 12/07/16 The patient was seen again on 12/07/16. She is less short of breath and is lying flat in bed without any respiratory distress. She is diuresed. On physical examination, blood pressure 130/74. Respiratory rate is 18. Pulse rate 79. Temperature 98.1. O2 sat on 2 L by nasal cannula is 95%. HEENT is unremarkable. Chest reveals decreased breath sounds at the bases. Occasional crackles. Cardiovascular system reveals an S1, S2. Abdomen is soft. There is no pedal edema. Chest x-ray continues to show changes consistent with CHF. I's and O's was even yesterday. IMPRESSION: 1. Shortness of breath secondary to congestive heart failure and fluid overload. 2. Abdominal pain secondary to diverticulitis. 3. Medical debility. Increase her activity level. Her prognosis at this time is fair. DEBBIE
[2016-12-07] MEDS: MONTELUKAST 10 MG TAB PO SCH (16:25)
[2016-12-07] MEDS: SODIUM CHLORIDE 0.9% 1,000 ML IV SCH (16:26)
[2016-12-07] MEDS: LIDOCAINE 5% PATCH TOPICAL SCH (16:26)
[2016-12-07] MEDS: ONDANSETRON 4 MG/2 ML VIAL IVP PRN ×2 (16:30→23:04)
[2016-12-07] MEDS: predniSONE 10 MG TAB PO SCH (18:04)
--- NOTE | 2016-12-07 23:54 | P.PN ---
Subjective Principal diagnosis: Sigmoid diverticulitis The patient is afebrile she is breathing comfortably her abdominal pain has improved the patient did have denies any nausea or vomiting , diarrhea has resolved , no chest pain , shortness of breath or cough Objective - Vital Signs Vital signs: Vital Signs Temp 97.8 F 12/05/16 09:00 Pulse 78 12/05/16 09:55 Resp 16 12/05/16 09:00 BP 149/68 12/05/16 09:00 Pulse Ox 93 L 12/05/16 09:45 Intake & Output 12/04/16 12/05/16 12/05/16 18:59 06:59 18:59 Intake Total 800 900 180 Output Total 300 Balance 800 900 -120 Weight 69.9 kg Intake: IV 600 900 Sodium Chloride 0.9% 1, 600 900 000 ml @ 75 mls/hr IV . [id number] [facility] Rx#:[id number] Oral 200 180 Output: Urine 300 Other: Voiding Method Bedside Commode Bedside Commode Bedside Commode # Voids 2 1 1 - Exam GENERAL DESCRIPTION:[ Patient is awake and alert in no distress] HEENT: [Oral mucosa is dry and no pharyngeal erythema] EYES : [No pallor or scleral icterus] RESPIRATORY SYSTEM: [Unlabored breathing clear to auscultation] CARDIA VASCULAR SYSTEM: [S1-S2 regular rate and rhythm no murmur] GI: [Abdominal soft there's no tenderness no organomegaly] EXTREMITIES: [No edema feet] - Labs CBC & Chem 7: 12/06/16 07:29 12/07/16 08:38 Labs: Abnormal Lab Results - Last 24 Hours (Table) 12/05/16 Range/Units 06:28 Creatinine 1.12 H (0.52-1.04) mg/dL Calcium 8.1 L (8.4-10.2) mg/dL Total Protein 4.8 L (6.3-8.2) g/dL Albumin 2.6 L (3.5-5.0) g/dL Assessment and Plan (1) Sigmoid diverticulitis Status: Acute (2) Leukocytosis Status: Acute Plan: 1-patient admitted hospital with lower abdominal pain and constipation with elevated white count of 19,000 likely secondary to acute sigmoid diverticulitis , the patient seems slowly clinically improving with Rocephin and Flagyl that will be continued for now with plan to finish therapy with Ceftin and Flagyl. Time with Patient: Less than 30
[2016-12-08] MEDS: HYDROmorphone 1 MG/ML 1 ML SYRINGE IVP PRN ×4 (01:05→16:10)
[2016-12-08] MEDS: ALBUTEROL NEBULIZED 2.5 MG/3 ML INHALATION SCH ×4 (07:37→20:45)
[2016-12-08] MEDS: predniSONE 5 MG TAB PO SCH (08:30)
[2016-12-08] MEDS: PANTOPRAZOLE 40 MG TABLET PO SCH (08:31)
[2016-12-08] MEDS: LEVOTHYROXINE 112 MCG TAB PO SCH (08:31)
[2016-12-08] MEDS: MICONAZOLE NITRATE 2% CREAM 14 GM TUBE TOPICAL SCH ×2 (08:31→21:54)
[2016-12-08] MEDS: POTASSIUM CHLORIDE ER 10 MEQ TAB.ER.PRT PO SCH ×2 (08:31→21:51)
[2016-12-08] MEDS: METOPROLOL TARTRATE 25 MG TAB PO SCH ×3 (08:31→21:51)
[2016-12-08] MEDS: LACTULOSE 20 GM/30 ML CUP PO SCH ×3 (08:32→21:54)
[2016-12-08] MEDS: HYDROXYCHLOROQUINE SULFATE 200 MG TAB PO SCH (08:32)
[2016-12-08] MEDS: FUROSEMIDE 10 MG/ML 10 ML VIAL IV SCH (08:32)
[2016-12-08] MEDS: CHOLECALCIFEROL 1,000 UNIT TAB PO SCH (08:33)
[2016-12-08] MEDS: CALCIUM CARBONATE 500 MG CHEWABLE PO SCH (08:33)
[2016-12-08] MEDS: CEFUROXIME 250 MG TAB PO SCH ×2 (08:33→21:50)
[2016-12-08] MEDS: metroNIDAZOLE 250 MG TABLET PO SCH ×2 (08:33→16:38)
[2016-12-08] MEDS: HEPARIN SODIUM,PORCINE 5,000 UNIT/ML 1 ML VIAL SQ SCH ×2 (08:33→16:38)
[2016-12-08 09:36] LABS: Calcium 8.5 mg/dL (8.4-10.2); Potassium 3.7 mmol/L (3.5-5.1); Total Bilirubin 0.6 mg/dL (0.2-1.3); Total Protein 5.4 g/dL (6.3-8.2)
[2016-12-08] MEDS: ACETAMINOPHEN TAB 500 MG TAB PO PRN ×3 (10:21→21:51)
--- NOTE | 2016-12-08 10:25 | PN ---
She feels much better. Had a good night last night. She says she has a friend now next door who also has lupus. They have had a lot of talking that seem to make her feel better. That there was finally someone else that she had with her similar symptoms. Today, review of systems: CARDIOPULMONARY: Less shortness of breath, less chest pains, slept really well. GI: Had another bowel movement. Was sitting up and moving yesterday. URINARY: We have a Gallardo in due to the fact that she has long-standing CHF with the possibility by fluid overload. PHYSICAL EXAMINATION: Vital signs this morning: Blood pressure 139/78, heart rate in the 80s, respiratory rate is 16, temperature 98.8. EYES: Pupils are equal, round and react to light and accommodation. ENT showed tympanic membrane and pharynx to be negative. NECK: Supple with midline trachea. CHEST: Essentially clear to auscultation. HEART: Sinus rhythm. No murmur. ABDOMEN: Soft. No palpable pain. ( ). No mass. No swelling in the lower extremities with palpable pulses. Integumentary is good. PSYCHIATRIC: Patient is alert, well orientated to person, place and thing. ASSESSMENT: 1. Resolving diverticulitis. 2. Fluid overload with congestive heart failure. 3. Biventricular heart failure. 4. Ischemic cardiomyopathy. 5. Hypokalemia with has resolved. 6. Systemic lupus erythematosus ( ) acute tubular necrosis. 7. Chronic pain related with fracture T12-L1 with some intractable pain. PLAN: Will continue Lasix. Follow-up chest x-ray shows some change in fluid levels with congestive heart failure so will continue the use of Lasix. Await new lab. Please refer to my orders. MTDD
--- NOTE | 2016-12-08 11:11 | P.PN ---
Subjective Principal diagnosis: Sigmoid diverticulitis The patient is afebrile , she is c/o not feeling well but unable to eloborate her symptoms more , breathing comfortably, no abdominal pain , denies any nausea or vomiting , diarrhea has resolved and no BM for last 2 days , no chest pain , shortness of breath or cough Objective - Vital Signs Vital signs: Vital Signs Temp 98.5 F 12/07/16 21:14 Pulse 87 12/07/16 21:14 Resp 16 12/07/16 21:14 BP 139/78 12/07/16 21:14 Pulse Ox 95 12/07/16 21:14 Intake & Output 12/07/16 12/07/16 12/08/16 06:59 18:59 06:59 Intake Total 650 200 Output Total 1800 Balance 650 -1800 200 Intake: IV 200 Sodium Chloride 0.9% 1, 200 000 ml @ 20 mls/hr IV . Q24H [facility] Rx#:[id number] Oral 450 200 Output: Urine 1800 Other: Voiding Method Bedside Commode Indwelling Catheter # Voids 1 - Exam GENERAL DESCRIPTION:[ Patient is awake and alert in no distress] HEENT: [Oral mucosa is dry and no pharyngeal erythema] EYES : [No pallor or scleral icterus] RESPIRATORY SYSTEM: [Unlabored breathing clear to auscultation] CARDIA VASCULAR SYSTEM: [S1-S2 regular rate and rhythm no murmur] GI: [Abdominal soft there's no tenderness no organomegaly] EXTREMITIES: [No edema feet] - Labs CBC & Chem 7: 12/06/16 07:29 12/07/16 08:38 Labs: Abnormal Lab Results - Last 24 Hours (Table) 12/07/16 Range/Units 08:38 Creatinine 1.10 H (0.52-1.04) mg/dL Total Protein 5.2 L (6.3-8.2) g/dL Albumin 2.9 L (3.5-5.0) g/dL Assessment and Plan (1) Sigmoid diverticulitis Status: Acute (2) Leukocytosis Status: Acute Plan: 1-patient admitted hospital with acute sigmoid diverticulitis , the patient seems to have overall improvement with Rocephin and Flagyl that will be continued for now with plan to finish therapy with Ceftin and Flagyl.
[2016-12-08 11:59] VITALS: BMI 29.1
[2016-12-08] MEDS: SODIUM CHLORIDE 0.9% 1,000 ML IV SCH (12:15)
--- NOTE | 2016-12-08 13:38 | CDI ---
In responding to this query, please exercise your independent professional judgment. The [facility] Coding Staff and Clinical Documentation Specialists appreciate your assistance in clarifying documentation, maintaining compliance with coding guidelines, accurately documenting patients condition and capturing severity of illness. The fact that a question is asked does not imply that any particular answer is desired or expected. Communication forms are a method of clarifying documentation and are not made part of the Legal Health Record. Thank you in advance for your clarification. Last Revision, July 2016 Josesito Solis [address] [place] [address] Documentation Clarification Form Date: 12/02/2016 3:42:00 PM From: Jose Miguel Morales, RN, BSN, CDI, CCDS Admit Date: 11/27/2016 9:04:00 PM Patient Name: Julianna Stover Visit Number: [id number] Dr. Lorenzo Mortensen: "Acute CHF, questioning volume overload from resolving dehydration, CHF heart failure, biventricular heart failure, ischemic cardiomyopathy" is documented in your progress notes. History/Risk Factors: 76 yo female with a history of HTN, CKD III and PPM presents with c/o abdominal pain, nausea, vomiting, decreased appetite, weight loss of 10 lbs and constipation for 10+ days. She is being treated for constipation, ATN secondary to volume depletion. She is s/p 1U fluid bolus, IVF running at 50-75cc/hr. Clinical Indicators: VS/Pulse OX: 128/70, 84-92, 17-19, 98.3-99.0, 92-94% on RA Echocardiogram Results: cardiology mentions LVEF of 45% from ECHO done in September Chest X Ray (from 11/30): CHF w/pulmonary edema that is worse than last exam, b/ l pleural effusions Chest XRay (from 12/06): consistent w/worsening CHF exacerbation as there is cardiomegaly with now moderate to severe central vascular congestion and small to moderate-sized b/l pleural effusions Treatment: Lasix 20mg mg PO QD, Lasix 60mg IVP x1 then q12 Consults: nephrology, cardiology and pulmonary In your professional opinion, can you please clarify the acuity and type of CHF if known? Systolic Heart Failure: Acute Chronic Acute on Chronic Diastolic Heart Failure: Acute Chronic Acute on Chronic Systolic & Diastolic Heart Failure: Acute Chronic Acute on Chronic Unable to determine Other, please specify Please document in your progress notes and discharge summary in order to capture severity of illness and risk of mortality. Include clinical findings that support your diagnosis. FYI: Press F11 to launch patient chart. Place X here if this finding has no clinical significance, is not applicable or if you are not able to provide any additional documentation. DEBBIE
[2016-12-08] MEDS: FUROSEMIDE 40 MG TAB PO SCH (16:43)
[2016-12-08] MEDS: ONDANSETRON 4 MG/2 ML VIAL IVP PRN (16:46)
[2016-12-08] MEDS: ALPRAZolam 0.25 MG TAB PO PRN (17:04)
[2016-12-08] MEDS: MONTELUKAST 10 MG TAB PO SCH (18:05)
[2016-12-08] MEDS: predniSONE 10 MG TAB PO SCH (18:05)
[2016-12-08] MEDS: LIDOCAINE 5% PATCH TOPICAL SCH (18:05)
--- NOTE | 2016-12-08 19:51 | P.PN ---
Subjective Principal diagnosis: Sigmoid diverticulitis The patient is afebrile , she is feeling better compared to yesterday , breathing comfortably, no abdominal pain , denies any nausea or vomiting , did have a BM last night , no chest pain , shortness of breath or cough Objective - Vital Signs Vital signs: Vital Signs Temp 97.6 F 12/08/16 07:00 Pulse 88 12/08/16 07:51 Resp 16 12/08/16 07:00 BP 119/76 12/08/16 07:00 Pulse Ox 95 12/08/16 07:40 Intake & Output 12/07/16 12/08/16 12/08/16 18:59 06:59 18:59 Intake Total 1300 Output Total 1800 1700 Balance -1800 -400 Intake: IV 300 Sodium Chloride 0.9% 1, 300 000 ml @ 20 mls/hr IV . Q24H [facility] Rx#:[id number] Oral 1000 Output: Urine 1800 1700 Straight 900 Other: Voiding Method Indwelling Catheter Indwelling Catheter Indwelling Catheter # Voids 1 - Exam GENERAL DESCRIPTION:[ Patient is awake and alert in no distress] HEENT: [Oral mucosa is dry and no pharyngeal erythema] EYES : [No pallor or scleral icterus] RESPIRATORY SYSTEM: [Unlabored breathing clear to auscultation] CARDIA VASCULAR SYSTEM: [S1-S2 regular rate and rhythm no murmur] GI: [Abdominal soft there's no tenderness no organomegaly] EXTREMITIES: [No edema feet] - Labs CBC & Chem 7: 12/06/16 07:29 12/08/16 09:01 Labs: Abnormal Lab Results - Last 24 Hours (Table) 12/08/16 Range/Units 09:01 Creatinine 1.30 H (0.52-1.04) mg/dL Glucose 128 H (74-99) mg/dL Total Protein 5.4 L (6.3-8.2) g/dL Albumin 3.2 L (3.5-5.0) g/dL Assessment and Plan (1) Sigmoid diverticulitis Status: Acute (2) Leukocytosis Status: Acute Plan: 1-patient with acute sigmoid diverticulitis , the patient seems to be responding to Rocephin and Flagyl that will be continued for now with plan to finish therapy with Ceftin and Flagyl. Time with Patient: Less than 30
--- NOTE | 2016-12-08 19:56 | PN ---
DATE OF SERVICE: 12/08/16 The patient was seen again on 12/08/16. She is less short of breath and is doing well overall. On physical examination, blood pressure is 112/67. Respiratory rate is 16. Pulse rate 90. Temperature 98.6. O2 sat on 2 L by nasal cannula is 94%. HEENT reveals pupils are equal. No jugular venous distention. Chest clear Cardiovascular system reveals an S1, S2. Abdomen is soft. There is no pedal edema. Labs and meds were reviewed. IMPRESSION: 1. Shortness of breath, secondary to congestive heart failure with fluid overload for which she is doing better and we will switch her to oral Lasix. 2. Abdominal pain secondary to diverticulitis for which she is doing better. 3. Medical debility. Increase her activity level. Prognosis at this time is fair. MTDD
[2016-12-09] MEDS: HEPARIN SODIUM,PORCINE 5,000 UNIT/ML 1 ML VIAL SQ SCH ×4 (00:11→23:58)
[2016-12-09] MEDS: metroNIDAZOLE 250 MG TABLET PO SCH ×4 (00:11→23:58)
[2016-12-09] MEDS: HYDROmorphone 2 MG TAB PO PRN ×4 (00:11→20:39)
[2016-12-09] MEDS: ACETAMINOPHEN TAB 500 MG TAB PO PRN ×3 (05:23→23:40)
[2016-12-09] MEDS: ALBUTEROL NEBULIZED 2.5 MG/3 ML INHALATION SCH ×4 (07:17→20:38)
[2016-12-09] MEDS: POTASSIUM CHLORIDE ER 10 MEQ TAB.ER.PRT PO SCH ×2 (08:07→20:40)
[2016-12-09] MEDS: predniSONE 5 MG TAB PO SCH (08:07)
[2016-12-09] MEDS: MICONAZOLE NITRATE 2% CREAM 14 GM TUBE TOPICAL SCH ×2 (08:08→20:40)
[2016-12-09] MEDS: PANTOPRAZOLE 40 MG TABLET PO SCH (08:08)
[2016-12-09] MEDS: LEVOTHYROXINE 112 MCG TAB PO SCH (08:08)
[2016-12-09] MEDS: METOPROLOL TARTRATE 25 MG TAB PO SCH ×3 (08:08→20:40)
[2016-12-09] MEDS: LACTULOSE 20 GM/30 ML CUP PO SCH ×2 (08:08→20:40)
[2016-12-09] MEDS: CALCIUM CARBONATE 500 MG CHEWABLE PO SCH (08:09)
[2016-12-09] MEDS: CHOLECALCIFEROL 1,000 UNIT TAB PO SCH (08:09)
[2016-12-09] MEDS: HYDROXYCHLOROQUINE SULFATE 200 MG TAB PO SCH (08:09)
[2016-12-09] MEDS: FUROSEMIDE 40 MG TAB PO SCH ×2 (08:09→17:13)
[2016-12-09] MEDS: CEFUROXIME 250 MG TAB PO SCH ×2 (08:09→20:40)
--- NOTE | 2016-12-09 08:11 | XR ---
EXAMINATION TYPE: XR chest 1V portable DATE OF EXAM: 12/09/2016 HISTORY: chf follow up. REFERENCE: Previous study dated 12/07/2016. FINDINGS: There is a bipolar pacemaker in place on the left. The heart is enlarged. There is vascular congestion and pulmonary edema. There are bilateral effusion s. These have decreased in size. There is bibasilar airspace disease which may represent atelectasis or pneumonia. The overall appearance has improved slightly. IMPRESSION: IMPROVING CHANGES OF CONGESTIVE HEART FAILURE.
[2016-12-09] MEDS ORDERED: RX INFO: IV CONTRAST WAS GIVEN 1 EACH MISC MISCELLANE PRN (08:23)
[2016-12-09 09:19] LABS: Basophils % (A) 0 %; CH 31.3; Eosinophils # (A) 0.1 k/uL (0-0.7); Eosinophils % (A) 1 %; HCT 34.7 % (34.0-46.0); HDW 2.75; HGB 10.8 gm/dL (11.4-16.0); Luc % (Auto) 2; Lymphocytes # (A) 1.7 k/uL (1.0-4.8); Lymphocytes % (A) 25 %; MCH 30.6 pg (25.0-35.0); MCHC 31.1 g/dL (31.0-37.0); MCV 98.3 fL (80.0-100.0); Monocytes # (A) 0.3 k/uL (0-1.0); Monocytes % (A) 5 %; Neutrophils # (A) 4.6 k/uL (1.3-7.7); Neutrophils % (A) 68 %; RBC 3.53 m/uL (3.80-5.40); RDW 13.8 % (11.5-15.5); WBC 6.9 k/uL (3.8-10.6); WBC (Perox) 7.17
[2016-12-09 09:37] LABS: Calcium 7.8 mg/dL (8.4-10.2); Potassium 3.8 mmol/L (3.5-5.1); Total Bilirubin 0.5 mg/dL (0.2-1.3); Total Protein 5.1 g/dL (6.3-8.2)
--- NOTE | 2016-12-09 10:13 | PN ---
Julianna Stover is a 76-year-old white female that came in what appeared to be diverticulitis, has resolved. Bowel movements were back to normal. She developed CHF with overload due to her ischemic heart disease. She has been treated with Lasix and now she is responding well. At this point, she is doing very well except she is having some right chest pain with less shortness of breath. No abdominal pain at this period of time. She has some long-standing past medical history of having had a cardiac catheterization, which showed moderate disease so due to her ejection fraction being fine, valves are good, the acute CHF is unable to determine systolic versus diastolic. She also had acute tubular necrosis, which is also now resolved. Also a history of hypokalemia, systemic lupus erythematosus and fracture of her lower back. We did convert her from IV Dilaudid to p.o. Dilaudid and she is able to be discharged hopefully in the a.m. with a new acute chest pain on the right with some inspirations. We will do a portable chest x-ray to see on the pleural effusion determination level. At this time, review of systems: CARDIOPULMONARY: Chest pain, just on the right side, more with inspiration. No orthopnea or PND. No cough. No chills. No sweats. GI: Good bowel movement. No hematemesis, melena, hematochezia. No diarrhea or constipation. : Negative at this time. INTEGUMENTARY: No changes in skin. No swelling in the legs. PSYCHIATRIC: No anxiety. PHYSICAL EXAMINATION: Her vitals signs are blood pressure 129/70, heart rate 100, respiratory rate is 16, temperature is 96.8. O2 sat is 96%. EYES: Pupils are equal, round, reactive to light and accommodation. ENT showed tympanic membranes and pharynx to be negative. Neck is supple with midline trachea. CHEST: Essentially clear to auscultation consistent with decreased breath sounds in the right lower lung and left lower lung. HEART: Sinus rhythm at this point. ABDOMEN: Soft, nontender, with no organomegaly. No swelling in the lower extremities. No new labs this morning as of yet. ASSESSMENT: 1. Resolving diverticulitis. 2. Overload congestive heart failure, undetermined systolic versus diastolic. 3. Hypertension. 4. Systemic lupus erythematosus. 5. Longstanding hypertension. 6. Hypokalemia, which is now resolved. 7. Acute on chronic pain of fracture of T12-L1. She was converted to p.o. Lasix 40 mg b.i.d. We converted over to p.o. Dilaudid 2 mg every 6 hours p.r.n. alternate with Tylenol every 3. Portable chest x-ray to see the new acute inspiration pain on the right, which could be just back wall pain secondary from her fracture due to the fact we decreased her pain medication resolving acute tubular necrosis. Plan is to discharge her home or back to the skilled nursing tomorrow. DEBBIE
--- NOTE | 2016-12-09 11:42 | PN ---
DATE OF SERVICE: 12/09/2016 The patient has been hemodynamically stable and is complaining of some increase in shortness of breath and weakness. She also has chest pain more on the right side than the left. On physical examination, her blood pressure is 136/80, respiratory rate of 18, pulse rate of 87, temperature 97 degrees Fahrenheit, O2 sat on room air is 92%. HEENT is unremarkable. Chest reveals decreased breath sounds at the bases. No crackles. Cardiovascular system reveals an S1, S2. Abdomen is soft. There is no edema. Labs from today are pending. IMPRESSION AT THIS TIME: 1. Congestive heart failure and fluid overload for she she is doing better. 2. Chest pain, etiology which is unclear, possibility for pulmonary embolism arises as she has been in the hospital in bed mostly. 3. Diverticulitis for which she will continue on antibiotics. 4. Systemic lupus erythematosus for which she is on chronic steroids. Her prognosis at this time is guarded. DEBBIE
--- NOTE | 2016-12-09 12:18 | CT ---
EXAMINATION TYPE: CT angio chest DATE OF EXAM: 12/09/2016 COMPARISON: NONE HISTORY: SOB, pain CT DLP: 482.8 mGycm CONTRAST: CT chest with contrast and 3D reconstruction with MIP imaging is performed with IV Contrast, patient injected with 80 mL of Visipaque 320. Contrast-enhanced CT of the chest was performed through the course of the pulmonary arteries with elina g and mediastinal window settings submitted. 3D reconstruction with MIP imaging was also performed. PULMONARY ARTERIES: The pulmonary arteries and their major tributaries are patent. I do not see kyleigh dence for sizable filling defect to suggest pulmonary embolic process. LUNGS: Basilar atelectasis and/or infiltrates as well as bilateral pleural effusions. No pulmonary no dule or mass is detected. MEDIASTINUM: Thoracic aorta is of normal caliber . The heart is not enlarged. No evidence for media stinal mass. No mediastinal lymph nodes greater than 1cm. HILAR STRUCTURES: No evidence for mass. No hilar lymph nodes greater than 1 cm. UPPER ABDOMEN: Large fixed hiatal hernia. IMPRESSION: 1. No evidence for Pulmonary embolism at this time.
[2016-12-09] MEDS: SODIUM CHLORIDE 0.9% 1,000 ML IV SCH (13:10)
--- NOTE | 2016-12-09 13:58 | CDI ---
In responding to this query, please exercise your independent professional judgment. The [facility] Coding Staff and Clinical Documentation Specialists appreciate your assistance in clarifying documentation, maintaining compliance with coding guidelines, accurately documenting patients condition and capturing severity of illness. The fact that a question is asked does not imply that any particular answer is desired or expected. Communication forms are a method of clarifying documentation and are not made part of the Legal Health Record. Thank you in advance for your clarification. Last Revision, March 2015 Josesito Solis [address] [place] [address] Documentation Clarification Form Date: 12/09/2016 1:23:00 PM From: Jose Miguel Morales, RN, BSN, CDI, CCDS Admit Date: 11/27/2016 9:04:00 PM Patient Name: Julianna Stover Visit Number: [id number] Dr. Lorenzo Mortensen: "Protein calorie malnutrition with an albumin of 2.4 and decreased oral intake for the last 1 to 2 weeks" has been documented in the critical care progress notes. History/Risk Factors: 76 yo female with a history of lupus, prediabetes, asthma and compression fractures in her back. She presents with c/o of abdominal pain , nausea, vomiting and constipation. Her daughter reports an approximate weight loss of 10 lbs since being in rehab facility. Clinical Indicators: "anorexia, dehydration" documented in the H&P Labs: Albumin: 2.4-3.1, total protein: 4.7-6.5 Current BMI: 28.1-29.1 Skin: healing stage II pressure ulcer on coccyx- per nursing/dietary documentation Treatment: dietary consult Lab monitoring: serial albumin/total protein In your professional opinion, can you please clarify if these findings signify one of the following conditions? Mild Protein Malnutrition Mild Protein-Calorie Malnutrition Moderate Protein Malnutrition Moderate Protein-Calorie Malnutrition Severe Protein Malnutrition Severe Protein-Calorie Malnutrition Other condition, please specify Unable to determine Please document in your progress notes and discharge summary in order to capture severity of illness and risk of mortality. Include clinical findings that support your diagnosis. FYI: Press F11 to launch patient chart. Place X here if this finding has no clinical significance, is not applicable or if you are not able to provide any additional documentation. MTDD
[2016-12-09] MEDS: ALPRAZolam 0.25 MG TAB PO PRN (15:56)
[2016-12-09] MEDS: LIDOCAINE 5% PATCH TOPICAL SCH (17:13)
[2016-12-09] MEDS: MONTELUKAST 10 MG TAB PO SCH (17:13)
[2016-12-09] MEDS: predniSONE 10 MG TAB PO SCH (17:13)
[2016-12-10] MEDS: ALPRAZolam 0.25 MG TAB PO PRN (01:54)
[2016-12-10] MEDS: HYDROmorphone 2 MG TAB PO PRN ×3 (06:10→17:21)
[2016-12-10] MEDS: ALBUTEROL NEBULIZED 2.5 MG/3 ML INHALATION SCH ×3 (07:00→15:37)
[2016-12-10 07:57] VITALS: BP 141/78; RESP 18; TEMP 97.8
[2016-12-10] MEDS: FUROSEMIDE 40 MG TAB PO SCH ×2 (08:00→17:11)
[2016-12-10] MEDS: POTASSIUM CHLORIDE ER 10 MEQ TAB.ER.PRT PO SCH (08:00)
[2016-12-10] MEDS: PANTOPRAZOLE 40 MG TABLET PO SCH (08:00)
[2016-12-10] MEDS: LEVOTHYROXINE 112 MCG TAB PO SCH (08:00)
[2016-12-10] MEDS: CHOLECALCIFEROL 1,000 UNIT TAB PO SCH (08:00)
[2016-12-10] MEDS: HYDROXYCHLOROQUINE SULFATE 200 MG TAB PO SCH (08:00)
[2016-12-10] MEDS: METOPROLOL TARTRATE 25 MG TAB PO SCH ×2 (08:00→17:10)
[2016-12-10] MEDS: predniSONE 5 MG TAB PO SCH (08:00)
[2016-12-10] MEDS: CALCIUM CARBONATE 500 MG CHEWABLE PO SCH (08:01)
[2016-12-10] MEDS: CEFUROXIME 250 MG TAB PO SCH (08:01)
[2016-12-10] MEDS: metroNIDAZOLE 250 MG TABLET PO SCH (08:01)
[2016-12-10] MEDS: LACTULOSE 20 GM/30 ML CUP PO SCH (08:01)
[2016-12-10] MEDS: HEPARIN SODIUM,PORCINE 5,000 UNIT/ML 1 ML VIAL SQ SCH (08:01)
[2016-12-10] MEDS: ACETAMINOPHEN TAB 500 MG TAB PO PRN ×2 (09:15→15:48)
--- NOTE | 2016-12-10 10:12 | DS ---
DISCHARGE DIAGNOSES: 1. T12, L1 compression fractures. 2. Systemic lupus erythematosus. 3. Resolving biventricular heart failure from ischemic heart disease with an adequate ejection fracture. 4. Resolving diverticulitis. 5. Acute tubular necrosis secondary from hypovolemia, which is now resolved. 6. Intractable back pain with fractures. 7. Hypothyroid disease. 8. Pulmonary emboli ruled out with CT scan on 12/09. 9. Resolving hypovolemia. 10. Longstanding hypertension. 11. Osteoporosis. 12. Resolving constipation. 13. ( ) resolved. 14. Asthma. A 76-year-old white female who was admitted with acute abdominal pain with large amount of bowel impaction. After the diverticulitis was treated aggressively per Dr. Booker, the patient had multiple bowel movements over a four day period of time with the use of cathartics to help empty her bowel obstruction. She also had a fair amount of delirium when she came into the hospital because of the morphine, which also aided in constipation. While she was here she then changed over to Dilaudid and Tylenol. Very aggressive use of medications for prevention of abdominal obstruction. In the interim she developed congestive heart failure felt to be probably fluid overload without arrhythmia. Echocardiogram and cardiac catheterization, which have just been done in the last three months, showed an adequate ejection fracture and she had moderate coronary artery disease to be treated medically only. Her worse problem still seems to be the pain in her lower back. She was evaluated from a surgical standpoint throughout the entire hospitalization by Dr. Marina who then signed off after diverticulitis and obstruction was gone. Dr. Herrera saw her also while she was in the hospital immediately and felt that her acute L5 vertebral fracture and T12 were causing most of her pain and from the degenerative arthritis. His plan at this period of time was that the brace would be by far the best way to handle it and that she could follow up with him on an outpatient basis. She was seen with nephrology when she developed an acute tubular necrosis secondary from hypovolemia and for a period of four days her creatinine went from 3.1 settled in at this moment at 1.2 with BUN of 16 and GFR between 40 and 50. At this period of time we feel it adequate for her to be discharged but with very multifactorial problems will have to be treated aggressively. I sat down and explained everything to nursing. I reported everything in the report. Her review of systems at this time: ENT is negative. CARDIOPULMONARY: She has actually chest wall pain on palpation, which is the pain that she is describing. No shortness of breath. No orthopnea, no paroxysmal nocturnal dyspnea. No cough. GI: She has very vague abdominal discomfort. it is soft. She has no diarrhea. No constipation. No hematochezia. No melena. : Urination is free. NEUROMUSCULAR: She has weakness in her legs because of not being ambulatory and obviously weakness in her lower back. She has decreased arm strength. PSYCHOLOGICAL: She is apprehensive but willing to try rehab again. All was explained to her accordingly. PHYSICAL EXAMINATION: Today shows a blood pressure of 140/78, heart rate in the 80s, respiratory rate is 18, temperature 97.8. Room air between 90 and 91. EYES: Pupils are equal, round and reactive to light and accommodation. ENT: Showed tympanic membranes and pharynx to be negative. NECK: Supple. CHEST: Essentially clear to auscultation. HEART: Sinus rhythm. Rate is between 72 and 83. A very soft 2/6 holosystolic murmur over the aortic area which is non-pathognomonic. ABDOMEN: Soft. Some generalized tenderness, but no rebound tenderness. No organomegaly and absolutely no masses. EXTREMITIES: Lower extremities have no swelling at this point. Range of motion of lower legs are within normal limits just decrease in strength. She actually has good hand and arm strength, which I think will aid her greatly in her physical therapy tries. She has a small ulceration on the bottom of her buttocks which is taken care of with a Duoderm patch and that will have to be continued. Good lower extremity pulses. LAB WORK: Her hemoglobin is at 10.8. She has a 6.9 white blood cell count. Again, electrolytes are stable. Protein is decreased. PLAN: 1. Physical therapy. She will need to be ambulated because of the healing fracture which is basically L5. Basically going to be pain control with walking and leg strengthening. She will have to follow up with Dr. Herrera in his office on this fracture. The T12-L1 are old compression fractures. 2. She will need to watch her fluid status. Medications will be provided. Her Lasix will probably be decreased to once a day with potassium accordingly. Obviously electrolytes to be watched carefully also. 3. For breathing, she will be on the albuterol updrafts and that can be tapered accordingly. Medications on discharge are the followin. Acetaminophen 500 mg every 6 hours p.r.n. pain. 2. Dilaudid 2 mg every 4 to 6 hours p.r.n. pain. A regular regimen will probably have to be set up. 3. Xanax 0.25 three times a day. 4. Dulcolax 10 mg p.r.n. for constipation. 5. She will stay on her [id number] mg a day. 6. Vitamin D 1000 mg a day. 7. Her Lasix is 40 mg b.i.d. 8. Plaquenil is 200 mg daily. 9. I have her at this point of 30 grams of Cephulac b.i.d. and that is to be continued. 10. Levothroid 0.112 daily. 11. Lidocaine patches placed to the left and right back for about an 18 hour period daily. 12. Metoprolol 25 mg t.i.d. 13. She is also on miconazole 2% cream topically to below the breast area. 14. 10 mg of Singulair. 15. 40 of Protonix. 16. 10 mg of potassium chloride b.i.d. 17. Prednisone 10 in the morning and 10 at night. 18. Albuterol updrafts. Right now she is on them four times a day. They can be tapered to p.r.n. in the very near future. 19. Her antibiotics both the Ceftin and the Flagyl have been discontinued. 20. Heparin protocol has also been discontinued. [facility]
--- NOTE | 2016-12-10 12:33 | P.PN ---
Subjective Principal diagnosis: Sigmoid diverticulitis The patient is afebrile , she is feeling better today , breathing comfortably, deneis any abdominal pain , denies any nausea or vomiting , no diarrhea , no chest pain , shortness of breath or cough Objective - Vital Signs Vital signs: Vital Signs Temp 97 F L 12/09/16 07:00 Pulse 80 12/09/16 07:30 Resp 18 12/09/16 07:00 BP 136/80 12/09/16 07:00 Pulse Ox 96 12/09/16 07:20 Intake & Output 12/08/16 12/09/16 12/09/16 18:59 06:59 18:59 Intake Total 670 Output Total 2302 Balance -1632 Weight 69.9 kg Intake: Intake, IV Titration 80 Amount Sodium Chloride 0.9% 1, 80 000 ml @ 20 mls/hr IV . Q24H [facility] Rx#:[id number] Oral 590 Output: Urine 2300 Stool 2 Other: Voiding Method Indwelling Catheter Indwelling Catheter # Voids 2 - Exam GENERAL DESCRIPTION:[ Patient is awake and alert in no distress] HEENT: [Oral mucosa is dry and no pharyngeal erythema] EYES : [No pallor or scleral icterus] RESPIRATORY SYSTEM: [Unlabored breathing clear to auscultation] CARDIA VASCULAR SYSTEM: [S1-S2 regular rate and rhythm no murmur] GI: [Abdominal soft there's no tenderness no organomegaly] EXTREMITIES: [No edema feet] - Labs CBC & Chem 7: 12/09/16 08:56 12/09/16 08:56 Labs: Abnormal Lab Results - Last 24 Hours (Table) 12/08/16 Range/Units 09:01 Creatinine 1.30 H (0.52-1.04) mg/dL Glucose 128 H (74-99) mg/dL Total Protein 5.4 L (6.3-8.2) g/dL Albumin 3.2 L (3.5-5.0) g/dL Assessment and Plan (1) Sigmoid diverticulitis Status: Acute (2) Leukocytosis Status: Acute Plan: 1-patient with acute sigmoid diverticulitis , the patient showed clinical improvement on Rocephin and Flagyl that will be continued for now with plan to finish therapy with Ceftin and Flagyl. Time with Patient: Less than 30
[2016-12-10] MEDS: MICONAZOLE NITRATE 2% CREAM 14 GM TUBE TOPICAL SCH (13:36)
--- NOTE | 2016-12-10 13:39 | P.PN ---
Subjective Principal diagnosis: Sigmoid diverticulitis The patient is afebrile , she is feeling better , pt is breathing comfortably, pt denies any abdominal pain , denies any nausea or vomiting , no diarrhea , no chest pain , shortness of breath or cough Objective - Vital Signs Vital signs: Vital Signs Temp 97.8 F 12/10/16 07:00 Pulse 84 12/10/16 11:30 Resp 18 12/10/16 08:00 BP 141/78 12/10/16 07:00 Pulse Ox 90 L 12/10/16 07:00 Intake & Output 12/09/16 12/10/16 12/10/16 18:59 06:59 18:59 Intake Total 80 Output Total 1400 1450 1 Balance -1400 -1370 -1 Intake: IV 80 Sodium Chloride 0.9% 1, 80 000 ml @ 20 mls/hr IV . Q24H [facility] Rx#:[id number] Output: Urine 1400 1450 Stool 1 Other: Voiding Method Indwelling Catheter Indwelling Catheter Indwelling Catheter # Voids 2 # Bowel Movements 1 1 - Exam GENERAL DESCRIPTION:[ Patient is awake and alert in no distress] HEENT: [Oral mucosa is dry and no pharyngeal erythema] EYES : [No pallor or scleral icterus] RESPIRATORY SYSTEM: [Unlabored breathing clear to auscultation] CARDIA VASCULAR SYSTEM: [S1-S2 regular rate and rhythm no murmur] GI: [Abdominal soft there's no tenderness no organomegaly] EXTREMITIES: [No edema feet] - Labs CBC & Chem 7: 12/09/16 08:56 12/09/16 08:56 Assessment and Plan (1) Sigmoid diverticulitis Status: Acute (2) Leukocytosis Status: Acute Plan: 1-patient with acute sigmoid diverticulitis , the patient with overall improvement on Rocephin and Flagyl , plan to finish therapy with Ceftin and Flagyl.for 7 more days
[2016-12-10 15:45] VITALS: PULSE 83
[2016-12-10] MEDS: LIDOCAINE 5% PATCH TOPICAL SCH (17:11)
[2016-12-10] MEDS: MONTELUKAST 10 MG TAB PO SCH (17:11)
[2016-12-10] MEDS: predniSONE 10 MG TAB PO SCH (17:11)
--- NOTE | 2016-12-11 14:15 | CDI ---
In responding to this query, please exercise your independent professional judgment. The [facility] Coding Staff and Clinical Documentation Specialists appreciate your assistance in clarifying documentation, maintaining compliance with coding guidelines, accurately documenting patients condition and capturing severity of illness. The fact that a question is asked does not imply that any particular answer is desired or expected. Communication forms are a method of clarifying documentation and are not made part of the Legal Health Record. Thank you in advance for your clarification. Last Revision, March 2015 Josesito Solis [address] [facility] [place] [address] Documentation Clarification Form Date: 12/11/2016 1:54:00 PM From: Elina Carmen Phone: Admit Date: 11/27/2016 9:04:00 PM Patient Name: Julianna Stover Visit Number: [id number] Discharge Date: Dr. Lorenzo Mortensen Sepsis is documented in the ED note, in Dr. Herrera's consult note and in Dr. Odom's consult note. Patient history/risk factors: Patient admitted with acute diverticulitis and constipation. Lab findings: WBC on admission 22.4, lactic acid 1.3. Vital Signs: T. 98.6 on admission, P. 94 on admission, R. 18 on admission, BP 113/66 on admission Treatment: IV Cefepime, IV Ceftriaxone, IV Metronidazole and PO Ceftin Consults: In your professional opinion, can you please clarify if Sepsis was Ruled In or Ruled Out? Other Unable to determine Please document in your progress notes and discharge summary in order to capture severity of illness and risk of mortality. Include clinical findings that support your diagnosis. FYI: Press F11 to launch patient chart. If you have a question about this query, please contact Marisol Radford, [employer] at [phone].. LILLIAMD
--- NOTE | 2016-12-23 10:36 | CDI ---
Josesito Cicero [address] [facility] [place] [address] Documentation Clarification Form Date: 12/09/2016 1:23:00 PM From: Jose Miguel Morales RN, BSN, CDI, CCDS Admit Date: 11/27/2016 9:04:00 PM Patient Name: Julianna Stover Visit Number: [id number] Discharge Date: 12/10/16 Dr. Lorenzo Mortensen: "Protein calorie malnutrition with an albumin of 2.4 and decreased oral intake for the last 1 to 2 weeks" has been documented in the critical care progress notes. History/Risk Factors: 76 yo female with a history of lupus, prediabetes, asthma and compression fractures in her back. She presents with c/o of abdominal pain , nausea, vomiting and constipation. Her daughter reports an approximate weight loss of 10 lbs since being in rehab facility. Clinical Indicators: "anorexia, dehydration" documented in the H&P Labs: Albumin: 2.4-3.1, total protein: 4.7-6.5 Current BMI: 28.1-29.1 Skin: healing stage II pressure ulcer on coccyx Treatment: dietary consult Lab monitoring: serial albumin/total protein In your professional opinion, can you please clarify if these findings signify one of the following conditions? Mild Protein Malnutrition Mild Protein-Calorie Malnutrition Moderate Protein Malnutrition Moderate Protein-Calorie Malnutrition Severe Protein Malnutrition Severe Protein-Calorie Malnutrition Other condition, please specify Unable to determine Please document in your progress notes and discharge summary in order to capture severity of illness and risk of mortality. Include clinical findings that support your diagnosis. FYI: Press F11 to launch patient chart. DEBBIE
--- NOTE | 2016-12-24 08:10 | CDI ---
In responding to this query, please exercise your independent professional judgment. The [facility] Coding Staff and Clinical Documentation Specialists appreciate your assistance in clarifying documentation, maintaining compliance with coding guidelines, accurately documenting patients condition and capturing severity of illness. The fact that a question is asked does not imply that any particular answer is desired or expected. Communication forms are a method of clarifying documentation and are not made part of the Legal Health Record. Thank you in advance for your clarification. Last Revision, March 2015 Josesito Solis [address] [facility] [place] [address] Documentation Clarification Form Date: 12/11/2016 1:54:00 PM From: Elina Carmen Phone: Admit Date: 11/27/2016 9:04:00 PM Patient Name: Julianna Stover Visit Number: [id number] Discharge Date: Dr. Lorenzo Mortensen Sepsis is documented in the ED note, in Dr. Herrera's consult note and in Dr. Odom's consult note. Patient history/risk factors: Patient admitted with acute diverticulitis and constipation. Lab findings: WBC on admission 22.4, lactic acid 1.3. Vital Signs: T. 98.6 on admission, P. 94 on admission, R. 18 on admission, BP 113/66 on admission Treatment: IV Cefepime, IV Ceftriaxone, IV Metronidazole and PO Ceftin Consults: In your professional opinion, can you please clarify if Sepsis was Ruled In or Ruled Out? Other Unable to determine Please document in your progress notes and discharge summary in order to capture severity of illness and risk of mortality. Include clinical findings that support your diagnosis. FYI: Press F11 to launch patient chart. If you have a question about this query, please contact Marisol Radford Hand Assembler at [phone] between 8 am and 5 pm. DEBBIE
--- NOTE | 2016-12-26 15:40 | CDI ---
In responding to this query, please exercise your independent professional judgment. The [facility] Coding Staff and Clinical Documentation Specialists appreciate your assistance in clarifying documentation, maintaining compliance with coding guidelines, accurately documenting patients condition and capturing severity of illness. The fact that a question is asked does not imply that any particular answer is desired or expected. Communication forms are a method of clarifying documentation and are not made part of the Legal Health Record. Thank you in advance for your clarification. Last Revision, March [address] [facility] [place] [address] Documentation Clarification Form Date: 12/11/2016 1:54:00 PM From: Elina Carmen Phone: Admit Date: 11/27/2016 9:04:00 PM Patient Name: Julianna Stover Visit Number: [id number] Discharge Date: Dr. Lorenzo Mortensen Sepsis is documented in the ED note, in Dr. Herrera's consult note and in Dr. Odom's consult note. Patient history/risk factors: Patient admitted with acute diverticulitis and constipation. Lab findings: WBC on admission 22.4, lactic acid 1.3. Vital Signs: T. 98.6 on admission, P. 94 on admission, R. 18 on admission, BP 113/66 on admission Treatment: IV Cefepime, IV Ceftriaxone, IV Metronidazole and PO Ceftin Consults: In your professional opinion, can you please clarify if Sepsis was Ruled In or Ruled Out? Other Unable to determine Please document in your progress notes and discharge summary in order to capture severity of illness and risk of mortality. Include clinical findings that support your diagnosis. FYI: Press F11 to launch patient chart. If you have a question about this query, please contact Julio Radford Freezer Unloader at [phone] between 8am and 5pm. DEBBIE
--- NOTE | 2016-12-30 11:43 | CDI ---
In responding to this query, please exercise your independent professional judgment. The [facility] Coding Staff and Clinical Documentation Specialists appreciate your assistance in clarifying documentation, maintaining compliance with coding guidelines, accurately documenting patients condition and capturing severity of illness. The fact that a question is asked does not imply that any particular answer is desired or expected. Communication forms are a method of clarifying documentation and are not made part of the Legal Health Record. Thank you in advance for your clarification. Last Revision, March 2015 Josesito Solis [address] [facility] [place] [address] Documentation Clarification Form Date: 12/09/2016 1:23:00 PM From: Jose Miguel Morales, RN, BSN, CDI, CCDS Admit Date: 11/27/2016 9:04:00 PM Patient Name: Julianna Stover Visit Number: [id number] Discharge Date: 12/10/16 Dr. Lorenzo Mortensen: "Protein calorie malnutrition with an albumin of 2.4 and decreased oral intake for the last 1 to 2 weeks" has been documented in the critical care progress notes. History/Risk Factors: 76 yo female with a history of lupus, prediabetes, asthma and compression fractures in her back. She presents with c/o of abdominal pain , nausea, vomiting and constipation. Her daughter reports an approximate weight loss of 10 lbs since being in rehab facility. Clinical Indicators: "anorexia, dehydration" documented in the H&P Labs: Albumin: 2.4-3.1, total protein: 4.7-6.5 Current BMI: 28.1-29.1 Skin: healing stage II pressure ulcer on coccyx Treatment: dietary consult Lab monitoring: serial albumin/total protein In your professional opinion, can you please clarify if these findings signify one of the following conditions? Mild Protein Malnutrition Mild Protein-Calorie Malnutrition Moderate Protein Malnutrition Moderate Protein-Calorie Malnutrition Severe Protein Malnutrition Severe Protein-Calorie Malnutrition Other condition, please specify Unable to determine Please document in your progress notes and discharge summary in order to capture severity of illness and risk of mortality. Include clinical findings that support your diagnosis. FYI: Press F11 to launch patient chart. DEBBIE
--- NOTE | 2017-01-02 15:23 | CDI ---
In responding to this query, please exercise your independent professional judgment. The [facility] Coding Staff and Clinical Documentation Specialists appreciate your assistance in clarifying documentation, maintaining compliance with coding guidelines, accurately documenting patients condition and capturing severity of illness. The fact that a question is asked does not imply that any particular answer is desired or expected. Communication forms are a method of clarifying documentation and are not made part of the Legal Health Record. Thank you in advance for your clarification. Last Revision, March 2015 Josesito Solis [address] [place] [address] Documentation Clarification Form Date: 12/11/2016 1:54:00 PM From: Elina Carmen Phone: Admit Date: 11/27/2016 9:04:00 PM Patient Name: Julianna Stover Visit Number: [id number] Discharge Date: Dr. Lorenzo Mortensen Thank you for signing your query. Please document a response in the discharge summary before signing this query. Sepsis is documented in the ED note, in Dr. Herrera's consult note and in Dr. Odom's consult note. Patient history/risk factors: Patient admitted with acute diverticulitis and constipation. Lab findings: WBC on admission 22.4, lactic acid 1.3. Vital Signs: T. 98.6 on admission, P. 94 on admission, R. 18 on admission, BP 113/66 on admission Treatment: IV Cefepime, IV Ceftriaxone, IV Metronidazole and PO Ceftin Consults: In your professional opinion, can you please clarify if Sepsis was Ruled In or Ruled Out? Other Unable to determine Please document in your progress notes and discharge summary in order to capture severity of illness and risk of mortality. Include clinical findings that support your diagnosis. FYI: Press F11 to launch patient chart. If you have a question about this query, please contact Marisol Radford Hybrid Tester at [phone] between 8am and 5pm. DEBBIE
== END 2016-12-10 17:35 | DRG 391 ==
LOC: EC 16:23 → SUPCPDRO 16:23 → 6SEL 21:04 → 5MS5E 12-01 12:03 → 6SEL 12-04 02:17 → 5MS5E 12-05 10:00
PROVIDERS: ADMIT Family Medicine; ATTEND Family Medicine
DX: K57.32 Diverticulitis of large intestine without perforation or abscess without bleeding (principal); N17.0 Acute kidney failure with tubular necrosis; L89.302 Pressure ulcer of unspecified buttock, stage 2; K56.69 Other intestinal obstruction; E46 Unspecified protein-calorie malnutrition; I13.0 Hypertensive heart and chronic kidney disease with heart failure and stage 1 through stage 4 chronic kidney disease, or unspecified chronic kidney disease; E87.1 Hypo-osmolality and hyponatremia; N39.0 Urinary tract infection, site not specified; J98.11 Atelectasis; M80.08XA Age-related osteoporosis with current pathological fracture, vertebra(e), initial encounter for fracture; E11.22 Type 2 diabetes mellitus with diabetic chronic kidney disease; I49.5 Sick sinus syndrome; I50.9 Heart failure, unspecified; I27.2 Other secondary pulmonary hypertension; M32.9 Systemic lupus erythematosus, unspecified; N18.3 Chronic kidney disease, stage 3 (moderate); E86.0 Dehydration; E03.9 Hypothyroidism, unspecified; E78.5 Hyperlipidemia, unspecified; E86.1 Hypovolemia; E87.6 Hypokalemia; F41.9 Anxiety disorder, unspecified; G89.29 Other chronic pain; I25.10 Atherosclerotic heart disease of native coronary artery without angina pectoris; I25.5 Ischemic cardiomyopathy; I44.7 Left bundle-branch block, unspecified; J45.909 Unspecified asthma, uncomplicated; M15.9 Polyosteoarthritis, unspecified; M41.80 Other forms of scoliosis, site unspecified; M48.00 Spinal stenosis, site unspecified; M51.36 Other intervertebral disc degeneration, lumbar region; R09.82 Postnasal drip; K59.03 Drug induced constipation; T40.2X5A Adverse effect of other opioids, initial encounter; M41.9 Scoliosis, unspecified; E83.39 Other disorders of phosphorus metabolism; K44.9 Diaphragmatic hernia without obstruction or gangrene; R41.0 Disorientation, unspecified; Z79.52 Long term (current) use of systemic steroids; Z79.899 Other long term (current) drug therapy; Z87.891 Personal history of nicotine dependence; Z95.0 Presence of cardiac pacemaker; Z88.0 Allergy status to penicillin; Z88.1 Allergy status to other antibiotic agents; Z88.6 Allergy status to analgesic agent; Z88.5 Allergy status to narcotic agent; Z88.8 Allergy status to other drugs, medicaments and biological substances; Y92.009 Unspecified place in unspecified non-institutional (private) residence as the place of occurrence of the external cause
CPT/HCPCS: 36415; 71010; 71020; 71275; 74020; 74176; 76770; 80048; 80053; 81001; 83605; 83690; 83735; 84100; 84132; 84484; 85025; 87040; 87086; 93005; 94640; 94760; 96361; 96365; 96366; 96375; 99285

== ENCOUNTER → 2017-02-20 | Outpatient (CLI) | payer MEDICARE ==
--- NOTE | 2017-02-23 07:27 | NM ---
EXAMINATION TYPE: NM bone SPECT, NM bone scan whole body DATE OF EXAM: 02/20/2017 COMPARISON: CTA chest December 09, 2016. CT abdomen pelvis November 27, 2016. HISTORY: Wedge compression L5 vertebra, low back pain, disc degeneration lumbar region, spondylosis w ithout myelopathy, scoliosis, wedge compression fracture of T11-T12 vertebra, osteopenia, chronic com pression fractures L1, L2, and L4 vertebra, and pacemaker all per order. TECHNIQUE: After the intravenous administration of 25.4 mCi Tc 99m MDP. Delayed whole body images ar e obtained. SPECT views of the thoracic and lumbar spine are submitted. Exam is suboptimal due to marked kyphosis making difficulty localizing levels for counting purposes. There is increase uptake involving T9 and T10 vertebra diffusely as well as portions of T8 vertebra. Corresponding CT shows diffuse demineralization with moderate to advanced compression fracture at T9 vertebra. SPECT imaging shows involvement of the lateral aspects but some vertebral body involvement particularly at the T9 vertebra. There also some involvement involving the anterior lower thoracic left-sided rib there chondral junct ion, cannot exclude fracture at this level though I do not see definitive fracture on corresponding C T. No suspicious involvement in the lumbar spine is present suggest acute compression fractures. Moderat e to advanced compression fracture L1 level is seen on recent CT presumed old. Other more mild compre ssion fractures in the lumbar spine are noted without suspicious radiotracer uptake. IMPRESSION: As above, increased uptake lower thoracic levels most prominent suspected at T9 and T10 v ertebral body levels.
== END | disposition home or self-care (01) ==
LOC: RADNMMAIN 11:15
PROVIDERS: ATTEND Orthopaedic Surgery Orthopaedic Surgery of the Spine
DX: R93.7 Abnormal findings on diagnostic imaging of other parts of musculoskeletal system (principal)
CPT/HCPCS: 78306; 78320; A9503

== ENCOUNTER 2018-11-18 06:22 | Inpatient (IN) | payer MEDICARE ==
[2018-11-18] MEDS ORDERED: SODIUM CHLORIDE 0.9% 500 ML 500 ML IV STA (06:25)
--- NOTE | 2018-11-18 06:34 | ED ---
General Adult HPI - General Chief complaint: Back Pain/Injury Stated complaint: Nausea, abd pain/chest pain Time Seen by Provider: 11/18/18 06:24 - History of Present Illness Initial comments: Julianna is a pleasant 78-year-old female who presents to the emergency department today via EMS for evaluation of nausea, vomiting, back pain. Patient reports she's been experiencing nausea and vomiting throughout the week, she has been seen and evaluated outside hospital and told that she likely has an ulcer and hiatal hernia. Despite being given antiemetics patient continues to have nausea or vomiting. She reports she woke this morning had 3 episodes of nonbloody nonbilious emesis in which she reports vomiting up stomach acid. Patient reports that she feels like all the muscles in her back and sides are spasming from vomiting. She reports that she continued to feel nauseated when EMS arrived however she was given Zofran which seems to be helping somewhat. In route to the hospital EMS noted that the patient was seen to have heart rate varying between the 90s in dipping into the 50s to 60s at which time they obtained an EKG EKG had some questionable ST elevations in the patient was given 325 chewable aspirin. She denies any chest pain or shortness of breath diaphoresis or lightheadedness. - Related Data Home Medications Medication Instructions Recorded Confirmed Hydroxychloroquine Sulfate 200 mg PO BID 01/15/16 11/18/18 [Plaquenil] Montelukast [Singulair] 10 mg PO DAILY 01/16/16 11/18/18 Acyclovir 5% Oint [Zovirax Oint] 1 applic TOPICAL QID 11/18/18 11/18/18 Aspirin [Children's Aspirin] 81 mg PO DAILY 11/18/18 11/18/18 Atorvastatin [Lipitor] 20 mg PO DAILY 11/18/18 11/18/18 Cefuroxime [Ceftin] 250 mg PO BID 11/18/18 11/18/18 Clopidogrel [Plavix] 75 mg PO DAILY 11/18/18 11/18/18 Famotidine [Pepcid] 20 mg PO DAILY 11/18/18 11/18/18 Fluticasone Nasal [place] [Flonase 1 spray EA NOSTRIL DAILY PRN 11/18/18 11/18/18 Nasal [place]] Furosemide [Lasix] 20 mg PO BID 11/18/18 11/18/18 Levothyroxine Sodium [Synthroid] 125 mcg PO DAILY 11/18/18 11/18/18 Losartan Potassium [Cozaar] 37.5 mg PO DAILY 11/18/18 11/18/18 Metoprolol Succinate (ER) [Toprol 25 mg PO DAILY 11/18/18 11/18/18 Xl] Midodrine [ProAmatine] 5 mg PO TID 11/18/18 11/18/18 Omeprazole 40 mg PO DAILY 11/18/18 11/18/18 Potassium Chloride ER [K-Dur 10] 10 meq PO DAILY 11/18/18 11/18/18 predniSONE 30 mg PO DAILY 11/18/18 11/18/18 Allergies Allergy/AdvReac Type Severity Reaction Status Date / Time codeine Allergy Rash/Hives Verified 11/18/18 08:11 indomethacin [From Indocin] Allergy Unknown Verified 11/18/18 08:11 levofloxacin [From Levaquin] Allergy Unknown Verified 11/18/18 08:11 methylprednisolone Allergy Unknown Verified 11/18/18 08:11 [From Medrol] Penicillins Allergy Unknown Verified 11/18/18 08:11 Sulfa (Sulfonamide Allergy Rash/Hives Verified 11/18/18 08:11 Antibiotics) meloxicam [From Mobic] AdvReac stomache Verified 11/18/18 08:11 pain NSAIDS (Non-Steroidal AdvReac Abdominal Verified 11/18/18 08:11 Anti-Inflamma Pain oxaprozin [From Daypro] AdvReac Abdominal Verified 11/18/18 08:11 Pain prochlorperazine AdvReac Nausea & Verified 11/18/18 08:11 [From Compazine] Vomiting prochlorperazine edisylate AdvReac Nausea & Verified 11/18/18 08:11 [From Compazine] Vomiting and headache prochlorperazine maleate AdvReac Nausea & Verified 11/18/18 08:11 [From Compazine] Vomiting salsalate [From Disalcid] AdvReac Abdominal Verified 11/18/18 08:11 Pain vortioxetine hydrobromide AdvReac Abdominal Verified 11/18/18 08:11 [From Trintellix] Pain Review of Systems ROS Statement: Those systems with pertinent positive or pertinent negative responses have been documented in the HPI. ROS Other: All systems not noted in ROS Statement are negative. Past Medical History Past Medical History: Hypertension, Thyroid Disorder Additional Past Medical History / Comment(s): lupus History of Any Multi-Drug Resistant Organisms: None Reported Past Surgical History: Appendectomy, Cholecystectomy, Pacemaker Additional Past Surgical History / Comment(s): nasal surgery, cataract surgery Past Anesthesia/Blood Transfusion Reactions: No Reported Reaction Type of Cardiac Device: Permanent Pacemaker Device Placement Date:: 09/15/2016 Past Psychological History: No Psychological Hx Reported Smoking Status: Former smoker Past Alcohol Use History: None Reported Past Drug Use History: None Reported - Past Family History Son(s) Family Medical History: Cancer Additional Family Medical History / Comment(s): esophageal ca, at 25 y/o. General Exam - General Exam Comments Initial Comments: Physical Exam GENERAL: Ill-appearing, appears as though she is not feeling well HENT: Normocephalic, Atraumatic. Dry mucous membranes EYES: PERRL, EOMI PULMONARY: Unlabored respirations. No audible rales rhonchi or wheezing was noted. CARDIOVASCULAR: There is a regular rate and rhythm without any murmurs gallops or rubs. ABDOMEN: Soft with normal bowel sounds. SKIN: Pale : Deferred NEUROLOGIC: Patient is alert and oriented x3. Moving all extremities spontaneously MUSCULOSKELETAL: Normal extremities with adequate strength and full range of motion. No lower extremity swelling or edema. No calf tenderness. PSYCHIATRIC: Normal psychiatric evaluation Course Vital Signs 11/18/18 11/18/18 06:23 07:11 Temperature 101.0 F H 101.6 F H Pulse Rate 65 90 Respiratory 16 20 Rate Blood Pressure 134/75 91/63 O2 Sat by Pulse 93 L 96 Oximetry EKG Findings - EKG Comments: EKG Findings:: EKG was obtained upon arrival, EKG obtained at 6:20 AM, rate is 92 rhythm is ventricularly paced, NV 120, QRS is wide at 174, QTC is 556. No previous EKG available for evaluation. Medical Decision Making - Medical Decision Making Patient was seen and evaluated History obtained from patient and EMS Labs and imaging ordered CXR with stomach in chest cavity from large hiatal hernia - likely contributing to nausea and vomiting Labs with mild elevation of trop Will plan to admit patient for further evaluation and cardiology consult. - Lab Data Result diagrams: 11/21/18 06:16 11/21/18 06:16 Lab Results 11/18/18 11/18/18 11/18/18 Range/Units 06:25 06:25 06:25 WBC 9.4 (3.8-10.6) k/uL RBC 3.11 L (3.80-5.40) m/uL Hgb 9.4 L (11.4-16.0) gm/dL Hct 29.1 L (34.0-46.0) % MCV 93.5 (80.0-100.0) fL MCH 30.2 (25.0-35.0) pg MCHC 32.3 (31.0-37.0) g/dL RDW 12.9 (11.5-15.5) % Plt Count 285 (150-450) k/uL Neutrophils % 84 % Lymphocytes % 8 % Monocytes % 3 % Eosinophils % 3 % Basophils % 0 % Neutrophils # 7.9 H (1.3-7.7) k/uL Lymphocytes # 0.8 L (1.0-4.8) k/uL Monocytes # 0.3 (0-1.0) k/uL Eosinophils # 0.3 (0-0.7) k/uL Basophils # 0.0 (0-0.2) k/uL Hypochromasia PT (9.0-12.0) sec INR (<1.2) APTT (22.0-30.0) sec Sodium 136 L (137-145) mmol/L Potassium 4.7 (3.5-5.1) mmol/L Chloride 107 (98-107) mmol/L Carbon Dioxide 19 L (22-30) mmol/L Anion Gap 10 mmol/L BUN 18 H (7-17) mg/dL Creatinine 1.55 H (0.52-1.04) mg/dL Est GFR (CKD-EPI)AfAm 37 (>60 ml/min/1.73 sqM) Est GFR (CKD-EPI)NonAf 32 (>60 ml/min/1.73 sqM) Glucose 86 (74-99) mg/dL Plasma Lactic Acid Abdi (0.7-2.0) mmol/L Calcium 8.9 (8.4-10.2) mg/dL Magnesium 1.6 (1.6-2.3) mg/dL Total Bilirubin 0.5 (0.2-1.3) mg/dL AST 45 H (14-36) U/L ALT 30 (9-52) U/L Alkaline Phosphatase 46 (38-126) U/L Troponin I (0.000-0.034) ng/mL NT-Pro-B Natriuret Pep 4540 pg/mL Total Protein 5.8 L (6.3-8.2) g/dL Albumin 3.5 (3.5-5.0) g/dL Lipase 124 (23-300) U/L 11/18/18 11/18/18 11/18/18 Range/Units 06:25 06:25 06:25 WBC (3.8-10.6) k/uL RBC (3.80-5.40) m/uL Hgb (11.4-16.0) gm/dL Hct (34.0-46.0) % MCV (80.0-100.0) fL MCH (25.0-35.0) pg MCHC (31.0-37.0) g/dL RDW (11.5-15.5) % Plt Count (150-450) k/uL Neutrophils % % Lymphocytes % % Monocytes % % Eosinophils % % Basophils % % Neutrophils # (1.3-7.7) k/uL Lymphocytes # (1.0-4.8) k/uL Monocytes # (0-1.0) k/uL Eosinophils # (0-0.7) k/uL Basophils # (0-0.2) k/uL Hypochromasia PT 10.1 (9.0-12.0) sec INR 0.9 (<1.2) APTT 20.8 L (22.0-30.0) sec Sodium (137-145) mmol/L Potassium (3.5-5.1) mmol/L Chloride (98-107) mmol/L Carbon Dioxide (22-30) mmol/L Anion Gap mmol/L BUN (7-17) mg/dL Creatinine (0.52-1.04) mg/dL Est GFR (CKD-EPI)AfAm (>60 ml/min/1.73 sqM) Est GFR (CKD-EPI)NonAf (>60 ml/min/1.73 sqM) Glucose (74-99) mg/dL Plasma Lactic Acid Abdi 1.2 (0.7-2.0) mmol/L Calcium (8.4-10.2) mg/dL Magnesium (1.6-2.3) mg/dL Total Bilirubin (0.2-1.3) mg/dL AST (14-36) U/L ALT (9-52) U/L Alkaline Phosphatase (38-126) U/L Troponin I 0.095 H* (0.000-0.034) ng/mL NT-Pro-B Natriuret Pep pg/mL Total Protein (6.3-8.2) g/dL Albumin (3.5-5.0) g/dL Lipase (23-300) U/L 11/18/18 11/18/18 11/18/18 Range/Units 10:58 12:58 12:58 WBC 13.5 H (3.8-10.6) k/uL RBC 2.98 L (3.80-5.40) m/uL Hgb 9.2 L (11.4-16.0) gm/dL Hct 27.9 L (34.0-46.0) % MCV 93.6 (80.0-100.0) fL MCH 30.8 (25.0-35.0) pg MCHC 32.9 (31.0-37.0) g/dL RDW 13.7 (11.5-15.5) % Plt Count 249 (150-450) k/uL Neutrophils % 86 % Lymphocytes % 6 % Monocytes % 5 % Eosinophils % 1 % Basophils % 0 % Neutrophils # 11.6 H (1.3-7.7) k/uL Lymphocytes # 0.9 L (1.0-4.8) k/uL Monocytes # 0.6 (0-1.0) k/uL Eosinophils # 0.2 (0-0.7) k/uL Basophils # 0.0 (0-0.2) k/uL Hypochromasia PT (9.0-12.0) sec INR (<1.2) APTT (22.0-30.0) sec Sodium 137 (137-145) mmol/L Potassium 5.1 (3.5-5.1) mmol/L Chloride 110 H (98-107) mmol/L Carbon Dioxide 17 L (22-30) mmol/L Anion Gap 10 mmol/L BUN 21 H (7-17) mg/dL Creatinine 1.85 H (0.52-1.04) mg/dL Est GFR (CKD-EPI)AfAm 30 (>60 ml/min/1.73 sqM) Est GFR (CKD-EPI)NonAf 26 (>60 ml/min/1.73 sqM) Glucose 55 L (74-99) mg/dL Plasma Lactic Acid Abdi (0.7-2.0) mmol/L Calcium 8.2 L (8.4-10.2) mg/dL Magnesium (1.6-2.3) mg/dL Total Bilirubin (0.2-1.3) mg/dL AST (14-36) U/L ALT (9-52) U/L Alkaline Phosphatase (38-126) U/L Troponin I 0.132 H* (0.000-0.034) ng/mL NT-Pro-B Natriuret Pep pg/mL Total Protein (6.3-8.2) g/dL Albumin (3.5-5.0) g/dL Lipase (23-300) U/L 11/18/18 11/18/18 11/18/18 Range/Units 12:58 12:58 12:58 WBC (3.8-10.6) k/uL RBC (3.80-5.40) m/uL Hgb (11.4-16.0) gm/dL Hct (34.0-46.0) % MCV (80.0-100.0) fL MCH (25.0-35.0) pg MCHC (31.0-37.0) g/dL RDW (11.5-15.5) % Plt Count (150-450) k/uL Neutrophils % % Lymphocytes % % Monocytes % % Eosinophils % % Basophils % % Neutrophils # (1.3-7.7) k/uL Lymphocytes # (1.0-4.8) k/uL Monocytes # (0-1.0) k/uL Eosinophils # (0-0.7) k/uL Basophils # (0-0.2) k/uL Hypochromasia PT (9.0-12.0) sec INR (<1.2) APTT (22.0-30.0) sec Sodium (137-145) mmol/L Potassium (3.5-5.1) mmol/L Chloride (98-107) mmol/L Carbon Dioxide (22-30) mmol/L Anion Gap mmol/L BUN (7-17) mg/dL Creatinine (0.52-1.04) mg/dL Est GFR (CKD-EPI)AfAm (>60 ml/min/1.73 sqM) Est GFR (CKD-EPI)NonAf (>60 ml/min/1.73 sqM) Glucose (74-99) mg/dL Plasma Lactic Acid Abdi 0.8 (0.7-2.0) mmol/L Calcium (8.4-10.2) mg/dL Magnesium (1.6-2.3) mg/dL Total Bilirubin (0.2-1.3) mg/dL AST (14-36) U/L ALT (9-52) U/L Alkaline Phosphatase (38-126) U/L Troponin I 0.117 H* (0.000-0.034) ng/mL NT-Pro-B Natriuret Pep 7180 pg/mL Total Protein (6.3-8.2) g/dL Albumin (3.5-5.0) g/dL Lipase (23-300) U/L 11/18/18 11/19/18 11/19/18 Range/Units 18:12 06:52 06:52 WBC 11.3 H (3.8-10.6) k/uL RBC 2.94 L (3.80-5.40) m/uL Hgb 9.0 L (11.4-16.0) gm/dL Hct 28.1 L (34.0-46.0) % MCV 95.8 (80.0-100.0) fL MCH 30.6 (25.0-35.0) pg MCHC 31.9 (31.0-37.0) g/dL RDW 13.9 (11.5-15.5) % Plt Count 270 (150-450) k/uL Neutrophils % 84 % Lymphocytes % 8 % Monocytes % 5 % Eosinophils % 1 % Basophils % 0 % Neutrophils # 9.5 H (1.3-7.7) k/uL Lymphocytes # 1.0 (1.0-4.8) k/uL Monocytes # 0.5 (0-1.0) k/uL Eosinophils # 0.1 (0-0.7) k/uL Basophils # 0.0 (0-0.2) k/uL Hypochromasia Slight PT (9.0-12.0) sec INR (<1.2) APTT (22.0-30.0) sec Sodium 137 (137-145) mmol/L Potassium 5.1 (3.5-5.1) mmol/L Chloride 109 H (98-107) mmol/L Carbon Dioxide 14 L (22-30) mmol/L Anion Gap 14 mmol/L BUN 25 H (7-17) mg/dL Creatinine 1.91 H (0.52-1.04) mg/dL Est GFR (CKD-EPI)AfAm 29 (>60 ml/min/1.73 sqM) Est GFR (CKD-EPI)NonAf 25 (>60 ml/min/1.73 sqM) Glucose 46 L* (74-99) mg/dL Plasma Lactic Acid Abdi (0.7-2.0) mmol/L Calcium 8.0 L (8.4-10.2) mg/dL Magnesium (1.6-2.3) mg/dL Total Bilirubin (0.2-1.3) mg/dL AST (14-36) U/L ALT (9-52) U/L Alkaline Phosphatase (38-126) U/L Troponin I 0.098 H* (0.000-0.034) ng/mL NT-Pro-B Natriuret Pep pg/mL Total Protein (6.3-8.2) g/dL Albumin (3.5-5.0) g/dL Lipase (23-300) U/L 11/19/18 11/20/18 11/20/18 Range/Units 23:27 06:36 06:36 WBC 10.7 H (3.8-10.6) k/uL RBC 2.76 L (3.80-5.40) m/uL Hgb 8.4 L (11.4-16.0) gm/dL Hct 26.2 L (34.0-46.0) % MCV 94.9 (80.0-100.0) fL MCH 30.3 (25.0-35.0) pg MCHC 31.9 (31.0-37.0) g/dL RDW 13.6 (11.5-15.5) % Plt Count 289 (150-450) k/uL Neutrophils % 84 % Lymphocytes % 8 % Monocytes % 6 % Eosinophils % 0 % Basophils % 0 % Neutrophils # 9.0 H (1.3-7.7) k/uL Lymphocytes # 0.8 L (1.0-4.8) k/uL Monocytes # 0.6 (0-1.0) k/uL Eosinophils # 0.1 (0-0.7) k/uL Basophils # 0.0 (0-0.2) k/uL Hypochromasia Slight PT (9.0-12.0) sec INR (<1.2) APTT (22.0-30.0) sec Sodium 138 (137-145) mmol/L Potassium 5.0 (3.5-5.1) mmol/L Chloride 111 H (98-107) mmol/L Carbon Dioxide 17 L (22-30) mmol/L Anion Gap 10 mmol/L BUN 32 H (7-17) mg/dL Creatinine 1.80 H (0.52-1.04) mg/dL Est GFR (CKD-EPI)AfAm 31 (>60 ml/min/1.73 sqM) Est GFR (CKD-EPI)NonAf 27 (>60 ml/min/1.73 sqM) Glucose 83 (74-99) mg/dL Plasma Lactic Acid Abdi (0.7-2.0) mmol/L Calcium 8.1 L (8.4-10.2) mg/dL Magnesium (1.6-2.3) mg/dL Total Bilirubin (0.2-1.3) mg/dL AST (14-36) U/L ALT (9-52) U/L Alkaline Phosphatase (38-126) U/L Troponin I 0.063 H* (0.000-0.034) ng/mL NT-Pro-B Natriuret Pep pg/mL Total Protein (6.3-8.2) g/dL Albumin (3.5-5.0) g/dL Lipase (23-300) U/L Disposition Clinical Impression: Nausea and vomiting, Elevated troponin, Hiatal hernia Disposition: ADMITTED IP TO THIS HOSP Condition: Stable
[2018-11-18 06:42] LABS: Basophils % (A) 0 %; Eosinophils # (A) 0.3 k/uL (0-0.7); Eosinophils % (A) 3 %; HCT 29.1 % (34.0-46.0); HGB 9.4 gm/dL (11.4-16.0); Lymphocytes # (A) 0.8 k/uL (1.0-4.8); Lymphocytes % (A) 8 %; MCH 30.2 pg (25.0-35.0); MCHC 32.3 g/dL (31.0-37.0); MCV 93.5 fL (80.0-100.0); Mean Platelet Volume 6.8; Monocytes # (A) 0.3 k/uL (0-1.0); Monocytes % (A) 3 %; Neutrophils # (A) 7.9 k/uL (1.3-7.7); Neutrophils % (A) 84 %; Platelet Count 285 k/uL (150-450); RBC 3.11 m/uL (3.80-5.40); RDW 12.9 % (11.5-15.5); WBC 9.4 k/uL (3.8-10.6)
[2018-11-18 06:49] LABS: Albumin 3.5 g/dL (3.5-5.0); Calcium 8.9 mg/dL (8.4-10.2); Magnesium 1.6 mg/dL (1.6-2.3); Potassium 4.7 mmol/L (3.5-5.1); Total Bilirubin 0.5 mg/dL (0.2-1.3); Total Protein 5.8 g/dL (6.3-8.2)
[2018-11-18 06:59] LABS: INR 0.9 (<1.2); Prothrombin Time 10.1 sec (9.0-12.0)
--- NOTE | 2018-11-18 07:08 | XR ---
EXAM: XR Chest, 2 Views CLINICAL HISTORY: ITS.REASON XR Reason: Chest Pain TECHNIQUE: Frontal and lateral views of the chest. COMPARISON: 12/07/17 FINDINGS: There is summation limiting evaluation. Patient has arms down on lateral view. Cardiomegaly. Pacer. Suggestion of hiatal hernia with air-fluid level. Pleural effusions with suspected adjacent atelectasis. Correlate for evidence of basilar pneumonia/aspirate. More diffuse haziness of the interstitium. May represent findings of edema. Multiple compression deformities of spine, as on prior. IMPRESSION: Cardiomegaly and pacer. Pleural effusions with adjacent atelectasis along with possible interstitial edema. Correlate for any evidence of pneumonia/aspiration at lung bases. Hiatal hernia with air-fluid level.
[2018-11-18] MEDS ORDERED: NALOXONE 0.4 MG/ML 1 ML VIAL IV PRN (07:16)
[2018-11-18] MEDS ORDERED: ONDANSETRON 4 MG/2 ML VIAL IVP PRN (07:16)
[2018-11-18] MEDS ORDERED: PANTOPRAZOLE 40 MG/10 ML VIAL IVP STA (07:22)
[2018-11-18] MEDS ORDERED: METOCLOPRAMIDE 5 MG/ML 2 ML VIAL IVP STA (07:22)
[2018-11-18] MEDS ORDERED: diphenhydrAMINE 50 MG/ML 1 ML VIAL IVP STA (07:22)
[2018-11-18] MEDS: SODIUM CHLORIDE 0.9% 1,000 ML IV SCH ×2 (07:27→20:20)
[2018-11-18] MEDS: ACETAMINOPHEN TAB 325 MG TAB PO PRN (07:38)
[2018-11-18 07:55] LABS: Partial Thromboplastin Time 20.8 sec (22.0-30.0)
--- NOTE | 2018-11-18 12:02 | P.CRDCN ---
History of Present Illness Consult date: 11/18/18 Requesting physician: Da Armstrong Reason for Consult (text): Abnormal troponin Chief complaint: Nausea and vomiting History of present illness: This is a pleasant 78-year-old female who follows with Dr. Araiza in the office, she used to see Dr. Santoyo in the past. 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 She also had an echocardiogram with Doppler study performed in September 2016 which revealed an ejecti on fraction of 45-50%. She was admitted to the hospital on this occasion because of symptoms of nausea and vomiting. She also states that she was having some sharp pains in her chest especially after retching several times with her vomiting. Chest x-ray on presentation here showed cardiomegaly and prior pacemaker implantation, pleural effusions with adjacent atelectasis along with possible interstitial edema. EKG showed a sensed V paced rhythm. White blood cell count 9.4, hemoglobin 9.4, platelet count 285. Sodium 136, potassium 4.7, BUN 18 and creatinine 1.5. Magnesium 1.6. Troponin 0.095, BNP level 4550. Blood pressure this morning 91/60 with a heart rate in the 90s, Past Medical History Past Medical History: Coronary Artery Disease (CAD), Heart Failure, Hearing Disorder / Deafness, Hypertension, Myocardial Infarction ([place]), Renal Disease, Thyroid Disorder Additional Past Medical History / Comment(s): lupus Last Myocardial Infarction Date:: 11/05/2018 History of Any Multi-Drug Resistant Organisms: None Reported Past Surgical History: Appendectomy, Cholecystectomy, Pacemaker Additional Past Surgical History / Comment(s): nasal surgery, cataract surgery Past Anesthesia/Blood Transfusion Reactions: No Reported Reaction Type of Cardiac Device: Permanent Pacemaker Device Placement Date:: 09/15/2016 Past Psychological History: No Psychological Hx Reported Smoking Status: Former smoker Past Alcohol Use History: None Reported Past Drug Use History: None Reported - Past Family History Son(s) Family Medical History: Cancer Additional Family Medical History / Comment(s): esophageal ca, at 25 y/o. Medications and Allergies Home Medications Medication Instructions Recorded Confirmed Type Hydroxychloroquine Sulfate 200 mg PO BID 01/15/16 11/18/18 History [Plaquenil] Montelukast [Singulair] 10 mg PO DAILY 01/16/16 11/18/18 History Acyclovir 5% Oint [Zovirax Oint] 1 applic TOPICAL QID 11/18/18 11/18/18 History Aspirin [Children's Aspirin] 81 mg PO DAILY 11/18/18 11/18/18 History Atorvastatin [Lipitor] 20 mg PO DAILY 11/18/18 11/18/18 History Cefuroxime [Ceftin] 250 mg PO BID 11/18/18 11/18/18 History Clopidogrel [Plavix] 75 mg PO DAILY 11/18/18 11/18/18 History Famotidine [Pepcid] 20 mg PO DAILY 11/18/18 11/18/18 History Fluticasone Nasal [place] [Flonase 1 spray EA NOSTRIL DAILY PRN 11/18/18 11/18/18 History Nasal [place]] Furosemide [Lasix] 20 mg PO BID 11/18/18 11/18/18 History Levothyroxine Sodium [Synthroid] 125 mcg PO DAILY 11/18/18 11/18/18 History Losartan Potassium [Cozaar] 37.5 mg PO DAILY 11/18/18 11/18/18 History Metoprolol Succinate (ER) [Toprol 25 mg PO DAILY 11/18/18 11/18/18 History Xl] Midodrine [ProAmatine] 5 mg PO TID 11/18/18 11/18/18 History Omeprazole 40 mg PO DAILY 11/18/18 11/18/18 History Potassium Chloride ER [K-Dur 10] 10 meq PO DAILY 11/18/18 11/18/18 History predniSONE 30 mg PO DAILY 11/18/18 11/18/18 History Allergies Allergy/AdvReac Type Severity Reaction Status Date / Time codeine Allergy Rash/Hives Verified 11/18/18 08:11 indomethacin [From Indocin] Allergy Unknown Verified 11/18/18 08:11 levofloxacin [From Levaquin] Allergy Unknown Verified 11/18/18 08:11 methylprednisolone Allergy Unknown Verified 11/18/18 08:11 [From Medrol] Penicillins Allergy Unknown Verified 11/18/18 08:11 Sulfa (Sulfonamide Allergy Rash/Hives Verified 11/18/18 08:11 Antibiotics) meloxicam [From Mobic] AdvReac stomache Verified 11/18/18 08:11 pain NSAIDS (Non-Steroidal AdvReac Abdominal Verified 11/18/18 08:11 Anti-Inflamma Pain oxaprozin [From Daypro] AdvReac Abdominal Verified 11/18/18 08:11 Pain prochlorperazine AdvReac Nausea & Verified 11/18/18 08:11 [From Compazine] Vomiting prochlorperazine edisylate AdvReac Nausea & Verified 11/18/18 08:11 [From Compazine] Vomiting and headache prochlorperazine maleate AdvReac Nausea & Verified 11/18/18 08:11 [From Compazine] Vomiting salsalate [From Disalcid] AdvReac Abdominal Verified 11/18/18 08:11 Pain vortioxetine hydrobromide AdvReac Abdominal Verified 11/18/18 08:11 [From Trintellix] Pain Physical Exam Vitals: Vital Signs Temp Pulse Resp BP Pulse Ox 11/18/18 07:11 101.6 F H 90 20 91/63 96 11/18/18 06:23 101.0 F H 65 16 134/75 93 L Intake and Output 11/17/18 11/18/18 11/18/18 22:59 06:59 14:59 Other: Weight 56.699 kg PHYSICAL EXAMINATION: HEENT: Head is atraumatic, normocephalic. Pupils equal, round. Neck is supple. There is no elevated jugular venous pressure. HEART EXAMINATION: Heart S1, S2 normal. No murmur or gallop heard. CHEST EXAMINATION: Lungs are clear to auscultation and precussion. No chest wall tenderness is noted on palpation or with deep breathing. ABDOMEN: Soft, mild generalized tenderness . Bowel sounds are heard. No organomegaly noted. EXTREMITIES: 2+ peripheral pulses with no evidence of peripheral edema and no calf tenderness noted. NEUROLOGIC patient is awake, alert and oriented -3. Results 11/18/18 06:25 11/18/18 06:25 Cardiac Enzymes 11/18/18 11/18/18 Range/Units 06:25 06:25 AST 45 H (14-36) U/L Troponin I 0.095 H* (0.000-0.034) ng/mL Coagulation 11/18/18 Range/Units 06:25 PT 10.1 (9.0-12.0) sec APTT 20.8 L (22.0-30.0) sec CBC 11/18/18 Range/Units 06:25 WBC 9.4 (3.8-10.6) k/uL RBC 3.11 L (3.80-5.40) m/uL Hgb 9.4 L (11.4-16.0) gm/dL Hct 29.1 L (34.0-46.0) % Plt Count 285 (150-450) k/uL Comprehensive Metabolic Panel 11/18/18 Range/Units 06:25 Sodium 136 L (137-145) mmol/L Potassium 4.7 (3.5-5.1) mmol/L Chloride 107 (98-107) mmol/L Carbon Dioxide 19 L (22-30) mmol/L BUN 18 H (7-17) mg/dL Creatinine 1.55 H (0.52-1.04) mg/dL Glucose 86 (74-99) mg/dL Calcium 8.9 (8.4-10.2) mg/dL AST 45 H (14-36) U/L ALT 30 (9-52) U/L Alkaline Phosphatase 46 (38-126) U/L Total Protein 5.8 L (6.3-8.2) g/dL Albumin 3.5 (3.5-5.0) g/dL Current Medications Generic Name Dose Route Start Last Admin Trade Name Freq PRN Reason Stop Dose Admin Acetaminophen 650 mg 11/18/18 07:16 11/18/18 07:38 Tylenol Tab PO 650 mg Q6HR PRN Administration Mild Pain or Fever > 100.5 Sodium Chloride 1,000 mls @ 100 mls/hr 11/18/18 07:30 11/18/18 07:27 Saline 0.9% IV 100 mls/hr .Q10H RENAN Administration Naloxone HCl 0.2 mg 11/18/18 07:16 Narcan IV Q2M PRN Opioid Reversal Ondansetron HCl 4 mg 11/18/18 07:16 Zofran IVP Q8HR PRN Nausea And Vomiting Intake and Output 11/17/18 11/18/18 11/18/18 22:59 06:59 14:59 Other: Weight 56.699 kg 11/18/18 06:25 11/18/18 06:25 EKG Interpretations (text) EKG shows atrial sensed V paced rhythm Assessment and Plan Plan: Assessment and plan #1 symptoms of persistent nausea and vomiting in a patient with known hiatal hernia. #2 mild abnormality in troponin, and is noted in the past to have persistent abnormality in the troponins, she did undergo cardiac catheterization in 2017 because of the abnormality in troponin, I did not reveal any significant obstructive coronary artery disease. #3 anemia #4 acute on chronic kidney disease #5 hypertension, hypotensive this admission #6 hypomagnesemia, likely secondary to vomiting #7 prior pacemaker implantation for high degree AV block #8 diabetes #9 hyperlipidemia Plan We will obtain a repeat echocardiogram with Doppler study. We will also request 2 subsequent troponins. Continue Lipitor, beta daren and losartan currently on hold because of hypotension. DNP note has been reviewed, I agree with a documented findings and plan of care. Patient was seen and examined.
[2018-11-18] MEDS ORDERED: SODIUM CHLORIDE 0.9% 500 ML 500 ML IV ONE (12:20)
--- NOTE | 2018-11-18 12:35 | P.HPIM ---
History of Present Illness this is a pleasant 78 yo F with pmh of coronary artery disease , congestive heart failure , hearing difficutly , hypertension, hypothyroidism, lupus, patient has been resected discharge from [facility] days ago for Klebsiella UTI and descending colitis, she was discharged on 7 more days of Ceftin. Patient is fully awake and she couldn't provide history. Patient has been complaining of from nausea vomiting for the last 2 days, she vomited about 3 times with no blood in it, mostly bile., associated with generalized weakness. Also she complaining of from pleuritic-like central chest pain, non-radiating, increased by coughing and deep inspiration. Patient was not eating well for a couple days. However she denies abdominal pain and her abdominal exam looks benign. On admission patient has fever of 101.6, blood pressure 134/75 and currently 81/42. Labs shows no leukocytosis, creatinine 1.5, on discharge was 1.92 days ago. Patient has elevated troponin of 0.09, sodium 136, hemoglobin 9.4. EKG showing paced rhythm at 92 with QTC 556, chest x-ray is suspicious for aspiration pneumonia, hiatal hernia with air-fluid level. On admission patient got normal saline about 1 L started on 100 mL/h, Protonix, no antibiotics has been started. Past Medical History Past Medical History: Coronary Artery Disease (CAD), Heart Failure, Hearing Disorder / Deafness, Hypertension, Myocardial Infarction ([place]), Renal Disease, Thyroid Disorder Additional Past Medical History / Comment(s): lupus Last Myocardial Infarction Date:: 11/05/2018 History of Any Multi-Drug Resistant Organisms: None Reported Past Surgical History: Appendectomy, Cholecystectomy, Pacemaker Additional Past Surgical History / Comment(s): nasal surgery, cataract surgery Past Anesthesia/Blood Transfusion Reactions: No Reported Reaction Type of Cardiac Device: Permanent Pacemaker Device Placement Date:: 09/15/2016 Past Psychological History: No Psychological Hx Reported Smoking Status: Former smoker Past Alcohol Use History: None Reported Past Drug Use History: None Reported - Past Family History Son(s) Family Medical History: Cancer Additional Family Medical History / Comment(s): esophageal ca, at 25 y/o. Medications and Allergies Home Medications Medication Instructions Recorded Confirmed Type Hydroxychloroquine Sulfate 200 mg PO BID 01/15/16 11/18/18 History [Plaquenil] Montelukast [Singulair] 10 mg PO DAILY 01/16/16 11/18/18 History Acyclovir 5% Oint [Zovirax Oint] 1 applic TOPICAL QID 11/18/18 11/18/18 History Aspirin [Children's Aspirin] 81 mg PO DAILY 11/18/18 11/18/18 History Atorvastatin [Lipitor] 20 mg PO DAILY 11/18/18 11/18/18 History Cefuroxime [Ceftin] 250 mg PO BID 11/18/18 11/18/18 History Clopidogrel [Plavix] 75 mg PO DAILY 11/18/18 11/18/18 History Famotidine [Pepcid] 20 mg PO DAILY 11/18/18 11/18/18 History Fluticasone Nasal [place] [Flonase 1 spray EA NOSTRIL DAILY PRN 11/18/18 11/18/18 History Nasal [place]] Furosemide [Lasix] 20 mg PO BID 11/18/18 11/18/18 History Levothyroxine Sodium [Synthroid] 125 mcg PO DAILY 11/18/18 11/18/18 History Losartan Potassium [Cozaar] 37.5 mg PO DAILY 11/18/18 11/18/18 History Metoprolol Succinate (ER) [Toprol 25 mg PO DAILY 11/18/18 11/18/18 History Xl] Midodrine [ProAmatine] 5 mg PO TID 11/18/18 11/18/18 History Omeprazole 40 mg PO DAILY 11/18/18 11/18/18 History Potassium Chloride ER [K-Dur 10] 10 meq PO DAILY 11/18/18 11/18/18 History predniSONE 30 mg PO DAILY 11/18/18 11/18/18 History Allergies Allergy/AdvReac Type Severity Reaction Status Date / Time codeine Allergy Rash/Hives Verified 11/18/18 08:11 indomethacin [From Indocin] Allergy Unknown Verified 11/18/18 08:11 levofloxacin [From Levaquin] Allergy Unknown Verified 11/18/18 08:11 methylprednisolone Allergy Unknown Verified 11/18/18 08:11 [From Medrol] Penicillins Allergy Unknown Verified 11/18/18 08:11 Sulfa (Sulfonamide Allergy Rash/Hives Verified 11/18/18 08:11 Antibiotics) meloxicam [From Mobic] AdvReac stomache Verified 11/18/18 08:11 pain NSAIDS (Non-Steroidal AdvReac Abdominal Verified 11/18/18 08:11 Anti-Inflamma Pain oxaprozin [From Daypro] AdvReac Abdominal Verified 11/18/18 08:11 Pain prochlorperazine AdvReac Nausea & Verified 11/18/18 08:11 [From Compazine] Vomiting prochlorperazine edisylate AdvReac Nausea & Verified 11/18/18 08:11 [From Compazine] Vomiting and headache prochlorperazine maleate AdvReac Nausea & Verified 11/18/18 08:11 [From Compazine] Vomiting salsalate [From Disalcid] AdvReac Abdominal Verified 11/18/18 08:11 Pain vortioxetine hydrobromide AdvReac Abdominal Verified 11/18/18 08:11 [From Trintellix] Pain Physical Exam Vitals: Vital Signs Temp Pulse Pulse Pulse Resp BP BP 11/18/18 08:00 98.0 F 98 98 16 81/42 11/18/18 07:11 101.6 F H 90 20 91/63 11/18/18 06:23 101.0 F H 65 16 134/75 Pulse Ox 11/18/18 08:00 95 11/18/18 07:11 96 11/18/18 06:23 93 L Intake and Output 11/17/18 11/18/18 11/18/18 22:59 06:59 14:59 Other: Weight 56.699 kg GENERAL: The patient is alert and oriented x3, not in any acute distress. Well developed, well nourished. HEENT: Pupils are round and equally reacting to light. EOMI. No scleral icterus. No conjunctival pallor. Normocephalic, atraumatic. No pharyngeal erythema. No thyromegaly. CARDIOVASCULAR: S1 and S2 present. No murmurs, rubs, or gallops. -PULMONARY: Decreased air entry with harsh breath sounds on both sides, no wheezing or crackles. ABDOMEN: Soft, nontender, nondistended, normoactive bowel sounds. No palpable organomegaly. MUSCULOSKELETAL: No joint swelling or deformity. EXTREMITIES: No cyanosis, clubbing, or pedal edema. NEUROLOGICAL: Gross neurological examination did not reveal any focal deficits. SKIN: No rashes. Results CBC & Chem 7: 11/18/18 06:25 11/18/18 06:25 Labs: Abnormal Lab Results - Last 24 Hours (Table) 11/18/18 11/18/18 11/18/18 Range/Units 06:25 06:25 06:25 RBC 3.11 L (3.80-5.40) m/uL Hgb 9.4 L (11.4-16.0) gm/dL Hct 29.1 L (34.0-46.0) % Neutrophils # 7.9 H (1.3-7.7) k/uL Lymphocytes # 0.8 L (1.0-4.8) k/uL APTT 20.8 L (22.0-30.0) sec Sodium 136 L (137-145) mmol/L Carbon Dioxide 19 L (22-30) mmol/L BUN 18 H (7-17) mg/dL Creatinine 1.55 H (0.52-1.04) mg/dL AST 45 H (14-36) U/L Troponin I (0.000-0.034) ng/mL Total Protein 5.8 L (6.3-8.2) g/dL 11/18/18 Range/Units 06:25 RBC (3.80-5.40) m/uL Hgb (11.4-16.0) gm/dL Hct (34.0-46.0) % Neutrophils # (1.3-7.7) k/uL Lymphocytes # (1.0-4.8) k/uL APTT (22.0-30.0) sec Sodium (137-145) mmol/L Carbon Dioxide (22-30) mmol/L BUN (7-17) mg/dL Creatinine (0.52-1.04) mg/dL AST (14-36) U/L Troponin I 0.095 H* (0.000-0.034) ng/mL Total Protein (6.3-8.2) g/dL Thrombosis Risk Factor Assmnt - Choose All That Apply Each Factor Represents 1 point: Heart failure (<1month) Each Risk Factor Represents 3 Points: Age 75 years or older Thrombosis Risk Factor Assessment Total Risk Factor Score: 4 Thrombosis Risk Factor Assessment Level: Moderate Risk Assessment and Plan Assessment: Severe sepsis, secondary to Possible aspiration pneumonia History hiatal hernia with air-fluid level Elevated troponin, rule out acute coronary syndrome Hypertension Recent urinary tract infection Recent descending colitis Chronic kidney disease History of GERD History of hypertension on medication History of hypertension on medodrine Diabetes mellitus Systemic lupus erythematosus on steroids Hypothyroidism Plan: This is a pleasant 78 years old female who presents with aspiration pneumonia and sepsis. Patient is ALLERGIC to penicillin. We will start her on clindamycin and ask for infectious disease consult and pulmonary consult. Director [employer] evaluation. Send blood culture, sputum culture and urine culture. Also defer 500 L of normal saline bolus, as her oxygen saturation on 96% on room air Labs and medication were reviewed. But nothing by mouth and swallow evaluation. Continue same treatment. Continue with symptomatic treatment. Resume home medication. Monitor lytes and vitals. DVT and GI prophylaxis. Further recom mendations of the clinical course of the patient DVT prophylaxis: Subcutaneous heparin GI Prophylaxis: Pepcid PT/OT: hold for now Prognosis is guarded Discussed with the family, including the son at bedside
[2018-11-18] MEDS ORDERED: FAMOTIDINE 20 MG/2 ML VIAL IV SCH (12:45)
[2018-11-18] MEDS ORDERED: MORPHINE SULFATE 2 MG/ML SYRINGE IVP STA (13:01)
[2018-11-18 13:18] LABS: Basophils % (A) 0 %; Eosinophils # (A) 0.2 k/uL (0-0.7); Eosinophils % (A) 1 %; HCT 27.9 % (34.0-46.0); HGB 9.2 gm/dL (11.4-16.0); Lymphocytes # (A) 0.9 k/uL (1.0-4.8); Lymphocytes % (A) 6 %; MCH 30.8 pg (25.0-35.0); MCHC 32.9 g/dL (31.0-37.0); MCV 93.6 fL (80.0-100.0); Mean Platelet Volume 7.3; Monocytes # (A) 0.6 k/uL (0-1.0); Monocytes % (A) 5 %; Neutrophils # (A) 11.6 k/uL (1.3-7.7); Neutrophils % (A) 86 %; Platelet Count 249 k/uL (150-450); RBC 2.98 m/uL (3.80-5.40); RDW 13.7 % (11.5-15.5); WBC 13.5 k/uL (3.8-10.6)
[2018-11-18] MEDS: CLINDAMYCIN 300 MG in DEXTROSE 5% IN WATER 50 ML IVPB SCH ×6 (13:22→23:30)
[2018-11-18] MEDS: CLOPIDOGREL 75 MG TAB PO SCH (13:22)
[2018-11-18] MEDS: ASPIRIN 81 MG PO SCH (13:22)
[2018-11-18] MEDS: MIDODRINE 5 MG TAB PO SCH ×2 (13:22→17:11)
[2018-11-18 13:25] LABS: Calcium 8.2 mg/dL (8.4-10.2); Potassium 5.1 mmol/L (3.5-5.1)
--- NOTE | 2018-11-18 21:47 | CONS ---
CONSULTATION DATE OF CONSULTATION: 11/18/2018. REASON FOR CONSULTATION: Possible aspiration pneumonia. HISTORY OF PRESENT ILLNESS: A 78-year-old female brought into the emergency department with complaints of nausea, vomiting, and back pain. She was actually brought in by EMS. She was evaluated there by Dr. Gore. She had been experiencing nausea and vomiting for about a week or so prior to admission. She was apparently recently told she had also had an ulcer and hiatal hernia. She has a very large hiatal hernia on chest x-ray. Anyway, the patient was given antiemetics but continued to have nausea and vomiting and apparently the morning of admission had 3 episodes of nonbloody, nonbilious emesis. She feels like she aspirated. EMS took her into the emergency room where she was evaluated. In addition, she was noted to have a varying heart rate and for that reason, she was given chewable aspirin and EKG was done. Currently doing relatively well. She is resting comfortably in bed. She apparently received some morphine. No respiratory distress. She denies any cough or phlegm production. No wheezing or fever or chills. Not coughing up any phlegm. There was some concern about possible aspiration pneumonia. If she did aspirate, it appears the it may be a gastric acid aspiration and the volume would have been relatively smaller. Again, she looks quite stable. HOME MEDICATIONS: Include Plaquenil, calcium carbonate, vitamin D3, Singulair, lidocaine patch, vitamin B12, Motrin, levothyroxine, miconazole powder, Movantik, Zofran Dulcolax, Colace, Tylenol, Ventolin Lasix, Dilaudid, Cephulac, Lopressor, Protonix, K-Dur and prednisone. ALLERGIES: INCLUDE CODEINE, INDOMETHACIN, LEVAQUIN LEVAQUIN MEDROL DOSEPAK AND PENICILLIN. OTHER ALLERGIES INCLUDE SULFA ANTIBIOTICS, MOBIC, NONSTEROID ANTI-INFLAMMATORY DRUGS, DAYPRO, COMPAZINE, DISALCID AND TRINTELLIX. MEDICAL HISTORY: Positive for systemic lupus erythematosus, hypothyroidism, and hypertension. She also has a history of chronic pain syndrome and DJD. Other medical problems include constipation and acid reflux disease. SURGICAL HISTORY: Includes appendectomy, cholecystectomy, pacemaker surgery, nasal surgery, cataract surgery. SOCIAL HISTORY: Positive for previous remote tobacco use. Denies any significant tobacco use and only smoked many years back. Only smoked for a few years. Denies any alcohol or illicit drug use. FAMILY HISTORY: Positive for esophageal cancer in her son. He at a very young age apparently. The rest of the family history is not known by this patient. REVIEW OF SYSTEMS: CONSTITUTIONAL: Negative. NEUROLOGIC: Negative. HEENT negative. CARDIOVASCULAR: Negative. PULMONARY: Negative. GI: Nausea and vomiting and back pain. : Negative. RHEUMATOLOGIC: Negative. IMMUNOLOGIC negative. HEMATOLOGIC negative. DERMATOLOGIC negative. PHYSICAL EXAMINATION: VITAL SIGNS: Vital signs are reviewed. Temperature is 98 degrees, heart rate 98, respiratory rate 16, blood pressure 81/42, mean 55, room air saturation 95%. GENERAL: Appears in no acute distress. Seems to be resting relatively comfortably. No respiratory distress. No audible wheezing. No use of accessory muscles. No conversational dyspnea. HEENT examination is grossly unremarkable. Mucous membranes are moist. There is no supplemental oxygen noted. NECK: Supple. Full range of motion. No adenopathy or thyromegaly. Neck veins are flat. CARDIOVASCULAR examination reveals regular rhythm and rate. Heart rate about 80 to 90 beats per minute. S1, S2 normal. No S3, S4, or murmur. LUNGS: Reveal relatively clear breath sounds. No wheezes or rhonchi. No crackles. Breath sounds equal bilaterally. ABDOMEN: Soft. Bowel sounds are heard. EXTREMITIES are intact. No cyanosis, clubbing, or edema. Skin without rash. NEUROLOGIC examination is brief but nonfocal. LABS: Reviewed. Chest x-rays reviewed. Medications are reviewed. Chest x-ray shows some basilar atelectasis. There is also a large hiatal hernia. There is an air-fluid level in the hiatal hernia. Not much is seen on the chest x-ray. It is difficult to interpret chest x-ray given her large hiatal hernia. Labs are reviewed. White count 13.5, hemoglobin 9.2, hematocrit 27.9, platelet count 249,000. Sodium 137, potassium 5.1, chloride 110, CO2 is 17, anion gap is 10, BUN and creatinine were 21 and 1.85. Her N-terminal proBNP was 4540 and 7180. Her troponins were mildly elevated. EKG did not show any acute changes. Lactic acid was 1.2, then subsequent lactic acid was 0.8. ASSESSMENT: 1. Doubt significant aspiration or aspiration pneumonia. 2. Large hiatal hernia. 3. Nausea, vomiting, and back pain, improved. 4. Rule out myocardial ischemia. 5. History of hypertension. 6. History of systemic lupus erythematosus. 7. Hypothyroidism. PLAN: I do not believe the patient had significant aspiration pneumonia. She may have aspirated a small amount of gastric contents. Her chest x-ray looks pretty unremarkable. It is hard to read her x-ray because of her large hiatal hernia. I did mention that she should have aspiration precautions and head of bed should never be flat. Always should be at 40-45 degrees. Labs, x-rays and medications are reviewed. Additional recommendations and suggestions are forthcoming. We will continue to follow. KEVEN / KAYLINN: [id number] / DEBBIE
--- NOTE | 2018-11-18 22:31 | P.CONS ---
History of Present Illness - Reason for Consult Consult date: 11/18/18 Aspiration pneumonia Requesting physician: Christian E Sheet - Chief Complaint Nausea and vomiting 1 week along with a fever - History of Present Illness Patient is a 78-year-old female who has been brought into the hospital with a chief complaints of nausea and vomiting that apparently has been going off and on for the last 1 week patient denies significant abdominal pain or any diarrhea or constipation the patient did have an x-ray with evidence of loss at home and some pulmonary infiltrate with concern for possible aspiration pneumonitis she was started on clindamycin and infectious disease was consulted for further recommendation regarding antibiotic patient currently denies having any headache no URI symptoms no chest pain or shortness of breath very minimal cough no sputum production no burning or frequency of urine on presentation to the hospital the patient did have a fever of 101F you has been requested but not collected yet patient did have multiple antibiotic ALLERGIES the/she was started on clindamycin Review of Systems Positive points has been mentioned in HPI rest of the systems negative Past Medical History Past Medical History: Coronary Artery Disease (CAD), Heart Failure, Hearing Disorder / Deafness, Hypertension, Myocardial Infarction ([place]), Renal Disease, Thyroid Disorder Additional Past Medical History / Comment(s): lupus Last Myocardial Infarction Date:: 11/05/2018 History of Any Multi-Drug Resistant Organisms: None Reported Past Surgical History: Appendectomy, Cholecystectomy, Pacemaker Additional Past Surgical History / Comment(s): nasal surgery, cataract surgery Past Anesthesia/Blood Transfusion Reactions: No Reported Reaction Type of Cardiac Device: Permanent Pacemaker Device Placement Date:: 09/15/2016 Past Psychological History: No Psychological Hx Reported Smoking Status: Former smoker Past Alcohol Use History: None Reported Past Drug Use History: None Reported - Past Family History Son(s) Family Medical History: Cancer Additional Family Medical History / Comment(s): esophageal ca, at 25 y/o. Medications and Allergies Home Medications Medication Instructions Recorded Confirmed Type Hydroxychloroquine Sulfate 200 mg PO BID 01/15/16 11/18/18 History [Plaquenil] Montelukast [Singulair] 10 mg PO DAILY 01/16/16 11/18/18 History Acyclovir 5% Oint [Zovirax Oint] 1 applic TOPICAL QID 11/18/18 11/18/18 History Aspirin [Children's Aspirin] 81 mg PO DAILY 11/18/18 11/18/18 History Atorvastatin [Lipitor] 20 mg PO DAILY 11/18/18 11/18/18 History Cefuroxime [Ceftin] 250 mg PO BID 11/18/18 11/18/18 History Clopidogrel [Plavix] 75 mg PO DAILY 11/18/18 11/18/18 History Famotidine [Pepcid] 20 mg PO DAILY 11/18/18 11/18/18 History Fluticasone Nasal [place] [Flonase 1 spray EA NOSTRIL DAILY PRN 11/18/18 11/18/18 History Nasal [place]] Furosemide [Lasix] 20 mg PO BID 11/18/18 11/18/18 History Levothyroxine Sodium [Synthroid] 125 mcg PO DAILY 11/18/18 11/18/18 History Losartan Potassium [Cozaar] 37.5 mg PO DAILY 11/18/18 11/18/18 History Metoprolol Succinate (ER) [Toprol 25 mg PO DAILY 11/18/18 11/18/18 History Xl] Midodrine [ProAmatine] 5 mg PO TID 11/18/18 11/18/18 History Omeprazole 40 mg PO DAILY 11/18/18 11/18/18 History Potassium Chloride ER [K-Dur 10] 10 meq PO DAILY 11/18/18 11/18/18 History predniSONE 30 mg PO DAILY 11/18/18 11/18/18 History Allergies Allergy/AdvReac Type Severity Reaction Status Date / Time codeine Allergy Rash/Hives Verified 11/18/18 08:11 indomethacin [From Indocin] Allergy Unknown Verified 11/18/18 08:11 levofloxacin [From Levaquin] Allergy Unknown Verified 11/18/18 08:11 methylprednisolone Allergy Unknown Verified 11/18/18 08:11 [From Medrol] Penicillins Allergy Unknown Verified 11/18/18 08:11 Sulfa (Sulfonamide Allergy Rash/Hives Verified 11/18/18 08:11 Antibiotics) meloxicam [From Mobic] AdvReac stomache Verified 11/18/18 08:11 pain NSAIDS (Non-Steroidal AdvReac Abdominal Verified 11/18/18 08:11 Anti-Inflamma Pain oxaprozin [From Daypro] AdvReac Abdominal Verified 11/18/18 08:11 Pain prochlorperazine AdvReac Nausea & Verified 11/18/18 08:11 [From Compazine] Vomiting prochlorperazine edisylate AdvReac Nausea & Verified 11/18/18 08:11 [From Compazine] Vomiting and headache prochlorperazine maleate AdvReac Nausea & Verified 11/18/18 08:11 [From Compazine] Vomiting salsalate [From Disalcid] AdvReac Abdominal Verified 11/18/18 08:11 Pain vortioxetine hydrobromide AdvReac Abdominal Verified 11/18/18 08:11 [From Trintellix] Pain Physical Exam Vitals: Vital Signs Temp Pulse Pulse Pulse Resp BP BP 11/18/18 16:00 98 98 16 11/18/18 12:00 97.9 F 98 79 16 88/51 11/18/18 08:00 98.0 F 98 98 16 81/42 11/18/18 07:11 101.6 F H 90 20 91/63 11/18/18 06:23 101.0 F H 65 16 134/75 Pulse Ox 11/18/18 16:00 11/18/18 12:00 96 11/18/18 08:00 95 11/18/18 07:11 96 11/18/18 06:23 93 L Intake and Output 11/18/18 11/18/18 11/18/18 06:59 14:59 22:59 Other: # Voids 1 Weight 56.699 kg 56.699 kg GENERAL DESCRIPTION: An elderly female lying in bed, no distress. No tachypnea or accessory muscle of respiration use. HEENT: Shows Pallor , no scleral icterus. Oral mucous membrane is dry. No pharyngeal erythema or thrush NECK: Trachea central, no thyromegaly. LUNGS: Unlabored breathing. Decreased breath sound at the base No wheeze or crackle. HEART: S1, S2, regular rate and rhythm. No loud murmur ABDOMEN: Soft, no tenderness , guarding or rigidity, no organomegaly EXTREMITIES: No edema of feet. SKIN: No rash, no masses palpable. NEUROLOGICAL: The patient is awake, alert, oriented x3, mood and affect normal Results CBC & Chem 7: 11/18/18 12:58 11/18/18 12:58 Labs: Abnormal Lab Results - Last 24 Hours (Table) 11/18/18 11/18/18 11/18/18 Range/Units 06:25 06:25 06:25 WBC (3.8-10.6) k/uL RBC 3.11 L (3.80-5.40) m/uL Hgb 9.4 L (11.4-16.0) gm/dL Hct 29.1 L (34.0-46.0) % Neutrophils # 7.9 H (1.3-7.7) k/uL Lymphocytes # 0.8 L (1.0-4.8) k/uL APTT 20.8 L (22.0-30.0) sec Sodium 136 L (137-145) mmol/L Chloride (98-107) mmol/L Carbon Dioxide 19 L (22-30) mmol/L BUN 18 H (7-17) mg/dL Creatinine 1.55 H (0.52-1.04) mg/dL Glucose (74-99) mg/dL Calcium (8.4-10.2) mg/dL AST 45 H (14-36) U/L Troponin I (0.000-0.034) ng/mL Total Protein 5.8 L (6.3-8.2) g/dL 11/18/18 11/18/18 11/18/18 Range/Units 06:25 10:58 12:58 WBC 13.5 H (3.8-10.6) k/uL RBC 2.98 L (3.80-5.40) m/uL Hgb 9.2 L (11.4-16.0) gm/dL Hct 27.9 L (34.0-46.0) % Neutrophils # 11.6 H (1.3-7.7) k/uL Lymphocytes # 0.9 L (1.0-4.8) k/uL APTT (22.0-30.0) sec Sodium (137-145) mmol/L Chloride (98-107) mmol/L Carbon Dioxide (22-30) mmol/L BUN (7-17) mg/dL Creatinine (0.52-1.04) mg/dL Glucose (74-99) mg/dL Calcium (8.4-10.2) mg/dL AST (14-36) U/L Troponin I 0.095 H* 0.132 H* (0.000-0.034) ng/mL Total Protein (6.3-8.2) g/dL 11/18/18 11/18/18 Range/Units 12:58 12:58 WBC (3.8-10.6) k/uL RBC (3.80-5.40) m/uL Hgb (11.4-16.0) gm/dL Hct (34.0-46.0) % Neutrophils # (1.3-7.7) k/uL Lymphocytes # (1.0-4.8) k/uL APTT (22.0-30.0) sec Sodium (137-145) mmol/L Chloride 110 H (98-107) mmol/L Carbon Dioxide 17 L (22-30) mmol/L BUN 21 H (7-17) mg/dL Creatinine 1.85 H (0.52-1.04) mg/dL Glucose 55 L (74-99) mg/dL Calcium 8.2 L (8.4-10.2) mg/dL AST (14-36) U/L Troponin I 0.117 H* (0.000-0.034) ng/mL Total Protein (6.3-8.2) g/dL Assessment and Plan Assessment: 1-patient admitted hospital with a fever and this patient also have her symptoms of nausea and vomiting with concern for possible aspiration pneumonitis however chest x-ray did not show significant consolidation will need to rule out other etiologies for her fever and vomiting such as a gallbladder disease or UTI 2-patient with multiple antibiotic ALLERGIES that limit the number of antibiotic safe to use Plan: 1-we will obtain a UA culture and abdominal ultrasound 2-we will add Rocephin 2 g daily and continue with the clindamycin 3-gentle IV fluid we will follow up on clinical condition and cultures to further adjust medication if needed Thank you for this consultation will follow this patient along with you Time with Patient: Greater than 30
[2018-11-19] MEDS: ACETAMINOPHEN TAB 325 MG TAB PO PRN ×3 (04:22→23:02)
[2018-11-19] MEDS: SODIUM CHLORIDE 0.9% 1,000 ML IV SCH ×2 (04:40→12:59)
[2018-11-19] MEDS: CLINDAMYCIN 300 MG in DEXTROSE 5% IN WATER 50 ML IVPB SCH ×8 (05:52→23:02)
[2018-11-19] MEDS: MIDODRINE 5 MG TAB PO SCH ×3 (06:41→17:19)
[2018-11-19] MEDS: LEVOTHYROXINE 125 MCG TAB PO SCH (06:41)
[2018-11-19 07:22] LABS: Potassium 5.1 mmol/L (3.5-5.1)
[2018-11-19 07:33] LABS: Basophils % (A) 0 %; Eosinophils # (A) 0.1 k/uL (0-0.7); Eosinophils % (A) 1 %; HCT 28.1 % (34.0-46.0); Hypochromasia Slight; Lymphocytes % (A) 8 %; MCH 30.6 pg (25.0-35.0); MCHC 31.9 g/dL (31.0-37.0); MCV 95.8 fL (80.0-100.0); Mean Platelet Volume 7.6; Monocytes # (A) 0.5 k/uL (0-1.0); Monocytes % (A) 5 %; Neutrophils # (A) 9.5 k/uL (1.3-7.7); Neutrophils % (A) 84 %; Platelet Count 270 k/uL (150-450); RBC 2.94 m/uL (3.80-5.40); RDW 13.9 % (11.5-15.5); WBC 11.3 k/uL (3.8-10.6)
--- NOTE | 2018-11-19 07:56 | XR ---
EXAMINATION TYPE: XR chest 2V DATE OF EXAM: 11/19/2018 COMPARISON: 11/18/2018 an 12/07/2017. HISTORY: 78-year-old female pneumonia TECHNIQUE: AP and lateral views FINDINGS: Heart mildly enlarged. Diffuse interstitial prominence. Small left greater than right effusions with patchy bibasilar opacities. Large rounded retrocardiac density with bowel lucencies. Redemonstrated severe vertebral compression collapses lower thoracic spine and thoracolumbar junction area. Is seen to have been present on 12/07/2017. Accentuated lower thoracic kyphosis. Left anterior chest wall pacemaker generator with right ventricular and right atrial leads. IMPRESSION: 1. Correlate for CHF with mild pulmonary vascular congestion. 2. Small left greater than right pleural effusions with adjacent atelectasis and/or consolidation per sist. 3. Large hiatal hernia redemonstrated.
[2018-11-19] MEDS: predniSONE 10 MG TAB PO SCH (08:08)
[2018-11-19] MEDS: ATORVASTATIN 20 MG TAB PO SCH (08:08)
[2018-11-19] MEDS: MONTELUKAST 10 MG TAB PO SCH (08:08)
[2018-11-19] MEDS: ASPIRIN 81 MG PO SCH (08:08)
[2018-11-19] MEDS: CLOPIDOGREL 75 MG TAB PO SCH (08:09)
[2018-11-19] MEDS: FAMOTIDINE 20 MG/2 ML VIAL IV SCH (08:09)
--- NOTE | 2018-11-19 08:39 | US ---
EXAMINATION TYPE: US abdomen complete DATE OF EXAM: 11/19/2018 COMPARISON: NONE CLINICAL HISTORY: 78-year-old female Vomiting and fever. TECHNIQUE: Multiple sonographic images of the abdomen are obtained. FINDINGS: EXAM MEASUREMENTS: Liver Length: 12.5 cm Gallbladder: Surgically absent CBD: not seen Spleen: 8.4 cm Right Kidney: 6.7 x 4.0 x 2.9 cm Left Kidney: 8.9 x 4.3 x 4.0 cm Sonography notes: Patient had to sit up for exam. Patient unable to hold her breath. The patient has a low rib cage morphologically. Technically difficult and severely limited study. Pancreas: limited views, appears wnl as seen Liver: very limited views, no masses seen. Somewhat hypoechoic appearance may be on a technical basis . Gallbladder: Surgically absent Evidence for sonographic Jim's sign: no CBD: unable to visualized Spleen: very limited visualization Right Kidney: measures small, very limited visualization Left Kidney: measures small, very limited visualization No evident hydronephrosis. Upper IVC: wnl Abd Aorta: atherosclerotic changes IMPRESSION: 1. Technically difficult and very limited exam. 2. The limited views of the liver have a somewhat hypoechoic appearance. This could be technical iwona fact or could reflect nonspecific hepatitis. Correlate with LFTs and patient risk factors. 3. Status post cholecystectomy. Unable to visualize the bile duct. 4. To the extent visualized, the kidneys appear small. Query underlying chronic kidney disease in thi s patient.
--- NOTE | 2018-11-19 10:34 | P.PN ---
Subjective this is a pleasant 78 yo F with pmh of coronary artery disease , congestive heart failure , hearing difficutly , hypertension, hypothyroidism, lupus, patient has been resected discharge from [facility] 2 days ago for Klebsiella UTI and descending colitis, she was discharged on 7 more days of Ceftin. Patient is fully awake and she couldn't provide history. Patient has been complaining of from nausea vomiting for the last 2 days, she vomited about 3 times with no blood in it, mostly bile., associated with generalized weakness. Also she complaining of from pleuritic-like central chest pain, non-radiating, increased by coughing and deep inspiration. Patient was not eating well for a couple days. However she denies abdominal pain and her abdominal exam looks benign. On admission patient has fever of 101.6, blood pressure 134/75 and currently 81/42. Labs shows no leukocytosis, creatinine 1.5, on discharge was 1.92 days ago. Patient has elevated troponin of 0.09, sodium 136, hemoglobin 9.4. EKG showing paced rhythm at 92 with QTC 556, chest x-ray is suspicious for aspiration pneumonia, hiatal hernia with air-fluid level. On admission patient got normal saline about 1 L started on 100 mL/h, Protonix, no antibiotics has be en started. 11/19/2018 Patient is awake and alert today, she looks, with no distress. She denies coughing, chest pain or dyspnea while sitting in bed. No abdominal pain or nausea vomiting. She is eating a little bit this morning, however generally she feels better. Fever has subsided. Blood pressure is 113/59, she is saturating 98% on room air. Cardiology are check an echo and most likely there will be no further cardiac intervention. Pulmonary already evaluated the patient.leukocyto sis is improving down to 11.3. Creatinine is 1.9. However sugar was on the low side today. Discuss with certified social workers in health care. Expected surgery discharge patient keeps improving. Keep head of bed elevated CONSTITUTIONAL: No fever, no malaise, no fatigue. HEENT: No recent visual problems or hearing problems. Denied any sore throat. CARDIOVASCULAR: No orthopnea, PND, no palpitations, no syncope. PULMONARY: No shortness of breath, no cough, no hemoptysis. GASTROINTESTINAL: No diarrhea, no nausea, no vomiting, no abdominal pain. Normoactive bowel sounds. NEUROLOGICAL: No headaches, no weakness, no numbness. HEMATOLOGICAL: Denies any bleeding or petechiae. GENITOURINARY: Denies any burning micturition, frequency, or urgency. MUSCULOSKELETAL/RHEUMATOLOGICAL: Denies any joint pain, swelling, or any muscle pain. ENDOCRINE: Denies any polyuria or polydipsia. Medication: Tylenol 650 mg, aspirin 81 mg, Lipitor 20 mg, ceftriaxone 2 g, clindamycin 300 mg, Plavix 75 mg, Pepcid 20 mg, levothyroxine 125 g, midodrine 5 mg, singular 10 mg, Zofran 4 mg, prednisone 30 mg, normal saline to which is stopped. Objective - Vital Signs Vital signs: Vital Signs Temp 98.4 F 11/19/18 08:00 Pulse 72 11/19/18 08:00 Resp 18 11/19/18 08:00 BP 113/59 11/19/18 08:00 Pulse Ox 98 11/19/18 08:00 Intake & Output 11/18/18 11/19/18 11/19/18 18:59 06:59 18:59 Output Total 1 Balance -1 Weight 56.699 kg 59.5 kg Output: Urine 1 Other: Voiding Method Bedside Commode # Voids 1 1 # Bowel Movements 1 - Exam GENERAL: The patient is alert and oriented x3, not in any acute distress. Well developed, well nourished. HEENT: Pupils are round and equally reacting to light. EOMI. No scleral icterus. No conjunctival pallor. Normocephalic, atraumatic. No pharyngeal erythema. No thyromegaly. CARDIOVASCULAR: S1 and S2 present. No murmurs, rubs, or gallops. PULMONARY: Chest is clear to auscultation, no wheezing or crackles. ABDOMEN: Soft, nontender, nondistended, normoactive bowel sounds. No palpable organomegaly. MUSCULOSKELETAL: No joint swelling or deformity. EXTREMITIES: No cyanosis, clubbing, or pedal edema. NEUROLOGICAL: Gross neurological examination did not reveal any focal deficits. SKIN: No rashes. - Labs CBC & Chem 7: 11/19/18 06:52 11/19/18 06:52 Labs: Abnormal Lab Results - Last 24 Hours (Table) 11/18/18 11/18/18 11/18/18 Range/Units 10:58 12:58 12:58 WBC 13.5 H (3.8-10.6) k/uL RBC 2.98 L (3.80-5.40) m/uL Hgb 9.2 L (11.4-16.0) gm/dL Hct 27.9 L (34.0-46.0) % Neutrophils # 11.6 H (1.3-7.7) k/uL Lymphocytes # 0.9 L (1.0-4.8) k/uL Chloride 110 H (98-107) mmol/L Carbon Dioxide 17 L (22-30) mmol/L BUN 21 H (7-17) mg/dL Creatinine 1.85 H (0.52-1.04) mg/dL Glucose 55 L (74-99) mg/dL Calcium 8.2 L (8.4-10.2) mg/dL Troponin I 0.132 H* (0.000-0.034) ng/mL 11/18/18 11/18/18 11/19/18 Range/Units 12:58 18:12 06:52 WBC 11.3 H (3.8-10.6) k/uL RBC 2.94 L (3.80-5.40) m/uL Hgb 9.0 L (11.4-16.0) gm/dL Hct 28.1 L (34.0-46.0) % Neutrophils # 9.5 H (1.3-7.7) k/uL Lymphocytes # (1.0-4.8) k/uL Chloride (98-107) mmol/L Carbon Dioxide (22-30) mmol/L BUN (7-17) mg/dL Creatinine (0.52-1.04) mg/dL Glucose (74-99) mg/dL Calcium (8.4-10.2) mg/dL Troponin I 0.117 H* 0.098 H* (0.000-0.034) ng/mL 11/19/18 Range/Units 06:52 WBC (3.8-10.6) k/uL RBC (3.80-5.40) m/uL Hgb (11.4-16.0) gm/dL Hct (34.0-46.0) % Neutrophils # (1.3-7.7) k/uL Lymphocytes # (1.0-4.8) k/uL Chloride 109 H (98-107) mmol/L Carbon Dioxide 14 L (22-30) mmol/L BUN 25 H (7-17) mg/dL Creatinine 1.91 H (0.52-1.04) mg/dL Glucose 46 L* (74-99) mg/dL Calcium 8.0 L (8.4-10.2) mg/dL Troponin I (0.000-0.034) ng/mL Microbiology - Last 24 Hours (Table) 11/18/18 06:39 Blood Culture - Preliminary Blood No Growth after 24 hours 11/18/18 20:20 Urine Culture - Preliminary Urine,Clean Catch Assessment and Plan Assessment: Severe sepsis, secondary to Possible aspiration pneumonia History hiatal hernia with air-fluid level Elevated troponin, rule out acute coronary syndrome Hypertension Recent urinary tract infection Recent descending colitis Chronic kidney disease History of GERD History of hypertension on medication History of hypertension on medodrine Diabetes mellitus Systemic lupus erythematosus on steroids Hypothyroidism Plan: This is a pleasant 78 years old female who presents with aspiration pneumonia and sepsis. Patient is ALLERGIC to penicillin. We will start her on clindamycin and ask for infectious disease consult and pulmonary consult. Shaft Tender eval uation. Send blood culture, sputum culture and urine culture. Also defer 500 L of normal saline bolus, as her oxygen saturation on 96% on room air Labs and medication were reviewed. But nothing by mouth and swallow evaluation. Continue same treatment. Continue with symptomatic treatment. Resume home medication. Monitor lytes and vitals. DVT and GI prophylaxis. Further recommendations of the clinical course of the patient DVT prophylaxis: Subcutaneous heparin GI Prophylaxis: Pepcid PT/OT: hold for now Prognosis is guarded Discussed with the family, including the son at bedside
--- NOTE | 2018-11-19 13:13 | PN ---
PROGRESS NOTE DATE OF SERVICE: 11/19/2018 REASON FOR FOLLOWUP: Fever with a question of possible aspiration pneumonitis or abdominal source. INTERVAL HISTORY: The patient is currently afebrile. No fever has been recorded in the last 24 hours. The patient has been complaining of some shortness of breath and cough, but not bringing up any sputum. No chest pain. No abdominal pain. No diarrhea. PHYSICAL EXAMINATION: On examination, blood pressure 129/79 with a pulse of 89, temperature 98.1. She is 94% on room air. General description is an elderly female up in the chair in no distress. RESPIRATORY SYSTEM: Unlabored breathing, decreased breath sounds at the bases. No wheeze. HEART: S1, S2. Regular rate and rhythm. ABDOMEN: Soft, no tenderness. EXTREMITIES: No edema of the feet. LABS: Hemoglobin 9, white count 11.3. BUN of 25, creatinine 1.91. The patient did have ultrasound of the abdomen that was limited, but did not show any abnormality. Chest x-ray with left lower lobe consolidation with effusion. DIAGNOSTIC IMPRESSION AND PLAN: Patient admitted to the hospital with a fever with nausea and vomiting and concern for possible aspiration pneumonitis and possible abdominal . Ultrasound has been negative so far. UA has not been collected. The patient on Rocephin, plan to continue while waiting for the culture to finalize. Continue supportive care. MMODL / IJN: [id number] /
--- NOTE | 2018-11-19 15:22 | P.PN ---
Subjective Progress Note Date: 11/19/18 This is a pleasant 78-year-old female who follows with Dr. Araiza in the office, she used to see Dr. Santoyo in the past. 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 She also had an echocardiogram with Doppler study performed in September 2016 which revealed an ejection fraction of 45-50%. She was admitted to the hospital on this occasion because of symptoms of nausea and vomiting. She also states that she was having some sharp pains in her chest especially after retching several times with her vomiting. Chest x-ray on presentation here showed cardiomegaly and prior pacemaker implantation, pleural effusions with adjacent atelectasis along with possible interstitial edema. EKG showed a sensed V paced rhythm. White blood cell count 9.4, hemoglobin 9.4, platelet count 285. Sodium 136, potassium 4.7, BUN 18 and creatinine 1.5. Magnesium 1.6. Troponin 0.095, BNP level 4550. Blood pressure this morning 91/60 with a heart rate in the 90s, 11/19/18 OK for dc from a cardiology perspective. Pt to follow-up with Dr. Araiza in office in two weeks. Please call with concerns or questions. PHYSICAL EXAM: VITAL SIGNS: WNL. GENERAL: Well developed, in no acute distress. HEENT: Head is atraumatic, normocephalic. Pupils are equal, round. Extra ocular movements intact. Mucous membranes moist. Neck supple. No JVD. No carotid bruit. No thyromegaly. LUNGS: Clear to auscultation no wheezes, rales or rhonchi. No chest wall tenderness on palpation or with deep breathing. HEART: Regular rate and rhythm, no rubs or gallops. S1 and S2 heard. No murmur. ABDOMEN: Abdominal exam, WNL. Bowel sounds x4 quads. Soft, non-tender, without masses, organomegaly, or abdominal aorta enlargement. EXTREMITIES/VASCULAR: Extremities have easily palpable radial, femoral, dorsalis pedis and posterior tibial pulses. No cyanosis, calf tenderness. No BLE edema. NEUROLOGIC: Patient is awake, alert and oriented x3. No focal neurologic abnormalities. Objective - Vital Signs Vital signs: Vital Signs Temp 98.1 F 11/19/18 11:41 Pulse 72 11/19/18 12:00 Resp 18 11/19/18 12:00 BP 129/79 11/19/18 11:41 Pulse Ox 94 L 11/19/18 11:41 Intake & Output 11/18/18 11/19/18 11/19/18 18:59 06:59 18:59 Intake Total 240 Output Total 1 Balance 239 Weight 56.699 kg 59.5 kg Intake: Oral 240 Output: Urine 1 Other: Voiding Method Bedside Commode # Voids 1 1 # Bowel Movements 1 - Labs CBC & Chem 7: 11/19/18 06:52 11/19/18 06:52 Labs: Abnormal Lab Results - Last 24 Hours (Table) 11/18/18 11/19/18 11/19/18 Range/Units 18:12 06:52 06:52 WBC 11.3 H (3.8-10.6) k/uL RBC 2.94 L (3.80-5.40) m/uL Hgb 9.0 L (11.4-16.0) gm/dL Hct 28.1 L (34.0-46.0) % Neutrophils # 9.5 H (1.3-7.7) k/uL Chloride 109 H (98-107) mmol/L Carbon Dioxide 14 L (22-30) mmol/L BUN 25 H (7-17) mg/dL Creatinine 1.91 H (0.52-1.04) mg/dL Glucose 46 L* (74-99) mg/dL Calcium 8.0 L (8.4-10.2) mg/dL Troponin I 0.098 H* (0.000-0.034) ng/mL Microbiology - Last 24 Hours (Table) 11/18/18 12:58 Blood Culture - Preliminary Blood No Growth after 24 hours 11/18/18 06:39 Blood Culture - Preliminary Blood No Growth after 24 hours 11/18/18 20:20 Urine Culture - Preliminary Urine,Clean Catch
--- NOTE | 2018-11-19 16:10 | P.PN ---
Subjective Progress Note Date: 11/19/18 Principal diagnosis: Possible aspiration pneumonia On 11/11/2018 patient seen in follow-up on selective care unit, she is calm and comfortable, she is on room air, with a pulse ox of 94%, she is afebrile, hemodynamically stable, no major cough and congestion, no acute events ov ernight, blood cultures and urine cultures are pending, so far show no growth, today's labs have been reviewed, showing white blood cell, 11.3, hemoglobin of 9.0, serum sodium is 137, potassium is 5.1, chloride is 109, CO2 is 14, BUN was 25, and creatinine is 1.91. No nausea, vomiting or diarrhea, lung sounds are clear, she denies any shortness of breath, she denies any chest pain, he is on antibiotic coverage in the form of clindamycin, and Rocephin until he is on oral prednisone, clinically doing fairly well. Today's follow-up chest x-ray with mild pulmonary vascular congestion, and small left greater than the right pleural effusions with adjacent atelectasis. Large hiatal hernia was again redemonstrated. Objective - Vital Signs Vital signs: Vital Signs Temp 98.1 F 11/19/18 11:41 Pulse 72 11/19/18 12:00 Resp 18 11/19/18 12:00 BP 129/79 11/19/18 11:41 Pulse Ox 94 L 11/19/18 11:41 Intake & Output 11/18/18 11/19/18 11/19/18 18:59 06:59 18:59 Intake Total 240 Output Total 1 Balance 239 Weight 56.699 kg 59.5 kg Intake: Oral 240 Output: Urine 1 Other: Voiding Method Bedside Commode # Voids 1 1 # Bowel Movements 1 - Exam GENERAL EXAM: Alert, pleasant, 78-year-old white female, on room air, with a pulse ox of 94% comfortable in no apparent distress. HEAD: Normocephalic/atraumatic. EYES: Normal reaction of pupils, equal size. Conjunctiva pink, sclera white. NOSE: Clear with pink turbinates. THROAT: No erythema or exudates. NECK: No masses, no JVD, no thyroid enlargement, no adenopathy. CHEST: No chest wall deformity. Symmetrical expansion. LUNGS: Equal air entry with no crackles, wheeze, rhonchi or dullness. CVS: Regular rate and rhythm, normal S1 and S2, no gallops, no murmurs, no rubs ABDOMEN: Soft, nontender. No hepatosplenomegaly, normal bowel sounds, no guarding or rigidity. EXTREMITIES: No clubbing, no edema, no cyanosis, 2+ pulses and upper and lower extremities. MUSCULOSKELETAL: Muscle strength and tone normal. SPINE: No scoliosis or deformity SKIN: No rashes CENTRAL NERVOUS SYSTEM: Alert and oriented -3. No focal deficits, tone is normal in all 4 extremities. PSYCHIATRIC: Alert and oriented -3. Appropriate affect. Intact judgment and insight. - Labs CBC & Chem 7: 11/19/18 06:52 11/19/18 06:52 Labs: Abnormal Lab Results - Last 24 Hours (Table) 11/18/18 11/19/18 11/19/18 Range/Units 18:12 06:52 06:52 WBC 11.3 H (3.8-10.6) k/uL RBC 2.94 L (3.80-5.40) m/uL Hgb 9.0 L (11.4-16.0) gm/dL Hct 28.1 L (34.0-46.0) % Neutrophils # 9.5 H (1.3-7.7) k/uL Chloride 109 H (98-107) mmol/L Carbon Dioxide 14 L (22-30) mmol/L BUN 25 H (7-17) mg/dL Creatinine 1.91 H (0.52-1.04) mg/dL Glucose 46 L* (74-99) mg/dL Calcium 8.0 L (8.4-10.2) mg/dL Troponin I 0.098 H* (0.000-0.034) ng/mL Microbiology - Last 24 Hours (Table) 11/18/18 12:58 Blood Culture - Preliminary Blood No Growth after 24 hours 11/18/18 06:39 Blood Culture - Preliminary Blood No Growth after 24 hours 11/18/18 20:20 Urine Culture - Preliminary Urine,Clean Catch Assessment and Plan Plan: Assessment: #1. Doubt significant aspiration or aspiration pneumonia #2. Large hiatal hernia #3. Nausea, vomiting and back pain, improved #4. Rule out myocardial ischemia #5. History of hypertension #6. History of systemic lupus erythematosus #7. Hypothyroidism Plan: Clinically she is doing very well, no shortness of breath, no chest pain, maintaining stable oxygenation. Today's follow-up chest x-ray has been reviewed, showing mild pulmonary vessel congestion, mild bilateral pleural effusions, with adjacent atelectasis. Clinically stable, continue with current antibiotics. Lung sounds are clear, no cough or congestion. No wheezing. I performed a history & physical examination of the patient and discussed their management with my nurse practitioner, Magalis Nathan. I reviewed the nurse practitioner's note and agree with the documented findings and plan of care. Lung sounds are positive for clear breath sounds. The findings and the impression was discussed with the patient. I attest to the documentation by the nurse practitioner. Time with Patient: Less than 30
--- NOTE | 2018-11-19 17:49 | PN ---
PROGRESS NOTE DATE OF SERVICE: Mrs. Stover had elevated troponin, equivocal, following nausea and vomiting. Her nausea and vomiting have improved. She is feeling better. She denies chest pain. She has noncritical CAD. Vitals are stable. S1, S2 heard normally. Short systolic murmur noted. Lungs are clear. Abdomen and lower extremity exam unchanged. Patient can be discharged today, and I will see her as needed from a cardiac standpoint. MMODL / IJN: [id number] /
[2018-11-19] MEDS: IPRATROPIUM-ALBUTEROL 3 ML NEB INHALATION PRN (20:56)
[2018-11-20] MEDS: LEVOTHYROXINE 125 MCG TAB PO SCH (06:00)
[2018-11-20] MEDS: CLINDAMYCIN 300 MG in DEXTROSE 5% IN WATER 50 ML IVPB SCH ×8 (06:00→23:10)
[2018-11-20] MEDS: MIDODRINE 5 MG TAB PO SCH ×3 (06:00→17:33)
[2018-11-20 07:11] LABS: Calcium 8.1 mg/dL (8.4-10.2)
[2018-11-20 07:36] LABS: Basophils % (A) 0 %; Eosinophils # (A) 0.1 k/uL (0-0.7); Eosinophils % (A) 0 %; HCT 26.2 % (34.0-46.0); HGB 8.4 gm/dL (11.4-16.0); Hypochromasia Slight; Lymphocytes # (A) 0.8 k/uL (1.0-4.8); Lymphocytes % (A) 8 %; MCH 30.3 pg (25.0-35.0); MCHC 31.9 g/dL (31.0-37.0); MCV 94.9 fL (80.0-100.0); Monocytes # (A) 0.6 k/uL (0-1.0); Monocytes % (A) 6 %; Neutrophils % (A) 84 %; Platelet Count 289 k/uL (150-450); RBC 2.76 m/uL (3.80-5.40); RDW 13.6 % (11.5-15.5); WBC 10.7 k/uL (3.8-10.6)
[2018-11-20] MEDS: IPRATROPIUM-ALBUTEROL 3 ML NEB INHALATION PRN (09:03)
[2018-11-20] MEDS: FAMOTIDINE 20 MG/2 ML VIAL IV SCH (09:42)
[2018-11-20] MEDS: ATORVASTATIN 20 MG TAB PO SCH (09:43)
[2018-11-20] MEDS: ASPIRIN 81 MG PO SCH (09:43)
[2018-11-20] MEDS: CLOPIDOGREL 75 MG TAB PO SCH (09:43)
[2018-11-20] MEDS: predniSONE 10 MG TAB PO SCH (09:45)
[2018-11-20] MEDS: MONTELUKAST 10 MG TAB PO SCH (09:45)
--- NOTE | 2018-11-20 11:29 | PN ---
PROGRESS NOTE Mrs Stover is feeling better. She is not nauseated, hemodynamically stable. Blood pressure is good. Vital signs stable. S1-S2 heard normally. Lungs are clear. Abdomen and lower extremity exam is unchanged. This patient can be discharged whenever it is okay with the admitting doctor. I will see her as needed. MMODL / IJN: [id number] /
[2018-11-20] MEDS: ACETAMINOPHEN TAB 325 MG TAB PO PRN (12:00)
[2018-11-20] MEDS ORDERED: guaiFENesin SYRUP 100MG/5ML 200 MG/10 ML CUP PO PRN (12:36)
--- NOTE | 2018-11-20 12:54 | P.PN ---
Subjective this is a pleasant 78 yo F with pmh of coronary artery disease , congestive heart failure , hearing difficutly , hypertension, hypothyroidism, lupus, patient has been resected discharge from [facility] 2 days ago for Klebsiella UTI and descending colitis, she was discharged on 7 more days of Ceftin. Patient is fully awake and she couldn't provide history. Patient has been complaining of from nausea vomiting for the last 2 days, she vomited about 3 times with no blood in it, mostly bile., associated with generalized weakness. Also she complaining of from pleuritic-like central chest pain, non-radiating, increased by coughing and deep inspiration. Patient was not eating well for a couple days. However she denies abdominal pain and her abdominal exam looks benign. On admission patient has fever of 101.6, blood pressure 134/75 and currently 81/42. Labs shows no leukocytosis, creatinine 1.5, on discharge was 1.92 days ago. Patient has elevated troponin of 0.09, sodium 136, hemoglobin 9.4. EKG showing paced rhythm at 92 with QTC 556, chest x-ray is suspicious for aspiration pneumonia, hiatal hernia with air-fluid level. On admission patient got normal saline about 1 L started on 100 mL/h, Protonix, no antibiotics has be en started. 11/19/2018 Patient is awake and alert today, she looks, with no distress. She denies coughing, chest pain or dyspnea while sitting in bed. No abdominal pain or nausea vomiting. She is eating a little bit this morning, however generally she feels better. Fever has subsided. Blood pressure is 113/59, she is saturating 98% on room air. Cardiology are check an echo and most likely there will be no further cardiac intervention. Pulmonary already evaluated the patient.leukocyto sis is improving down to 11.3. Creatinine is 1.9. However sugar was on the low side today. Discuss with social welfare administrator. Expected surgery discharge patient keeps improving. Keep head of bed elevated leukocytosis improving down to and 10.7 K, creatinine 1.8 and potassium 5. 11/20/2018 Patient still have some dyspnea, she is coping with couple times of [place] phlegm. No chest pain. Chest chronic low back pain. No diarrhea or change in urine habits. No dizziness. Patient feels generally weak and plan for her to go to [facility] upon discharge for inpatient rehab. Vitals stable and she saturating 96% on 2 L oxygen via [place], patient become more short of breath was taken oxygen off. She's been afebrile. Leukocytosis is improving down to 10.7 K, creatinine is 1.8 and potassium 5.0. Patient remains on antibiotics. Fluids were stopped from yesterday. Patient also on a prednisone 30 mg and medial drain. Repeat chest x-ray today and start Colace/senna for constipation. Objective - Vital Signs Vital signs: Vital Signs Temp 98.5 F 11/20/18 11:15 Pulse 60 11/20/18 11:15 Resp 18 11/20/18 11:15 BP 151/70 11/20/18 11:15 Pulse Ox 96 11/20/18 11:15 Intake & Output 11/19/18 11/20/18 11/20/18 18:59 06:59 18:59 Intake Total 353 100 Output Total 1 400 Balance 352 -400 100 Weight 57.8 kg Intake: Oral 353 100 Output: Urine 1 400 Other: Voiding Method Bedside Commode # Voids 1 1 # Bowel Movements 1 - Exam GENERAL: The patient is alert and oriented x3, not in any acute distress. Well developed, well nourished. HEENT: Pupils are round and equally reacting to light. EOMI. No scleral icterus. No conjunctival pallor. Normocephalic, atraumatic. No pharyngeal erythema. No thyromegaly. CARDIOVASCULAR: S1 and S2 present. No murmurs, rubs, or gallops. PULMONARY: Chest is clear to auscultation, no wheezing or crackles. ABDOMEN: Soft, nontender, nondistended, normoactive bowel sounds. No palpable organomegaly. MUSCULOSKELETAL: No joint swelling or deformity. EXTREMITIES: No cyanosis, clubbing, or pedal edema. NEUROLOGICAL: Gross neurological examination did not reveal any focal deficits. SKIN: No rashes. - Labs CBC & Chem 7: 11/20/18 06:36 11/20/18 06:36 Labs: Abnormal Lab Results - Last 24 Hours (Table) 11/19/18 11/20/18 11/20/18 Range/Units 23:27 06:36 06:36 WBC 10.7 H (3.8-10.6) k/uL RBC 2.76 L (3.80-5.40) m/uL Hgb 8.4 L (11.4-16.0) gm/dL Hct 26.2 L (34.0-46.0) % Neutrophils # 9.0 H (1.3-7.7) k/uL Lymphocytes # 0.8 L (1.0-4.8) k/uL Chloride 111 H (98-107) mmol/L Carbon Dioxide 17 L (22-30) mmol/L BUN 32 H (7-17) mg/dL Creatinine 1.80 H (0.52-1.04) mg/dL Calcium 8.1 L (8.4-10.2) mg/dL Troponin I 0.063 H* (0.000-0.034) ng/mL Microbiology - Last 24 Hours (Table) 11/18/18 06:39 Blood Culture - Preliminary Blood No Growth after 48 hours 11/18/18 20:20 Urine Culture - Final Urine,Clean Catch 11/18/18 12:58 Blood Culture - Preliminary Blood No Growth after 24 hours Assessment and Plan Assessment: Severe sepsis, secondary to Possible aspiration pneumonia History hiatal hernia with air-fluid level Elevated troponin, rule out acute coronary syndrome Hypertension Recent urinary tract infection Recent descending colitis Chronic kidney disease History of GERD History of hypertension on medication History of hypertension on medodrine Diabetes mellitus Systemic lupus erythematosus on steroids Hypothyroidism Plan: This is a pleasant 78 years old female who presents with aspiration pneumonia and sepsis. Patient is ALLERGIC to penicillin. We will start her on clindamycin and ask for infectious disease consult and pulmonary consult. Millinery Teacher evaluation. Send blood culture, sputum culture and urine culture. Also defer 500 L of normal saline bolus, as her oxygen saturation on 96% on room air Labs and medication were reviewed. But nothing by mouth and swallow evaluation. Continue same treatment. Continue with symptomatic treatment. Resume home medication. Monitor lytes and vitals. DVT and GI prophylaxis. Further recommendations of the clinical course of the patient DVT prophylaxis: Subcutaneous heparin GI Prophylaxis: Pepcid PT/OT: hold for now Prognosis is guarded Discussed with the family, including the son at bedside
[2018-11-20] MEDS ORDERED: FUROSEMIDE 10 MG/ML 4 ML VIAL IV STA (13:19)
--- NOTE | 2018-11-20 13:56 | XR ---
EXAMINATION TYPE: XR chest 1V portable DATE OF EXAM: 11/20/2018 HISTORY: follow up . REFERENCE: Previous study dated 11/19/2018. FINDINGS: There is a bipolar pacemaker place on the left. The heart is enlarged. There is vascular congestion and pulmonary edema. There are bilateral small ef fusions. There is a large hiatal hernia behind the heart. IMPRESSION: 1. CARDIOMEGALY. 2. PULMONARY EDEMA. 3. SMALL, BILATERAL EFFUSIONS. 4. LARGE SLIDING HIATAL HERNIA.
--- NOTE | 2018-11-20 13:58 | P.PN ---
Subjective Progress Note Date: 11/20/18 Principal diagnosis: Aspiration pneumonia, fluid volume overload The patient is seen today 11/20/2018 in follow-up on the selective care unit. She is currently sitting up in a chair at the bedside. Awake and alert in no acute distress. She is breathing a little heavier today as compared to yesterday. She got up nonproductive cough. No chills or night sweats. She is maintaining good O2 saturations in the mid 90s on 2 L/m per nasal cannula. She's been afebrile. Blood and urine cultures reveal no growth. White count 10.7. Hemoglobin 8.4. Bicarb 17. Creatinine 1.80. She remains on DuoNeb inhalations, antibiotics in the form of clindamycin and ceftriaxone, oral p rednisone. Chest x-ray reveals evidence of fluid volume overload. Objective - Vital Signs Vital signs: Vital Signs Temp 98.5 F 11/20/18 11:15 Pulse 60 11/20/18 11:15 Resp 18 11/20/18 11:15 BP 151/70 11/20/18 11:15 Pulse Ox 96 11/20/18 11:15 Intake & Output 11/19/18 11/20/18 11/20/18 18:59 06:59 18:59 Intake Total 353 100 Output Total 1 400 Balance 352 -400 100 Weight 57.8 kg Intake: Oral 353 100 Output: Urine 1 400 Other: Voiding Method Bedside Commode # Voids 1 1 # Bowel Movements 1 - Exam GENERAL EXAM: Alert, pleasant, 78-year-old female, on 2 L/m per nasal cannula with a pulse ox of 96% comfortable in no apparent distress. HEAD: Normocephalic/atraumatic. EYES: Normal reaction of pupils, equal size. Conjunctiva pink, sclera white. NOSE: Clear with pink turbinates. THROAT: No erythema or exudates. NECK: No masses, no JVD, no thyroid enlargement, no adenopathy. CHEST: No chest wall deformity. Symmetrical expansion. LUNGS: Equal air entry with no crackles, wheeze, rhonchi or dullness. CVS: Regular rate and rhythm, normal S1 and S2, no gallops, no murmurs, no rubs ABDOMEN: Soft, nontender. No hepatosplenomegaly, normal bowel sounds, no guarding or rigidity. EXTREMITIES: No clubbing, no edema, no cyanosis, 2+ pulses and upper and lower extremities. MUSCULOSKELETAL: Muscle strength and tone normal. SPINE: No scoliosis or deformity SKIN: No rashes CENTRAL NERVOUS SYSTEM: No focal deficits, tone is normal in all 4 extremities. PSYCHIATRIC: Alert and oriented -3. Appropriate affect. Intact judgment and insight. - Labs CBC & Chem 7: 11/20/18 06:36 11/20/18 06:36 Labs: Abnormal Lab Results - Last 24 Hours (Table) 11/19/18 11/20/18 11/20/18 Range/Units 23:27 06:36 06:36 WBC 10.7 H (3.8-10.6) k/uL RBC 2.76 L (3.80-5.40) m/uL Hgb 8.4 L (11.4-16.0) gm/dL Hct 26.2 L (34.0-46.0) % Neutrophils # 9.0 H (1.3-7.7) k/uL Lymphocytes # 0.8 L (1.0-4.8) k/uL Chloride 111 H (98-107) mmol/L Carbon Dioxide 17 L (22-30) mmol/L BUN 32 H (7-17) mg/dL Creatinine 1.80 H (0.52-1.04) mg/dL Calcium 8.1 L (8.4-10.2) mg/dL Troponin I 0.063 H* (0.000-0.034) ng/mL Microbiology - Last 24 Hours (Table) 11/18/18 06:39 Blood Culture - Preliminary Blood No Growth after 48 hours 11/18/18 20:20 Urine Culture - Final Urine,Clean Catch 11/18/18 12:58 Blood Culture - Preliminary Blood No Growth after 24 hours Assessment and Plan Assessment: Assessment: #1. Doubt significant aspiration or aspiration pneumonia #2. Large hiatal hernia #3. Nausea, vomiting and back pain, improved #4. Rule out myocardial ischemia #5. History of hypertension #6. History of systemic lupus erythematosus #7. Hypothyroidism Plan: The patient was seen and evaluated by Dr. Rao. Chest x-ray and labs reviewed. He did order a one-time dose of Lasix 40 mg IVP it appears to have been discontinued prior to giving. We'll see the patient on as-needed basis. I, the cosigning physician, performed a history & physical examination of the pa victorina. Lungs sounds with crackles in the posterior bases. Maintaining good O2 saturations in the 90s on 2 L/m per nasal cannula. I discussed the assessment and plan of care with my nurse practitioner, Quita Baig. I attest to the above note as dictated by her.
[2018-11-20] MEDS: IPRATROPIUM-ALBUTEROL 3 ML NEB INHALATION SCH ×2 (16:32→20:16)
[2018-11-20] MEDS: SENNOSIDES 8.6 MG TAB PO PRN (23:14)
[2018-11-21] MEDS: LEVOTHYROXINE 125 MCG TAB PO SCH (05:54)
[2018-11-21] MEDS: CLINDAMYCIN 300 MG in DEXTROSE 5% IN WATER 50 ML IVPB SCH ×8 (05:54→23:06)
[2018-11-21] MEDS: MIDODRINE 5 MG TAB PO SCH ×3 (05:54→17:23)
[2018-11-21 06:48] LABS: Basophils % (A) 0 %; Eosinophils % (A) 0 %; HCT 25.8 % (34.0-46.0); HGB 8.4 gm/dL (11.4-16.0); Lymphocytes # (A) 0.9 k/uL (1.0-4.8); Lymphocytes % (A) 10 %; MCH 30.5 pg (25.0-35.0); MCHC 32.3 g/dL (31.0-37.0); MCV 94.2 fL (80.0-100.0); Mean Platelet Volume 6.8; Monocytes # (A) 0.5 k/uL (0-1.0); Monocytes % (A) 5 %; Neutrophils # (A) 8.1 k/uL (1.3-7.7); Neutrophils % (A) 83 %; Platelet Count 387 k/uL (150-450); RBC 2.74 m/uL (3.80-5.40); RDW 13.3 % (11.5-15.5); WBC 9.8 k/uL (3.8-10.6)
[2018-11-21 06:58] LABS: Calcium 8.4 mg/dL (8.4-10.2); Potassium 4.7 mmol/L (3.5-5.1)
[2018-11-21] MEDS: IPRATROPIUM-ALBUTEROL 3 ML NEB INHALATION SCH ×3 (07:38→21:05)
[2018-11-21] MEDS: PANTOPRAZOLE 40 MG TABLET PO SCH (08:05)
[2018-11-21] MEDS: MONTELUKAST 10 MG TAB PO SCH (09:38)
[2018-11-21] MEDS: ASPIRIN 81 MG PO SCH (09:38)
[2018-11-21] MEDS: predniSONE 10 MG TAB PO SCH (09:38)
[2018-11-21] MEDS: CLOPIDOGREL 75 MG TAB PO SCH (09:38)
[2018-11-21] MEDS: ATORVASTATIN 20 MG TAB PO SCH (09:38)
[2018-11-21] MEDS ORDERED: FUROSEMIDE 10 MG/ML 2 ML VIAL IV ONE (11:21)
--- NOTE | 2018-11-21 13:26 | P.PN ---
Subjective this is a pleasant 78 yo F with pmh of coronary artery disease , congestive heart failure , hearing difficutly , hypertension, hypothyroidism, lupus, patient has been resected discharge from [facility] 2 days ago for Klebsiella UTI and descending colitis, she was discharged on 7 more days of Ceftin. Patient is fully awake and she couldn't provide history. Patient has been complaining of from nausea vomiting for the last 2 days, she vomited about 3 times with no blood in it, mostly bile., associated with generalized weakness. Also she complaining of from pleuritic-like central chest pain, non-radiating, increased by coughing and deep inspiration. Patient was not eating well for a couple days. However she denies abdominal pain and her abdominal exam looks benign. On admission patient has fever of 101.6, blood pressure 134/75 and currently 81/42. Labs shows no leukocytosis, creatinine 1.5, on discharge was 1.92 days ago. Patient has elevated troponin of 0.09, sodium 136, hemoglobin 9.4. EKG showing paced rhythm at 92 with QTC 556, chest x-ray is suspicious for aspiration pneumonia, hiatal hernia with air-fluid level. On admission patient got normal saline about 1 L started on 100 mL/h, Protonix, no antibiotics has be en started. 11/19/2018 Patient is awake and alert today, she looks, with no distress. She denies coughing, chest pain or dyspnea while sitting in bed. No abdominal pain or nausea vomiting. She is eating a little bit this morning, however generally she feels better. Fever has subsided. Blood pressure is 113/59, she is saturating 98% on room air. Cardiology are check an echo and most likely there will be no further cardiac intervention. Pulmonary already evaluated the patient.leukocyto sis is improving down to 11.3. Creatinine is 1.9. However sugar was on the low side today. Discuss with high school social studies teacher. Expected surgery discharge patient keeps improving. Keep head of bed elevated leukocytosis improving down to and 10.7 K, creatinine 1.8 and potassium 5. 11/20/2018 Patient still have some dyspnea, she is coping with couple times of [place] phlegm. No chest pain. Chest chronic low back pain. No diarrhea or change in urine habits. No dizziness. Patient feels generally weak and plan for her to go to [facility] upon discharge for inpatient rehab. Vitals stable and she saturating 96% on 2 L oxygen via NC, patient become more short of breath was taken oxygen off. She's been afebrile. Leukocytosis is improving down to 10.7 K, creatinine is 1.8 and potassium 5.0. Patient remains on antibiotics. Fluids were stopped from yesterday. Patient also on a prednisone 30 mg and medial drain. Repeat chest x-ray today and start Colace/senna for constipation. 11/04/2018 Patient still little short of breath but her dyspnea is improving. She remains on oxygen and she saturating high 90s. Leukocytes came back to normal at 9.8. Creatinine 1.8. Cardiology and pulmonary team already cleared the patient and found her stable for discharge. Patient is pending placement to subacute rehab whenever she is ready. Because of her dyspnea one more dose of intravenous Lasix 20 mg a provided. Objective - Vital Signs Vital signs: Vital Signs Temp 98.0 F 11/21/18 07:50 Pulse 68 11/21/18 13:13 Resp 18 11/21/18 07:50 BP 121/71 11/21/18 07:50 Pulse Ox 96 11/21/18 07:50 Intake & Output 11/20/18 11/21/18 11/21/18 18:59 06:59 18:59 Intake Total 640 240 Output Total 1000 Balance 640 -1000 240 Weight 56.2 kg Intake: Oral 640 240 Output: Urine 1000 Other: Voiding Method Bedside Commode - Exam GENERAL: The patient is alert and oriented x3, not in any acute distress. Well developed, well nourished. HEENT: Pupils are round and equally reacting to light. EOMI. No scleral icterus. No conjunctival pallor. Normocephalic, atraumatic. No pharyngeal erythema. No thyromegaly. CARDIOVASCULAR: S1 and S2 present. No murmurs, rubs, or gallops. PULMONARY: Chest is clear to auscultation, no wheezing or crackles. ABDOMEN: Soft, nontender, nondistended, normoactive bowel sounds. No palpable organomegaly. MUSCULOSKELETAL: No joint swelling or deformity. EXTREMITIES: No cyanosis, clubbing, or pedal edema. NEUROLOGICAL: Gross neurological examination did not reveal any focal deficits. SKIN: No rashes. - Labs CBC & Chem 7: 11/21/18 06:16 11/21/18 06:16 Labs: Abnormal Lab Results - Last 24 Hours (Table) 11/21/18 11/21/18 Range/Units 06:16 06:16 RBC 2.74 L (3.80-5.40) m/uL Hgb 8.4 L (11.4-16.0) gm/dL Hct 25.8 L (34.0-46.0) % Neutrophils # 8.1 H (1.3-7.7) k/uL Lymphocytes # 0.9 L (1.0-4.8) k/uL Chloride 110 H (98-107) mmol/L Carbon Dioxide 19 L (22-30) mmol/L BUN 36 H (7-17) mg/dL Creatinine 1.87 H (0.52-1.04) mg/dL Microbiology - Last 24 Hours (Table) 11/18/18 06:39 Blood Culture - Preliminary Blood No Growth after 72 hours 11/18/18 12:58 Blood Culture - Preliminary Blood No Growth after 48 hours Assessment and Plan Assessment: Severe sepsis, secondary to Possible aspiration pneumonia History hiatal hernia with air-fluid level Elevated troponin, rule out acute coronary syndrome Hypertension Recent urinary tract infection Recent descending colitis Chronic kidney disease History of GERD History of hypertension on medication History of hypertension on medodrine Diabetes mellitus Systemic lupus erythematosus on steroids Hypothyroidism Plan: This is a pleasant 78 years old female who presents with aspiration pneumonia and sepsis. Patient is ALLERGIC to penicillin. We will start her on clindamycin and ask for infectious disease consult and pulmonary consult. Business Development Assistant evaluation. Send blood culture, sputum culture and urine culture. Also defer 500 L of normal saline bolus, as her oxygen saturation on 96% on room air Labs and medication were reviewed. But nothing by mouth and swallow evaluation. Co ntinue same treatment. Continue with symptomatic treatment. Resume home medication. Monitor lytes and vitals. DVT and GI prophylaxis. Further recommendations of the clinical course of the patient DVT prophylaxis: Subcutaneous heparin GI Prophylaxis: Pepcid PT/OT: hold for now Prognosis is guarded Discussed with the family, including the son at bedside
[2018-11-21] MEDS: CHLORHEXIDINE GLUCONATE 15 ML CUP MUCOUS MEM SCH ×2 (16:22→21:22)
[2018-11-21] MEDS: CLOTRIMAZOLE TROCHE 10 MG TROCHE MUCOUS MEM SCH ×4 (16:22→23:02)
[2018-11-21] MEDS: SENNOSIDES 8.6 MG TAB PO PRN (17:28)
[2018-11-21] MEDS: BISACODYL 5 MG TABLET.DR PO PRN (21:28)
[2018-11-21] MEDS: ACETAMINOPHEN TAB 325 MG TAB PO PRN (23:01)
[2018-11-22] MEDS: MIDODRINE 5 MG TAB PO SCH ×3 (06:17→18:14)
[2018-11-22] MEDS: CLINDAMYCIN 300 MG in DEXTROSE 5% IN WATER 50 ML IVPB SCH ×4 (06:18→12:12)
[2018-11-22] MEDS: CLOTRIMAZOLE TROCHE 10 MG TROCHE MUCOUS MEM SCH ×5 (06:18→22:40)
[2018-11-22] MEDS: LEVOTHYROXINE 125 MCG TAB PO SCH (06:18)
[2018-11-22] MEDS: PANTOPRAZOLE 40 MG TABLET PO SCH (06:18)
[2018-11-22] MEDS: IPRATROPIUM-ALBUTEROL 3 ML NEB INHALATION SCH ×3 (06:53→19:12)
[2018-11-22] MEDS: predniSONE 10 MG TAB PO SCH (09:15)
[2018-11-22] MEDS: MONTELUKAST 10 MG TAB PO SCH (09:15)
[2018-11-22] MEDS: CHLORHEXIDINE GLUCONATE 15 ML CUP MUCOUS MEM SCH ×2 (09:15→20:42)
[2018-11-22] MEDS: ATORVASTATIN 20 MG TAB PO SCH (09:15)
[2018-11-22] MEDS: ASPIRIN 81 MG PO SCH (09:15)
[2018-11-22] MEDS: CLOPIDOGREL 75 MG TAB PO SCH (09:15)
[2018-11-22 11:01] VITALS: BMI 26.8
[2018-11-22] MEDS: BISACODYL 5 MG TABLET.DR PO PRN (15:59)
[2018-11-22] MEDS: CLINDAMYCIN 150 MG CAP PO SCH ×2 (18:14→22:41)
--- NOTE | 2018-11-22 18:56 | P.PN ---
Subjective this is a pleasant 78 yo F with pmh of coronary artery disease , congestive heart failure , hearing difficutly , hypertension, hypothyroidism, lupus, patient has been resected discharge from [facility] 2 days ago for Klebsiella UTI and descending colitis, she was discharged on 7 more days of Ceftin. Patient is fully awake and she couldn't provide history. Patient has been complaining of from nausea vomiting for the last 2 days, she vomited about 3 times with no blood in it, mostly bile., associated with generalized weakness. Also she complaining of from pleuritic-like central chest pain, non-radiating, increased by coughing and deep inspiration. Patient was not eating well for a couple days. However she denies abdominal pain and her abdominal exam looks benign. On admission patient has fever of 101.6, blood pressure 134/75 and currently 81/42. Labs shows no leukocytosis, creatinine 1.5, on discharge was 1.92 days ago. Patient has elevated troponin of 0.09, sodium 136, hemoglobin 9.4. EKG showing paced rhythm at 92 with QTC 556, chest x-ray is suspicious for aspiration pneumonia, hiatal hernia with air-fluid level. On admission patient got normal saline about 1 L started on 100 mL/h, Protonix, no antibiotics has be en started. 11/19/2018 Patient is awake and alert today, she looks, with no distress. She denies coughing, chest pain or dyspnea while sitting in bed. No abdominal pain or nausea vomiting. She is eating a little bit this morning, however generally she feels better. Fever has subsided. Blood pressure is 113/59, she is saturating 98% on room air. Cardiology are check an echo and most likely there will be no further cardiac intervention. Pulmonary already evaluated the patient.leukocyto sis is improving down to 11.3. Creatinine is 1.9. However sugar was on the low side today. Discuss with aids social worker. Expected surgery discharge patient keeps improving. Keep head of bed elevated leukocytosis improving down to and 10.7 K, creatinine 1.8 and potassium 5. 11/20/2018 Patient still have some dyspnea, she is coping with couple times of [place] phlegm. No chest pain. Chest chronic low back pain. No diarrhea or change in urine habits. No dizziness. Patient feels generally weak and plan for her to go to [facility] upon discharge for inpatient rehab. Vitals stable and she saturating 96% on 2 L oxygen via [place], patient become more short of breath was taken oxygen off. She's been afebrile. Leukocytosis is improving down to 10.7 K, creatinine is 1.8 and potassium 5.0. Patient remains on antibiotics. Fluids were stopped from yesterday. Patient also on a prednisone 30 mg and medial drain. Repeat chest x-ray today and start Colace/senna for constipation. 11/04/2018 Patient still little short of breath but her dyspnea is improving. She remains on oxygen and she saturating high 90s. Leukocytes came back to normal at 9.8. Creatinine 1.8. Cardiology and pulmonary team already cleared the patient and found her stable for discharge. Patient is pending placement to subacute rehab whenever she is ready. Because of her dyspnea one more dose of intravenous Lasix 20 mg a provided. 11/22/2018 pt breathing is back to baseline ,she still has some coughing but improving , h er oxygenation is better , no chest pain , vital stable , no abd pain or n/v, she is tolerating diet well ,she still complain from constipation however she wants to c/w this regimen, and lactulose only as prn as she has small bowel movemetn yesterday , pt has been cleared by both cardiology and pulmonary teams , ID team will recommend he oral antibiotic upon discharge . pt is stable medically for discharge pending placement Objective - Vital Signs Vital signs: Vital Signs Temp 98.3 F 11/22/18 17:35 Pulse 78 11/22/18 17:35 Resp 18 11/22/18 17:35 BP 134/72 11/22/18 17:35 Pulse Ox 95 11/22/18 17:35 Intake & Output 11/21/18 11/22/18 11/22/18 18:59 06:59 18:59 Intake Total 820 420 Output Total 400 Balance 420 420 Weight 56.2 kg Intake: Intake, IV Titration 100 100 Amount Clindamycin 300 mg In 50 50 Dextrose 5% in Water 50 ml @ 50 mls/hr IVPB Q6HR RENAN Rx#:[id number] cefTRIAXone 2 gm In 50 50 Sodium Chloride 0.9% 50 ml @ 100 mls/hr IVPB Q24HR RENAN Rx#:[id number] Oral 720 320 Output: Urine 400 Other: Voiding Method Bedside Commode # Voids 1 1 1 # Bowel Movements 0 - Exam GENERAL: The patient is alert and oriented x3, not in any acute distress. Well developed, well nourished. HEENT: Pupils are round and equally reacting to light. EOMI. No scleral icterus. No conjunctival pallor. Normocephalic, atraumatic. No pharyngeal erythema. No thyromegaly. CARDIOVASCULAR: S1 and S2 present. No murmurs, rubs, or gallops. PULMONARY: Chest is clear to auscultation, no wheezing or crackles. ABDOMEN: Soft, nontender, nondistended, normoactive bowel sounds. No palpable organomegaly. MUSCULOSKELETAL: No joint swelling or deformity. EXTREMITIES: No cyanosis, clubbing, or pedal edema. NEUROLOGICAL: Gross neurological examination did not reveal any focal deficits. SKIN: No rashes. - Labs CBC & Chem 7: 11/21/18 06:16 11/21/18 06:16 Labs: Microbiology - Last 24 Hours (Table) 11/18/18 12:58 Blood Culture - Preliminary Blood No Growth after 96 hours 11/18/18 06:39 Blood Culture - Preliminary Blood No Growth after 96 hours Assessment and Plan Assessment: Severe sepsis, secondary to Possible aspiration pneumonia History hiatal hernia with air-fluid level Elevated troponin, rule out acute coronary syndrome Hypertension Recent urinary tract infection Recent descending colitis Chronic kidney disease History of GERD History of hypertension on medication History of hypertension on medodrine Diabetes mellitus Systemic lupus erythematosus on steroids Hypothyroidism Plan: This is a pleasant 78 years old female who presents with aspiration pneumonia and sepsis. Patient is ALLERGIC to penicillin. We will start her on clindamycin and ask for infectious disease consult and pulmonary consult. History Card Clerk evaluation. Send blood culture, sputum culture and urine culture. Also defer 500 L of normal saline bolus, as her oxygen saturation on 96% on room air Labs and medication were reviewed. But nothing by mouth and swallow evaluation. Continue same treatment. Continue with symptomatic treatment. Resume home medication. Monitor lytes and vitals. DVT and GI prophylaxis. Further recommendations of the clinical course of the patient DVT prophylaxis: Subcutaneous heparin GI Prophylaxis: Pepcid PT/OT: hold for now Prognosis is guarded Discussed with the family, including the son at bedside
[2018-11-22] MEDS: FUROSEMIDE 20 MG TAB PO SCH (20:07)
[2018-11-22] MEDS: LACTULOSE 20 GM/30 ML CUP PO PRN (20:08)
--- NOTE | 2018-11-22 22:12 | PN ---
PROGRESS NOTE DATE OF SERVICE: 11/22/2018. REASON FOR FOLLOWUP: Fever, question of possible aspiration pneumonitis. INTERVAL HISTORY: The patient's overall fever pattern has improved. The patient has been breathing comfortably. The patient did have a cough, not bringing up any sputum. No nausea, no vomiting. No abdominal pain. No diarrhea, but the patient is constipated. PHYSICAL EXAMINATION: Blood pressure 134/72 with a pulse of 73, temperature 98.3. She is 95% on room air. General description is an elderly female up in the bed in no distress. Respiratory system: Unlabored breathing. Decreased breath sounds in the bases. No wheeze. Heart S1, S2. Regular rate and rhythm. ABDOMEN: Soft. LABS: Hemoglobin 8.4, white 9.2, BUN of 36, creatinine 1.87. Blood culture has been negative. DIAGNOSTIC IMPRESSION AND PLAN: Patient with fever with concern for aspiration pneumonitis. The patient did have a large hiatal hernia. The patient fever responded to Rocephin and clindamycin to continue. We will monitor clinical course closely. Continue supportive care. MMODL / IJN: [id number] /
[2018-11-23 04:30] VITALS: BP 118/61; RESP 16; TEMP 98.7
[2018-11-23] MEDS: CLINDAMYCIN 150 MG CAP PO SCH ×2 (06:19→11:15)
[2018-11-23] MEDS: CLOTRIMAZOLE TROCHE 10 MG TROCHE MUCOUS MEM SCH ×2 (06:19→11:12)
[2018-11-23] MEDS: LEVOTHYROXINE 125 MCG TAB PO SCH (06:19)
[2018-11-23] MEDS: IPRATROPIUM-ALBUTEROL 3 ML NEB INHALATION SCH ×2 (07:09→13:36)
[2018-11-23] MEDS: MIDODRINE 5 MG TAB PO SCH ×2 (07:24→13:04)
[2018-11-23] MEDS: predniSONE 10 MG TAB PO SCH (07:24)
[2018-11-23] MEDS: ATORVASTATIN 20 MG TAB PO SCH (07:25)
[2018-11-23] MEDS: MONTELUKAST 10 MG TAB PO SCH (07:25)
[2018-11-23] MEDS: ASPIRIN 81 MG PO SCH (07:25)
[2018-11-23] MEDS: CLOPIDOGREL 75 MG TAB PO SCH (07:25)
[2018-11-23] MEDS: PANTOPRAZOLE 40 MG TABLET PO SCH (07:25)
[2018-11-23] MEDS: CHLORHEXIDINE GLUCONATE 15 ML CUP MUCOUS MEM SCH (07:26)
[2018-11-23] MEDS: FUROSEMIDE 20 MG TAB PO SCH (07:35)
[2018-11-23] MEDS: SENNOSIDES 8.6 MG TAB PO PRN (11:05)
[2018-11-23] MEDS: BISACODYL 5 MG TABLET.DR PO PRN (11:05)
[2018-11-23] MEDS: LACTULOSE 20 GM/30 ML CUP PO PRN (11:05)
--- NOTE | 2018-11-23 11:36 | P.DS ---
Providers Date of admission: 11/20/18 16:24 Attending physician: Da Armstrong Consults: 11/18/18 07:17 Consult Physician Urgent Consulting Provider: [facility] Consult Reason/Comments: elevated trop Do you want consulting provider notified?: Yes 11/18/18 12:05 Consult Physician Urgent Consulting Provider: Escobar Rao Consult Reason/Comments: possible aspiration pna Do you want consulting provider notified?: Yes Consult Physician Urgent Consulting Provider: Danyel Booker Consult Reason/Comments: aspiration pna Do you want consulting provider notified?: Yes Primary care physician: Lorenzo Mortensen Hospital Course: Diagnoses Severe sepsis, secondary to Possible aspiration pneumonia. 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 Resolved Recent descending colitis. Resolved Chronic kidney disease History of GERD History of hypertension on medication History of hypertension on medodrine Diabetes mellitus Systemic lupus erythematosus on steroids Hypothyroidism Hospital course: this is a pleasant 78 yo F with pmh of coronary artery disease , congestive heart failure , hearing difficultly , hypertension, hypothyroidism, lupus on steroids, patient has been recently discharge from [facility] days ago for Klebsiella UTI and descending colitis, she was discharged on 7 more days of Ceftin. And recently also was in the hospital for her heart disease. This M presents with respiratory symptoms, suspicious for aspiration pneumonia with large hiatal hernia and air fluid level on the chest x-ray. Patient has been evaluated by pulmonary and infectious disease team. Patient was treated with ceftriaxone and clindamycin and she showed interval improvement her febrile her resolved and her leukocytosis came back to normal. Her breathing treatment is back to baseline with no cough or chest pain. However given her history of congestive heart failure she might benefit from low-dose of Lasix 20 mg daily or every other day. Strategic Planning Specialist evaluated patient for elevated troponin and he recommended to continue with the current management. Patient is still complaining of from constipation, she is on several bar regiments. Patient can't follow-up in rehab . Patient with no abdominal pain. No nausea vomiting. She is tolerating diet well and her abdominal exam is benign. Because of her generalized weakness and multiple hospital admission at the same time, physical therapy evaluation recommended ECF for inpatient rehab. Patient will be discharged on antibiotics as per ID team Patient was cleared for discharge by cardiology, pulmonary and infectious disease team. Problems and management plan were discussed with the patient and he verbalized understanding and acceptance Patient was found stable and can be discharged to [facility] however he needs follow-up as an outpatient. Patient was instructed to follow up with her primary care doctor within the week. Patient agrees. See discharge instructions Gen: patient is a AAOx3, no distress CVS: S1-S2, RRR, no murmur Lungs: B/L CTA, no wheezing Abdomen: soft, no distention, no tenderness, positive bowel sounds Extremity: no leg edema or induration Time spent more than 35 minutes Patient Condition at Discharge: Stable Plan - Discharge Summary Discharge Rx Participant: No New Discharge Prescriptions: New Lactulose [Cephulac] 15 gm PO DAILY PRN ml PRN Reason: Constipation Clindamycin [Cleocin] 150 mg PO Q6HR 5 Days #20 cap Bisacodyl [Dulcolax] 5 mg PO DAILY PRN tablet. PRN Reason: Constipation Furosemide [Lasix] 20 mg PO Q48H tab Chlorhexidine Gluconate [Peridex] 15 ml MUCOUS MEM BID 3 Days #1 solution guaiFENesin SYRUP 100MG/5ML [Robitussin] 200 mg PO Q6H PRN cup PRN Reason: Cough Sennosides [Senokot] 8.6 mg PO BID PRN tab PRN Reason: Constipation Continue Hydroxychloroquine Sulfate [Plaquenil] 200 mg PO BID Montelukast [Singulair] 10 mg PO DAILY Losartan Potassium [Cozaar] 37.5 mg PO DAILY Fluticasone Nasal [place] [Flonase Nasal [place]] 1 spray EA NOSTRIL DAILY PRN PRN Reason: Nasal Congestion Metoprolol Succinate (ER) [Toprol XL] 25 mg PO DAILY Atorvastatin [Lipitor] 20 mg PO DAILY Acyclovir 5% Oint [Zovirax Oint] 1 applic TOPICAL QID Midodrine [ProAmatine] 5 mg PO TID Clopidogrel [Plavix] 75 mg PO DAILY Aspirin [Children's Aspirin] 81 mg PO DAILY Levothyroxine Sodium [Synthroid] 125 mcg PO DAILY Famotidine [Pepcid] 20 mg PO DAILY predniSONE 30 mg PO DAILY Discontinued Omeprazole 40 mg PO DAILY Cefuroxime [Ceftin] 250 mg PO BID Furosemide [Lasix] 20 mg PO BID Potassium Chloride ER [K-Dur 10] 10 meq PO DAILY Discharge Medication List Hydroxychloroquine Sulfate [Plaquenil] 200 mg PO BID 01/15/16 [History] Montelukast [Singulair] 10 mg PO DAILY 01/16/16 [History] Acyclovir 5% Oint [Zovirax Oint] 1 applic TOPICAL QID 11/18/18 [History] Aspirin [Children's Aspirin] 81 mg PO DAILY 11/18/18 [History] Atorvastatin [Lipitor] 20 mg PO DAILY 11/18/18 [History] Clopidogrel [Plavix] 75 mg PO DAILY 11/18/18 [History] Famotidine [Pepcid] 20 mg PO DAILY 11/18/18 [History] Fluticasone Nasal [place] [Flonase Nasal [place]] 1 spray EA NOSTRIL DAILY PRN 11/18/18 [History] Levothyroxine Sodium [Synthroid] 125 mcg PO DAILY 11/18/18 [History] Losartan Potassium [Cozaar] 37.5 mg PO DAILY 11/18/18 [History] Metoprolol Succinate (ER) [Toprol XL] 25 mg PO DAILY 11/18/18 [History] Midodrine [ProAmatine] 5 mg PO TID 11/18/18 [History] predniSONE 30 mg PO DAILY 11/18/18 [History] Bisacodyl [Dulcolax] 5 mg PO DAILY PRN tablet. 11/23/18 [Rx] Chlorhexidine Gluconate [Peridex] 15 ml MUCOUS MEM BID 3 Days #1 solution 11/23/18 [Rx] Clindamycin [Cleocin] 150 mg PO Q6HR 5 Days #20 cap 11/23/18 [Rx] Furosemide [Lasix] 20 mg PO Q48H tab 11/23/18 [Rx] Lactulose [Cephulac] 15 gm PO DAILY PRN ml 11/23/18 [Rx] Sennosides [Senokot] 8.6 mg PO BID PRN tab 11/23/18 [Rx] guaiFENesin SYRUP 100MG/5ML [Robitussin] 200 mg PO Q6H PRN cup 11/23/18 [Rx] Follow up Appointment(s)/Referral(s): [facility], [NON-STAFF] - Basha,Escobar, DO [Doctor of Osteopathic Medicine] - 12/01/18 2:45 pm Lorenzo Mortensen MD [Primary Care Provider] - 11/30/18 2:00 pm Mary [facility], [NON-STAFF] - Activity/Diet/Wound Care/Special Instructions: cardiac diet activity is limited till you see your doctor please monitor BMP and CBC closely Discharge Disposition: TRANSFER TO SNF/ECF
--- NOTE | 2018-11-23 12:48 | PN ---
PROGRESS NOTE DATE OF SERVICE: 11/23/2018 REASON FOR FOLLOWUP: Fever, possible aspiration pneumonitis. INTERVAL HISTORY: The patient has been afebrile. Patient has been breathing comfortably. The patient denies having any chest pain. Very minimal cough. No nausea, no vomiting. No abdominal pain. No diarrhea, the patient is constipated. PHYSICAL EXAMINATION: On examination, blood pressure 118/61 with a pulse of 68, temperature 98.7. She is 96% on room air. General description is an elderly female up in the bed in no distress. RESPIRATORY SYSTEM: Unlabored breathing with decreased breath sounds at the bases. No wheeze. HEART: S1, S2. Regular rate and rhythm. ABDOMEN: Soft, no tenderness. LABS: Hemoglobin 8.4, white count 9.8. BUN of 36, creatinine 1.87. DIAGNOSTIC IMPRESSION AND PLAN: Patient with fever, difficulty breathing. This patient did have a large hiatal hernia with concern for possible aspiration pneumonitis. Did overall well on Rocephin and plan to finish therapy with short course of oral Ceftin and close outpatient followup. Continue with supportive care. MMODL / IJN: [id number] /
[2018-11-23] MEDS: ACETAMINOPHEN TAB 325 MG TAB PO PRN (13:04)
[2018-11-23 13:45] VITALS: PULSE 80
[2018-11-25] MEDS ORDERED: FUROSEMIDE 20 MG TAB PO SCH (09:00)
== END 2018-11-23 14:38 | DRG 871 ==
LOC: EC 06:22 → 3SCARD 07:32 → OBSVTOIN 11-20 16:24 → 4MS4W 11-22 16:36
PROVIDERS: ADMIT Hospitalist; ATTEND Hospitalist
DX: A41.9 Sepsis, unspecified organism (principal); J69.0 Pneumonitis due to inhalation of food and vomit; N17.9 Acute kidney failure, unspecified; I44.2 Atrioventricular block, complete; J98.11 Atelectasis; I13.0 Hypertensive heart and chronic kidney disease with heart failure and stage 1 through stage 4 chronic kidney disease, or unspecified chronic kidney disease; N39.0 Urinary tract infection, site not specified; R65.20 Severe sepsis without septic shock; M32.9 Systemic lupus erythematosus, unspecified; E11.22 Type 2 diabetes mellitus with diabetic chronic kidney disease; I50.9 Heart failure, unspecified; E83.42 Hypomagnesemia; D64.9 Anemia, unspecified; N18.9 Chronic kidney disease, unspecified; G89.4 Chronic pain syndrome; K59.00 Constipation, unspecified; E78.5 Hyperlipidemia, unspecified; K52.9 Noninfective gastroenteritis and colitis, unspecified; K21.9 Gastro-esophageal reflux disease without esophagitis; E03.9 Hypothyroidism, unspecified; I25.10 Atherosclerotic heart disease of native coronary artery without angina pectoris; K44.9 Diaphragmatic hernia without obstruction or gangrene; R77.8 Other specified abnormalities of plasma proteins; H91.90 Unspecified hearing loss, unspecified ear; M19.90 Unspecified osteoarthritis, unspecified site; M54.5 Low back pain; I25.2 Old myocardial infarction; Z79.82 Long term (current) use of aspirin; Z79.02 Long term (current) use of antithrombotics/antiplatelets; Z79.890 Hormone replacement therapy; Z79.52 Long term (current) use of systemic steroids; Z79.899 Other long term (current) drug therapy; Z90.49 Acquired absence of other specified parts of digestive tract; Z95.0 Presence of cardiac pacemaker; Z87.891 Personal history of nicotine dependence; Z98.49 Cataract extraction status, unspecified eye; Z88.1 Allergy status to other antibiotic agents; Z88.5 Allergy status to narcotic agent; Z88.0 Allergy status to penicillin; Z88.2 Allergy status to sulfonamides; Z88.8 Allergy status to other drugs, medicaments and biological substances; Z80.0 Family history of malignant neoplasm of digestive organs
CPT/HCPCS: 36415; 71045; 71046; 76700; 80048; 80053; 83605; 83690; 83735; 83880; 84484; 85025; 85610; 85730; 87040; 87070; 87086; 87205; 93005; 93306; 94640; 94760; 96361; 96374; 96375; 99285